=== PATIENT | female | born 1940 ===

== ENCOUNTER 2017-05-28 16:23 | Inpatient (IN) | payer MEDICARE, OTHER ==
[~2017-05-28] VITALS: Ht 167.6 cm; Wt 64.9 kg
[2017-05-28] MEDS ORDERED: METHYL SALICYLATE/MENTHOL TOPICAL OINTMENT 29GM TUBE. TP PRN (23:00)
[2017-05-28] MEDS ORDERED: MAG HYDROX/AL HYDROX/SIMETH 30 ML ORAL.SUSP PO PRN (23:00)
[2017-05-28] MEDS ORDERED: ACETAMINOPHEN 325 MG TABLET PO PRN (23:00)
[2017-05-28] MEDS ORDERED: MAGNESIUM HYDROXIDE 2,400 MG/30 ML ORAL.SUSP. PO PRN (23:00)
[2017-05-28] MEDS ORDERED: ALPR0.5T6 PO (23:30)
[2017-05-28] MEDS ORDERED: MELO7.5T29 PO (23:30)
[2017-05-28] MEDS ORDERED: ENOX40DI SQ (23:30)
[2017-05-28] MEDS ORDERED: ARIP5TAB13 PO (23:30)
[2017-05-28] MEDS ORDERED: HALO2TAB PO (23:30)
[2017-05-28] MEDS ORDERED: MAG355OR11 PO (23:30)
[2017-05-28] MEDS ORDERED: L. R1CAP2 PO (23:30)
[2017-05-28] MEDS ORDERED: ACET325T9 PO ×2 (23:30)
[2017-05-28] MEDS ORDERED: MAGN2400 PO (23:30)
[2017-05-28] MEDS ORDERED: TRAZ50TA15 PO (23:30)
[2017-05-28] MEDS ORDERED: ATOR40TA59 PO (23:30)
[2017-05-28] MEDS ORDERED: LAMO25TA PO (23:30)
[2017-05-28] MEDS ORDERED: ESCITALOPRAM OX10 MG PO (23:30)
[2017-05-28 23:39] VITALS: BP 119/83
[2017-05-29] MEDS ORDERED: PNEUMOCOCCAL VAX SCREEN. MC PRN (02:15)
[2017-05-29] MEDS ORDERED: Influenza vaccine per PROTOCOL. MC PRN (02:15)
[2017-05-29] MEDS ORDERED: MAGNESIUM HYDROXIDE 2,400 MG/30 ML ORAL.SUSP. PO PRN (05:45)
[2017-05-29] MEDS ORDERED: ACETAMINOPHEN 325 MG TABLET PO PRN (05:45)
[2017-05-29 05:48] VITALS: BP 115/69
[2017-05-29 08:28] LABS: BASO # 0.1 x10^3/uL (0.0-0.2); BASO % 1 % (0-3); EOS # 0.4 x10^3/uL (0.0-0.7); EOS % 4 % (0-3); HEMATOCRIT 38.5 % (36.0-47.0); HEMOGLOBIN 13.5 g/dL (12.0-15.5); LYMPH # 1.1 x10^3/uL (1.0-4.8); LYMPH % 12 % (24-48); MEAN CORPUSCULAR HEMOGLOBIN 33 pg (25-35); MEAN CORPUSCULAR HGB CONC 35 g/dL (31-37); MEAN CORPUSCULAR VOLUME 93 fL (79-100); MONO # 0.6 x10^3/uL (0.0-1.1); MONO % 6 % (0-9); NEUT # 7.2 x10^3uL (1.8-7.7); NEUT % 77 % (31-73); PLATELET COUNT 223 x10^3/uL (140-400); RED BLOOD COUNT 4.14 x10^6/uL (3.50-5.40); WHITE BLOOD COUNT 9.3 x10^3/uL (4.0-11.0)
[2017-05-29 08:41] LABS: ALBUMIN 3.7 g/dL (3.4-5.0); ALBUMIN/GLOBULIN RATIO 1.1 (1.0-1.7); CALCIUM 9.3 mg/dL (8.5-10.1); CREATININE 0.6 mg/dL (0.6-1.0); GFR 97.5; MAGNESIUM 1.8 mg/dL (1.8-2.4); POTASSIUM 3.3 mmol/L (3.5-5.1); TOTAL BILIRUBIN 0.7 mg/dL (0.2-1.0); TOTAL PROTEIN 7.1 g/dL (6.4-8.2)
[2017-05-29] MEDS ORDERED: PNEUMOC CONJ VACC 23-VALENT 0.5 ML VIAL. VAX IM ONE (09:00)
[2017-05-29] MEDS ORDERED: FLU VACC QS2017-18 (36MOS+)/PF 0.5 ML SYRINGE. VAX IM ONE (09:00)
[2017-05-29] MEDS ORDERED: ENOXAPARIN 40 MG/0.4 ML DISP.SYRIN. SQ SCH (09:00)
[2017-05-29] MEDS: CITALOPRAM 20 MG TABLET. PO SCH (09:42)
[2017-05-29] MEDS: ACETAMINOPHEN 325 MG TABLET PO SCH ×4 (09:42→19:45)
[2017-05-29] MEDS: lamoTRIgine 25 MG TABLET. PO SCH (09:42)
[2017-05-29] MEDS: LACTOBACILLUS RHAMNOSUS GG 1 CAPSULE. PO SCH (09:42)
[2017-05-29] MEDS: ARIPiprazole 5 MG TABLET PO SCH (09:42)
[2017-05-29] MEDS: MELOXICAM 7.5 MG TABLET PO SCH (09:42)
[2017-05-29 11:16] LABS: BILIRUBIN,URINE NEG (NEG); CLARITY,URINE HAZY; COLOR,URINE YELLOW; GLUCOSE,URINE NEG (NEG); NITRITE,URINE NEG (NEG); UROBILINOGEN,URINE 0.2 mg/dL (0.2 mg/dL)
[2017-05-29 11:17] LABS: BACTERIA,URINE 0 /HPF (0-FEW); SQUAMOUS EPITHELIAL CELL,UR FEW /LPF
[2017-05-29] MEDS ORDERED: POTASSIUM CHLORIDE 20 MEQ TABLET.ER. PO ONE (12:00)
--- NOTE | 2017-05-29 12:23 | HP ---
ADMIT DATE: 05/28/2017 REASON FOR ADMISSION TO SENIOR BEHAVIORAL UNIT: This is a 76-year-old female who came via hospitalization at [facility] in [place]. She has been verbally aggressive, function has decreased and she has had increased confusion over the last week and was recently treated for urinary tract infection. PAST MEDICAL HISTORY: Recent admission at [facility] for aggressive behavior, urinary tract infection with ESBL in her urine, dementia, bipolar disorder, anemia. MEDICATIONS: Reviewed from the hospital and reconciled by myself. ALLERGIES: PENICILLIN. PAST SURGICAL HISTORY: Unknown. SOCIAL HISTORY: The patient states she grew up in [place]. She went to [employer]. She smoked briefly. She did have a drinking problem at some point. REVIEW OF SYSTEMS: The patient has no specific complaints. Due to her confusion, could not answer pertinent questions regarding review of systems. PHYSICAL EXAMINATION: VITAL SIGNS: Blood pressure 115/69, pulse 61, respirations 18, pulse ox 97% on room air, temperature 98.4, height 66 inches, weight 134.5 pounds. GENERAL: Pleasant elderly female who is sitting in a wheelchair. HEENT: TMs were occluded by wax bilaterally. Wax was soft and easily removed. The pupils are equal, round, react to light. Extraocular muscles were intact. Vision is 20/70 without glasses. She can identify red and green colors. NECK: Supple, without adenopathy. LUNGS: Clear to auscultation. CARDIOVASCULAR: Regular rhythm and rate with a 2/6 systolic murmur. ABDOMEN: Soft, nontender. No tenderness over her bladder. EXTREMITIES: Without edema. NEUROLOGIC: Cranial nerves are intact. The patient is cooperative. MUSCULOSKELETAL: Fails get up and go test. LABORATORY DATA: Review of labs from [place] reveals still very suspicious urine for infection with too numerous to count white cells. Urinalysis today shows 5-10 white cells, small leukocyte esterase, negative nitrites. CBC: Normal white count, hemoglobin 13.5. Potassium 3.3, magnesium 1.8. ASSESSMENT: 1. Dementia with behavior disturbance. 2. Bipolar disorder. 3. Recent urinary tract infection. We will wait for culture before treating this one. 4. Hypokalemia. 5. Fall risk. 6. Impaired mobility. PLAN: Replace her potassium. Discontinue her VTE prophylaxis and PT, OT. JEANIE JOHNSON DO DR: Olivia JOB#: [id number] / [id number]
[2017-05-29 14:23] LABS: THYROID STIM HORMONE (TSH) 4.026 uIU/mL (0.358-3.740)
[2017-05-29 15:57] VITALS: BP 98/48
--- NOTE | 2017-05-29 18:25 | PDOC ---
Exam Note: Martin Note: Please also refer to the separate dictated note~for this date of service dictated separately.~Patient seen individually. Discussed the patient with Nursing staff reviewed the chart.~Reviewed interim history and current functioning. Reviewed vital signs,~Labs/ Radiology~and current medications noted below. Continue current treatment with the changes noted in the dictated addendum note Assessment: Vital Signs: Vital Signs Date Time Temp Pulse Resp B/P (MAP) Pulse Ox O2 Delivery O2 Flow Rate FiO2 05/29/17 15:57 98.6 67 20 98/48 (65) 99 Room Air Labs: Laboratory Tests Test 05/29/17 07:50 05/29/17 10:45 White Blood Count 9.3 x10^3/uL (4.0-11.0) Red Blood Count 4.14 x10^6/uL (3.50-5.40) Hemoglobin 13.5 g/dL (12.0-15.5) Hematocrit 38.5 % (36.0-47.0) Mean Corpuscular Volume 93 fL (79-100) Mean Corpuscular Hemoglobin 33 pg (25-35) Mean Corpuscular Hemoglobin Concent 35 g/dL (31-37) Red Cell Distribution Width 14.0 % (11.5-14.5) Platelet Count 223 x10^3/uL (140-400) Neutrophils (%) (Auto) 77 % (31-73) H Lymphocytes (%) (Auto) 12 % (24-48) L Monocytes (%) (Auto) 6 % (0-9) Eosinophils (%) (Auto) 4 % (0-3) H Basophils (%) (Auto) 1 % (0-3) Neutrophils # (Auto) 7.2 x10^3uL (1.8-7.7) Lymphocytes # (Auto) 1.1 x10^3/uL (1.0-4.8) Monocytes # (Auto) 0.6 x10^3/uL (0.0-1.1) Eosinophils # (Auto) 0.4 x10^3/uL (0.0-0.7) Basophils # (Auto) 0.1 x10^3/uL (0.0-0.2) Sodium Level 144 mmol/L (136-145) Potassium Level 3.3 mmol/L (3.5-5.1) L Chloride Level 108 mmol/L (98-107) H Carbon Dioxide Level 28 mmol/L (21-32) Anion Gap 8 (6-14) Blood Urea Nitrogen 10 mg/dL (7-20) Creatinine 0.6 mg/dL (0.6-1.0) Estimated GFR (Cockcroft-Gault) 97.5 BUN/Creatinine Ratio 17 (6-20) Glucose Level 96 mg/dL (70-99) Calcium Level 9.3 mg/dL (8.5-10.1) Magnesium Level 1.8 mg/dL (1.8-2.4) Iron Level 74 ug/dL (50-170) Total Iron Binding Capacity 298 ug/dL (250-450) Iron Saturation 25 % (15-34) Total Bilirubin 0.7 mg/dL (0.2-1.0) Aspartate Amino Transferase (AST) 17 U/L (15-37) Alanine Aminotransferase (ALT) 32 U/L (14-59) Alkaline Phosphatase 137 U/L (46-116) H Total Protein 7.1 g/dL (6.4-8.2) Albumin 3.7 g/dL (3.4-5.0) Albumin/Globulin Ratio 1.1 (1.0-1.7) Triglycerides Level 111 mg/dL (0-150) Cholesterol Level 129 mg/dL (0-200) LDL Cholesterol, Calculated 63 mg/dL (0-100) VLDL Cholesterol, Calculated 22 mg/dL (0-40) Non-HDL Cholesterol Calculated 85 mg/dL (0-129) HDL Cholesterol 44 mg/dL (40-60) Cholesterol/HDL Ratio 2.0 Vitamin B12 Level 378 pg/mL (247-911) 25-Hydroxy Vitamin D Total 10.5 ng/mL (30-100) L Thyroid Stimulating Hormone (TSH) 4.026 uIU/mL (0.358-3.740) Urine Collection Type Unknown Urine Color Yellow Urine Clarity Hazy Urine pH 5.5 Urine Specific [place] 1.010 Urine Protein Neg (NEG-TRACE) Urine Glucose (UA) Neg mg/dL (NEG) Urine Ketones (Stick) Neg mg/dL (NEG) Urine Blood Small (NEG) Urine Nitrite Neg (NEG) Urine Bilirubin Neg (NEG) Urine Urobilinogen Dipstick 0.2 mg/dL (0.2 mg/dL) Urine Leukocyte Esterase Small (NEG) Urine RBC 3-5 /HPF (0-2) Urine WBC 5-10 /HPF (0-4) Urine Squamous Epithelial Cells Few /LPF Urine Bacteria 0 /HPF (0-FEW) Urine Mucus Slight /LPF Current Medications: Meds: Current Medications Acetaminophen (Tylenol) 650 mg PRN Q6HRS PRN PO PAIN / TEMP; Start 05/28/17 at 23:00 Multi-Ingredient Ointment (Analgesic [place]) 1 faraz PRN QID PRN TP MUSCLE PAIN; Start 05/28/17 at 23:00 Al Hydroxide/Mg Hydroxide (Mylanta Plus Xs) 15 ml PRN AFTMEALHC PRN PO DYSPEPSIA; Start 05/28/17 at 23:00 Magnesium Hydroxide (Milk Of Magnesia) 2,400 mg PRN QHS PRN PO CONSTIPATION; Start 05/28/17 at 23:00 Alprazolam (Xanax) 0.5 mg PRN TID PRN PO ANXIETY / AGITATION; Start 05/29/17 at 00:15 Aripiprazole (Abilify) 5 mg DAILY PO Last administered on 05/29/17 09:42; Start 05/29/17 at 09:00 Haloperidol (Haldol) 1 mg PRN BID PRN PO DELIRIUM; Start 05/29/17 at 00:15 Trazodone HCl (Desyrel) 50 mg QHS PO ; Start 05/29/17 at 21:00 Citalopram Hydrobromide (CeleXA) 20 mg DAILY PO Last administered on 09:42; Start 05/29/17 at 09:00 Influenza Virus Vaccine Quadrival (Fluarix Quad [id number] Syringe) 0.5 ml ONCE ONCE VAX IM Last administered on 05/29/17 09:47; Start 05/29/17 at 09:00; Stop 05/29/17 at 09:01; Status DC Pneumococcal Polyvalent Vaccine (Pneumovax 23) 0.5 ml ONCE ONCE VAX IM Last administered on 05/29/17 09:45; Start 05/29/17 at 09:00; Stop 05/29/17 at 09 :01; Status DC Info (FLU VACCINE per PROTOCOL) 1 ea PRN 1X PRN MC PER PROTOCOL; Start at 02:15 Pneumococcal Polyvalent Vaccine (Do NOT chart on this entry -- for MONITORING) 1 each PRN 1X PRN MC SEE COMMENTS; Start 05/29/17 at 02:15 Acetaminophen (Tylenol) 650 mg PRN Q6HRS PRN PO PAIN / TEMP; Start 05/29/17 at 05:45; Stop 05/29/17 at 12:08; Status DC Acetaminophen (Tylenol) 650 mg QID PO Last administered on 05/29/17 17:00; Start 05/29/17 at 09:00 Enoxaparin Sodium (Lovenox) 40 mg DAILY SQ Last administered on 05/29/17 09: 41; Start 05/29/17 at 09:00; Stop 05/29/17 at 12:08; Status DC Lamotrigine (LaMICtal) 25 mg DAILY PO Last administered on 05/29/17 09:42; Start 05/29/17 at 09:00 Meloxicam (Mobic) 7.5 mg DAILY PO Last administered on 05/29/17 09:42; Start 05/29/17 at 09:00 Atorvastatin Calcium (Lipitor) 40 mg QHS PO ; Start 05/29/17 at 21:00 Lactobacillus Rhamnosus (Culturelle) 1 cap DAILY PO Last administered on 09:42; Start 05/29/17 at 09:00 Magnesium Hydroxide (Milk Of Magnesia) 2,400 mg PRN Q12HR PRN PO CONSTIPATION; Start 05/29/17 at 05:45; Stop 05/29/17 at 12:08; Status DC Potassium Chloride (Klor-Con) 40 meq 1X ONCE PO Last administered on 13:40; Start 05/29/17 at 12:00; Stop 05/29/17 at 12:11; Status DC Active Scripts Active Reported Trazodone Hcl 50 Mg Tablet 50 Mg PO QHS Meloxicam 7.5 Mg Tablet 7.5 Mg PO DAILY Milk Of Magnesia (Magnesium Hydroxide) 2,400 Mg/10 Ml Oral.susp 2,400 Mg PO PRN Q12HR PRN Lamotrigine 25 Mg Tablet 25 Mg PO DAILY Culturelle Capsule (L. Rhamnosus GG/Inulin) 1 Each Cap.sprink 1 Each PO DAILY Haloperidol 2 Mg Tablet 1 Mg PO PRN BID PRN Escitalopram Oxalate 10 Mg Tablet 10 Mg PO DAILY Lovenox (Enoxaparin Sodium) 40 Mg/0.4 Ml Disp.syrin 40 Mg SQ DAILY Atorvastatin Calcium 40 Mg Tablet 40 Mg PO QHS Abilify (Aripiprazole) 5 Mg Tablet 5 Mg PO DAILY Maalox Advanced Suspension (Mag Hydrox/Aluminum Hyd/Simeth) 355 Ml Oral.susp 30 Ml PO PRN Q3HRS PRN Alprazolam 0.5 Mg Tablet 0.5 Mg PO PRN TID PRN Tylenol (Acetaminophen) 325 Mg Tablet 650 Mg PO PRN Q6HRS PRN Tylenol (Acetaminophen) 325 Mg Tablet 650 Mg PO QID I have reviewed the current psychotropics carefully including drug interactions. Risk benefit ratio favors no change other than as noted in my dictated progress note. Diagnosis: Problems: (1) Anxiety disorder (2) Dementia in Alzheimer's disease with delusions (3) Dementia in Alzheimer's disease with depression (4) Dementia, vascular, with delusions (5) Dementia, vascular, with depression (6) Impulse control disorder (7) Bipolar 1 disorder, mixed, moderate CHARLEY MCCLURE MD May 29, 2017 18:25
[2017-05-29] MEDS: traZODone 50 MG TABLET. PO SCH (19:45)
[2017-05-29] MEDS: ATORVASTATIN CALCIUM 20 MG TABLET PO SCH (19:45)
--- NOTE | 2017-05-29 19:48 | PDOC ---
Exam Note: Martin Note: Please also refer to the separate dictated note~for this date of service dictated separately.~Patient seen individually. Discussed the patient with Nursing staff reviewed the chart.~Reviewed interim history and current functioning. Reviewed vital signs,~Labs/ Radiology~and current medications noted below. Continue current treatment with the changes noted in the dictated addendum note Assessment: Vital Signs: Vital Signs Date Time Temp Pulse Resp B/P (MAP) Pulse Ox O2 Delivery O2 Flow Rate FiO2 05/29/17 15:57 98.6 67 20 98/48 (65) 99 Room Air Labs: Laboratory Tests Test 05/29/17 07:50 05/29/17 10:45 White Blood Count 9.3 x10^3/uL (4.0-11.0) Red Blood Count 4.14 x10^6/uL (3.50-5.40) Hemoglobin 13.5 g/dL (12.0-15.5) Hematocrit 38.5 % (36.0-47.0) Mean Corpuscular Volume 93 fL (79-100) Mean Corpuscular Hemoglobin 33 pg (25-35) Mean Corpuscular Hemoglobin Concent 35 g/dL (31-37) Red Cell Distribution Width 14.0 % (11.5-14.5) Platelet Count 223 x10^3/uL (140-400) Neutrophils (%) (Auto) 77 % (31-73) H Lymphocytes (%) (Auto) 12 % (24-48) L Monocytes (%) (Auto) 6 % (0-9) Eosinophils (%) (Auto) 4 % (0-3) H Basophils (%) (Auto) 1 % (0-3) Neutrophils # (Auto) 7.2 x10^3uL (1.8-7.7) Lymphocytes # (Auto) 1.1 x10^3/uL (1.0-4.8) Monocytes # (Auto) 0.6 x10^3/uL (0.0-1.1) Eosinophils # (Auto) 0.4 x10^3/uL (0.0-0.7) Basophils # (Auto) 0.1 x10^3/uL (0.0-0.2) Sodium Level 144 mmol/L (136-145) Potassium Level 3.3 mmol/L (3.5-5.1) L Chloride Level 108 mmol/L (98-107) H Carbon Dioxide Level 28 mmol/L (21-32) Anion Gap 8 (6-14) Blood Urea Nitrogen 10 mg/dL (7-20) Creatinine 0.6 mg/dL (0.6-1.0) Estimated GFR (Cockcroft-Gault) 97.5 BUN/Creatinine Ratio 17 (6-20) Glucose Level 96 mg/dL (70-99) Calcium Level 9.3 mg/dL (8.5-10.1) Magnesium Level 1.8 mg/dL (1.8-2.4) Iron Level 74 ug/dL (50-170) Total Iron Binding Capacity 298 ug/dL (250-450) Iron Saturation 25 % (15-34) Total Bilirubin 0.7 mg/dL (0.2-1.0) Aspartate Amino Transferase (AST) 17 U/L (15-37) Alanine Aminotransferase (ALT) 32 U/L (14-59) Alkaline Phosphatase 137 U/L (46-116) H Total Protein 7.1 g/dL (6.4-8.2) Albumin 3.7 g/dL (3.4-5.0) Albumin/Globulin Ratio 1.1 (1.0-1.7) Triglycerides Level 111 mg/dL (0-150) Cholesterol Level 129 mg/dL (0-200) LDL Cholesterol, Calculated 63 mg/dL (0-100) VLDL Cholesterol, Calculated 22 mg/dL (0-40) Non-HDL Cholesterol Calculated 85 mg/dL (0-129) HDL Cholesterol 44 mg/dL (40-60) Cholesterol/HDL Ratio 2.0 Vitamin B12 Level 378 pg/mL (247-911) 25-Hydroxy Vitamin D Total 10.5 ng/mL (30-100) L Thyroid Stimulating Hormone (TSH) 4.026 uIU/mL (0.358-3.740) Urine Collection Type Unknown Urine Color Yellow Urine Clarity Hazy Urine pH 5.5 Urine Specific [place] 1.010 Urine Protein Neg (NEG-TRACE) Urine Glucose (UA) Neg mg/dL (NEG) Urine Ketones (Stick) Neg mg/dL (NEG) Urine Blood Small (NEG) Urine Nitrite Neg (NEG) Urine Bilirubin Neg (NEG) Urine Urobilinogen Dipstick 0.2 mg/dL (0.2 mg/dL) Urine Leukocyte Esterase Small (NEG) Urine RBC 3-5 /HPF (0-2) Urine WBC 5-10 /HPF (0-4) Urine Squamous Epithelial Cells Few /LPF Urine Bacteria 0 /HPF (0-FEW) Urine Mucus Slight /LPF Current Medications: Meds: Current Medications Acetaminophen (Tylenol) 650 mg PRN Q6HRS PRN PO PAIN / TEMP; Start 05/28/17 at 23:00 Multi-Ingredient Ointment (Analgesic [place]) 1 faraz PRN QID PRN TP MUSCLE PAIN; Start 05/28/17 at 23:00 Al Hydroxide/Mg Hydroxide (Mylanta Plus Xs) 15 ml PRN AFTMEALHC PRN PO DYSPEPSIA; Start 05/28/17 at 23:00 Magnesium Hydroxide (Milk Of Magnesia) 2,400 mg PRN QHS PRN PO CONSTIPATION; Start 05/28/17 at 23:00 Alprazolam (Xanax) 0.5 mg PRN TID PRN PO ANXIETY / AGITATION; Start 05/29/17 at 00:15 Aripiprazole (Abilify) 5 mg DAILY PO Last administered on 05/29/17 09:42; Start 05/29/17 at 09:00 Haloperidol (Haldol) 1 mg PRN BID PRN PO DELIRIUM; Start 05/29/17 at 00:15 Trazodone HCl (Desyrel) 50 mg QHS PO Last administered on 05/29/17 19:45; Start 05/29/17 at 21:00 Citalopram Hydrobromide (CeleXA) 20 mg DAILY PO Last administered on 09:42; Start 05/29/17 at 09:00 Influenza Virus Vaccine Quadrival (Fluarix Quad [id number] Syringe) 0.5 ml ONCE ONCE VAX IM Last administered on 05/29/17 09:47; Start 05/29/17 at 09:00; Stop 05/29/17 at 09:01; Status DC Pneumococcal Polyvalent Vaccine (Pneumovax 23) 0.5 ml ONCE ONCE VAX IM Last administered on 05/29/17 09:45; Start 05/29/17 at 09:00; Stop 05/29/17 at 09 :01; Status DC Info (FLU VACCINE per PROTOCOL) 1 ea PRN 1X PRN MC PER PROTOCOL; Start at 02:15 Pneumococcal Polyvalent Vaccine (Do NOT chart on this entry -- for MONITORING) 1 each PRN 1X PRN MC SEE COMMENTS; Start 05/29/17 at 02:15 Acetaminophen (Tylenol) 650 mg PRN Q6HRS PRN PO PAIN / TEMP; Start 05/29/17 at 05:45; Stop 05/29/17 at 12:08; Status DC Acetaminophen (Tylenol) 650 mg QID PO Last administered on 05/29/17 19:45; Start 05/29/17 at 09:00 Enoxaparin Sodium (Lovenox) 40 mg DAILY SQ Last administered on 05/29/17 09: 41; Start 05/29/17 at 09:00; Stop 05/29/17 at 12:08; Status DC Lamotrigine (LaMICtal) 25 mg DAILY PO Last administered on 05/29/17 09:42; Start 05/29/17 at 09:00 Meloxicam (Mobic) 7.5 mg DAILY PO Last administered on 05/29/17 09:42; Start 05/29/17 at 09:00 Atorvastatin Calcium (Lipitor) 40 mg QHS PO Last administered on 05/29/17 19: 45; Start 05/29/17 at 21:00 Lactobacillus Rhamnosus (Culturelle) 1 cap DAILY PO Last administered on 09:42; Start 05/29/17 at 09:00 Magnesium Hydroxide (Milk Of Magnesia) 2,400 mg PRN Q12HR PRN PO CONSTIPATION; Start 05/29/17 at 05:45; Stop 05/29/17 at 12:08; Status DC Potassium Chloride (Klor-Con) 40 meq 1X ONCE PO Last administered on 13:40; Start 05/29/17 at 12:00; Stop 05/29/17 at 12:11; Status DC Active Scripts Active Reported Trazodone Hcl 50 Mg Tablet 50 Mg PO QHS Meloxicam 7.5 Mg Tablet 7.5 Mg PO DAILY Milk Of Magnesia (Magnesium Hydroxide) 2,400 Mg/10 Ml Oral.susp 2,400 Mg PO PRN Q12HR PRN Lamotrigine 25 Mg Tablet 25 Mg PO DAILY Culturelle Capsule (L. Rhamnosus GG/Inulin) 1 Each Cap.sprink 1 Each PO DAILY Haloperidol 2 Mg Tablet 1 Mg PO PRN BID PRN Escitalopram Oxalate 10 Mg Tablet 10 Mg PO DAILY Lovenox (Enoxaparin Sodium) 40 Mg/0.4 Ml Disp.syrin 40 Mg SQ DAILY Atorvastatin Calcium 40 Mg Tablet 40 Mg PO QHS Abilify (Aripiprazole) 5 Mg Tablet 5 Mg PO DAILY Maalox Advanced Suspension (Mag Hydrox/Aluminum Hyd/Simeth) 355 Ml Oral.susp 30 Ml PO PRN Q3HRS PRN Alprazolam 0.5 Mg Tablet 0.5 Mg PO PRN TID PRN Tylenol (Acetaminophen) 325 Mg Tablet 650 Mg PO PRN Q6HRS PRN Tylenol (Acetaminophen) 325 Mg Tablet 650 Mg PO QID I have reviewed the current psychotropics carefully including drug interactions. Risk benefit ratio favors no change other than as noted in my dictated progress note. Diagnosis: Problems: (1) Anxiety disorder (2) Impulse control disorder (3) Dementia, vascular, with depression (4) Dementia, vascular, with delusions (5) Bipolar 1 disorder, mixed, moderate (6) Dementia in Alzheimer's disease with depression (7) Dementia in Alzheimer's disease with delusions CHARLEY MCCLURE MD May 29, 2017 19:48
[2017-05-29 20:14] LABS: T3 TOTAL 117 ng/dL (71-180); THYROXINE 8.1 ug/dL (4.5-12.0)
[2017-05-30 01:07] LABS: HEMOGLOBIN A1C 5.3 % (4.8-5.6)
--- NOTE | 2017-05-30 03:49 | HP ---
ADMIT DATE: 05/29/2017 PSYCHIATRIC ADMISSION HISTORY/EVALUATION This note covers elements not covered in my initial note of 05/29/2017. IDENTIFYING DATA: The patient is a 76-year-old female admitted to us from the medical/surgical floor [facility] in [place] referred by her primary care physician on account of worsening confusion, verbal aggression, yelling, verbally abusive, labile in her mood, delusional, screaming to call the police that somebody had abducted her, crying uncontrollably. She had failed outpatient treatment and had initially been referred to [facility] from the Memory Care Unit at [facility] in [place]. CHIEF COMPLAINT: "There is no problem with my memory ____ have told me in the past, I have bipolar disorder." The patient is admitted by her legal guardian Diana Parker. HISTORY OF PRESENT ILLNESS: The patient has a history of dementia, Alzheimer's, vascular type and history of bipolar disorder. She has been residing at [facility] recently getting increasingly agitated, aggressive, delusional. Her behaviors have been dangerous at the [facility], unmanageable, and failed outpatient psychiatric interventions resulting in the referral to [facility] in [place]. She was diagnosed there with an UTI, which was treated, but even after resolution of UTI, behaviors persisted with marked mood lability, psychosis, agitation, aggression, resulting in this referral. Per nursing report, during the day on 05/29/2017, she has marked variation of mood varying from using the F word with the nursing staff 1 minute to the next minute. Referring to them as "hi honey." PAST MEDICAL HISTORY: Positive for anemia, dementia, and UTI. ALLERGIES: PENICILLIN. CODE STATUS: She is a full code. ACCU-CHEKS: None. DIET: Regular. Takes her medications as a whole. Repeat UA on 05/28/2017, has reflex to culture. CURRENT PSYCHOTROPICS: Xanax 0.5 mg t.i.d. p.r.n., Abilify 5 mg a day, Haldol 1 mg b.i.d. p.r.n., Lexapro 10 mg a day, Lamictal 25 mg b.i.d., and trazodone 50 mg at bedtime. FAMILY HISTORY: Noncontributory. SOCIAL HISTORY: No alcohol, drug abuse, physical, sexual or elder abuse history is noted. Not known to be a perpetrator. MENTAL STATUS EXAMINATION: The patient was seen individually the evening of 05/29/2017. She states she has no memory problems, but was unaware of the year, month or date or the place where she was. She is unable to do serial sevens, spell "world" forward or backward, somewhat labile in her mood, hyperverbal at times. Insight, judgment, recent and remote memory, attention, concentration, fund of knowledge poor, consistent with her diagnosis. REACTION TO HOSPITALIZATION: The patient is oblivious of this. ASSETS: Supportive legal guardian. Stable living at the above [facility]. IMPRESSION: Major neurocognitive disorder, Alzheimer, vascular with depression, delusion, behavioral disturbance; anxiety disorder, unspecified; impulse control disorder, unspecified; bipolar 1 disorder mixed with psychotic features. Rest as above including possible urinary tract infection. PLAN: Admit to Geropsychiatry Unit at [facility]. I will see the patient daily individually from a psychiatric standpoint. We would continue the patient on her current psychotropics. Medical followup per Dr. Marie/Dr. Styles. We will have a CT head done if one has not been done in the recent past. Further changes in psychotropics will be initiated after baseline assessment. MAN Sean MCCLURE MD DR: IRENE/bora JOB#: [id number] / [id number]
[2017-05-30 05:53] VITALS: BP 114/68
[2017-05-30] MEDS: CITALOPRAM 20 MG TABLET. PO SCH (08:34)
[2017-05-30] MEDS: MELOXICAM 7.5 MG TABLET PO SCH ×2 (08:34→09:50)
[2017-05-30] MEDS: LACTOBACILLUS RHAMNOSUS GG 1 CAPSULE. PO SCH (08:34)
[2017-05-30] MEDS: lamoTRIgine 25 MG TABLET. PO SCH (08:34)
[2017-05-30] MEDS: ACETAMINOPHEN 325 MG TABLET PO SCH ×4 (08:34→19:20)
[2017-05-30] MEDS: ARIPiprazole 5 MG TABLET PO SCH (08:34)
--- NOTE | 2017-05-30 13:04 | EKG ---
[facility] [address] [place] [address] Test Date: 2017-05-29 Test Time: 12:57:22 Pat Name: BENIGNO MORALES Department: Room: [address] [place] [address] Gender: Content Manager: : 1940 Requested By: CHARLEY MCCLURE Order Number: [id number] Reading MD: Kian Belcher Measurements Intervals [place]over Rate: P: MT: QRS: QRSD: T: QT: QTc: Interpretive Statements No previous ECG available for comparison Electronically Signed On 06-06-2017 9:26:26 [employer] STRAIGHT[employer] by Kian Belcher
[2017-05-30] MEDS: ALPRAZolam 0.5 MG TABLET PO PRN (15:25)
[2017-05-30 15:55] VITALS: BP 137/67
--- NOTE | 2017-05-30 17:43 | PDOC ---
Exam Note: Martin Note: Please also refer to the separate dictated note~for this date of service dictated separately.~Patient seen individually. Discussed the patient with Nursing staff reviewed the chart.~Reviewed interim history and current functioning. Reviewed vital signs,~Labs/ Radiology~and current medications noted below. Continue current treatment with the changes noted in the dictated addendum note Assessment: Vital Signs: Vital Signs Date Time Temp Pulse Resp B/P (MAP) Pulse Ox O2 Delivery O2 Flow Rate FiO2 05/30/17 15:55 99.7 85 20 137/67 (90) 96 05/29/17 15:57 Room Air I&O Intake and Output 05/30/17 06:59 Intake Total 780 ml Balance 780 ml Intake Oral 780 ml Current Medications: Meds: Current Medications Acetaminophen (Tylenol) 650 mg PRN Q6HRS PRN PO PAIN / TEMP; Start 05/28/17 at 23:00 Multi-Ingredient Ointment (Analgesic [place]) 1 faraz PRN QID PRN TP MUSCLE PAIN; Start 05/28/17 at 23:00 Al Hydroxide/Mg Hydroxide (Mylanta Plus Xs) 15 ml PRN AFTMEALHC PRN PO DYSPEPSIA; Start 05/28/17 at 23:00 Magnesium Hydroxide (Milk Of Magnesia) 2,400 mg PRN QHS PRN PO CONSTIPATION; Start 05/28/17 at 23:00 Alprazolam (Xanax) 0.5 mg PRN TID PRN PO ANXIETY / AGITATION Last administered on 05/30/17 15:25; Start 05/29/17 at 00:15 Aripiprazole (Abilify) 5 mg DAILY PO Last administered on 05/30/17 08:34; Start 05/29/17 at 09:00; Stop 05/30/17 at 17:17; Status DC Haloperidol (Haldol) 1 mg PRN BID PRN PO DELIRIUM; Start 05/29/17 at 00:15 Trazodone HCl (Desyrel) 50 mg QHS PO Last administered on 05/29/17 19:45; Start 05/29/17 at 21:00 Citalopram Hydrobromide (CeleXA) 20 mg DAILY PO Last administered on 08:34; Start 05/29/17 at 09:00 Influenza Virus Vaccine Quadrival (Fluarix Quad [id number] Syringe) 0.5 ml ONCE ONCE VAX IM Last administered on 05/29/17 09:47; Start 05/29/17 at 09:00; Stop 05/29/17 at 09:01; Status DC Pneumococcal Polyvalent Vaccine (Pneumovax 23) 0.5 ml ONCE ONCE VAX IM Last administered on 05/29/17 09:45; Start 05/29/17 at 09:00; Stop 05/29/17 at 09 :01; Status DC Info (FLU VACCINE per PROTOCOL) 1 ea PRN 1X PRN MC PER PROTOCOL; Start at 02:15 Pneumococcal Polyvalent Vaccine (Do NOT chart on this entry -- for MONITORING) 1 each PRN 1X PRN MC SEE COMMENTS; Start 05/29/17 at 02:15 Acetaminophen (Tylenol) 650 mg PRN Q6HRS PRN PO PAIN / TEMP; Start 05/29/17 at 05:45; Stop 05/29/17 at 12:08; Status DC Acetaminophen (Tylenol) 650 mg QID PO Last administered on 05/30/17 17:37; Start 05/29/17 at 09:00 Enoxaparin Sodium (Lovenox) 40 mg DAILY SQ Last administered on 05/29/17 09: 41; Start 05/29/17 at 09:00; Stop 05/29/17 at 12:08; Status DC Lamotrigine (LaMICtal) 25 mg DAILY PO Last administered on 05/30/17 08:34; Start 05/29/17 at 09:00 Meloxicam (Mobic) 7.5 mg DAILY PO Last administered on 05/30/17 09:50; Start 05/29/17 at 09:00 Atorvastatin Calcium (Lipitor) 40 mg QHS PO Last administered on 05/29/17 19: 45; Start 05/29/17 at 21:00 Lactobacillus Rhamnosus (Culturelle) 1 cap DAILY PO Last administered on 08:34; Start 05/29/17 at 09:00 Magnesium Hydroxide (Milk Of Magnesia) 2,400 mg PRN Q12HR PRN PO CONSTIPATION; Start 05/29/17 at 05:45; Stop 05/29/17 at 12:08; Status DC Potassium Chloride (Klor-Con) 40 meq 1X ONCE PO Last administered on t 13:40; Start 05/29/17 at 12:00; Stop 05/29/17 at 12:11; Status DC Quetiapine Fumarate (SEROquel) 12.5 mg BID@0900,1300 PO ; Start 05/31/17 at 09: 00 Active Scripts Active Reported Trazodone Hcl 50 Mg Tablet 50 Mg PO QHS Meloxicam 7.5 Mg Tablet 7.5 Mg PO DAILY Milk Of Magnesia (Magnesium Hydroxide) 2,400 Mg/10 Ml Oral.susp 2,400 Mg PO PRN Q12HR PRN Lamotrigine 25 Mg Tablet 25 Mg PO DAILY Culturelle Capsule (L. Rhamnosus GG/Inulin) 1 Each Cap.sprink 1 Each PO DAILY Haloperidol 2 Mg Tablet 1 Mg PO PRN BID PRN Escitalopram Oxalate 10 Mg Tablet 10 Mg PO DAILY Lovenox (Enoxaparin Sodium) 40 Mg/0.4 Ml Disp.syrin 40 Mg SQ DAILY Atorvastatin Calcium 40 Mg Tablet 40 Mg PO QHS Abilify (Aripiprazole) 5 Mg Tablet 5 Mg PO DAILY Maalox Advanced Suspension (Mag Hydrox/Aluminum Hyd/Simeth) 355 Ml Oral.susp 30 Ml PO PRN Q3HRS PRN Alprazolam 0.5 Mg Tablet 0.5 Mg PO PRN TID PRN Tylenol (Acetaminophen) 325 Mg Tablet 650 Mg PO PRN Q6HRS PRN Tylenol (Acetaminophen) 325 Mg Tablet 650 Mg PO QID I have reviewed the current psychotropics carefully including drug interactions. Risk benefit ratio favors no change other than as noted in my dictated progress note. 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
[2017-05-30] MEDS: ATORVASTATIN CALCIUM 20 MG TABLET PO SCH (19:20)
[2017-05-30] MEDS: traZODone 50 MG TABLET. PO SCH (19:20)
--- NOTE | 2017-05-30 19:47 | PDOC ---
Exam Note: Martin Note: Please also refer to the separate dictated note~for this date of service dictated separately.~Patient seen individually. Discussed the patient with Nursing staff reviewed the chart.~Reviewed interim history and current functioning. Reviewed vital signs,~Labs/ Radiology~and current medications noted below. Continue current treatment with the changes noted in the dictated addendum note Assessment: Vital Signs: Vital Signs Date Time Temp Pulse Resp B/P (MAP) Pulse Ox O2 Delivery O2 Flow Rate FiO2 05/30/17 15:55 99.7 85 20 137/67 (90) 96 05/29/17 15:57 Room Air I&O Intake and Output 05/30/17 07:00 Intake Total 780 ml Balance 780 ml Intake Oral 780 ml Current Medications: Meds: Current Medications Acetaminophen (Tylenol) 650 mg PRN Q6HRS PRN PO PAIN / TEMP; Start 05/28/17 at 23:00 Multi-Ingredient Ointment (Analgesic [place]) 1 faraz PRN QID PRN TP MUSCLE PAIN; Start 05/28/17 at 23:00 Al Hydroxide/Mg Hydroxide (Mylanta Plus Xs) 15 ml PRN AFTMEALHC PRN PO DYSPEPSIA; Start 05/28/17 at 23:00 Magnesium Hydroxide (Milk Of Magnesia) 2,400 mg PRN QHS PRN PO CONSTIPATION; Start 05/28/17 at 23:00 Alprazolam (Xanax) 0.5 mg PRN TID PRN PO ANXIETY / AGITATION Last administered on 05/30/17 15:25; Start 05/29/17 at 00:15 Aripiprazole (Abilify) 5 mg DAILY PO Last administered on 05/30/17 08:34; Start 05/29/17 at 09:00; Stop 05/30/17 at 17:17; Status DC Haloperidol (Haldol) 1 mg PRN BID PRN PO DELIRIUM; Start 05/29/17 at 00:15 Trazodone HCl (Desyrel) 50 mg QHS PO Last administered on 05/30/17 19:20; Start 05/29/17 at 21:00 Citalopram Hydrobromide (CeleXA) 20 mg DAILY PO Last administered on 08:34; Start 05/29/17 at 09:00 Influenza Virus Vaccine Quadrival (Fluarix Quad [id number] Syringe) 0.5 ml ONCE ONCE VAX IM Last administered on 05/29/17 09:47; Start 05/29/17 at 09:00; Stop 05/29/17 at 09:01; Status DC Pneumococcal Polyvalent Vaccine (Pneumovax 23) 0.5 ml ONCE ONCE VAX IM Last administered on 05/29/17 09:45; Start 05/29/17 at 09:00; Stop 05/29/17 at 09 :01; Status DC Info (FLU VACCINE per PROTOCOL) 1 ea PRN 1X PRN MC PER PROTOCOL; Start at 02:15 Pneumococcal Polyvalent Vaccine (Do NOT chart on this entry -- for MONITORING) 1 each PRN 1X PRN MC SEE COMMENTS; Start 05/29/17 at 02:15 Acetaminophen (Tylenol) 650 mg PRN Q6HRS PRN PO PAIN / TEMP; Start 05/29/17 at 05:45; Stop 05/29/17 at 12:08; Status DC Acetaminophen (Tylenol) 650 mg QID PO Last administered on 05/30/17 19:20; Start 05/29/17 at 09:00 Enoxaparin Sodium (Lovenox) 40 mg DAILY SQ Last administered on 05/29/17 09: 41; Start 05/29/17 at 09:00; Stop 05/29/17 at 12:08; Status DC Lamotrigine (LaMICtal) 25 mg DAILY PO Last administered on 05/30/17 08:34; Start 05/29/17 at 09:00 Meloxicam (Mobic) 7.5 mg DAILY PO Last administered on 05/30/17 09:50; Start 05/29/17 at 09:00 Atorvastatin Calcium (Lipitor) 40 mg QHS PO Last administered on 05/30/17 19: 20; Start 05/29/17 at 21:00 Lactobacillus Rhamnosus (Culturelle) 1 cap DAILY PO Last administered on 08:34; Start 05/29/17 at 09:00 Magnesium Hydroxide (Milk Of Magnesia) 2,400 mg PRN Q12HR PRN PO CONSTIPATION; Start 05/29/17 at 05:45; Stop 05/29/17 at 12:08; Status DC Potassium Chloride (Klor-Con) 40 meq 1X ONCE PO Last administered on t 13:40; Start 05/29/17 at 12:00; Stop 05/29/17 at 12:11; Status DC Quetiapine Fumarate (SEROquel) 12.5 mg BID@0900,1300 PO ; Start 05/31/17 at 09: 00 Active Scripts Active Reported Trazodone Hcl 50 Mg Tablet 50 Mg PO QHS Meloxicam 7.5 Mg Tablet 7.5 Mg PO DAILY Milk Of Magnesia (Magnesium Hydroxide) 2,400 Mg/10 Ml Oral.susp 2,400 Mg PO PRN Q12HR PRN Lamotrigine 25 Mg Tablet 25 Mg PO DAILY Culturelle Capsule (L. Rhamnosus GG/Inulin) 1 Each Cap.sprink 1 Each PO DAILY Haloperidol 2 Mg Tablet 1 Mg PO PRN BID PRN Escitalopram Oxalate 10 Mg Tablet 10 Mg PO DAILY Lovenox (Enoxaparin Sodium) 40 Mg/0.4 Ml Disp.syrin 40 Mg SQ DAILY Atorvastatin Calcium 40 Mg Tablet 40 Mg PO QHS Abilify (Aripiprazole) 5 Mg Tablet 5 Mg PO DAILY Maalox Advanced Suspension (Mag Hydrox/Aluminum Hyd/Simeth) 355 Ml Oral.susp 30 Ml PO PRN Q3HRS PRN Alprazolam 0.5 Mg Tablet 0.5 Mg PO PRN TID PRN Tylenol (Acetaminophen) 325 Mg Tablet 650 Mg PO PRN Q6HRS PRN Tylenol (Acetaminophen) 325 Mg Tablet 650 Mg PO QID I have reviewed the current psychotropics carefully including drug interactions. Risk benefit ratio favors no change other than as noted in my dictated progress note. Diagnosis: Problems: (1) Anxiety disorder (2) Impulse control disorder (3) Dementia, vascular, with depression (4) Dementia, vascular, with delusions (5) Bipolar 1 disorder, mixed, moderate (6) Dementia in Alzheimer's disease with depression (7) Dementia in Alzheimer's disease with delusions CHARLEY MCCLURE MD May 30, 2017 19:47
[2017-05-31 06:00] VITALS: BP 119/67
[2017-05-31] MEDS: lamoTRIgine 25 MG TABLET. PO SCH (08:00)
[2017-05-31] MEDS: CITALOPRAM 20 MG TABLET. PO SCH (08:00)
[2017-05-31] MEDS: LACTOBACILLUS RHAMNOSUS GG 1 CAPSULE. PO SCH (08:00)
[2017-05-31] MEDS: QUEtiapine 25 MG TABLET. PO SCH ×2 (08:01→13:22)
[2017-05-31] MEDS: ACETAMINOPHEN 325 MG TABLET PO SCH ×4 (08:02→19:27)
[2017-05-31] MEDS: CHOLECALCIFEROL (VITAMIN D3) 50,000 UNIT CAPSULE PO SCH (13:22)
[2017-05-31 15:48] VITALS: BP 106/51
[2017-05-31] MEDS: CYANOCOBALAMIN (VITAMIN B-12) 250 MCG TABLET PO SCH (17:13)
[2017-05-31] MEDS: HALOPERIDOL 1 MG TABLET PO PRN (17:14)
--- NOTE | 2017-05-31 19:09 | PDOC ---
Exam Note: Martin Note: Please also refer to the separate dictated note~for this date of service dictated separately.~Patient seen individually. Discussed the patient with Nursing staff reviewed the chart.~Reviewed interim history and current functioning. Reviewed vital signs,~Labs/ Radiology~and current medications noted below. Continue current treatment with the changes noted in the dictated addendum note Assessment: Vital Signs: Vital Signs Date Time Temp Pulse Resp B/P (MAP) Pulse Ox O2 Delivery O2 Flow Rate FiO2 05/31/17 15:48 98.7 62 18 106/51 (69) 97 05/29/17 15:57 Room Air I&O Intake and Output 05/31/17 06:59 Intake Total 1080 ml Balance 1080 ml Intake Oral 1080 ml # Bowel Movements 1 Current Medications: Meds: Current Medications Acetaminophen (Tylenol) 650 mg PRN Q6HRS PRN PO PAIN / TEMP; Start 05/28/17 at 23:00 Multi-Ingredient Ointment (Analgesic [place]) 1 faraz PRN QID PRN TP MUSCLE PAIN; Start 05/28/17 at 23:00 Al Hydroxide/Mg Hydroxide (Mylanta Plus Xs) 15 ml PRN AFTMEALHC PRN PO DYSPEPSIA; Start 05/28/17 at 23:00 Magnesium Hydroxide (Milk Of Magnesia) 2,400 mg PRN QHS PRN PO CONSTIPATION; Start 05/28/17 at 23:00 Alprazolam (Xanax) 0.5 mg PRN TID PRN PO ANXIETY / AGITATION Last administered on 05/30/17 15:25; Start 05/29/17 at 00:15 Aripiprazole (Abilify) 5 mg DAILY PO Last administered on 05/30/17 08:34; Start 05/29/17 at 09:00; Stop 05/30/17 at 17:17; Status DC Haloperidol (Haldol) 1 mg PRN BID PRN PO DELIRIUM Last administered on 17:14; Start 05/29/17 at 00:15 Trazodone HCl (Desyrel) 50 mg QHS PO Last administered on 05/30/17 19:20; Start 05/29/17 at 21:00 Citalopram Hydrobromide (CeleXA) 20 mg DAILY PO Last administered on 08:00; Start 05/29/17 at 09:00 Influenza Virus Vaccine Quadrival (Fluarix Quad [id number] Syringe) 0.5 ml ONCE ONCE VAX IM Last administered on 05/29/17 09:47; Start 05/29/17 at 09:00; Stop 05/29/17 at 09:01; Status DC Pneumococcal Polyvalent Vaccine (Pneumovax 23) 0.5 ml ONCE ONCE VAX IM Last administered on 05/29/17 09:45; Start 05/29/17 at 09:00; Stop 05/31/17 at 14 :59; Status DC Info (FLU VACCINE per PROTOCOL) 1 ea PRN 1X PRN MC PER PROTOCOL; Start at 02:15; Status Cancel Pneumococcal Polyvalent Vaccine (Do NOT chart on this entry -- for MONITORING) 1 each PRN 1X PRN MC SEE COMMENTS; Start 05/29/17 at 02:15; Status Cancel Acetaminophen (Tylenol) 650 mg PRN Q6HRS PRN PO PAIN / TEMP; Start 05/29/17 at 05:45; Stop 05/29/17 at 12:08; Status DC Acetaminophen (Tylenol) 650 mg QID PO Last administered on 05/31/17 17:14; Start 05/29/17 at 09:00 Enoxaparin Sodium (Lovenox) 40 mg DAILY SQ Last administered on 05/29/17 09: 41; Start 05/29/17 at 09:00; Stop 05/29/17 at 12:08; Status DC Lamotrigine (LaMICtal) 25 mg DAILY PO Last administered on 05/31/17 08:00; Start 05/29/17 at 09:00 Meloxicam (Mobic) 7.5 mg DAILY PO Last administered on 05/30/17 09:50; Start 05/29/17 at 09:00 Atorvastatin Calcium (Lipitor) 40 mg QHS PO Last administered on 05/30/17 19: 20; Start 05/29/17 at 21:00 Lactobacillus Rhamnosus (Culturelle) 1 cap DAILY PO Last administered on 08:00; Start 05/29/17 at 09:00 Magnesium Hydroxide (Milk Of Magnesia) 2,400 mg PRN Q12HR PRN PO CONSTIPATION; Start 05/29/17 at 05:45; Stop 05/29/17 at 12:08; Status DC Potassium Chloride (Klor-Con) 40 meq 1X ONCE PO Last administered on 13:40; Start 05/29/17 at 12:00; Stop 05/29/17 at 12:11; Status DC Quetiapine Fumarate (SEROquel) 12.5 mg BID@0900,1300 PO Last administered on 13:22; Start 05/31/17 at 09:00 Cyanocobalamin (Vitamin B-12) 250 mcg DAILYBFRSUP PO Last administered on 05/31 17:13; Start 05/31/17 at 17:00 Vitamin D (Vitamin D3) 50,000 unit WEEKLY PO Last administered on 05/31/17 13 :22; Start 05/31/17 at 11:45 Active Scripts Active Reported Trazodone Hcl 50 Mg Tablet 50 Mg PO QHS Meloxicam 7.5 Mg Tablet 7.5 Mg PO DAILY Milk Of Magnesia (Magnesium Hydroxide) 2,400 Mg/10 Ml Oral.susp 2,400 Mg PO PRN Q12HR PRN Lamotrigine 25 Mg Tablet 25 Mg PO DAILY Culturelle Capsule (L. Rhamnosus GG/Inulin) 1 Each Cap.sprink 1 Each PO DAILY Haloperidol 2 Mg Tablet 1 Mg PO PRN BID PRN Escitalopram Oxalate 10 Mg Tablet 10 Mg PO DAILY Lovenox (Enoxaparin Sodium) 40 Mg/0.4 Ml Disp.syrin 40 Mg SQ DAILY Atorvastatin Calcium 40 Mg Tablet 40 Mg PO QHS Abilify (Aripiprazole) 5 Mg Tablet 5 Mg PO DAILY Maalox Advanced Suspension (Mag Hydrox/Aluminum Hyd/Simeth) 355 Ml Oral.susp 30 Ml PO PRN Q3HRS PRN Alprazolam 0.5 Mg Tablet 0.5 Mg PO PRN TID PRN Tylenol (Acetaminophen) 325 Mg Tablet 650 Mg PO PRN Q6HRS PRN Tylenol (Acetaminophen) 325 Mg Tablet 650 Mg PO QID I have reviewed the current psychotropics carefully including drug interactions. Risk benefit ratio favors no change other than as noted in my dictated progress note. 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
[2017-05-31] MEDS: ATORVASTATIN CALCIUM 20 MG TABLET PO SCH (19:27)
[2017-05-31] MEDS: traZODone 50 MG TABLET. PO SCH (19:27)
[2017-05-31] MEDS: ALPRAZolam 0.5 MG TABLET PO PRN (21:30)
--- NOTE | 2017-06-01 02:03 | PN ---
DATE: 05/30/2017 This late entry 05/30/2017 covers elements not covered in my initial note of 05/30/2017. I met with the patient evening of 05/30/2017. The patient remains confused, has episodic tearfulness and Ativan does not help. She has been obsessing, anxious, talking about guilt feelings surrounding having cheated on her . Nevertheless, she is confused, believes she is 46 years old, looking for her parents. REVIEW OF SYSTEMS: No CV, , pulmonary, eye system symptoms on review. Reliability poor. Gait unsteady in wheelchair. MENTAL STATUS EXAM: Oriented to herself. Insight, judgment, recent and remote memory, attention, concentration, fund of knowledge poor, consistent with her diagnosis. She was wearing a purple shining Glamit's hat, but as I questioned her on this she was oblivious to it. LABORATORY DATA: Reviewed. IMPRESSION: Unchanged from initial note: Major neurocognitive disorder, Alzheimer, vascular with delusion, depression. PLAN: Continue psychotropics mentioned in my initial note. Change Abilify to Seroquel 12.5 mg twice a day at 9 a.m. and 1 p.m. Adjust further as clinically indicated. CHARLEY MCCLURE MD DR: IRENE/bora JOB#: [id number] / [id number]
[2017-06-01 06:04] VITALS: BP 117/64
[2017-06-01] MEDS: CITALOPRAM 20 MG TABLET. PO SCH (07:48)
[2017-06-01] MEDS: lamoTRIgine 25 MG TABLET. PO SCH (07:48)
[2017-06-01] MEDS: LACTOBACILLUS RHAMNOSUS GG 1 CAPSULE. PO SCH (07:48)
[2017-06-01] MEDS: MELOXICAM 7.5 MG TABLET PO SCH (07:49)
[2017-06-01] MEDS: CYANOCOBALAMIN (VITAMIN B-12) 250 MCG TABLET PO SCH (07:50)
[2017-06-01] MEDS: QUEtiapine 25 MG TABLET. PO SCH ×3 (07:50→17:34)
[2017-06-01] MEDS: ACETAMINOPHEN 325 MG TABLET PO SCH ×4 (07:50→13:30)
[2017-06-01 15:52] VITALS: BP 99/59
[2017-06-01] MEDS: traZODone 50 MG TABLET. PO SCH (19:47)
[2017-06-01] MEDS: ATORVASTATIN CALCIUM 20 MG TABLET PO SCH (19:47)
--- NOTE | 2017-06-01 20:11 | PDOC ---
Exam Note: Martin Note: Please also refer to the separate dictated note~for this date of service dictated separately.~Patient seen individually. Discussed the patient with Nursing staff reviewed the chart.~Reviewed interim history and current functioning. Reviewed vital signs,~Labs/ Radiology~and current medications noted below. Continue current treatment with the changes noted in the dictated addendum note Assessment: Vital Signs: Vital Signs Date Time Temp Pulse Resp B/P (MAP) Pulse Ox O2 Delivery O2 Flow Rate FiO2 06/01/17 15:52 98.4 67 20 99/59 (72) 95 05/29/17 15:57 Room Air I&O Intake and Output 06/01/17 07:00 Intake Total 965 ml Balance 965 ml Intake Oral 965 ml # Bowel Movements 1 Current Medications: Meds: Current Medications Acetaminophen (Tylenol) 650 mg PRN Q6HRS PRN PO PAIN / TEMP; Start 05/28/17 at 23:00 Multi-Ingredient Ointment (Analgesic [place]) 1 faraz PRN QID PRN TP MUSCLE PAIN; Start 05/28/17 at 23:00 Al Hydroxide/Mg Hydroxide (Mylanta Plus Xs) 15 ml PRN AFTMEALHC PRN PO DYSPEPSIA; Start 05/28/17 at 23:00 Magnesium Hydroxide (Milk Of Magnesia) 2,400 mg PRN QHS PRN PO CONSTIPATION; Start 05/28/17 at 23:00 Alprazolam (Xanax) 0.5 mg PRN TID PRN PO ANXIETY / AGITATION Last administered on 05/31/17 21:30; Start 05/29/17 at 00:15 Aripiprazole (Abilify) 5 mg DAILY PO Last administered on 05/30/17 08:34; Start 05/29/17 at 09:00; Stop 05/30/17 at 17:17; Status DC Haloperidol (Haldol) 1 mg PRN BID PRN PO DELIRIUM Last administered on 17:14; Start 05/29/17 at 00:15 Trazodone HCl (Desyrel) 50 mg QHS PO Last administered on 06/01/17 19:47; Start 05/29/17 at 21:00 Citalopram Hydrobromide (CeleXA) 20 mg DAILY PO Last administered on 07:48; Start 05/29/17 at 09:00 Influenza Virus Vaccine Quadrival (Fluarix Quad [id number] Syringe) 0.5 ml ONCE ONCE VAX IM Last administered on 05/29/17 09:47; Start 05/29/17 at 09:00; Stop 05/29/17 at 09:01; Status DC Pneumococcal Polyvalent Vaccine (Pneumovax 23) 0.5 ml ONCE ONCE VAX IM Last administered on 05/29/17 09:45; Start 05/29/17 at 09:00; Stop 05/31/17 at 14 :59; Status DC Info (FLU VACCINE per PROTOCOL) 1 ea PRN 1X PRN MC PER PROTOCOL; Start at 02:15; Status Cancel Pneumococcal Polyvalent Vaccine (Do NOT chart on this entry -- for MONITORING) 1 each PRN 1X PRN MC SEE COMMENTS; Start 05/29/17 at 02:15; Status Cancel Acetaminophen (Tylenol) 650 mg PRN Q6HRS PRN PO PAIN / TEMP; Start 05/29/17 at 05:45; Stop 05/29/17 at 12:08; Status DC Acetaminophen (Tylenol) 650 mg QID PO Last administered on 06/01/17 07:50; Start 05/29/17 at 09:00 Enoxaparin Sodium (Lovenox) 40 mg DAILY SQ Last administered on 05/29/17 09: 41; Start 05/29/17 at 09:00; Stop 05/29/17 at 12:08; Status DC Lamotrigine (LaMICtal) 25 mg DAILY PO Last administered on 06/01/17 07:48; Start 05/29/17 at 09:00 Meloxicam (Mobic) 7.5 mg DAILY PO Last administered on 06/01/17 07:49; Start 05/29/17 at 09:00 Atorvastatin Calcium (Lipitor) 40 mg QHS PO Last administered on 06/01/17 19: 47; Start 05/29/17 at 21:00 Lactobacillus Rhamnosus (Culturelle) 1 cap DAILY PO Last administered on 07:48; Start 05/29/17 at 09:00 Magnesium Hydroxide (Milk Of Magnesia) 2,400 mg PRN Q12HR PRN PO CONSTIPATION; Start 05/29/17 at 05:45; Stop 05/29/17 at 12:08; Status DC Potassium Chloride (Klor-Con) 40 meq 1X ONCE PO Last administered on 13:40; Start 05/29/17 at 12:00; Stop 05/29/17 at 12:11; Status DC Quetiapine Fumarate (SEROquel) 12.5 mg BID@0900,1300 PO Last administered on 07:50; Start 05/31/17 at 09:00; Stop 06/01/17 at 11:11; Status DC Cyanocobalamin (Vitamin B-12) 250 mcg DAILYBFRSUP PO Last administered on 06/01 07:50; Start 05/31/17 at 17:00 Vitamin D (Vitamin D3) 50,000 unit WEEKLY PO Last administered on 05/31/17 13 :22; Start 05/31/17 at 11:45 Quetiapine Fumarate (SEROquel) 12.5 mg TID@0900,1400,1700 PO Last administered on 06/01/17 17:34; Start 06/01/17 at 14:00 Active Scripts Active Reported Trazodone Hcl 50 Mg Tablet 50 Mg PO QHS Meloxicam 7.5 Mg Tablet 7.5 Mg PO DAILY Milk Of Magnesia (Magnesium Hydroxide) 2,400 Mg/10 Ml Oral.susp 2,400 Mg PO PRN Q12HR PRN Lamotrigine 25 Mg Tablet 25 Mg PO DAILY Culturelle Capsule (L. Rhamnosus GG/Inulin) 1 Each Cap.sprink 1 Each PO DAILY Haloperidol 2 Mg Tablet 1 Mg PO PRN BID PRN Escitalopram Oxalate 10 Mg Tablet 10 Mg PO DAILY Lovenox (Enoxaparin Sodium) 40 Mg/0.4 Ml Disp.syrin 40 Mg SQ DAILY Atorvastatin Calcium 40 Mg Tablet 40 Mg PO QHS Abilify (Aripiprazole) 5 Mg Tablet 5 Mg PO DAILY Maalox Advanced Suspension (Mag Hydrox/Aluminum Hyd/Simeth) 355 Ml Oral.susp 30 Ml PO PRN Q3HRS PRN Alprazolam 0.5 Mg Tablet 0.5 Mg PO PRN TID PRN Tylenol (Acetaminophen) 325 Mg Tablet 650 Mg PO PRN Q6HRS PRN Tylenol (Acetaminophen) 325 Mg Tablet 650 Mg PO QID I have reviewed the current psychotropics carefully including drug interactions. Risk benefit ratio favors no change other than as noted in my dictated progress note. 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
[2017-06-02 05:56] VITALS: BP 131/64
[2017-06-02] MEDS: ACETAMINOPHEN 325 MG TABLET PO SCH ×5 (06:36→19:31)
[2017-06-02] MEDS: MELOXICAM 7.5 MG TABLET PO SCH (07:57)
[2017-06-02] MEDS: CITALOPRAM 20 MG TABLET. PO SCH (07:57)
[2017-06-02] MEDS: lamoTRIgine 25 MG TABLET. PO SCH (07:57)
[2017-06-02] MEDS: LACTOBACILLUS RHAMNOSUS GG 1 CAPSULE. PO SCH (07:57)
[2017-06-02] MEDS: CYANOCOBALAMIN (VITAMIN B-12) 250 MCG TABLET PO SCH (07:58)
[2017-06-02] MEDS: QUEtiapine 25 MG TABLET. PO SCH ×3 (07:58→16:59)
--- NOTE | 2017-06-02 08:20 | PN ---
DATE: 05/31/2017 PSYCHIATRIC PROGRESS NOTE This is a late entry, date of service 05/31/2017, covers elements not covered in my initial note of 05/31/2017. SUBJECTIVE: Overall, the patient remains confused, slept 5-3/4 hours previous evening. Around dinnertime she was quite delusional, agitated, told the assistant professor of nursing that she was going to get up out of her wheelchair and kill her. It was unclear why she was agitated at the nursing staff. REVIEW OF SYSTEMS: Ambulation impaired, in wheelchair. No CV, , pulmonary, eye, ENT system symptoms on review. She did get a p.r.n. Haldol, which seemed to help. MENTAL STATUS EXAM: Oriented to herself. Insight, judgment, recent and remote memory, attention, concentration, fund of knowledge poor, consistent with her diagnoses mentioned in my initial note. IMPRESSION: Major neurocognitive disorder, Alzheimer, vascular with depression, delusion, behavioral disturbance. Rest unchanged. PLAN: Continue current psychotropics including the Xanax and Haldol p.r.n., Lexapro 10 mg a day, Seroquel 12.5 mg b.i.d. We will increase it to 12.5 mg 3 times a day starting 06/01/2017. Lamictal 25 mg b.i.d. I have carefully reviewed the drug interactions, risk, benefit ratio. It is not entirely clear what benefit Lamictal would had the patient's agitation, delusions. She does have mood lability and prior history of bipolar disorder and for now I will continue the Lamictal, but depending on how she does with increased Seroquel we may need to stop it. I have carefully reviewed the pros and cons of this . CHARLEY MCLCURE MD DR: IRENE/bora JOB#: [id number] / [id number]
[2017-06-02] MEDS: ALPRAZolam 0.5 MG TABLET PO PRN ×2 (13:16→23:14)
[2017-06-02 15:55] VITALS: BP 114/53
[2017-06-02] MEDS: HALOPERIDOL 1 MG TABLET PO PRN (18:23)
[2017-06-02] MEDS: ATORVASTATIN CALCIUM 20 MG TABLET PO SCH (19:32)
[2017-06-02] MEDS: traZODone 50 MG TABLET. PO SCH (19:32)
--- NOTE | 2017-06-02 19:52 | PDOC ---
Exam Note: Martin Note: Please also refer to the separate dictated note~for this date of service dictated separately.~Patient seen individually. Discussed the patient with Nursing staff reviewed the chart.~Reviewed interim history and current functioning. Reviewed vital signs,~Labs/ Radiology~and current medications noted below. Continue current treatment with the changes noted in the dictated addendum note Assessment: Vital Signs: Vital Signs Date Time Temp Pulse Resp B/P (MAP) Pulse Ox O2 Delivery O2 Flow Rate FiO2 06/02/17 15:55 98.1 58 16 114/53 (73) 94 06/02/17 05:56 Room Air I&O Intake and Output 06/02/17 07:00 Intake Total 1020 ml Balance 1020 ml Intake Oral 1020 ml # Voids 1 Current Medications: Meds: Current Medications Acetaminophen (Tylenol) 650 mg PRN Q6HRS PRN PO PAIN / TEMP; Start 05/28/17 at 23:00 Multi-Ingredient Ointment (Analgesic [place]) 1 faraz PRN QID PRN TP MUSCLE PAIN; Start 05/28/17 at 23:00 Al Hydroxide/Mg Hydroxide (Mylanta Plus Xs) 15 ml PRN AFTMEALHC PRN PO DYSPEPSIA; Start 05/28/17 at 23:00 Magnesium Hydroxide (Milk Of Magnesia) 2,400 mg PRN QHS PRN PO CONSTIPATION; Start 05/28/17 at 23:00 Alprazolam (Xanax) 0.5 mg PRN TID PRN PO ANXIETY / AGITATION Last administered on 06/02/17 13:16; Start 05/29/17 at 00:15 Aripiprazole (Abilify) 5 mg DAILY PO Last administered on 05/30/17t 08:34; Start 05/29/17 at 09:00; Stop 05/30/17 at 17:17; Status DC Haloperidol (Haldol) 1 mg PRN BID PRN PO DELIRIUM Last administered on 18:23; Start 05/29/17 at 00:15 Trazodone HCl (Desyrel) 50 mg QHS PO Last administered on 06/02/17 19:32; Start 05/29/17 at 21:00 Citalopram Hydrobromide (CeleXA) 20 mg DAILY PO Last administered on 06/02/17 07:57; Start 05/29/17 at 09:00 Influenza Virus Vaccine Quadrival (Fluarix Quad [id number] Syringe) 0.5 ml ONCE ONCE VAX IM Last administered on 05/29/17 09:47; Start 05/29/17 at 09:00; Stop 05/29/17 at 09:01; Status DC Pneumococcal Polyvalent Vaccine (Pneumovax 23) 0.5 ml ONCE ONCE VAX IM Last administered on 05/29/17 09:45; Start 05/29/17 at 09:00; Stop 05/31/17 at 14 :59; Status DC Info (FLU VACCINE per PROTOCOL) 1 ea PRN 1X PRN MC PER PROTOCOL; Start at 02:15; Status Cancel Pneumococcal Polyvalent Vaccine (Do NOT chart on this entry -- for MONITORING) 1 each PRN 1X PRN MC SEE COMMENTS; Start 05/29/17 at 02:15; Status Cancel Acetaminophen (Tylenol) 650 mg PRN Q6HRS PRN PO PAIN / TEMP; Start 05/29/17 at 05:45; Stop 05/29/17 at 12:08; Status DC Acetaminophen (Tylenol) 650 mg QID PO Last administered on 06/02/17 19:31; Start 05/29/17 at 09:00 Enoxaparin Sodium (Lovenox) 40 mg DAILY SQ Last administered on 05/29/17 09: 41; Start 05/29/17 at 09:00; Stop 05/29/17 at 12:08; Status DC Lamotrigine (LaMICtal) 25 mg DAILY PO Last administered on 06/02/17 07:57; Start 05/29/17 at 09:00 Meloxicam (Mobic) 7.5 mg DAILY PO Last administered on 06/02/17 07:57; Start 05/29/17 at 09:00 Atorvastatin Calcium (Lipitor) 40 mg QHS PO Last administered on 06/02/17 19:32 ; Start 05/29/17 at 21:00 Lactobacillus Rhamnosus (Culturelle) 1 cap DAILY PO Last administered on 07:57; Start 05/29/17 at 09:00 Magnesium Hydroxide (Milk Of Magnesia) 2,400 mg PRN Q12HR PRN PO CONSTIPATION; Start 05/29/17 at 05:45; Stop 05/29/17 at 12:08; Status DC Potassium Chloride (Klor-Con) 40 meq 1X ONCE PO Last administered on 13:40; Start 05/29/17 at 12:00; Stop 05/29/17 at 12:11; Status DC Quetiapine Fumarate (SEROquel) 12.5 mg BID@0900,1300 PO Last administered on 07:50; Start 05/31/17 at 09:00; Stop 06/01/17 at 11:11; Status DC Cyanocobalamin (Vitamin B-12) 250 mcg DAILYBFRSUP PO Last administered on at 07:58; Start 05/31/17 at 17:00 Vitamin D (Vitamin D3) 50,000 unit WEEKLY PO Last administered on 05/31/17 13 :22; Start 05/31/17 at 11:45 Quetiapine Fumarate (SEROquel) 12.5 mg TID@0900,1400,1700 PO Last administered on 06/02/17at 16:59; Start 06/01/17 at 14:00 Trazodone HCl (Desyrel) 50 mg PRN QHS PRN PO INSOMNIA; Start 06/02/17 at 19:00 Active Scripts Active Reported Trazodone Hcl 50 Mg Tablet 50 Mg PO QHS Meloxicam 7.5 Mg Tablet 7.5 Mg PO DAILY Milk Of Magnesia (Magnesium Hydroxide) 2,400 Mg/10 Ml Oral.susp 2,400 Mg PO PRN Q12HR PRN Lamotrigine 25 Mg Tablet 25 Mg PO DAILY Culturelle Capsule (L. Rhamnosus GG/Inulin) 1 Each Cap.sprink 1 Each PO DAILY Haloperidol 2 Mg Tablet 1 Mg PO PRN BID PRN Escitalopram Oxalate 10 Mg Tablet 10 Mg PO DAILY Lovenox (Enoxaparin Sodium) 40 Mg/0.4 Ml Disp.syrin 40 Mg SQ DAILY Atorvastatin Calcium 40 Mg Tablet 40 Mg PO QHS Abilify (Aripiprazole) 5 Mg Tablet 5 Mg PO DAILY Maalox Advanced Suspension (Mag Hydrox/Aluminum Hyd/Simeth) 355 Ml Oral.susp 30 Ml PO PRN Q3HRS PRN Alprazolam 0.5 Mg Tablet 0.5 Mg PO PRN TID PRN Tylenol (Acetaminophen) 325 Mg Tablet 650 Mg PO PRN Q6HRS PRN Tylenol (Acetaminophen) 325 Mg Tablet 650 Mg PO QID I have reviewed the current psychotropics carefully including drug interactions. Risk benefit ratio favors no change other than as noted in my dictated progress note. Diagnosis: Problems: (1) Anxiety disorder (2) Impulse control disorder (3) Dementia, vascular, with depression (4) Dementia, vascular, with delusions (5) Bipolar 1 disorder, mixed, moderate (6) Dementia in Alzheimer's disease with depression (7) Dementia in Alzheimer's disease with delusions CHARLEY MCCLURE MD Jun 02, 2017 19:52
[2017-06-02] MEDS: traZODone 50 MG TABLET. PO PRN (22:13)
[2017-06-03 05:42] VITALS: BP 111/56
[2017-06-03] MEDS: LACTOBACILLUS RHAMNOSUS GG 1 CAPSULE. PO SCH (08:12)
[2017-06-03] MEDS: ACETAMINOPHEN 325 MG TABLET PO SCH ×4 (08:13→19:14)
[2017-06-03] MEDS: QUEtiapine 25 MG TABLET. PO SCH ×3 (08:13→16:48)
[2017-06-03] MEDS: lamoTRIgine 25 MG TABLET. PO SCH (08:14)
[2017-06-03] MEDS: CITALOPRAM 20 MG TABLET. PO SCH (08:14)
[2017-06-03] MEDS: MELOXICAM 7.5 MG TABLET PO SCH (08:14)
[2017-06-03 15:41] VITALS: BP 123/56
[2017-06-03] MEDS: CYANOCOBALAMIN (VITAMIN B-12) 250 MCG TABLET PO SCH (16:44)
[2017-06-03] MEDS: ATORVASTATIN CALCIUM 20 MG TABLET PO SCH (19:13)
[2017-06-03] MEDS: traZODone 50 MG TABLET. PO SCH (19:14)
--- NOTE | 2017-06-03 20:03 | PDOC ---
Exam Note: Martin Note: Please also refer to the separate dictated note~for this date of service dictated separately.~Patient seen individually. Discussed the patient with Nursing staff reviewed the chart.~Reviewed interim history and current functioning. Reviewed vital signs,~Labs/ Radiology~and current medications noted below. Continue current treatment with the changes noted in the dictated addendum note Assessment: Vital Signs: Vital Signs Date Time Temp Pulse Resp B/P (MAP) Pulse Ox O2 Delivery O2 Flow Rate FiO2 06/03/17 15:41 98.8 80 20 123/56 (78) 99 06/02/17 05:56 Room Air I&O Intake and Output 06/03/17 07:00 Intake Total 780 ml Balance 780 ml Intake Oral 780 ml # Voids 1 Current Medications: Meds: Current Medications Acetaminophen (Tylenol) 650 mg PRN Q6HRS PRN PO PAIN / TEMP; Start 05/28/17 at 23:00 Multi-Ingredient Ointment (Analgesic [place]) 1 faraz PRN QID PRN TP MUSCLE PAIN; Start 05/28/17 at 23:00 Al Hydroxide/Mg Hydroxide (Mylanta Plus Xs) 15 ml PRN AFTMEALHC PRN PO DYSPEPSIA; Start 05/28/17 at 23:00 Magnesium Hydroxide (Milk Of Magnesia) 2,400 mg PRN QHS PRN PO CONSTIPATION; Start 05/28/17 at 23:00 Alprazolam (Xanax) 0.5 mg PRN TID PRN PO ANXIETY / AGITATION Last administered on 06/02/17 23:14; Start 05/29/17 at 00:15 Aripiprazole (Abilify) 5 mg DAILY PO Last administered on 05/30/17t 08:34; Start 05/29/17 at 09:00; Stop 05/30/17 at 17:17; Status DC Haloperidol (Haldol) 1 mg PRN BID PRN PO DELIRIUM Last administered on 18:23; Start 05/29/17 at 00:15 Trazodone HCl (Desyrel) 50 mg QHS PO Last administered on 06/03/17 19:14; Start 05/29/17 at 21:00 Citalopram Hydrobromide (CeleXA) 20 mg DAILY PO Last administered on 06/03/17 08:14; Start 05/29/17 at 09:00 Influenza Virus Vaccine Quadrival (Fluarix Quad [id number] Syringe) 0.5 ml ONCE ONCE VAX IM Last administered on 05/29/17 09:47; Start 05/29/17 at 09:00; Stop 05/29/17 at 09:01; Status DC Pneumococcal Polyvalent Vaccine (Pneumovax 23) 0.5 ml ONCE ONCE VAX IM Last administered on 05/29/17 09:45; Start 05/29/17 at 09:00; Stop 05/31/17 at 14 :59; Status DC Info (FLU VACCINE per PROTOCOL) 1 ea PRN 1X PRN MC PER PROTOCOL; Start at 02:15; Status Cancel Pneumococcal Polyvalent Vaccine (Do NOT chart on this entry -- for MONITORING) 1 each PRN 1X PRN MC SEE COMMENTS; Start 05/29/17 at 02:15; Status Cancel Acetaminophen (Tylenol) 650 mg PRN Q6HRS PRN PO PAIN / TEMP; Start 05/29/17 at 05:45; Stop 05/29/17 at 12:08; Status DC Acetaminophen (Tylenol) 650 mg QID PO Last administered on 06/03/17 19:14; Start 05/29/17 at 09:00 Enoxaparin Sodium (Lovenox) 40 mg DAILY SQ Last administered on 05/29/17 09: 41; Start 05/29/17 at 09:00; Stop 05/29/17 at 12:08; Status DC Lamotrigine (LaMICtal) 25 mg DAILY PO Last administered on 06/03/17 08:14; Start 05/29/17 at 09:00 Meloxicam (Mobic) 7.5 mg DAILY PO Last administered on 06/03/17 08:14; Start 05/29/17 at 09:00 Atorvastatin Calcium (Lipitor) 40 mg QHS PO Last administered on 06/03/17 19:13 ; Start 05/29/17 at 21:00 Lactobacillus Rhamnosus (Culturelle) 1 cap DAILY PO Last administered on 08:12; Start 05/29/17 at 09:00 Magnesium Hydroxide (Milk Of Magnesia) 2,400 mg PRN Q12HR PRN PO CONSTIPATION; Start 05/29/17 at 05:45; Stop 05/29/17 at 12:08; Status DC Potassium Chloride (Klor-Con) 40 meq 1X ONCE PO Last administered on 13:40; Start 05/29/17 at 12:00; Stop 05/29/17 at 12:11; Status DC Quetiapine Fumarate (SEROquel) 12.5 mg BID@0900,1300 PO Last administered on 07:50; Start 05/31/17 at 09:00; Stop 06/01/17 at 11:11; Status DC Cyanocobalamin (Vitamin B-12) 250 mcg DAILYBFRSUP PO Last administered on at 16:44; Start 05/31/17 at 17:00 Vitamin D (Vitamin D3) 50,000 unit WEEKLY PO Last administered on 05/31/17 13 :22; Start 05/31/17 at 11:45 Quetiapine Fumarate (SEROquel) 12.5 mg TID@0900,1400,1700 PO Last administered on 06/03/17at 16:48; Start 06/01/17 at 14:00 Trazodone HCl (Desyrel) 50 mg PRN QHS PRN PO INSOMNIA Last administered on at 22:13; Start 06/02/17 at 19:00 Active Scripts Active Reported Trazodone Hcl 50 Mg Tablet 50 Mg PO QHS Meloxicam 7.5 Mg Tablet 7.5 Mg PO DAILY Milk Of Magnesia (Magnesium Hydroxide) 2,400 Mg/10 Ml Oral.susp 2,400 Mg PO PRN Q12HR PRN Lamotrigine 25 Mg Tablet 25 Mg PO DAILY Culturelle Capsule (L. Rhamnosus GG/Inulin) 1 Each Cap.sprink 1 Each PO DAILY Haloperidol 2 Mg Tablet 1 Mg PO PRN BID PRN Escitalopram Oxalate 10 Mg Tablet 10 Mg PO DAILY Lovenox (Enoxaparin Sodium) 40 Mg/0.4 Ml Disp.syrin 40 Mg SQ DAILY Atorvastatin Calcium 40 Mg Tablet 40 Mg PO QHS Abilify (Aripiprazole) 5 Mg Tablet 5 Mg PO DAILY Maalox Advanced Suspension (Mag Hydrox/Aluminum Hyd/Simeth) 355 Ml Oral.susp 30 Ml PO PRN Q3HRS PRN Alprazolam 0.5 Mg Tablet 0.5 Mg PO PRN TID PRN Tylenol (Acetaminophen) 325 Mg Tablet 650 Mg PO PRN Q6HRS PRN Tylenol (Acetaminophen) 325 Mg Tablet 650 Mg PO QID I have reviewed the current psychotropics carefully including drug interactions. Risk benefit ratio favors no change other than as noted in my dictated progress note. Diagnosis: Problems: (1) Anxiety disorder (2) Impulse control disorder (3) Dementia, vascular, with depression (4) Dementia, vascular, with delusions (5) Bipolar 1 disorder, mixed, moderate (6) Dementia in Alzheimer's disease with depression (7) Dementia in Alzheimer's disease with delusions CHARLEY MCCLURE MD Jun 03, 2017 20:02
[2017-06-04 05:31] VITALS: BP 123/74
[2017-06-04] MEDS: ACETAMINOPHEN 325 MG TABLET PO SCH ×4 (06:31→19:48)
--- NOTE | 2017-06-04 06:32 | PN ---
DATE: 06/01/2017 This late entry 06/01/2017 covers elements not covered in my initial note 06/01/2017. SUBJECTIVE: Met with the patient in the evening of 06/01/2017. She remains confused, somewhat anxious, restless, but compliant with medications, got agitated x 1. REVIEW OF SYSTEMS: Ambulation somewhat impaired, in wheelchair. No CV, , pulmonary, eye, ENT system symptoms on review. Reliability poor. MENTAL STATUS EXAM: Oriented to herself. Insight, judgment, recent and remote memory, attention, concentration, fund of knowledge poor, consistent with her diagnosis mentioned in my initial note. IMPRESSION: Major neurocognitive disorder, Alzheimer, vascular with depression, delusion, behavioral disturbance. PLAN: Continue psychotropics mentioned in my initial note. MAN Sean MCCLURE MD DR: IRENE/bora JOB#: [id number] / [id number]
--- NOTE | 2017-06-04 06:50 | PN ---
DATE: 06/02/2017 This late entry 06/02/2017 covers elements not covered in my initial note of 06/02/2017. Met with the patient evening of 06/02/2017. SUBJECTIVE: The patient slept 3-3/4 hours previous evening. She did well in the morning. At 1320, she was more anxious, restless, unable to find her room. Received Xanax p.r.n. She believes she was attending a that the Xanax seemed to help. She is more verbal, calling out for the [employer] and at times saying "thanks for that." REVIEW OF SYSTEMS: Ambulation impaired, in wheelchair. No CV, , pulmonary, eye, ENT system symptoms on review. Reliability poor. MENTAL STATUS EXAM: Oriented to herself. Insight, judgment, recent and remote memory, attention, concentration, fund of knowledge poor, consistent with her diagnosis mentioned in my initial note. IMPRESSION: Major neurocognitive disorder, Alzheimer, vascular with depression, delusion, behavioral disturbance. Rest unchanged. PLAN: Start trazodone 50 mg at bedtime p.r.n. insomnia after the scheduled dosage. Rest unchanged from before. MAN Sean MCCLURE MD DR: IRENE/bora JOB#: [id number] / [id number]
[2017-06-04] MEDS: CYANOCOBALAMIN (VITAMIN B-12) 250 MCG TABLET PO SCH (08:43)
[2017-06-04] MEDS: QUEtiapine 25 MG TABLET. PO SCH ×3 (08:43→17:12)
[2017-06-04] MEDS: lamoTRIgine 25 MG TABLET. PO SCH (08:43)
[2017-06-04] MEDS: MELOXICAM 7.5 MG TABLET PO SCH (08:43)
[2017-06-04] MEDS: LACTOBACILLUS RHAMNOSUS GG 1 CAPSULE. PO SCH (08:43)
[2017-06-04] MEDS: CITALOPRAM 20 MG TABLET. PO SCH (08:43)
[2017-06-04 16:14] VITALS: BP 106/68
[2017-06-04] MEDS: HALOPERIDOL 1 MG TABLET PO PRN (17:11)
[2017-06-04] MEDS: traZODone 50 MG TABLET. PO SCH (19:48)
[2017-06-04] MEDS: ATORVASTATIN CALCIUM 20 MG TABLET PO SCH (19:48)
--- NOTE | 2017-06-04 19:57 | PDOC ---
Exam Note: Martin Note: Please also refer to the separate dictated note~for this date of service dictated separately.~Patient seen individually. Discussed the patient with Nursing staff reviewed the chart.~Reviewed interim history and current functioning. Reviewed vital signs,~Labs/ Radiology~and current medications noted below. Continue current treatment with the changes noted in the dictated addendum note Assessment: Vital Signs: Vital Signs Date Time Temp Pulse Resp B/P (MAP) Pulse Ox O2 Delivery O2 Flow Rate FiO2 06/04/17 16:14 98.8 69 16 106/68 (81) 93 06/02/17 05:56 Room Air I&O Intake and Output 06/04/17 07:00 Intake Total 720 ml Balance 720 ml Intake Oral 720 ml # Voids 3 Current Medications: Meds: Current Medications Acetaminophen (Tylenol) 650 mg PRN Q6HRS PRN PO PAIN / TEMP; Start 05/28/17 at 23:00 Multi-Ingredient Ointment (Analgesic [place]) 1 faraz PRN QID PRN TP MUSCLE PAIN; Start 05/28/17 at 23:00 Al Hydroxide/Mg Hydroxide (Mylanta Plus Xs) 15 ml PRN AFTMEALHC PRN PO DYSPEPSIA; Start 05/28/17 at 23:00 Magnesium Hydroxide (Milk Of Magnesia) 2,400 mg PRN QHS PRN PO CONSTIPATION; Start 05/28/17 at 23:00 Alprazolam (Xanax) 0.5 mg PRN TID PRN PO ANXIETY / AGITATION Last administered on 06/02/17 23:14; Start 05/29/17 at 00:15 Aripiprazole (Abilify) 5 mg DAILY PO Last administered on 05/30/17t 08:34; Start 05/29/17 at 09:00; Stop 05/30/17 at 17:17; Status DC Haloperidol (Haldol) 1 mg PRN BID PRN PO DELIRIUM Last administered on 17:11; Start 05/29/17 at 00:15 Trazodone HCl (Desyrel) 50 mg QHS PO Last administered on 06/04/17 19:48; Start 05/29/17 at 21:00 Citalopram Hydrobromide (CeleXA) 20 mg DAILY PO Last administered on 06/04/17 08:43; Start 05/29/17 at 09:00 Influenza Virus Vaccine Quadrival (Fluarix Quad [id number] Syringe) 0.5 ml ONCE ONCE VAX IM Last administered on 05/29/17 09:47; Start 05/29/17 at 09:00; Stop 05/29/17 at 09:01; Status DC Pneumococcal Polyvalent Vaccine (Pneumovax 23) 0.5 ml ONCE ONCE VAX IM Last administered on 05/29/17 09:45; Start 05/29/17 at 09:00; Stop 05/31/17 at 14 :59; Status DC Info (FLU VACCINE per PROTOCOL) 1 ea PRN 1X PRN MC PER PROTOCOL; Start at 02:15; Status Cancel Pneumococcal Polyvalent Vaccine (Do NOT chart on this entry -- for MONITORING) 1 each PRN 1X PRN MC SEE COMMENTS; Start 05/29/17 at 02:15; Status Cancel Acetaminophen (Tylenol) 650 mg PRN Q6HRS PRN PO PAIN / TEMP; Start 05/29/17 at 05:45; Stop 05/29/17 at 12:08; Status DC Acetaminophen (Tylenol) 650 mg QID PO Last administered on 06/04/17 19:48; Start 05/29/17 at 09:00 Enoxaparin Sodium (Lovenox) 40 mg DAILY SQ Last administered on 05/29/17 09: 41; Start 05/29/17 at 09:00; Stop 05/29/17 at 12:08; Status DC Lamotrigine (LaMICtal) 25 mg DAILY PO Last administered on 06/04/17 08:43; Start 05/29/17 at 09:00; Stop 06/04/17 at 12:17; Status DC Meloxicam (Mobic) 7.5 mg DAILY PO Last administered on 06/04/17 08:43; Start 05/29/17 at 09:00 Atorvastatin Calcium (Lipitor) 40 mg QHS PO Last administered on 06/04/17 19:48 ; Start 05/29/17 at 21:00 Lactobacillus Rhamnosus (Culturelle) 1 cap DAILY PO Last administered on 08:43; Start 05/29/17 at 09:00 Magnesium Hydroxide (Milk Of Magnesia) 2,400 mg PRN Q12HR PRN PO CONSTIPATION; Start 05/29/17 at 05:45; Stop 05/29/17 at 12:08; Status DC Potassium Chloride (Klor-Con) 40 meq 1X ONCE PO Last administered on 13:40; Start 05/29/17 at 12:00; Stop 05/29/17 at 12:11; Status DC Quetiapine Fumarate (SEROquel) 12.5 mg BID@0900,1300 PO Last administered on 07:50; Start 05/31/17 at 09:00; Stop 06/01/17 at 11:11; Status DC Cyanocobalamin (Vitamin B-12) 250 mcg DAILYBFRSUP PO Last administered on at 08:43; Start 05/31/17 at 17:00 Vitamin D (Vitamin D3) 50,000 unit WEEKLY PO Last administered on 05/31/17 13 :22; Start 05/31/17 at 11:45 Quetiapine Fumarate (SEROquel) 12.5 mg TID@0900,1400,1700 PO Last administered on 06/04/17at 17:12; Start 06/01/17 at 14:00 Trazodone HCl (Desyrel) 50 mg PRN QHS PRN PO INSOMNIA Last administered on at 22:13; Start 06/02/17 at 19:00 Divalproex Sodium (Depakote Sprinkles) 125 mg BID@0900,1400 PO ; Start 06/05/17 at 09:00 Active Scripts Active Reported Trazodone Hcl 50 Mg Tablet 50 Mg PO QHS Meloxicam 7.5 Mg Tablet 7.5 Mg PO DAILY Milk Of Magnesia (Magnesium Hydroxide) 2,400 Mg/10 Ml Oral.susp 2,400 Mg PO PRN Q12HR PRN Lamotrigine 25 Mg Tablet 25 Mg PO DAILY Culturelle Capsule (L. Rhamnosus GG/Inulin) 1 Each Cap.sprink 1 Each PO DAILY Haloperidol 2 Mg Tablet 1 Mg PO PRN BID PRN Escitalopram Oxalate 10 Mg Tablet 10 Mg PO DAILY Lovenox (Enoxaparin Sodium) 40 Mg/0.4 Ml Disp.syrin 40 Mg SQ DAILY Atorvastatin Calcium 40 Mg Tablet 40 Mg PO QHS Abilify (Aripiprazole) 5 Mg Tablet 5 Mg PO DAILY Maalox Advanced Suspension (Mag Hydrox/Aluminum Hyd/Simeth) 355 Ml Oral.susp 30 Ml PO PRN Q3HRS PRN Alprazolam 0.5 Mg Tablet 0.5 Mg PO PRN TID PRN Tylenol (Acetaminophen) 325 Mg Tablet 650 Mg PO PRN Q6HRS PRN Tylenol (Acetaminophen) 325 Mg Tablet 650 Mg PO QID I have reviewed the current psychotropics carefully including drug interactions. Risk benefit ratio favors no change other than as noted in my dictated progress note. Diagnosis: Problems: (1) Anxiety disorder (2) Impulse control disorder (3) Dementia, vascular, with depression (4) Dementia, vascular, with delusions (5) Bipolar 1 disorder, mixed, moderate (6) Dementia in Alzheimer's disease with depression (7) Dementia in Alzheimer's disease with delusions CHARLEY MCCLURE MD Jun 04, 2017 19:57
--- NOTE | 2017-06-04 22:12 | PN ---
DATE: 06/03/2017 PSYCHIATRIC PROGRESS NOTE HISTORY OF PRESENT ILLNESS: This late entry of 06/03/2016 covers elements not covered in my initial note of 06/03/2016. I met with the patient in the evening of 06/03/2017. The patient remains confused, believes she is at a restaurant for a meal, less tearful, less mood lability. Ambulation impaired, in wheelchair. REVIEW OF SYSTEMS: No CV, , pulmonary, eye, ENT system symptoms on review. Reliability is poor. MENTAL STATUS EXAMINATION: Oriented to herself. Insight, judgment, recent and remote memory, attention, concentration, fund of knowledge poor, consistent with her diagnosis mentioned in my initial note. IMPRESSION: Major neurocognitive disorder; Alzheimer, vascular with depression; delusion, behavioral disturbance. PLAN: Continue psychotropics mentioned in my initial note. Adjust as clinically indicated. MAN Sean MCCLURE MD DR: IRENE/bora JOB#: [id number] / [id number]
[2017-06-05 05:57] VITALS: BP 135/74
[2017-06-05] MEDS: QUEtiapine 25 MG TABLET. PO SCH ×3 (08:03→17:04)
[2017-06-05] MEDS: LACTOBACILLUS RHAMNOSUS GG 1 CAPSULE. PO SCH (08:03)
[2017-06-05] MEDS: MELOXICAM 7.5 MG TABLET PO SCH (08:03)
[2017-06-05] MEDS: ACETAMINOPHEN 325 MG TABLET PO SCH ×4 (08:04→20:25)
[2017-06-05] MEDS: CITALOPRAM 20 MG TABLET. PO SCH (08:04)
[2017-06-05] MEDS: DIVALPROEX 125 MG CAP.SPRINK PO SCH ×2 (08:06→14:06)
[2017-06-05 09:43] LABS: BASO # 0.1 x10^3/uL (0.0-0.2); BASO % 1 % (0-3); EOS # 0.2 x10^3/uL (0.0-0.7); EOS % 3 % (0-3); HEMATOCRIT 37.5 % (36.0-47.0); HEMOGLOBIN 12.6 g/dL (12.0-15.5); LYMPH # 1.1 x10^3/uL (1.0-4.8); LYMPH % 14 % (24-48); MEAN CORPUSCULAR HEMOGLOBIN 32 pg (25-35); MEAN CORPUSCULAR HGB CONC 34 g/dL (31-37); MEAN CORPUSCULAR VOLUME 94 fL (79-100); MONO # 0.4 x10^3/uL (0.0-1.1); MONO % 5 % (0-9); NEUT # 6.1 x10^3uL (1.8-7.7); NEUT % 78 % (31-73); PLATELET COUNT 221 x10^3/uL (140-400); RED CELL DISTRIBUTION WIDTH 14.2 % (11.5-14.5); WHITE BLOOD COUNT 7.9 x10^3/uL (4.0-11.0)
[2017-06-05 10:00] LABS: ALBUMIN 3.5 g/dL (3.4-5.0); ALBUMIN/GLOBULIN RATIO 1.1 (1.0-1.7); CALCIUM 9.2 mg/dL (8.5-10.1); CREATININE 0.7 mg/dL (0.6-1.0); GFR 81.6; POTASSIUM 3.4 mmol/L (3.5-5.1); TOTAL BILIRUBIN 0.6 mg/dL (0.2-1.0); TOTAL PROTEIN 6.7 g/dL (6.4-8.2)
[2017-06-05 15:34] VITALS: BP 105/55
[2017-06-05] MEDS: CYANOCOBALAMIN (VITAMIN B-12) 250 MCG TABLET PO SCH (17:05)
--- NOTE | 2017-06-05 19:55 | PDOC ---
Exam Note: Martin Note: Please also refer to the separate dictated note~for this date of service dictated separately.~Patient seen individually. Discussed the patient with Nursing staff reviewed the chart.~Reviewed interim history and current functioning. Reviewed vital signs,~Labs/ Radiology~and current medications noted below. Continue current treatment with the changes noted in the dictated addendum note Assessment: Vital Signs: Vital Signs Date Time Temp Pulse Resp B/P (MAP) Pulse Ox O2 Delivery O2 Flow Rate FiO2 06/05/17 15:34 97.0 86 18 105/55 (72) 94 06/05/17 05:57 Room Air I&O Intake and Output 06/05/17 07:00 Intake Total 840 ml Balance 840 ml Intake Oral 840 ml # Voids 1 # Bowel Movements 1 Labs: Laboratory Tests Test 06/05/17 09:28 White Blood Count 7.9 x10^3/uL (4.0-11.0) Red Blood Count 4.00 x10^6/uL (3.50-5.40) Hemoglobin 12.6 g/dL (12.0-15.5) Hematocrit 37.5 % (36.0-47.0) Mean Corpuscular Volume 94 fL (79-100) Mean Corpuscular Hemoglobin 32 pg (25-35) Mean Corpuscular Hemoglobin Concent 34 g/dL (31-37) Red Cell Distribution Width 14.2 % (11.5-14.5) Platelet Count 221 x10^3/uL (140-400) Neutrophils (%) (Auto) 78 % (31-73) H Lymphocytes (%) (Auto) 14 % (24-48) L Monocytes (%) (Auto) 5 % (0-9) Eosinophils (%) (Auto) 3 % (0-3) Basophils (%) (Auto) 1 % (0-3) Neutrophils # (Auto) 6.1 x10^3uL (1.8-7.7) Lymphocytes # (Auto) 1.1 x10^3/uL (1.0-4.8) Monocytes # (Auto) 0.4 x10^3/uL (0.0-1.1) Eosinophils # (Auto) 0.2 x10^3/uL (0.0-0.7) Basophils # (Auto) 0.1 x10^3/uL (0.0-0.2) Sodium Level 145 mmol/L (136-145) Potassium Level 3.4 mmol/L (3.5-5.1) L Chloride Level 107 mmol/L (98-107) Carbon Dioxide Level 30 mmol/L (21-32) Anion Gap 8 (6-14) Blood Urea Nitrogen 18 mg/dL (7-20) Creatinine 0.7 mg/dL (0.6-1.0) Estimated GFR (Cockcroft-Gault) 81.6 BUN/Creatinine Ratio 26 (6-20) H Glucose Level 88 mg/dL (70-99) Calcium Level 9.2 mg/dL (8.5-10.1) Total Bilirubin 0.6 mg/dL (0.2-1.0) Aspartate Amino Transferase (AST) 10 U/L (15-37) L Alanine Aminotransferase (ALT) 23 U/L (14-59) Alkaline Phosphatase 145 U/L (46-116) H Total Protein 6.7 g/dL (6.4-8.2) Albumin 3.5 g/dL (3.4-5.0) Albumin/Globulin Ratio 1.1 (1.0-1.7) Current Medications: Meds: Current Medications Acetaminophen (Tylenol) 650 mg PRN Q6HRS PRN PO PAIN / TEMP; Start 05/28/17 at 23:00 Multi-Ingredient Ointment (Analgesic [place]) 1 faraz PRN QID PRN TP MUSCLE PAIN; Start 05/28/17 at 23:00 Al Hydroxide/Mg Hydroxide (Mylanta Plus Xs) 15 ml PRN AFTMEALHC PRN PO DYSPEPSIA; Start 05/28/17 at 23:00 Magnesium Hydroxide (Milk Of Magnesia) 2,400 mg PRN QHS PRN PO CONSTIPATION; Start 05/28/17 at 23:00 Alprazolam (Xanax) 0.5 mg PRN TID PRN PO ANXIETY / AGITATION Last administered on 06/02/17at 23:14; Start 05/29/17 at 00:15 Aripiprazole (Abilify) 5 mg DAILY PO Last administered on 05/30/17t 08:34; Start 05/29/17 at 09:00; Stop 05/30/17 at 17:17; Status DC Haloperidol (Haldol) 1 mg PRN BID PRN PO DELIRIUM Last administered on 17:11; Start 05/29/17 at 00:15 Trazodone HCl (Desyrel) 50 mg QHS PO Last administered on 06/04/17 19:48; Start 05/29/17 at 21:00 Citalopram Hydrobromide (CeleXA) 20 mg DAILY PO Last administered on 06/05/17 08:04; Start 05/29/17 at 09:00 Influenza Virus Vaccine Quadrival (Fluarix Quad [id number] Syringe) 0.5 ml ONCE ONCE VAX IM Last administered on 05/29/17 09:47; Start 05/29/17 at 09:00; Stop 05/29/17 at 09:01; Status DC Pneumococcal Polyvalent Vaccine (Pneumovax 23) 0.5 ml ONCE ONCE VAX IM Last administered on 05/29/17 09:45; Start 05/29/17 at 09:00; Stop 05/31/17 at 14 :59; Status DC Info (FLU VACCINE per PROTOCOL) 1 ea PRN 1X PRN MC PER PROTOCOL; Start at 02:15; Status Cancel Pneumococcal Polyvalent Vaccine (Do NOT chart on this entry -- for MONITORING) 1 each PRN 1X PRN MC SEE COMMENTS; Start 05/29/17 at 02:15; Status Cancel Acetaminophen (Tylenol) 650 mg PRN Q6HRS PRN PO PAIN / TEMP; Start 05/29/17 at 05:45; Stop 05/29/17 at 12:08; Status DC Acetaminophen (Tylenol) 650 mg QID PO Last administered on 06/05/17 17:05; Start 05/29/17 at 09:00 Enoxaparin Sodium (Lovenox) 40 mg DAILY SQ Last administered on 05/29/17 09: 41; Start 05/29/17 at 09:00; Stop 05/29/17 at 12:08; Status DC Lamotrigine (LaMICtal) 25 mg DAILY PO Last administered on 06/04/17 08:43; Start 05/29/17 at 09:00; Stop 06/04/17 at 12:17; Status DC Meloxicam (Mobic) 7.5 mg DAILY PO Last administered on 06/05/17 08:03; Start 05/29/17 at 09:00 Atorvastatin Calcium (Lipitor) 40 mg QHS PO Last administered on 06/04/17 19:48 ; Start 05/29/17 at 21:00 Lactobacillus Rhamnosus (Culturelle) 1 cap DAILY PO Last administered on 08:03; Start 05/29/17 at 09:00 Magnesium Hydroxide (Milk Of Magnesia) 2,400 mg PRN Q12HR PRN PO CONSTIPATION; Start 05/29/17 at 05:45; Stop 05/29/17 at 12:08; Status DC Potassium Chloride (Klor-Con) 40 meq 1X ONCE PO Last administered on 13:40; Start 05/29/17 at 12:00; Stop 05/29/17 at 12:11; Status DC Quetiapine Fumarate (SEROquel) 12.5 mg BID@0900,1300 PO Last administered on 07:50; Start 05/31/17 at 09:00; Stop 06/01/17 at 11:11; Status DC Cyanocobalamin (Vitamin B-12) 250 mcg DAILYBFRSUP PO Last administered on 17:05; Start 05/31/17 at 17:00 Vitamin D (Vitamin D3) 50,000 unit WEEKLY PO Last administered on 05/31/17 13 :22; Start 05/31/17 at 11:45 Quetiapine Fumarate (SEROquel) 12.5 mg TID@0900,1400,1700 PO Last administered on 06/05/17 17:04; Start 06/01/17 at 14:00 Trazodone HCl (Desyrel) 50 mg PRN QHS PRN PO INSOMNIA Last administered on 22:13; Start 06/02/17 at 19:00 Divalproex Sodium (Depakote Sprinkles) 125 mg BID@0900,1400 PO Last administered on 06/05/17 14:06; Start 06/05/17 at 09:00 Active Scripts Active Reported Trazodone Hcl 50 Mg Tablet 50 Mg PO QHS Meloxicam 7.5 Mg Tablet 7.5 Mg PO DAILY Milk Of Magnesia (Magnesium Hydroxide) 2,400 Mg/10 Ml Oral.susp 2,400 Mg PO PRN Q12HR PRN Lamotrigine 25 Mg Tablet 25 Mg PO DAILY Culturelle Capsule (L. Rhamnosus GG/Inulin) 1 Each Cap.sprink 1 Each PO DAILY Haloperidol 2 Mg Tablet 1 Mg PO PRN BID PRN Escitalopram Oxalate 10 Mg Tablet 10 Mg PO DAILY Lovenox (Enoxaparin Sodium) 40 Mg/0.4 Ml Disp.syrin 40 Mg SQ DAILY Atorvastatin Calcium 40 Mg Tablet 40 Mg PO QHS Abilify (Aripiprazole) 5 Mg Tablet 5 Mg PO DAILY Maalox Advanced Suspension (Mag Hydrox/Aluminum Hyd/Simeth) 355 Ml Oral.susp 30 Ml PO PRN Q3HRS PRN Alprazolam 0.5 Mg Tablet 0.5 Mg PO PRN TID PRN Tylenol (Acetaminophen) 325 Mg Tablet 650 Mg PO PRN Q6HRS PRN Tylenol (Acetaminophen) 325 Mg Tablet 650 Mg PO QID I have reviewed the current psychotropics carefully including drug interactions. Risk benefit ratio favors no change other than as noted in my dictated progress note. Diagnosis: Problems: (1) Anxiety disorder (2) Impulse control disorder (3) Dementia, vascular, with depression (4) Dementia, vascular, with delusions (5) Bipolar 1 disorder, mixed, moderate (6) Dementia in Alzheimer's disease with depression (7) Dementia in Alzheimer's disease with delusions CHARLEY MCCLURE MD Jun 05, 2017 19:55
[2017-06-05] MEDS: ATORVASTATIN CALCIUM 20 MG TABLET PO SCH (20:25)
[2017-06-05] MEDS: traZODone 50 MG TABLET. PO SCH (20:25)
[2017-06-06 05:38] VITALS: BP 127/71
[2017-06-06] MEDS: QUEtiapine 25 MG TABLET. PO SCH ×3 (08:13→16:51)
[2017-06-06] MEDS: LACTOBACILLUS RHAMNOSUS GG 1 CAPSULE. PO SCH (08:13)
[2017-06-06] MEDS: DIVALPROEX 125 MG CAP.SPRINK PO SCH ×2 (08:14→13:36)
[2017-06-06] MEDS: ACETAMINOPHEN 325 MG TABLET PO SCH ×4 (08:14→19:24)
[2017-06-06] MEDS: CITALOPRAM 20 MG TABLET. PO SCH (08:14)
[2017-06-06] MEDS: MELOXICAM 7.5 MG TABLET PO SCH (08:14)
[2017-06-06 15:44] VITALS: BP 127/73
[2017-06-06] MEDS: CYANOCOBALAMIN (VITAMIN B-12) 250 MCG TABLET PO SCH (16:51)
[2017-06-06] MEDS: ALPRAZolam 0.5 MG TABLET PO PRN (16:51)
[2017-06-06] MEDS: ATORVASTATIN CALCIUM 20 MG TABLET PO SCH (19:24)
[2017-06-06] MEDS: traZODone 50 MG TABLET. PO SCH (19:24)
--- NOTE | 2017-06-06 20:08 | PDOC ---
Exam Note: Martin Note: Please also refer to the separate dictated note~for this date of service dictated separately.~Patient seen individually. Discussed the patient with Nursing staff reviewed the chart.~Reviewed interim history and current functioning. Reviewed vital signs,~Labs/ Radiology~and current medications noted below. Continue current treatment with the changes noted in the dictated addendum note Assessment: Vital Signs: Vital Signs Date Time Temp Pulse Resp B/P (MAP) Pulse Ox O2 Delivery O2 Flow Rate FiO2 06/06/17 15:44 98.1 80 20 127/73 (91) 97 06/05/17 05:57 Room Air I&O Intake and Output 06/06/17 07:00 Intake Total 960 ml Balance 960 ml Intake Oral 960 ml Current Medications: Meds: Current Medications Acetaminophen (Tylenol) 650 mg PRN Q6HRS PRN PO PAIN / TEMP Last administered on 06/06/17 06:16; Start 05/28/17 at 23:00 Multi-Ingredient Ointment (Analgesic [place]) 1 faraz PRN QID PRN TP MUSCLE PAIN; Start 05/28/17 at 23:00 Al Hydroxide/Mg Hydroxide (Mylanta Plus Xs) 15 ml PRN AFTMEALHC PRN PO DYSPEPSIA; Start 05/28/17 at 23:00 Magnesium Hydroxide (Milk Of Magnesia) 2,400 mg PRN QHS PRN PO CONSTIPATION; Start 05/28/17 at 23:00 Alprazolam (Xanax) 0.5 mg PRN TID PRN PO ANXIETY / AGITATION Last administered on 06/06/17 16:51; Start 05/29/17 at 00:15 Aripiprazole (Abilify) 5 mg DAILY PO Last administered on 05/30/17t 08:34; Start 05/29/17 at 09:00; Stop 05/30/17 at 17:17; Status DC Haloperidol (Haldol) 1 mg PRN BID PRN PO DELIRIUM Last administered on 17:11; Start 05/29/17 at 00:15 Trazodone HCl (Desyrel) 50 mg QHS PO Last administered on 06/06/17 19:24; Start 05/29/17 at 21:00 Citalopram Hydrobromide (CeleXA) 20 mg DAILY PO Last administered on 06/06/17 08:14; Start 05/29/17 at 09:00 Influenza Virus Vaccine Quadrival (Fluarix Quad [id number] Syringe) 0.5 ml ONCE ONCE VAX IM Last administered on 05/29/17 09:47; Start 05/29/17 at 09:00; Stop 05/29/17 at 09:01; Status DC Pneumococcal Polyvalent Vaccine (Pneumovax 23) 0.5 ml ONCE ONCE VAX IM Last administered on 05/29/17 09:45; Start 05/29/17 at 09:00; Stop 05/31/17 at 14 :59; Status DC Info (FLU VACCINE per PROTOCOL) 1 ea PRN 1X PRN MC PER PROTOCOL; Start at 02:15; Status Cancel Pneumococcal Polyvalent Vaccine (Do NOT chart on this entry -- for MONITORING) 1 each PRN 1X PRN MC SEE COMMENTS; Start 05/29/17 at 02:15; Status Cancel Acetaminophen (Tylenol) 650 mg PRN Q6HRS PRN PO PAIN / TEMP; Start 05/29/17 at 05:45; Stop 05/29/17 at 12:08; Status DC Acetaminophen (Tylenol) 650 mg QID PO Last administered on 06/06/17 19:24; Start 05/29/17 at 09:00 Enoxaparin Sodium (Lovenox) 40 mg DAILY SQ Last administered on 05/29/17 09: 41; Start 05/29/17 at 09:00; Stop 05/29/17 at 12:08; Status DC Lamotrigine (LaMICtal) 25 mg DAILY PO Last administered on 06/04/17 08:43; Start 05/29/17 at 09:00; Stop 06/04/17 at 12:17; Status DC Meloxicam (Mobic) 7.5 mg DAILY PO Last administered on 06/06/17 08:14; Start 05/29/17 at 09:00 Atorvastatin Calcium (Lipitor) 40 mg QHS PO Last administered on 06/06/17 19:24 ; Start 05/29/17 at 21:00 Lactobacillus Rhamnosus (Culturelle) 1 cap DAILY PO Last administered on 08:13; Start 05/29/17 at 09:00 Magnesium Hydroxide (Milk Of Magnesia) 2,400 mg PRN Q12HR PRN PO CONSTIPATION; Start 05/29/17 at 05:45; Stop 05/29/17 at 12:08; Status DC Potassium Chloride (Klor-Con) 40 meq 1X ONCE PO Last administered on 13:40; Start 05/29/17 at 12:00; Stop 05/29/17 at 12:11; Status DC Quetiapine Fumarate (SEROquel) 12.5 mg BID@0900,1300 PO Last administered on 07:50; Start 05/31/17 at 09:00; Stop 06/01/17 at 11:11; Status DC Cyanocobalamin (Vitamin B-12) 250 mcg DAILYBFRSUP PO Last administered on 16:51; Start 05/31/17 at 17:00 Vitamin D (Vitamin D3) 50,000 unit WEEKLY PO Last administered on 05/31/17 13 :22; Start 05/31/17 at 11:45 Quetiapine Fumarate (SEROquel) 12.5 mg TID@0900,1400,1700 PO Last administered on 06/06/17 16:51; Start 06/01/17 at 14:00 Trazodone HCl (Desyrel) 50 mg PRN QHS PRN PO INSOMNIA Last administered on 22:13; Start 06/02/17 at 19:00 Divalproex Sodium (Depakote Sprinkles) 125 mg BID@0900,1400 PO Last administered on 06/06/17 13:36; Start 06/05/17 at 09:00 Active Scripts Active Reported Trazodone Hcl 50 Mg Tablet 50 Mg PO QHS Meloxicam 7.5 Mg Tablet 7.5 Mg PO DAILY Milk Of Magnesia (Magnesium Hydroxide) 2,400 Mg/10 Ml Oral.susp 2,400 Mg PO PRN Q12HR PRN Lamotrigine 25 Mg Tablet 25 Mg PO DAILY Culturelle Capsule (L. Rhamnosus GG/Inulin) 1 Each Cap.sprink 1 Each PO DAILY Haloperidol 2 Mg Tablet 1 Mg PO PRN BID PRN Escitalopram Oxalate 10 Mg Tablet 10 Mg PO DAILY Lovenox (Enoxaparin Sodium) 40 Mg/0.4 Ml Disp.syrin 40 Mg SQ DAILY Atorvastatin Calcium 40 Mg Tablet 40 Mg PO QHS Abilify (Aripiprazole) 5 Mg Tablet 5 Mg PO DAILY Maalox Advanced Suspension (Mag Hydrox/Aluminum Hyd/Simeth) 355 Ml Oral.susp 30 Ml PO PRN Q3HRS PRN Alprazolam 0.5 Mg Tablet 0.5 Mg PO PRN TID PRN Tylenol (Acetaminophen) 325 Mg Tablet 650 Mg PO PRN Q6HRS PRN Tylenol (Acetaminophen) 325 Mg Tablet 650 Mg PO QID I have reviewed the current psychotropics carefully including drug interactions. Risk benefit ratio favors no change other than as noted in my dictated progress note. Diagnosis: Problems: (1) Anxiety disorder (2) Impulse control disorder (3) Dementia, vascular, with depression (4) Dementia, vascular, with delusions (5) Bipolar 1 disorder, mixed, moderate (6) Dementia in Alzheimer's disease with depression (7) Dementia in Alzheimer's disease with delusions CHARLEY MCCLURE MD Jun 06, 2017 20:08
[2017-06-07 05:40] VITALS: BP 108/59
--- NOTE | 2017-06-07 07:28 | PN ---
DATE: 06/05/2017 PSYCHIATRIC PROGRESS NOTE This is a late entry 06/05/2017, covers elements not covered in my initial note 06/05/2017. Met with the patient in the evening of 06/05/2017. Potassium is 3.4. She is compliant with medications, confused, less aggressive. REVIEW OF SYSTEMS: Ambulation impaired, in wheelchair. No CV, , pulmonary, eye system symptoms on review. Reliability poor. MENTAL STATUS EXAM: Oriented to herself. Insight, judgment, recent and remote memory, attention, concentration, fund of knowledge poor, consistent with her diagnosis mentioned in my initial note. IMPRESSION: Major neurocognitive disorder, Alzheimer, vascular with depression, delusion, behavioral disturbance; anxiety disorder, unspecified; impulse control disorder, unspecified. PLAN: Continue current psychotropics mentioned in my initial note. Adjust further as clinically indicated. MAN Sean MCCLURE MD DR: IRENE/bora JOB#: [id number] / [id number]
--- NOTE | 2017-06-07 07:34 | PN ---
DATE: 06/04/2017 This late entry 06/04/2017 covers elements not covered in my initial note 06/04/2017, met with the patient evening of 06/04/2017 and staffed a treatment team meeting with the entire team morning of 06/04/2017. The patient slept 6 hours. During showers, she was agitated, cursing at staff, calling staff awful names. At the treatment team meeting reviewed the patient's history. REVIEW OF SYSTEMS: Ambulation impaired. No CV, , pulmonary, eye, ENT system symptoms on review. She is in a wheelchair. MENTAL STATUS EXAM: Oriented to herself. Insight, judgment, recent and remote memory, attention, concentration, fund of knowledge poor, consistent with her diagnosis. IMPRESSION: Bipolar 1 disorder, mixed versus depressed, major neurocognitive disorder, Alzheimer, vascular with delusions. Rest unchanged. PLAN: The patient seems to have symptoms of bipolar 1 disorder rather than bipolar 2. We will go ahead and change the Lamictal to Depakote Sprinkles 125 mg twice a day. Check CBC, CMP, valproic acid level in 3 days. Continue, rest unchanged including Seroquel. MAN Sean MCCLURE MD DR: IRENE/bora JOB#: [id number] / [id number]
[2017-06-07] MEDS: ACETAMINOPHEN 325 MG TABLET PO SCH ×4 (07:46→19:34)
[2017-06-07] MEDS: QUEtiapine 25 MG TABLET. PO SCH ×3 (07:46→17:20)
[2017-06-07] MEDS: DIVALPROEX 125 MG CAP.SPRINK PO SCH ×2 (07:47→13:09)
[2017-06-07] MEDS: CITALOPRAM 20 MG TABLET. PO SCH (07:47)
[2017-06-07] MEDS: LACTOBACILLUS RHAMNOSUS GG 1 CAPSULE. PO SCH (07:47)
[2017-06-07] MEDS: MELOXICAM 7.5 MG TABLET PO SCH (07:47)
[2017-06-07] MEDS: CHOLECALCIFEROL (VITAMIN D3) 50,000 UNIT CAPSULE PO SCH (07:49)
[2017-06-07 15:42] VITALS: BP 110/60
[2017-06-07] MEDS: CYANOCOBALAMIN (VITAMIN B-12) 250 MCG TABLET PO SCH (17:20)
[2017-06-07] MEDS: traZODone 50 MG TABLET. PO SCH (19:34)
[2017-06-07] MEDS: ATORVASTATIN CALCIUM 20 MG TABLET PO SCH (19:34)
--- NOTE | 2017-06-07 22:07 | PDOC ---
Exam Note: Martin Note: Please also refer to the separate dictated note~for this date of service dictated separately.~Patient seen individually. Discussed the patient with Nursing staff reviewed the chart.~Reviewed interim history and current functioning. Reviewed vital signs,~Labs/ Radiology~and current medications noted below. Continue current treatment with the changes noted in the dictated addendum note Assessment: Vital Signs: Vital Signs Date Time Temp Pulse Resp B/P (MAP) Pulse Ox O2 Delivery O2 Flow Rate FiO2 06/07/17 15:42 99.2 66 16 110/60 (77) 99 Room Air I&O Intake and Output 06/07/17 06:59 Intake Total 965 ml Balance 965 ml Intake Oral 965 ml # Voids 2 # Bowel Movements 1 Current Medications: Meds: Current Medications Acetaminophen (Tylenol) 650 mg PRN Q6HRS PRN PO PAIN / TEMP Last administered on 06/06/17 06:16; Start 05/28/17 at 23:00 Multi-Ingredient Ointment (Analgesic [place]) 1 faraz PRN QID PRN TP MUSCLE PAIN; Start 05/28/17 at 23:00 Al Hydroxide/Mg Hydroxide (Mylanta Plus Xs) 15 ml PRN AFTMEALHC PRN PO DYSPEPSIA; Start 05/28/17 at 23:00 Magnesium Hydroxide (Milk Of Magnesia) 2,400 mg PRN QHS PRN PO CONSTIPATION; Start 05/28/17 at 23:00 Alprazolam (Xanax) 0.5 mg PRN TID PRN PO ANXIETY / AGITATION Last administered on 06/06/17 16:51; Start 05/29/17 at 00:15 Aripiprazole (Abilify) 5 mg DAILY PO Last administered on 05/30/17t 08:34; Start 05/29/17 at 09:00; Stop 05/30/17 at 17:17; Status DC Haloperidol (Haldol) 1 mg PRN BID PRN PO DELIRIUM Last administered on 17:11; Start 05/29/17 at 00:15 Trazodone HCl (Desyrel) 50 mg QHS PO Last administered on 06/07/17 19:34; Start 05/29/17 at 21:00 Citalopram Hydrobromide (CeleXA) 20 mg DAILY PO Last administered on 06/07/17 07:47; Start 05/29/17 at 09:00 Influenza Virus Vaccine Quadrival (Fluarix Quad [id number] Syringe) 0.5 ml ONCE ONCE VAX IM Last administered on 05/29/17 09:47; Start 05/29/17 at 09:00; Stop 05/29/17 at 09:01; Status DC Pneumococcal Polyvalent Vaccine (Pneumovax 23) 0.5 ml ONCE ONCE VAX IM Last administered on 05/29/17 09:45; Start 05/29/17 at 09:00; Stop 05/31/17 at 14 :59; Status DC Info (FLU VACCINE per PROTOCOL) 1 ea PRN 1X PRN MC PER PROTOCOL; Start at 02:15; Status Cancel Pneumococcal Polyvalent Vaccine (Do NOT chart on this entry -- for MONITORING) 1 each PRN 1X PRN MC SEE COMMENTS; Start 05/29/17 at 02:15; Status Cancel Acetaminophen (Tylenol) 650 mg PRN Q6HRS PRN PO PAIN / TEMP; Start 05/29/17 at 05:45; Stop 05/29/17 at 12:08; Status DC Acetaminophen (Tylenol) 650 mg QID PO Last administered on 06/07/17 19:34; Start 05/29/17 at 09:00 Enoxaparin Sodium (Lovenox) 40 mg DAILY SQ Last administered on 05/29/17 09: 41; Start 05/29/17 at 09:00; Stop 05/29/17 at 12:08; Status DC Lamotrigine (LaMICtal) 25 mg DAILY PO Last administered on 06/04/17 08:43; Start 05/29/17 at 09:00; Stop 06/04/17 at 12:17; Status DC Meloxicam (Mobic) 7.5 mg DAILY PO Last administered on 06/07/17 07:47; Start 05/29/17 at 09:00 Atorvastatin Calcium (Lipitor) 40 mg QHS PO Last administered on 06/07/17 19:34 ; Start 05/29/17 at 21:00 Lactobacillus Rhamnosus (Culturelle) 1 cap DAILY PO Last administered on 07:47; Start 05/29/17 at 09:00 Magnesium Hydroxide (Milk Of Magnesia) 2,400 mg PRN Q12HR PRN PO CONSTIPATION; Start 05/29/17 at 05:45; Stop 05/29/17 at 12:08; Status DC Potassium Chloride (Klor-Con) 40 meq 1X ONCE PO Last administered on 13:40; Start 05/29/17 at 12:00; Stop 05/29/17 at 12:11; Status DC Quetiapine Fumarate (SEROquel) 12.5 mg BID@0900,1300 PO Last administered on 07:50; Start 05/31/17 at 09:00; Stop 06/01/17 at 11:11; Status DC Cyanocobalamin (Vitamin B-12) 250 mcg DAILYBFRSUP PO Last administered on 17:20; Start 05/31/17 at 17:00 Vitamin D (Vitamin D3) 50,000 unit WEEKLY PO Last administered on 06/07/17 07: 49; Start 05/31/17 at 11:45 Quetiapine Fumarate (SEROquel) 12.5 mg TID@0900,1400,1700 PO Last administered on 06/07/17 17:20; Start 06/01/17 at 14:00 Trazodone HCl (Desyrel) 50 mg PRN QHS PRN PO INSOMNIA Last administered on at 22:13; Start 06/02/17 at 19:00 Divalproex Sodium (Depakote Sprinkles) 125 mg BID@0900,1400 PO Last administered on 06/07/17at 13:09; Start 06/05/17 at 09:00 Active Scripts Active Reported Trazodone Hcl 50 Mg Tablet 50 Mg PO QHS Meloxicam 7.5 Mg Tablet 7.5 Mg PO DAILY Milk Of Magnesia (Magnesium Hydroxide) 2,400 Mg/10 Ml Oral.susp 2,400 Mg PO PRN Q12HR PRN Lamotrigine 25 Mg Tablet 25 Mg PO DAILY Culturelle Capsule (L. Rhamnosus GG/Inulin) 1 Each Cap.sprink 1 Each PO DAILY Haloperidol 2 Mg Tablet 1 Mg PO PRN BID PRN Escitalopram Oxalate 10 Mg Tablet 10 Mg PO DAILY Lovenox (Enoxaparin Sodium) 40 Mg/0.4 Ml Disp.syrin 40 Mg SQ DAILY Atorvastatin Calcium 40 Mg Tablet 40 Mg PO QHS Abilify (Aripiprazole) 5 Mg Tablet 5 Mg PO DAILY Maalox Advanced Suspension (Mag Hydrox/Aluminum Hyd/Simeth) 355 Ml Oral.susp 30 Ml PO PRN Q3HRS PRN Alprazolam 0.5 Mg Tablet 0.5 Mg PO PRN TID PRN Tylenol (Acetaminophen) 325 Mg Tablet 650 Mg PO PRN Q6HRS PRN Tylenol (Acetaminophen) 325 Mg Tablet 650 Mg PO QID I have reviewed the current psychotropics carefully including drug interactions. Risk benefit ratio favors no change other than as noted in my dictated progress note. Diagnosis: Problems: (1) Anxiety disorder (2) Impulse control disorder (3) Dementia, vascular, with depression (4) Dementia, vascular, with delusions (5) Bipolar 1 disorder, mixed, moderate (6) Dementia in Alzheimer's disease with depression (7) Dementia in Alzheimer's disease with delusions CHARLEY MCCLURE MD Jun 07, 2017 22:07
[2017-06-08 05:50] VITALS: BP 115/73
[2017-06-08 07:42] LABS: BASO % 1 % (0-3); EOS # 0.3 x10^3/uL (0.0-0.7); EOS % 4 % (0-3); HEMATOCRIT 35.5 % (36.0-47.0); HEMOGLOBIN 12.1 g/dL (12.0-15.5); LYMPH % 12 % (24-48); MEAN CORPUSCULAR HEMOGLOBIN 32 pg (25-35); MEAN CORPUSCULAR HGB CONC 34 g/dL (31-37); MEAN CORPUSCULAR VOLUME 93 fL (79-100); MONO # 0.5 x10^3/uL (0.0-1.1); MONO % 6 % (0-9); NEUT # 6.2 x10^3uL (1.8-7.7); NEUT % 77 % (31-73); PLATELET COUNT 209 x10^3/uL (140-400); RED BLOOD COUNT 3.81 x10^6/uL (3.50-5.40); RED CELL DISTRIBUTION WIDTH 13.9 % (11.5-14.5)
[2017-06-08 08:12] LABS: ALBUMIN 3.4 g/dL (3.4-5.0); ALBUMIN/GLOBULIN RATIO 1.1 (1.0-1.7); ALK PHOS 141 U/L (46-116); ALT (SGPT) 21 U/L (14-59); ANION GAP 7 (6-14); AST (SGOT) 15 U/L (15-37); BLOOD UREA NITROGEN 11 mg/dL (7-20); BUN/CREATININE RATIO 22 (6-20); CALCIUM 9.1 mg/dL (8.5-10.1); CARBON DIOXIDE 30 mmol/L (21-32); CHLORIDE 107 mmol/L (98-107); CREATININE 0.5 mg/dL (0.6-1.0); GFR 120.3; GLUCOSE 93 mg/dL (70-99); POTASSIUM 3.8 mmol/L (3.5-5.1); SODIUM 144 mmol/L (136-145); TOTAL BILIRUBIN 0.6 mg/dL (0.2-1.0); TOTAL PROTEIN 6.5 g/dL (6.4-8.2)
[2017-06-08] MEDS: ACETAMINOPHEN 325 MG TABLET PO SCH ×4 (08:15→19:33)
[2017-06-08] MEDS: MELOXICAM 7.5 MG TABLET PO SCH (08:16)
[2017-06-08] MEDS: DIVALPROEX 125 MG CAP.SPRINK PO SCH ×2 (08:16→13:45)
[2017-06-08] MEDS: CITALOPRAM 20 MG TABLET. PO SCH (08:16)
[2017-06-08] MEDS: LACTOBACILLUS RHAMNOSUS GG 1 CAPSULE. PO SCH (08:16)
[2017-06-08] MEDS: QUEtiapine 25 MG TABLET. PO SCH ×3 (08:16→16:39)
[2017-06-08 08:25] LABS: VAL ACID 18 mcg/mL (50-100)
[2017-06-08 16:22] VITALS: BP 142/86
[2017-06-08] MEDS: CYANOCOBALAMIN (VITAMIN B-12) 250 MCG TABLET PO SCH (16:39)
--- NOTE | 2017-06-08 19:12 | PN ---
DATE: 06/06/2017 This is a late entry, covers the elements not covered in my initial note, 06/06/2017. SUBJECTIVE: I met with the patient in the evening of 06/06/2017. The patient remains somewhat anxious, restless, received Xanax at 1650, then was calm. She remains confused. REVIEW OF SYSTEMS: Ambulation impaired, in wheelchair. No CV, , pulmonary, eye, ENT system symptoms on review. Reliability poor. MENTAL STATUS EXAM: Oriented to herself. Insight, judgment, recent and remote memory, attention, concentration, fund of knowledge poor, consistent with her diagnosis mentioned in my initial note. IMPRESSION: Major neurocognitive disorder, Alzheimer, vascular with depression, delusion, behavioral disturbance. PLAN: Continue psychotropics as mentioned in my initial note. MAN Sean MCCLURE MD DR: IRENE/bora JOB#: [id number] / [id number]
--- NOTE | 2017-06-08 19:18 | PN ---
DATE: 06/07/2017 This note covers the elements not covered in my initial note, 06/07/2017. SUBJECTIVE: I met with the patient in the evening of 06/07/2017. The patient slept 6 hours previous evening, remains confused, tearful at times, irritable with the staff and other patients, does redirect, otherwise had a better day. Labs including valproic acid level at , 06/08/2017, following which we will reassess the dosage of Depakote. REVIEW OF SYSTEMS: Ambulation impaired, in wheelchair. No CV, , pulmonary, eye, ENT system symptoms on review. Reliability poor. MENTAL STATUS EXAM: Oriented to herself. Insight, judgment, recent, and remote memory, attention, concentration, fund of knowledge poor, consistent with her diagnosis as mentioned in my initial note. IMPRESSION: Major neurocognitive disorder, Alzheimer, vascular with depression, delusion, behavioral disturbance. PLAN: Continue current psychotropics. Check labs in the morning, adjust Depakote thereafter. CHARLEY MCCLURE MD DR: IRENE/bora JOB#: [id number] / [id number]
[2017-06-08] MEDS: ATORVASTATIN CALCIUM 20 MG TABLET PO SCH (19:32)
[2017-06-08] MEDS: traZODone 50 MG TABLET. PO SCH (19:33)
--- NOTE | 2017-06-08 20:11 | PDOC ---
Exam Note: Martin Note: Please also refer to the separate dictated note~for this date of service dictated separately.~Patient seen individually. Discussed the patient with Nursing staff reviewed the chart.~Reviewed interim history and current functioning. Reviewed vital signs,~Labs/ Radiology~and current medications noted below. Continue current treatment with the changes noted in the dictated addendum note Assessment: Vital Signs: Vital Signs Date Time Temp Pulse Resp B/P (MAP) Pulse Ox O2 Delivery O2 Flow Rate FiO2 06/08/17 16:22 98.3 70 18 142/86 (104) 95 Room Air I&O Intake and Output 06/08/17 07:00 Intake Total 720 ml Balance 720 ml Intake Oral 720 ml Labs: Laboratory Tests Test 06/08/17 07:19 White Blood Count 8.0 x10^3/uL (4.0-11.0) Red Blood Count 3.81 x10^6/uL (3.50-5.40) Hemoglobin 12.1 g/dL (12.0-15.5) Hematocrit 35.5 % (36.0-47.0) L Mean Corpuscular Volume 93 fL (79-100) Mean Corpuscular Hemoglobin 32 pg (25-35) Mean Corpuscular Hemoglobin Concent 34 g/dL (31-37) Red Cell Distribution Width 13.9 % (11.5-14.5) Platelet Count 209 x10^3/uL (140-400) Neutrophils (%) (Auto) 77 % (31-73) H Lymphocytes (%) (Auto) 12 % (24-48) L Monocytes (%) (Auto) 6 % (0-9) Eosinophils (%) (Auto) 4 % (0-3) H Basophils (%) (Auto) 1 % (0-3) Neutrophils # (Auto) 6.2 x10^3uL (1.8-7.7) Lymphocytes # (Auto) 1.0 x10^3/uL (1.0-4.8) Monocytes # (Auto) 0.5 x10^3/uL (0.0-1.1) Eosinophils # (Auto) 0.3 x10^3/uL (0.0-0.7) Basophils # (Auto) 0.0 x10^3/uL (0.0-0.2) Sodium Level 144 mmol/L (136-145) Potassium Level 3.8 mmol/L (3.5-5.1) Chloride Level 107 mmol/L (98-107) Carbon Dioxide Level 30 mmol/L (21-32) Anion Gap 7 (6-14) Blood Urea Nitrogen 11 mg/dL (7-20) Creatinine 0.5 mg/dL (0.6-1.0) L Estimated GFR (Cockcroft-Gault) 120.3 BUN/Creatinine Ratio 22 (6-20) H Glucose Level 93 mg/dL (70-99) Calcium Level 9.1 mg/dL (8.5-10.1) Total Bilirubin 0.6 mg/dL (0.2-1.0) Aspartate Amino Transferase (AST) 15 U/L (15-37) Alanine Aminotransferase (ALT) 21 U/L (14-59) Alkaline Phosphatase 141 U/L (46-116) H Total Protein 6.5 g/dL (6.4-8.2) Albumin 3.4 g/dL (3.4-5.0) Albumin/Globulin Ratio 1.1 (1.0-1.7) Valproic Acid Level 18 mcg/mL (50-100) L Valproic Acid Last Dose Date 06/07/2017 Valproic Acid Last Dose Time 1400 Current Medications: Meds: Current Medications Acetaminophen (Tylenol) 650 mg PRN Q6HRS PRN PO PAIN / TEMP Last administered on 06/06/17 06:16; Start 05/28/17 at 23:00 Multi-Ingredient Ointment (Analgesic [place]) 1 faraz PRN QID PRN TP MUSCLE PAIN; Start 05/28/17 at 23:00 Al Hydroxide/Mg Hydroxide (Mylanta Plus Xs) 15 ml PRN AFTMEALHC PRN PO DYSPEPSIA; Start 05/28/17 at 23:00 Magnesium Hydroxide (Milk Of Magnesia) 2,400 mg PRN QHS PRN PO CONSTIPATION; Start 05/28/17 at 23:00 Alprazolam (Xanax) 0.5 mg PRN TID PRN PO ANXIETY / AGITATION Last administered on 06/06/17 16:51; Start 05/29/17 at 00:15 Aripiprazole (Abilify) 5 mg DAILY PO Last administered on 05/30/17t 08:34; Start 05/29/17 at 09:00; Stop 05/30/17 at 17:17; Status DC Haloperidol (Haldol) 1 mg PRN BID PRN PO DELIRIUM Last administered on 17:11; Start 05/29/17 at 00:15 Trazodone HCl (Desyrel) 50 mg QHS PO Last administered on 06/08/17 19:33; Start 05/29/17 at 21:00 Citalopram Hydrobromide (CeleXA) 20 mg DAILY PO Last administered on 06/08/17 08:16; Start 05/29/17 at 09:00 Influenza Virus Vaccine Quadrival (Fluarix Quad [id number] Syringe) 0.5 ml ONCE ONCE VAX IM Last administered on 05/29/17 09:47; Start 05/29/17 at 09:00; Stop 05/29/17 at 09:01; Status DC Pneumococcal Polyvalent Vaccine (Pneumovax 23) 0.5 ml ONCE ONCE VAX IM Last administered on 05/29/17 09:45; Start 05/29/17 at 09:00; Stop 05/31/17 at 14 :59; Status DC Info (FLU VACCINE per PROTOCOL) 1 ea PRN 1X PRN MC PER PROTOCOL; Start at 02:15; Status Cancel Pneumococcal Polyvalent Vaccine (Do NOT chart on this entry -- for MONITORING) 1 each PRN 1X PRN MC SEE COMMENTS; Start 05/29/17 at 02:15; Status Cancel Acetaminophen (Tylenol) 650 mg PRN Q6HRS PRN PO PAIN / TEMP; Start 05/29/17 at 05:45; Stop 05/29/17 at 12:08; Status DC Acetaminophen (Tylenol) 650 mg QID PO Last administered on 06/08/17 19:33; Start 05/29/17 at 09:00 Enoxaparin Sodium (Lovenox) 40 mg DAILY SQ Last administered on 05/29/17 09: 41; Start 05/29/17 at 09:00; Stop 05/29/17 at 12:08; Status DC Lamotrigine (LaMICtal) 25 mg DAILY PO Last administered on 06/04/17 08:43; Start 05/29/17 at 09:00; Stop 06/04/17 at 12:17; Status DC Meloxicam (Mobic) 7.5 mg DAILY PO Last administered on 06/08/17 08:16; Start 05/29/17 at 09:00 Atorvastatin Calcium (Lipitor) 40 mg QHS PO Last administered on 06/08/17 19:32 ; Start 05/29/17 at 21:00 Lactobacillus Rhamnosus (Culturelle) 1 cap DAILY PO Last administered on 08:16; Start 05/29/17 at 09:00 Magnesium Hydroxide (Milk Of Magnesia) 2,400 mg PRN Q12HR PRN PO CONSTIPATION; Start 05/29/17 at 05:45; Stop 05/29/17 at 12:08; Status DC Potassium Chloride (Klor-Con) 40 meq 1X ONCE PO Last administered on 13:40; Start 05/29/17 at 12:00; Stop 05/29/17 at 12:11; Status DC Quetiapine Fumarate (SEROquel) 12.5 mg BID@0900,1300 PO Last administered on 07:50; Start 05/31/17 at 09:00; Stop 06/01/17 at 11:11; Status DC Cyanocobalamin (Vitamin B-12) 250 mcg DAILYBFRSUP PO Last administered on 16:39; Start 05/31/17 at 17:00 Vitamin D (Vitamin D3) 50,000 unit WEEKLY PO Last administered on 06/07/17 07: 49; Start 05/31/17 at 11:45 Quetiapine Fumarate (SEROquel) 12.5 mg TID@0900,1400,1700 PO Last administered on 06/08/17 16:39; Start 06/01/17 at 14:00 Trazodone HCl (Desyrel) 50 mg PRN QHS PRN PO INSOMNIA Last administered on 22:13; Start 06/02/17 at 19:00 Divalproex Sodium (Depakote Sprinkles) 125 mg BID@0900,1400 PO Last administered on 06/08/17 13:45; Start 06/05/17 at 09:00 Active Scripts Active Reported Trazodone Hcl 50 Mg Tablet 50 Mg PO QHS Meloxicam 7.5 Mg Tablet 7.5 Mg PO DAILY Milk Of Magnesia (Magnesium Hydroxide) 2,400 Mg/10 Ml Oral.susp 2,400 Mg PO PRN Q12HR PRN Lamotrigine 25 Mg Tablet 25 Mg PO DAILY Culturelle Capsule (L. Rhamnosus GG/Inulin) 1 Each Cap.sprink 1 Each PO DAILY Haloperidol 2 Mg Tablet 1 Mg PO PRN BID PRN Escitalopram Oxalate 10 Mg Tablet 10 Mg PO DAILY Lovenox (Enoxaparin Sodium) 40 Mg/0.4 Ml Disp.syrin 40 Mg SQ DAILY Atorvastatin Calcium 40 Mg Tablet 40 Mg PO QHS Abilify (Aripiprazole) 5 Mg Tablet 5 Mg PO DAILY Maalox Advanced Suspension (Mag Hydrox/Aluminum Hyd/Simeth) 355 Ml Oral.susp 30 Ml PO PRN Q3HRS PRN Alprazolam 0.5 Mg Tablet 0.5 Mg PO PRN TID PRN Tylenol (Acetaminophen) 325 Mg Tablet 650 Mg PO PRN Q6HRS PRN Tylenol (Acetaminophen) 325 Mg Tablet 650 Mg PO QID I have reviewed the current psychotropics carefully including drug interactions. Risk benefit ratio favors no change other than as noted in my dictated progress note. Diagnosis: Problems: (1) Anxiety disorder (2) Impulse control disorder (3) Dementia, vascular, with depression (4) Dementia, vascular, with delusions (5) Bipolar 1 disorder, mixed, moderate (6) Dementia in Alzheimer's disease with depression (7) Dementia in Alzheimer's disease with delusions CHARLEY MCCLURE MD Jun 08, 2017 20:11
[2017-06-08] MEDS: traZODone 50 MG TABLET. PO PRN (22:18)
[2017-06-09 05:47] VITALS: BP 140/88
[2017-06-09] MEDS: QUEtiapine 25 MG TABLET. PO SCH ×3 (07:48→16:49)
[2017-06-09] MEDS: MELOXICAM 7.5 MG TABLET PO SCH (07:49)
[2017-06-09] MEDS: CITALOPRAM 20 MG TABLET. PO SCH (07:49)
[2017-06-09] MEDS: LACTOBACILLUS RHAMNOSUS GG 1 CAPSULE. PO SCH (07:49)
[2017-06-09] MEDS: DIVALPROEX 125 MG CAP.SPRINK PO SCH ×3 (07:49→20:05)
[2017-06-09] MEDS: ACETAMINOPHEN 325 MG TABLET PO SCH ×4 (07:49→19:15)
[2017-06-09] MEDS: ALPRAZolam 0.5 MG TABLET PO PRN (12:45)
[2017-06-09 15:27] VITALS: BP 104/70
[2017-06-09] MEDS: CYANOCOBALAMIN (VITAMIN B-12) 250 MCG TABLET PO SCH (16:50)
[2017-06-09] MEDS: traZODone 50 MG TABLET. PO SCH (19:14)
[2017-06-09] MEDS: ATORVASTATIN CALCIUM 20 MG TABLET PO SCH (19:15)
--- NOTE | 2017-06-09 20:01 | PDOC ---
Exam Note: Martin Note: Please also refer to the separate dictated note~for this date of service dictated separately.~Patient seen individually. Discussed the patient with Nursing staff reviewed the chart.~Reviewed interim history and current functioning. Reviewed vital signs,~Labs/ Radiology~and current medications noted below. Continue current treatment with the changes noted in the dictated addendum note Assessment: Vital Signs: Vital Signs Date Time Temp Pulse Resp B/P (MAP) Pulse Ox O2 Delivery O2 Flow Rate FiO2 06/09/17 15:27 98.4 69 16 104/70 (81) 98 06/09/17 05:47 Room Air I&O Intake and Output 06/09/17 06:59 Intake Total 720 ml Balance 720 ml Intake Oral 720 ml Current Medications: Meds: Current Medications Acetaminophen (Tylenol) 650 mg PRN Q6HRS PRN PO PAIN / TEMP Last administered on 06/06/17 06:16; Start 05/28/17 at 23:00 Multi-Ingredient Ointment (Analgesic [place]) 1 faraz PRN QID PRN TP MUSCLE PAIN; Start 05/28/17 at 23:00 Al Hydroxide/Mg Hydroxide (Mylanta Plus Xs) 15 ml PRN AFTMEALHC PRN PO DYSPEPSIA; Start 05/28/17 at 23:00 Magnesium Hydroxide (Milk Of Magnesia) 2,400 mg PRN QHS PRN PO CONSTIPATION; Start 05/28/17 at 23:00 Alprazolam (Xanax) 0.5 mg PRN TID PRN PO ANXIETY / AGITATION Last administered on 06/09/17 12:45; Start 05/29/17 at 00:15 Aripiprazole (Abilify) 5 mg DAILY PO Last administered on 05/30/17t 08:34; Start 05/29/17 at 09:00; Stop 05/30/17 at 17:17; Status DC Haloperidol (Haldol) 1 mg PRN BID PRN PO DELIRIUM Last administered on 17:11; Start 05/29/17 at 00:15 Trazodone HCl (Desyrel) 50 mg QHS PO Last administered on 06/09/17 19:14; Start 05/29/17 at 21:00 Citalopram Hydrobromide (CeleXA) 20 mg DAILY PO Last administered on 06/09/17 07:49; Start 05/29/17 at 09:00; Stop 06/09/17 at 18:00; Status DC Influenza Virus Vaccine Quadrival (Fluarix Quad [id number] Syringe) 0.5 ml ONCE ONCE VAX IM Last administered on 05/29/17 09:47; Start 05/29/17 at 09:00; Stop 05/29/17 at 09:01; Status DC Pneumococcal Polyvalent Vaccine (Pneumovax 23) 0.5 ml ONCE ONCE VAX IM Last administered on 05/29/17 09:45; Start 05/29/17 at 09:00; Stop 05/31/17 at 14 :59; Status DC Info (FLU VACCINE per PROTOCOL) 1 ea PRN 1X PRN MC PER PROTOCOL; Start at 02:15; Status Cancel Pneumococcal Polyvalent Vaccine (Do NOT chart on this entry -- for MONITORING) 1 each PRN 1X PRN MC SEE COMMENTS; Start 05/29/17 at 02:15; Status Cancel Acetaminophen (Tylenol) 650 mg PRN Q6HRS PRN PO PAIN / TEMP; Start 05/29/17 at 05:45; Stop 05/29/17 at 12:08; Status DC Acetaminophen (Tylenol) 650 mg QID PO Last administered on 06/09/17 19:15; Start 05/29/17 at 09:00 Enoxaparin Sodium (Lovenox) 40 mg DAILY SQ Last administered on 05/29/17 09: 41; Start 05/29/17 at 09:00; Stop 05/29/17 at 12:08; Status DC Lamotrigine (LaMICtal) 25 mg DAILY PO Last administered on 06/04/17 08:43; Start 05/29/17 at 09:00; Stop 06/04/17 at 12:17; Status DC Meloxicam (Mobic) 7.5 mg DAILY PO Last administered on 06/09/17 07:49; Start 05/29/17 at 09:00 Atorvastatin Calcium (Lipitor) 40 mg QHS PO Last administered on 06/09/17 19:15 ; Start 05/29/17 at 21:00 Lactobacillus Rhamnosus (Culturelle) 1 cap DAILY PO Last administered on 07:49; Start 05/29/17 at 09:00 Magnesium Hydroxide (Milk Of Magnesia) 2,400 mg PRN Q12HR PRN PO CONSTIPATION; Start 05/29/17 at 05:45; Stop 05/29/17 at 12:08; Status DC Potassium Chloride (Klor-Con) 40 meq 1X ONCE PO Last administered on 13:40; Start 05/29/17 at 12:00; Stop 05/29/17 at 12:11; Status DC Quetiapine Fumarate (SEROquel) 12.5 mg BID@0900,1300 PO Last administered on 07:50; Start 05/31/17 at 09:00; Stop 06/01/17 at 11:11; Status DC Cyanocobalamin (Vitamin B-12) 250 mcg DAILYBFRSUP PO Last administered on at 16:50; Start 05/31/17 at 17:00 Vitamin D (Vitamin D3) 50,000 unit WEEKLY PO Last administered on 06/07/17at 07: 49; Start 05/31/17 at 11:45 Quetiapine Fumarate (SEROquel) 12.5 mg TID@0900,1400,1700 PO Last administered on 06/09/17 16:49; Start 06/01/17 at 14:00 Trazodone HCl (Desyrel) 50 mg PRN QHS PRN PO INSOMNIA Last administered on at 22:18; Start 06/02/17 at 19:00 Divalproex Sodium (Depakote Sprinkles) 125 mg BID@0900,1400 PO Last administered on 06/09/17at 13:31; Start 06/05/17 at 09:00; Stop 06/09/17 at 18:00; Status DC Divalproex Sodium (Depakote Sprinkles) 125 mg TID PO ; Start 06/09/17 at 21:00 Sertraline HCl (Zoloft) 50 mg DAILY PO ; Start 06/10/17 at 09:00 Mirtazapine (Remeron) 7.5 mg QHS PO ; Start 06/09/17 at 21:00 Active Scripts Active Reported Trazodone Hcl 50 Mg Tablet 50 Mg PO QHS Meloxicam 7.5 Mg Tablet 7.5 Mg PO DAILY Milk Of Magnesia (Magnesium Hydroxide) 2,400 Mg/10 Ml Oral.susp 2,400 Mg PO PRN Q12HR PRN Lamotrigine 25 Mg Tablet 25 Mg PO DAILY Culturelle Capsule (L. Rhamnosus GG/Inulin) 1 Each Cap.sprink 1 Each PO DAILY Haloperidol 2 Mg Tablet 1 Mg PO PRN BID PRN Escitalopram Oxalate 10 Mg Tablet 10 Mg PO DAILY Lovenox (Enoxaparin Sodium) 40 Mg/0.4 Ml Disp.syrin 40 Mg SQ DAILY Atorvastatin Calcium 40 Mg Tablet 40 Mg PO QHS Abilify (Aripiprazole) 5 Mg Tablet 5 Mg PO DAILY Maalox Advanced Suspension (Mag Hydrox/Aluminum Hyd/Simeth) 355 Ml Oral.susp 30 Ml PO PRN Q3HRS PRN Alprazolam 0.5 Mg Tablet 0.5 Mg PO PRN TID PRN Tylenol (Acetaminophen) 325 Mg Tablet 650 Mg PO PRN Q6HRS PRN Tylenol (Acetaminophen) 325 Mg Tablet 650 Mg PO QID I have reviewed the current psychotropics carefully including drug interactions. Risk benefit ratio favors no change other than as noted in my dictated progress note. Diagnosis: Problems: (1) Anxiety disorder (2) Impulse control disorder (3) Dementia, vascular, with depression (4) Dementia, vascular, with delusions (5) Bipolar 1 disorder, mixed, moderate (6) Dementia in Alzheimer's disease with depression (7) Dementia in Alzheimer's disease with delusions CHARLEY MCCLURE MD Jun 09, 2017 20:01
[2017-06-09] MEDS: MIRTAZAPINE 7.5 MG TABLET. PO SCH (20:05)
[2017-06-10 06:15] VITALS: BP 115/64
[2017-06-10] MEDS: MELOXICAM 7.5 MG TABLET PO SCH (07:53)
[2017-06-10] MEDS: QUEtiapine 25 MG TABLET. PO SCH ×3 (07:53→16:56)
[2017-06-10] MEDS: ACETAMINOPHEN 325 MG TABLET PO SCH ×4 (07:53→19:51)
[2017-06-10] MEDS: DIVALPROEX 125 MG CAP.SPRINK PO SCH ×3 (07:53→19:52)
[2017-06-10] MEDS: LACTOBACILLUS RHAMNOSUS GG 1 CAPSULE. PO SCH (07:53)
[2017-06-10] MEDS: SERTRALINE 50 MG TABLET. PO SCH (07:55)
--- NOTE | 2017-06-10 10:01 | PN ---
DATE: 06/08/2017 This late entry 06/08/2017 covers elements not covered in my initial note 06/08/2017. I met with the patient evening of 06/08/2017. Overall, patient remains confused, but has been less verbally aggressive. She slept 6-3/4 hours previous evening. REVIEW OF SYSTEMS: Ambulation impaired, in wheelchair. No CV, , pulmonary, eye, ENT system symptoms on review. Reliability poor. MENTAL STATUS EXAM: Oriented to herself. Insight, judgment, recent and remote memory, attention, concentration, fund of knowledge poor, consistent with her diagnosis mentioned in my initial note. IMPRESSION: Major neurocognitive disorder, Alzheimer, vascular with depression, delusion, behavioral disturbance. Rest unchanged. PLAN: Continue psychotropics mentioned in my initial note including Celexa, Depakote, Seroquel, and trazodone. Valproic acid level subtherapeutic at 18, but despite this, behaviorally, the patient is doing better with her impulse control and despite being subtherapeutic, we e will maintain it at this level unless behavior seemed to escalate and exacerbate. MAN Sean MCCLURE MD DR: IRENE/bora JOB#: [id number] / [id number]
[2017-06-10] MEDS: HALOPERIDOL 1 MG TABLET PO PRN (15:48)
[2017-06-10 16:07] VITALS: BP 92/56
[2017-06-10] MEDS: CYANOCOBALAMIN (VITAMIN B-12) 250 MCG TABLET PO SCH (16:56)
[2017-06-10] MEDS: ATORVASTATIN CALCIUM 20 MG TABLET PO SCH (19:51)
[2017-06-10] MEDS: MIRTAZAPINE 7.5 MG TABLET. PO SCH (19:51)
[2017-06-10] MEDS: traZODone 50 MG TABLET. PO SCH (19:51)
--- NOTE | 2017-06-10 20:03 | PDOC ---
Exam Note: Martin Note: Please also refer to the separate dictated note~for this date of service dictated separately.~Patient seen individually. Discussed the patient with Nursing staff reviewed the chart.~Reviewed interim history and current functioning. Reviewed vital signs,~Labs/ Radiology~and current medications noted below. Continue current treatment with the changes noted in the dictated addendum note Assessment: Vital Signs: Vital Signs Date Time Temp Pulse Resp B/P (MAP) Pulse Ox O2 Delivery O2 Flow Rate FiO2 06/10/17 16:07 97.9 67 18 92/56 (68) 97 06/09/17 05:47 Room Air I&O Intake and Output 06/10/17 07:00 Intake Total 720 ml Balance 720 ml Intake Oral 720 ml Current Medications: Meds: Current Medications Acetaminophen (Tylenol) 650 mg PRN Q6HRS PRN PO PAIN / TEMP Last administered on 06/06/17 06:16; Start 05/28/17 at 23:00 Multi-Ingredient Ointment (Analgesic [place]) 1 faraz PRN QID PRN TP MUSCLE PAIN; Start 05/28/17 at 23:00 Al Hydroxide/Mg Hydroxide (Mylanta Plus Xs) 15 ml PRN AFTMEALHC PRN PO DYSPEPSIA; Start 05/28/17 at 23:00 Magnesium Hydroxide (Milk Of Magnesia) 2,400 mg PRN QHS PRN PO CONSTIPATION; Start 05/28/17 at 23:00 Alprazolam (Xanax) 0.5 mg PRN TID PRN PO ANXIETY / AGITATION Last administered on 06/09/17 12:45; Start 05/29/17 at 00:15 Aripiprazole (Abilify) 5 mg DAILY PO Last administered on 05/30/17t 08:34; Start 05/29/17 at 09:00; Stop 05/30/17 at 17:17; Status DC Haloperidol (Haldol) 1 mg PRN BID PRN PO DELIRIUM Last administered on 15:48; Start 05/29/17 at 00:15 Trazodone HCl (Desyrel) 50 mg QHS PO Last administered on 06/10/17 19:51; Start 05/29/17 at 21:00 Citalopram Hydrobromide (CeleXA) 20 mg DAILY PO Last administered on 06/09/17 07:49; Start 05/29/17 at 09:00; Stop 06/09/17 at 18:00; Status DC Influenza Virus Vaccine Quadrival (Fluarix Quad [id number] Syringe) 0.5 ml ONCE ONCE VAX IM Last administered on 05/29/17 09:47; Start 05/29/17 at 09:00; Stop 05/29/17 at 09:01; Status DC Pneumococcal Polyvalent Vaccine (Pneumovax 23) 0.5 ml ONCE ONCE VAX IM Last administered on 05/29/17 09:45; Start 05/29/17 at 09:00; Stop 05/31/17 at 14 :59; Status DC Info (FLU VACCINE per PROTOCOL) 1 ea PRN 1X PRN MC PER PROTOCOL; Start at 02:15; Status Cancel Pneumococcal Polyvalent Vaccine (Do NOT chart on this entry -- for MONITORING) 1 each PRN 1X PRN MC SEE COMMENTS; Start 05/29/17 at 02:15; Status Cancel Acetaminophen (Tylenol) 650 mg PRN Q6HRS PRN PO PAIN / TEMP; Start 05/29/17 at 05:45; Stop 05/29/17 at 12:08; Status DC Acetaminophen (Tylenol) 650 mg QID PO Last administered on 06/10/17 19:51; Start 05/29/17 at 09:00 Enoxaparin Sodium (Lovenox) 40 mg DAILY SQ Last administered on 05/29/17 09: 41; Start 05/29/17 at 09:00; Stop 05/29/17 at 12:08; Status DC Lamotrigine (LaMICtal) 25 mg DAILY PO Last administered on 06/04/17 08:43; Start 05/29/17 at 09:00; Stop 06/04/17 at 12:17; Status DC Meloxicam (Mobic) 7.5 mg DAILY PO Last administered on 06/10/17 07:53; Start 05/29/17 at 09:00 Atorvastatin Calcium (Lipitor) 40 mg QHS PO Last administered on 06/10/17 19:51 ; Start 05/29/17 at 21:00 Lactobacillus Rhamnosus (Culturelle) 1 cap DAILY PO Last administered on 07:53; Start 05/29/17 at 09:00 Magnesium Hydroxide (Milk Of Magnesia) 2,400 mg PRN Q12HR PRN PO CONSTIPATION; Start 05/29/17 at 05:45; Stop 05/29/17 at 12:08; Status DC Potassium Chloride (Klor-Con) 40 meq 1X ONCE PO Last administered on 13:40; Start 05/29/17 at 12:00; Stop 05/29/17 at 12:11; Status DC Quetiapine Fumarate (SEROquel) 12.5 mg BID@0900,1300 PO Last administered on 07:50; Start 05/31/17 at 09:00; Stop 06/01/17 at 11:11; Status DC Cyanocobalamin (Vitamin B-12) 250 mcg DAILYBFRSUP PO Last administered on 16:56; Start 05/31/17 at 17:00 Vitamin D (Vitamin D3) 50,000 unit WEEKLY PO Last administered on 06/07/17 07: 49; Start 05/31/17 at 11:45 Quetiapine Fumarate (SEROquel) 12.5 mg TID@0900,1400,1700 PO Last administered on 06/10/17 16:56; Start 06/01/17 at 14:00 Trazodone HCl (Desyrel) 50 mg PRN QHS PRN PO INSOMNIA Last administered on 22:18; Start 06/02/17 at 19:00 Divalproex Sodium (Depakote Sprinkles) 125 mg BID@0900,1400 PO Last administered on 06/09/17 13:31; Start 06/05/17 at 09:00; Stop 06/09/17 at 18:00; Status DC Divalproex Sodium (Depakote Sprinkles) 125 mg TID PO Last administered on 19:52; Start 06/09/17 at 21:00 Sertraline HCl (Zoloft) 50 mg DAILY PO Last administered on 06/10/17 07:55; Start 06/10/17 at 09:00 Mirtazapine (Remeron) 7.5 mg QHS PO Last administered on 06/10/17 19:51; Start 06/09/17 at 21:00 Dextromethorphan/ Quinidine (Nuedexta 20-10 Mg Capsule) 1 cap DAILY PO ; Start 06/11/17 at 09:00 Active Scripts Active Reported Trazodone Hcl 50 Mg Tablet 50 Mg PO QHS Meloxicam 7.5 Mg Tablet 7.5 Mg PO DAILY Milk Of Magnesia (Magnesium Hydroxide) 2,400 Mg/10 Ml Oral.susp 2,400 Mg PO PRN Q12HR PRN Lamotrigine 25 Mg Tablet 25 Mg PO DAILY Culturelle Capsule (L. Rhamnosus GG/Inulin) 1 Each Cap.sprink 1 Each PO DAILY Haloperidol 2 Mg Tablet 1 Mg PO PRN BID PRN Escitalopram Oxalate 10 Mg Tablet 10 Mg PO DAILY Lovenox (Enoxaparin Sodium) 40 Mg/0.4 Ml Disp.syrin 40 Mg SQ DAILY Atorvastatin Calcium 40 Mg Tablet 40 Mg PO QHS Abilify (Aripiprazole) 5 Mg Tablet 5 Mg PO DAILY Maalox Advanced Suspension (Mag Hydrox/Aluminum Hyd/Simeth) 355 Ml Oral.susp 30 Ml PO PRN Q3HRS PRN Alprazolam 0.5 Mg Tablet 0.5 Mg PO PRN TID PRN Tylenol (Acetaminophen) 325 Mg Tablet 650 Mg PO PRN Q6HRS PRN Tylenol (Acetaminophen) 325 Mg Tablet 650 Mg PO QID I have reviewed the current psychotropics carefully including drug interactions. Risk benefit ratio favors no change other than as noted in my dictated progress note. Diagnosis: Problems: (1) Anxiety disorder (2) Impulse control disorder (3) Dementia, vascular, with depression (4) Dementia, vascular, with delusions (5) Bipolar 1 disorder, mixed, moderate (6) Dementia in Alzheimer's disease with depression (7) Dementia in Alzheimer's disease with delusions CHARLEY MCCLURE MD Jun 10, 2017 20:03
[2017-06-10] MEDS: ALPRAZolam 0.5 MG TABLET PO PRN (20:59)
[2017-06-11] MEDS: traZODone 50 MG TABLET. PO SCH (01:48)
[2017-06-11 06:19] VITALS: BP 125/80
[2017-06-11] MEDS: QUEtiapine 25 MG TABLET. PO SCH ×3 (08:15→17:02)
[2017-06-11] MEDS: MELOXICAM 7.5 MG TABLET PO SCH (08:15)
[2017-06-11] MEDS: DIVALPROEX 125 MG CAP.SPRINK PO SCH ×3 (08:15→19:10)
[2017-06-11] MEDS: ACETAMINOPHEN 325 MG TABLET PO SCH ×4 (08:16→19:11)
[2017-06-11] MEDS: LACTOBACILLUS RHAMNOSUS GG 1 CAPSULE. PO SCH (08:16)
[2017-06-11] MEDS: SERTRALINE 50 MG TABLET. PO SCH (08:16)
[2017-06-11] MEDS: DEXTROMETHORPHAN/QUINIDINE 20/10MG CAPSULE. PO SCH (08:16)
--- NOTE | 2017-06-11 08:35 | PN ---
DATE: 06/09/2017 PSYCHIATRIC PROGRESS NOTE This late entry of 06/09/2017 covers elements not covered in my initial note for 06/09/2017. SUBJECTIVE: I met with the patient evening of 06/09/2017. The patient had a very difficult day on 06/09/2017. She slept 5-1/2 hours previous evening, labile, yelling, calling staff members by rather profane names including "asshole." She received Xanax at 12:45 p.m. to help with the anxiety, agitation. Pinpointing a certain patient, getting aggressive, reacting to staff members. She has been angry. Trazodone was repeated previous evening, despite that she slept 5-1/2 hours. REVIEW OF SYSTEMS: Ambulation impaired, in wheelchair. No CV, , pulmonary, eye system symptoms on review. Reliability poor. MENTAL STATUS EXAM: Oriented to herself. Insight, judgment, recent and remote memory, attention, concentration, fund of knowledge poor, consistent with her diagnosis mentioned in my initial note. IMPRESSION: Major neurocognitive disorder, Alzheimer, vascular with depression, delusion, behavioral disturbance. PLAN: Change Celexa to Zoloft 50 mg a day as an antidepressant. Hopefully, better for the anxiety. Start Remeron 7.5 mg p.o. at bedtime. Depakote is currently 125 mg b.i.d., level subtherapeutic at 18. We will increase to 125 mg 3 times a day. Check CBC, CMP, valproic acid level in 3 days. Reviewed drug interactions at length. CHARLEY MCCLURE MD DR: IRENE/bora JOB#: [id number] / [id number]
--- NOTE | 2017-06-11 13:58 | EKG ---
[address] [address] Test Date: 2017-06-11 Test Time: 04:59:43 Pat Name: BENIGNO MORALES Department: Room: [address] [place] [address] Gender: F Head Of Ethics And Compliance: : 1940 Requested By: CHARLEY MCCLURE Order Number: [id number] Reading MD: Kian Belcher Measurements Intervals [place] Rate: 65 P: -55 [place]: 142 QRS: -11 QRSD: 112 T: 41 QT: 448 QTc: 467 Interpretive Statements SINUS RHYTHM LEFTWARD AXIS QRS(T) CONTOUR ABNORMALITY CONSIDER ANTEROSEPTAL MYOCARDIAL DAMAGE ABNORMAL ECG Electronically Signed On 06-17-2017 16:00:24 BUSINESS [employer]IT [employer] by Kian Belcher
[2017-06-11] MEDS: ALPRAZolam 0.5 MG TABLET PO PRN (14:38)
[2017-06-11 16:12] VITALS: BP 104/65
[2017-06-11] MEDS: CYANOCOBALAMIN (VITAMIN B-12) 250 MCG TABLET PO SCH (17:02)
[2017-06-11] MEDS: ATORVASTATIN CALCIUM 20 MG TABLET PO SCH (19:10)
[2017-06-11] MEDS: MIRTAZAPINE 7.5 MG TABLET. PO SCH (19:11)
--- NOTE | 2017-06-11 19:45 | PDOC ---
Exam Note: Martin Note: Please also refer to the separate dictated note~for this date of service dictated separately.~Patient seen individually. Discussed the patient with Nursing staff reviewed the chart.~Reviewed interim history and current functioning. Reviewed vital signs,~Labs/ Radiology~and current medications noted below. Continue current treatment with the changes noted in the dictated addendum note Assessment: Vital Signs: Vital Signs Date Time Temp Pulse Resp B/P (MAP) Pulse Ox O2 Delivery O2 Flow Rate FiO2 06/11/17 16:12 98.2 76 18 104/65 (78) 93 06/09/17 05:47 Room Air I&O Intake and Output 06/11/17 07:00 Intake Total 1440 ml Balance 1440 ml Intake Oral 1440 ml # Bowel Movements 1 Current Medications: Meds: Current Medications Acetaminophen (Tylenol) 650 mg PRN Q6HRS PRN PO PAIN / TEMP Last administered on 06/06/17at 06:16; Start 05/28/17 at 23:00 Multi-Ingredient Ointment (Analgesic [place]) 1 faraz PRN QID PRN TP MUSCLE PAIN; Start 05/28/17 at 23:00 Al Hydroxide/Mg Hydroxide (Mylanta Plus Xs) 15 ml PRN AFTMEALHC PRN PO DYSPEPSIA; Start 05/28/17 at 23:00 Magnesium Hydroxide (Milk Of Magnesia) 2,400 mg PRN QHS PRN PO CONSTIPATION; Start 05/28/17 at 23:00 Alprazolam (Xanax) 0.5 mg PRN TID PRN PO ANXIETY / AGITATION Last administered on 06/11/17 14:38; Start 05/29/17 at 00:15 Aripiprazole (Abilify) 5 mg DAILY PO Last administered on 05/30/17t 08:34; Start 05/29/17 at 09:00; Stop 05/30/17 at 17:17; Status DC Haloperidol (Haldol) 1 mg PRN BID PRN PO DELIRIUM Last administered on 15:48; Start 05/29/17 at 00:15 Trazodone HCl (Desyrel) 50 mg QHS PO Last administered on 06/11/17 01:48; Start 05/29/17 at 21:00 Citalopram Hydrobromide (CeleXA) 20 mg DAILY PO Last administered on 06/09/17 07:49; Start 05/29/17 at 09:00; Stop 06/09/17 at 18:00; Status DC Influenza Virus Vaccine Quadrival (Fluarix Quad 1278-9802 Syringe) 0.5 ml ONCE ONCE VAX IM Last administered on 05/29/17 09:47; Start 05/29/17 at 09:00; Stop 05/29/17 at 09:01; Status DC Pneumococcal Polyvalent Vaccine (Pneumovax 23) 0.5 ml ONCE ONCE VAX IM Last administered on 05/29/17 09:45; Start 05/29/17 at 09:00; Stop 05/31/17 at 14 :59; Status DC Info (FLU VACCINE per PROTOCOL) 1 ea PRN 1X PRN MC PER PROTOCOL; Start at 02:15; Status Cancel Pneumococcal Polyvalent Vaccine (Do NOT chart on this entry -- for MONITORING) 1 each PRN 1X PRN MC SEE COMMENTS; Start 05/29/17 at 02:15; Status Cancel Acetaminophen (Tylenol) 650 mg PRN Q6HRS PRN PO PAIN / TEMP; Start 05/29/17 at 05:45; Stop 05/29/17 at 12:08; Status DC Acetaminophen (Tylenol) 650 mg QID PO Last administered on 06/11/17 19:11; Start 05/29/17 at 09:00 Enoxaparin Sodium (Lovenox) 40 mg DAILY SQ Last administered on 05/29/17 09: 41; Start 05/29/17 at 09:00; Stop 05/29/17 at 12:08; Status DC Lamotrigine (LaMICtal) 25 mg DAILY PO Last administered on 06/04/17 08:43; Start 05/29/17 at 09:00; Stop 06/04/17 at 12:17; Status DC Meloxicam (Mobic) 7.5 mg DAILY PO Last administered on 06/11/17 08:15; Start 05/29/17 at 09:00 Atorvastatin Calcium (Lipitor) 40 mg QHS PO Last administered on 06/11/17 19: 10; Start 05/29/17 at 21:00 Lactobacillus Rhamnosus (Culturelle) 1 cap DAILY PO Last administered on 1/10/ 18at 08:16; Start 05/29/17 at 09:00 Magnesium Hydroxide (Milk Of Magnesia) 2,400 mg PRN Q12HR PRN PO CONSTIPATION; Start 05/29/17 at 05:45; Stop 05/29/17 at 12:08; Status DC Potassium Chloride (Klor-Con) 40 meq 1X ONCE PO Last administered on 13:40; Start 05/29/17 at 12:00; Stop 05/29/17 at 12:11; Status DC Quetiapine Fumarate (SEROquel) 12.5 mg BID@0900,1300 PO Last administered on 07:50; Start 05/31/17 at 09:00; Stop 06/01/17 at 11:11; Status DC Cyanocobalamin (Vitamin B-12) 250 mcg DAILYBFRSUP PO Last administered on 17:02; Start 05/31/17 at 17:00 Vitamin D (Vitamin D3) 50,000 unit WEEKLY PO Last administered on 06/07/17at 07: 49; Start 05/31/17 at 11:45 Quetiapine Fumarate (SEROquel) 12.5 mg TID@0900,1400,1700 PO Last administered on 06/11/17 17:02; Start 06/01/17 at 14:00; Stop 06/11/17 at 17:36; Status DC Trazodone HCl (Desyrel) 50 mg PRN QHS PRN PO INSOMNIA Last administered on at 22:18; Start 06/02/17 at 19:00 Divalproex Sodium (Depakote Sprinkles) 125 mg BID@0900,1400 PO Last administered on 06/09/17at 13:31; Start 06/05/17 at 09:00; Stop 06/09/17 at 18:00; Status DC Divalproex Sodium (Depakote Sprinkles) 125 mg TID PO Last administered on 19:10; Start 06/09/17 at 21:00 Sertraline HCl (Zoloft) 50 mg DAILY PO Last administered on 06/11/17at 08:16; Start 06/10/17 at 09:00 Mirtazapine (Remeron) 7.5 mg QHS PO Last administered on 06/11/17at 19:11; Start 06/09/17 at 21:00 Dextromethorphan/ Quinidine (Nuedexta 20-10 Mg Capsule) 1 cap DAILY PO Last administered on 06/11/17at 08:16; Start 06/11/17 at 09:00 Quetiapine Fumarate (SEROquel) 12.5 mg BID@0900,1700 PO ; Start 06/12/17 at 09: 00 Quetiapine Fumarate (SEROquel) 25 mg DAILY@1400 PO ; Start 06/12/17 at 14:00 Active Scripts Active Reported Trazodone Hcl 50 Mg Tablet 50 Mg PO QHS Meloxicam 7.5 Mg Tablet 7.5 Mg PO DAILY Milk Of Magnesia (Magnesium Hydroxide) 2,400 Mg/10 Ml Oral.susp 2,400 Mg PO PRN Q12HR PRN Lamotrigine 25 Mg Tablet 25 Mg PO DAILY Culturelle Capsule (L. Rhamnosus GG/Inulin) 1 Each Cap.sprink 1 Each PO DAILY Haloperidol 2 Mg Tablet 1 Mg PO PRN BID PRN Escitalopram Oxalate 10 Mg Tablet 10 Mg PO DAILY Lovenox (Enoxaparin Sodium) 40 Mg/0.4 Ml Disp.syrin 40 Mg SQ DAILY Atorvastatin Calcium 40 Mg Tablet 40 Mg PO QHS Abilify (Aripiprazole) 5 Mg Tablet 5 Mg PO DAILY Maalox Advanced Suspension (Mag Hydrox/Aluminum Hyd/Simeth) 355 Ml Oral.susp 30 Ml PO PRN Q3HRS PRN Alprazolam 0.5 Mg Tablet 0.5 Mg PO PRN TID PRN Tylenol (Acetaminophen) 325 Mg Tablet 650 Mg PO PRN Q6HRS PRN Tylenol (Acetaminophen) 325 Mg Tablet 650 Mg PO QID I have reviewed the current psychotropics carefully including drug interactions. Risk benefit ratio favors no change other than as noted in my dictated progress note. Diagnosis: Problems: (1) Anxiety disorder (2) Impulse control disorder (3) Dementia, vascular, with depression (4) Dementia, vascular, with delusions (5) Bipolar 1 disorder, mixed, moderate (6) Dementia in Alzheimer's disease with depression (7) Dementia in Alzheimer's disease with delusions CHARLEY MCCLURE MD Jun 11, 2017 19:45
--- NOTE | 2017-06-12 03:12 | PN ---
DATE: 06/10/2017 This is a late entry for 06/10/2017, covers elements not covered in my initial note of 06/10/2017. SUBJECTIVE: I met with the patient the evening of 06/10/2017. Previous evening, per nursing report, the patient was quite attention seeking, labile, crying. She was better in the morning, but in the evening, she was again having marked mood lability, crying, confused, believes she has tickets to meet up with friends. Staff wondered about pseudobulbar affect and review indicates this is probably part of her presentation. REVIEW OF SYSTEMS: Ambulation impaired. No CV, , pulmonary, eye, ENT system symptoms on review. Reliability poor. MENTAL STATUS EXAMINATION: Oriented to herself. Insight, judgment, recent and remote memory, attention, concentration, fund of knowledge poor, consistent with her diagnosis mentioned in my initial note. IMPRESSION: Major neurocognitive disorder, Alzheimer, vascular with depression, delusion, behavioral disturbance. PLAN: Start Nuedexta 20/10 mg 1 p.o. daily if the EKG, QT corrected interval is unremarkable. Continue rest of the psychotropics mentioned in my initial note. MAN Sean MCCLURE MD DR: IRENE/bora JOB#: [id number] / [id number]
[2017-06-12 05:58] VITALS: BP 96/64
[2017-06-12] MEDS: SERTRALINE 50 MG TABLET. PO SCH (08:10)
[2017-06-12] MEDS: DIVALPROEX 125 MG CAP.SPRINK PO SCH ×3 (08:10→19:53)
[2017-06-12] MEDS: LACTOBACILLUS RHAMNOSUS GG 1 CAPSULE. PO SCH (08:10)
[2017-06-12] MEDS: MELOXICAM 7.5 MG TABLET PO SCH (08:10)
[2017-06-12] MEDS: CYANOCOBALAMIN (VITAMIN B-12) 250 MCG TABLET PO SCH (08:10)
[2017-06-12] MEDS: ACETAMINOPHEN 325 MG TABLET PO SCH ×4 (08:12→19:54)
[2017-06-12] MEDS: DEXTROMETHORPHAN/QUINIDINE 20/10MG CAPSULE. PO SCH (08:12)
[2017-06-12] MEDS: QUEtiapine 25 MG TABLET. PO SCH ×3 (08:13→17:01)
[2017-06-12 09:14] LABS: BASO % 1 % (0-3); EOS # 0.3 x10^3/uL (0.0-0.7); EOS % 4 % (0-3); HEMATOCRIT 35.2 % (36.0-47.0); HEMOGLOBIN 12.1 g/dL (12.0-15.5); LYMPH # 0.9 x10^3/uL (1.0-4.8); LYMPH % 10 % (24-48); MEAN CORPUSCULAR HEMOGLOBIN 32 pg (25-35); MEAN CORPUSCULAR HGB CONC 34 g/dL (31-37); MEAN CORPUSCULAR VOLUME 94 fL (79-100); MONO # 0.5 x10^3/uL (0.0-1.1); MONO % 6 % (0-9); NEUT # 6.9 x10^3uL (1.8-7.7); NEUT % 79 % (31-73); PLATELET COUNT 191 x10^3/uL (140-400); RED BLOOD COUNT 3.73 x10^6/uL (3.50-5.40); WHITE BLOOD COUNT 8.7 x10^3/uL (4.0-11.0)
[2017-06-12 09:31] LABS: ALBUMIN 3.2 g/dL (3.4-5.0); ALK PHOS 140 U/L (46-116); ALT (SGPT) 23 U/L (14-59); ANION GAP 8 (6-14); AST (SGOT) 13 U/L (15-37); BLOOD UREA NITROGEN 16 mg/dL (7-20); BUN/CREATININE RATIO 27 (6-20); CARBON DIOXIDE 30 mmol/L (21-32); CHLORIDE 107 mmol/L (98-107); CREATININE 0.6 mg/dL (0.6-1.0); GFR 97.5; GLUCOSE 119 mg/dL (70-99); POTASSIUM 3.6 mmol/L (3.5-5.1); SODIUM 145 mmol/L (136-145); TOTAL BILIRUBIN 0.4 mg/dL (0.2-1.0); TOTAL PROTEIN 6.4 g/dL (6.4-8.2)
[2017-06-12 09:32] LABS: VAL ACID 32 mcg/mL (50-100)
[2017-06-12 15:45] VITALS: BP 98/63
[2017-06-12] MEDS: ATORVASTATIN CALCIUM 20 MG TABLET PO SCH (19:54)
[2017-06-12] MEDS: traZODone 50 MG TABLET. PO SCH (19:54)
[2017-06-12] MEDS: MIRTAZAPINE 7.5 MG TABLET. PO SCH (19:54)
--- NOTE | 2017-06-12 19:54 | PDOC ---
Exam Note: Martin Note: Please also refer to the separate dictated note~for this date of service dictated separately.~Patient seen individually. Discussed the patient with Nursing staff reviewed the chart.~Reviewed interim history and current functioning. Reviewed vital signs,~Labs/ Radiology~and current medications noted below. Continue current treatment with the changes noted in the dictated addendum note Assessment: Vital Signs: Vital Signs Date Time Temp Pulse Resp B/P (MAP) Pulse Ox O2 Delivery O2 Flow Rate FiO2 06/12/17 15:45 98.9 80 18 98/63 (75) 98 06/09/17 05:47 Room Air I&O Intake and Output 06/12/17 07:00 Intake Total 840 ml Balance 840 ml Intake Oral 840 ml # Bowel Movements 1 Labs: Laboratory Tests Test 06/12/17 08:50 White Blood Count 8.7 x10^3/uL (4.0-11.0) Red Blood Count 3.73 x10^6/uL (3.50-5.40) Hemoglobin 12.1 g/dL (12.0-15.5) Hematocrit 35.2 % (36.0-47.0) L Mean Corpuscular Volume 94 fL (79-100) Mean Corpuscular Hemoglobin 32 pg (25-35) Mean Corpuscular Hemoglobin Concent 34 g/dL (31-37) Red Cell Distribution Width 14.0 % (11.5-14.5) Platelet Count 191 x10^3/uL (140-400) Neutrophils (%) (Auto) 79 % (31-73) H Lymphocytes (%) (Auto) 10 % (24-48) L Monocytes (%) (Auto) 6 % (0-9) Eosinophils (%) (Auto) 4 % (0-3) H Basophils (%) (Auto) 1 % (0-3) Neutrophils # (Auto) 6.9 x10^3uL (1.8-7.7) Lymphocytes # (Auto) 0.9 x10^3/uL (1.0-4.8) L Monocytes # (Auto) 0.5 x10^3/uL (0.0-1.1) Eosinophils # (Auto) 0.3 x10^3/uL (0.0-0.7) Basophils # (Auto) 0.0 x10^3/uL (0.0-0.2) Sodium Level 145 mmol/L (136-145) Potassium Level 3.6 mmol/L (3.5-5.1) Chloride Level 107 mmol/L (98-107) Carbon Dioxide Level 30 mmol/L (21-32) Anion Gap 8 (6-14) Blood Urea Nitrogen 16 mg/dL (7-20) Creatinine 0.6 mg/dL (0.6-1.0) Estimated GFR (Cockcroft-Gault) 97.5 BUN/Creatinine Ratio 27 (6-20) H Glucose Level 119 mg/dL (70-99) H Calcium Level 9.0 mg/dL (8.5-10.1) Total Bilirubin 0.4 mg/dL (0.2-1.0) Aspartate Amino Transferase (AST) 13 U/L (15-37) L Alanine Aminotransferase (ALT) 23 U/L (14-59) Alkaline Phosphatase 140 U/L (46-116) H Total Protein 6.4 g/dL (6.4-8.2) Albumin 3.2 g/dL (3.4-5.0) L Albumin/Globulin Ratio 1.0 (1.0-1.7) Valproic Acid Level 32 mcg/mL (50-100) L Valproic Acid Last Dose Date 06/11/17 Valproic Acid Last Dose Time 2100 Current Medications: Meds: Current Medications Acetaminophen (Tylenol) 650 mg PRN Q6HRS PRN PO PAIN / TEMP Last administered on 06/06/17at 06:16; Start 05/28/17 at 23:00 Multi-Ingredient Ointment (Analgesic [place]) 1 faraz PRN QID PRN TP MUSCLE PAIN; Start 05/28/17 at 23:00 Al Hydroxide/Mg Hydroxide (Mylanta Plus Xs) 15 ml PRN AFTMEALHC PRN PO DYSPEPSIA; Start 05/28/17 at 23:00 Magnesium Hydroxide (Milk Of Magnesia) 2,400 mg PRN QHS PRN PO CONSTIPATION; Start 05/28/17 at 23:00 Alprazolam (Xanax) 0.5 mg PRN TID PRN PO ANXIETY / AGITATION Last administered on 06/11/17at 14:38; Start 05/29/17 at 00:15 Aripiprazole (Abilify) 5 mg DAILY PO Last administered on 05/30/17 08:34; Start 05/29/17 at 09:00; Stop 05/30/17 at 17:17; Status DC Haloperidol (Haldol) 1 mg PRN BID PRN PO DELIRIUM Last administered on 15:48; Start 05/29/17 at 00:15 Trazodone HCl (Desyrel) 50 mg QHS PO Last administered on 06/11/17 01:48; Start 05/29/17 at 21:00 Citalopram Hydrobromide (CeleXA) 20 mg DAILY PO Last administered on 06/09/17 07:49; Start 05/29/17 at 09:00; Stop 06/09/17 at 18:00; Status DC Influenza Virus Vaccine Quadrival (Fluarix Quad [id number] Syringe) 0.5 ml ONCE ONCE VAX IM Last administered on 05/29/17 09:47; Start 05/29/17 at 09:00; Stop 05/29/17 at 09:01; Status DC Pneumococcal Polyvalent Vaccine (Pneumovax 23) 0.5 ml ONCE ONCE VAX IM Last administered on 05/29/17 09:45; Start 05/29/17 at 09:00; Stop 05/31/17 at 14 :59; Status DC Info (FLU VACCINE per PROTOCOL) 1 ea PRN 1X PRN MC PER PROTOCOL; Start at 02:15; Status Cancel Pneumococcal Polyvalent Vaccine (Do NOT chart on this entry -- for MONITORING) 1 each PRN 1X PRN MC SEE COMMENTS; Start 05/29/17 at 02:15; Status Cancel Acetaminophen (Tylenol) 650 mg PRN Q6HRS PRN PO PAIN / TEMP; Start 05/29/17 at 05:45; Stop 05/29/17 at 12:08; Status DC Acetaminophen (Tylenol) 650 mg QID PO Last administered on 06/12/17 17:01; Start 05/29/17 at 09:00 Enoxaparin Sodium (Lovenox) 40 mg DAILY SQ Last administered on 05/29/17 09: 41; Start 05/29/17 at 09:00; Stop 05/29/17 at 12:08; Status DC Lamotrigine (LaMICtal) 25 mg DAILY PO Last administered on 06/04/17 08:43; Start 05/29/17 at 09:00; Stop 06/04/17 at 12:17; Status DC Meloxicam (Mobic) 7.5 mg DAILY PO Last administered on 06/12/17 08:10; Start 05/29/17 at 09:00 Atorvastatin Calcium (Lipitor) 40 mg QHS PO Last administered on 06/11/17 19: 10; Start 05/29/17 at 21:00 Lactobacillus Rhamnosus (Culturelle) 1 cap DAILY PO Last administered on 08:10; Start 05/29/17 at 09:00 Magnesium Hydroxide (Milk Of Magnesia) 2,400 mg PRN Q12HR PRN PO CONSTIPATION; Start 05/29/17 at 05:45; Stop 05/29/17 at 12:08; Status DC Potassium Chloride (Klor-Con) 40 meq 1X ONCE PO Last administered on t 13:40; Start 05/29/17 at 12:00; Stop 05/29/17 at 12:11; Status DC Quetiapine Fumarate (SEROquel) 12.5 mg BID@0900,1300 PO Last administered on t 07:50; Start 05/31/17 at 09:00; Stop 06/01/17 at 11:11; Status DC Cyanocobalamin (Vitamin B-12) 250 mcg DAILYBFRSUP PO Last administered on 08:10; Start 05/31/17 at 17:00 Vitamin D (Vitamin D3) 50,000 unit WEEKLY PO Last administered on 06/07/17 07: 49; Start 05/31/17 at 11:45 Quetiapine Fumarate (SEROquel) 12.5 mg TID@0900,1400,1700 PO Last administered on 06/11/17 17:02; Start 06/01/17 at 14:00; Stop 06/11/17 at 17:36; Status DC Trazodone HCl (Desyrel) 50 mg PRN QHS PRN PO INSOMNIA Last administered on 22:18; Start 06/02/17 at 19:00 Divalproex Sodium (Depakote Sprinkles) 125 mg BID@0900,1400 PO Last administered on 06/09/17at 13:31; Start 06/05/17 at 09:00; Stop 06/09/17 at 18:00; Status DC Divalproex Sodium (Depakote Sprinkles) 125 mg TID PO Last administered on at 13:49; Start 06/09/17 at 21:00 Sertraline HCl (Zoloft) 50 mg DAILY PO Last administered on 06/12/17at 08:10; Start 06/10/17 at 09:00 Mirtazapine (Remeron) 7.5 mg QHS PO Last administered on 06/11/17at 19:11; Start 06/09/17 at 21:00 Dextromethorphan/ Quinidine (Nuedexta 20-10 Mg Capsule) 1 cap DAILY PO Last administered on 06/12/17at 08:12; Start 06/11/17 at 09:00 Quetiapine Fumarate (SEROquel) 12.5 mg BID@0900,1700 PO Last administered on 04/19at 17:01; Start 06/12/17 at 09:00 Quetiapine Fumarate (SEROquel) 25 mg DAILY@1400 PO Last administered on at 13:49; Start 06/12/17 at 14:00 Active Scripts Active Reported Trazodone Hcl 50 Mg Tablet 50 Mg PO QHS Meloxicam 7.5 Mg Tablet 7.5 Mg PO DAILY Milk Of Magnesia (Magnesium Hydroxide) 2,400 Mg/10 Ml Oral.susp 2,400 Mg PO PRN Q12HR PRN Lamotrigine 25 Mg Tablet 25 Mg PO DAILY Culturelle Capsule (L. Rhamnosus GG/Inulin) 1 Each Cap.sprink 1 Each PO DAILY Haloperidol 2 Mg Tablet 1 Mg PO PRN BID PRN Escitalopram Oxalate 10 Mg Tablet 10 Mg PO DAILY Lovenox (Enoxaparin Sodium) 40 Mg/0.4 Ml Disp.syrin 40 Mg SQ DAILY Atorvastatin Calcium 40 Mg Tablet 40 Mg PO QHS Abilify (Aripiprazole) 5 Mg Tablet 5 Mg PO DAILY Maalox Advanced Suspension (Mag Hydrox/Aluminum Hyd/Simeth) 355 Ml Oral.susp 30 Ml PO PRN Q3HRS PRN Alprazolam 0.5 Mg Tablet 0.5 Mg PO PRN TID PRN Tylenol (Acetaminophen) 325 Mg Tablet 650 Mg PO PRN Q6HRS PRN Tylenol (Acetaminophen) 325 Mg Tablet 650 Mg PO QID I have reviewed the current psychotropics carefully including drug interactions. Risk benefit ratio favors no change other than as noted in my dictated progress note. Diagnosis: Problems: (1) Anxiety disorder (2) Impulse control disorder (3) Dementia, vascular, with depression (4) Dementia, vascular, with delusions (5) Bipolar 1 disorder, mixed, moderate (6) Dementia in Alzheimer's disease with depression (7) Dementia in Alzheimer's disease with delusions CHARLEY MCCLURE MD Jun 12, 2017 19:54
[2017-06-13 06:21] VITALS: BP 150/82
[2017-06-13] MEDS: SERTRALINE 50 MG TABLET. PO SCH (08:26)
[2017-06-13] MEDS: ACETAMINOPHEN 325 MG TABLET PO SCH ×4 (08:27→19:03)
[2017-06-13] MEDS: MELOXICAM 7.5 MG TABLET PO SCH (08:27)
[2017-06-13] MEDS: LACTOBACILLUS RHAMNOSUS GG 1 CAPSULE. PO SCH (08:27)
[2017-06-13] MEDS: QUEtiapine 25 MG TABLET. PO SCH ×3 (08:27→17:07)
[2017-06-13] MEDS: DIVALPROEX 125 MG CAP.SPRINK PO SCH ×3 (08:27→19:01)
[2017-06-13] MEDS: DEXTROMETHORPHAN/QUINIDINE 20/10MG CAPSULE. PO SCH (08:28)
[2017-06-13 15:55] VITALS: BP 97/54
[2017-06-13] MEDS: CYANOCOBALAMIN (VITAMIN B-12) 250 MCG TABLET PO SCH (17:06)
[2017-06-13] MEDS: ATORVASTATIN CALCIUM 20 MG TABLET PO SCH (19:02)
[2017-06-13] MEDS: MIRTAZAPINE 15 MG TABLET PO SCH (19:47)
[2017-06-13] MEDS: traZODone 100 MG TABLET. PO SCH (19:47)
--- NOTE | 2017-06-13 19:56 | PDOC ---
Exam Note: Martin Note: Please also refer to the separate dictated note~for this date of service dictated separately.~Patient seen individually. Discussed the patient with Nursing staff reviewed the chart.~Reviewed interim history and current functioning. Reviewed vital signs,~Labs/ Radiology~and current medications noted below. Continue current treatment with the changes noted in the dictated addendum note Assessment: Vital Signs: Vital Signs Date Time Temp Pulse Resp B/P (MAP) Pulse Ox O2 Delivery O2 Flow Rate FiO2 06/13/17 15:55 98.8 64 18 97/54 (68) 96 06/09/17 05:47 Room Air I&O Intake and Output 06/13/17 07:00 Intake Total 1080 ml Balance 1080 ml Intake Oral 1080 ml # Voids 1 # Bowel Movements 2 Current Medications: Meds: Current Medications Acetaminophen (Tylenol) 650 mg PRN Q6HRS PRN PO PAIN / TEMP Last administered on 06/06/17at 06:16; Start 05/28/17 at 23:00 Multi-Ingredient Ointment (Analgesic [place]) 1 faraz PRN QID PRN TP MUSCLE PAIN; Start 05/28/17 at 23:00 Al Hydroxide/Mg Hydroxide (Mylanta Plus Xs) 15 ml PRN AFTMEALHC PRN PO DYSPEPSIA; Start 05/28/17 at 23:00 Magnesium Hydroxide (Milk Of Magnesia) 2,400 mg PRN QHS PRN PO CONSTIPATION; Start 05/28/17 at 23:00 Alprazolam (Xanax) 0.5 mg PRN TID PRN PO ANXIETY / AGITATION Last administered on 06/11/17at 14:38; Start 05/29/17 at 00:15 Aripiprazole (Abilify) 5 mg DAILY PO Last administered on 05/30/17t 08:34; Start 05/29/17 at 09:00; Stop 05/30/17 at 17:17; Status DC Haloperidol (Haldol) 1 mg PRN BID PRN PO DELIRIUM Last administered on at 15:48; Start 05/29/17 at 00:15 Trazodone HCl (Desyrel) 50 mg QHS PO Last administered on 06/12/17 19:54; Start 05/29/17 at 21:00; Stop 06/13/17 at 18:13; Status DC Citalopram Hydrobromide (CeleXA) 20 mg DAILY PO Last administered on 06/09/17 07:49; Start 05/29/17 at 09:00; Stop 06/09/17 at 18:00; Status DC Influenza Virus Vaccine Quadrival (Fluarix Quad [id number] Syringe) 0.5 ml ONCE ONCE VAX IM Last administered on 05/29/17 09:47; Start 05/29/17 at 09:00; Stop 05/29/17 at 09:01; Status DC Pneumococcal Polyvalent Vaccine (Pneumovax 23) 0.5 ml ONCE ONCE VAX IM Last administered on 05/29/17 09:45; Start 05/29/17 at 09:00; Stop 05/31/17 at 14 :59; Status DC Info (FLU VACCINE per PROTOCOL) 1 ea PRN 1X PRN MC PER PROTOCOL; Start at 02:15; Status Cancel Pneumococcal Polyvalent Vaccine (Do NOT chart on this entry -- for MONITORING) 1 each PRN 1X PRN MC SEE COMMENTS; Start 05/29/17 at 02:15; Status Cancel Acetaminophen (Tylenol) 650 mg PRN Q6HRS PRN PO PAIN / TEMP; Start 05/29/17 at 05:45; Stop 05/29/17 at 12:08; Status DC Acetaminophen (Tylenol) 650 mg QID PO Last administered on 06/13/17 19:03; Start 05/29/17 at 09:00 Enoxaparin Sodium (Lovenox) 40 mg DAILY SQ Last administered on 05/29/17 09: 41; Start 05/29/17 at 09:00; Stop 05/29/17 at 12:08; Status DC Lamotrigine (LaMICtal) 25 mg DAILY PO Last administered on 06/04/17 08:43; Start 05/29/17 at 09:00; Stop 06/04/17 at 12:17; Status DC Meloxicam (Mobic) 7.5 mg DAILY PO Last administered on 06/13/17 08:27; Start 05/29/17 at 09:00 Atorvastatin Calcium (Lipitor) 40 mg QHS PO Last administered on 06/13/17 19: 02; Start 05/29/17 at 21:00 Lactobacillus Rhamnosus (Culturelle) 1 cap DAILY PO Last administered on 08:27; Start 05/29/17 at 09:00 Magnesium Hydroxide (Milk Of Magnesia) 2,400 mg PRN Q12HR PRN PO CONSTIPATION; Start 05/29/17 at 05:45; Stop 05/29/17 at 12:08; Status DC Potassium Chloride (Klor-Con) 40 meq 1X ONCE PO Last administered on 13:40; Start 05/29/17 at 12:00; Stop 05/29/17 at 12:11; Status DC Quetiapine Fumarate (SEROquel) 12.5 mg BID@0900,1300 PO Last administered on 07:50; Start 05/31/17 at 09:00; Stop 06/01/17 at 11:11; Status DC Cyanocobalamin (Vitamin B-12) 250 mcg DAILYBFRSUP PO Last administered on at 17:06; Start 05/31/17 at 17:00 Vitamin D (Vitamin D3) 50,000 unit WEEKLY PO Last administered on 06/07/17at 07: 49; Start 05/31/17 at 11:45 Quetiapine Fumarate (SEROquel) 12.5 mg TID@0900,1400,1700 PO Last administered on 06/11/17at 17:02; Start 06/01/17 at 14:00; Stop 06/11/17 at 17:36; Status DC Trazodone HCl (Desyrel) 50 mg PRN QHS PRN PO INSOMNIA Last administered on at 22:18; Start 06/02/17 at 19:00; Stop 06/13/17 at 18:13; Status DC Divalproex Sodium (Depakote Sprinkles) 125 mg BID@0900,1400 PO Last administered on 06/09/17at 13:31; Start 06/05/17 at 09:00; Stop 06/09/17 at 18:00; Status DC Divalproex Sodium (Depakote Sprinkles) 125 mg TID PO Last administered on 19:01; Start 06/09/17 at 21:00 Sertraline HCl (Zoloft) 50 mg DAILY PO Last administered on 06/13/17at 08:26; Start 06/10/17 at 09:00 Mirtazapine (Remeron) 7.5 mg QHS PO Last administered on 06/12/17at 19:54; Start 06/09/17 at 21:00; Stop 06/13/17 at 18:13; Status DC Dextromethorphan/ Quinidine (Nuedexta 20-10 Mg Capsule) 1 cap DAILY PO Last administered on 06/13/17at 08:28; Start 06/11/17 at 09:00 Quetiapine Fumarate (SEROquel) 12.5 mg BID@0900,1700 PO Last administered on 05/19at 17:07; Start 06/12/17 at 09:00 Quetiapine Fumarate (SEROquel) 25 mg DAILY@1400 PO Last administered on at 13:13; Start 06/12/17 at 14:00 Mirtazapine (Remeron) 15 mg QHS PO Last administered on 06/13/17at 19:47; Start 06/13/17 at 21:00 Trazodone HCl (Desyrel) 100 mg QHS PO Last administered on 06/13/17at 19:47; Start 06/13/17 at 21:00 Trazodone HCl (Desyrel) 100 mg PRN QHS PRN PO INSOMNIA; Start 06/13/17 at 18:15 Active Scripts Active Reported Trazodone Hcl 50 Mg Tablet 50 Mg PO QHS Meloxicam 7.5 Mg Tablet 7.5 Mg PO DAILY Milk Of Magnesia (Magnesium Hydroxide) 2,400 Mg/10 Ml Oral.susp 2,400 Mg PO PRN Q12HR PRN Lamotrigine 25 Mg Tablet 25 Mg PO DAILY Culturelle Capsule (L. Rhamnosus GG/Inulin) 1 Each Cap.sprink 1 Each PO DAILY Haloperidol 2 Mg Tablet 1 Mg PO PRN BID PRN Escitalopram Oxalate 10 Mg Tablet 10 Mg PO DAILY Lovenox (Enoxaparin Sodium) 40 Mg/0.4 Ml Disp.syrin 40 Mg SQ DAILY Atorvastatin Calcium 40 Mg Tablet 40 Mg PO QHS Abilify (Aripiprazole) 5 Mg Tablet 5 Mg PO DAILY Maalox Advanced Suspension (Mag Hydrox/Aluminum Hyd/Simeth) 355 Ml Oral.susp 30 Ml PO PRN Q3HRS PRN Alprazolam 0.5 Mg Tablet 0.5 Mg PO PRN TID PRN Tylenol (Acetaminophen) 325 Mg Tablet 650 Mg PO PRN Q6HRS PRN Tylenol (Acetaminophen) 325 Mg Tablet 650 Mg PO QID I have reviewed the current psychotropics carefully including drug interactions. Risk benefit ratio favors no change other than as noted in my dictated progress note. Diagnosis: Problems: (1) Anxiety disorder (2) Impulse control disorder (3) Dementia, vascular, with depression (4) Dementia, vascular, with delusions (5) Bipolar 1 disorder, mixed, moderate (6) Dementia in Alzheimer's disease with depression (7) Dementia in Alzheimer's disease with delusions CHARLEY MCCLURE MD Jun 13, 2017 19:56
[2017-06-14] MEDS: traZODone 100 MG TABLET. PO SCH ×2 (01:42→20:00)
[2017-06-14 05:53] VITALS: BP 130/78
[2017-06-14] MEDS: SERTRALINE 50 MG TABLET. PO SCH (08:10)
[2017-06-14] MEDS: LACTOBACILLUS RHAMNOSUS GG 1 CAPSULE. PO SCH (08:10)
[2017-06-14] MEDS: DIVALPROEX 125 MG CAP.SPRINK PO SCH ×3 (08:10→19:59)
[2017-06-14] MEDS: QUEtiapine 25 MG TABLET. PO SCH ×3 (08:10→17:01)
[2017-06-14] MEDS: MELOXICAM 7.5 MG TABLET PO SCH (08:10)
[2017-06-14] MEDS: CHOLECALCIFEROL (VITAMIN D3) 50,000 UNIT CAPSULE PO SCH (08:10)
[2017-06-14] MEDS: DEXTROMETHORPHAN/QUINIDINE 20/10MG CAPSULE. PO SCH (08:11)
[2017-06-14] MEDS: ACETAMINOPHEN 325 MG TABLET PO SCH ×4 (08:11→19:59)
[2017-06-14 15:39] VITALS: BP 104/54
[2017-06-14] MEDS: CYANOCOBALAMIN (VITAMIN B-12) 250 MCG TABLET PO SCH (17:00)
[2017-06-14] MEDS: MIRTAZAPINE 15 MG TABLET PO SCH (19:59)
[2017-06-14] MEDS: ATORVASTATIN CALCIUM 20 MG TABLET PO SCH (19:59)
--- NOTE | 2017-06-14 20:00 | PDOC ---
Exam Note: Martin Note: Please also refer to the separate dictated note~for this date of service dictated separately.~Patient seen individually. Discussed the patient with Nursing staff reviewed the chart.~Reviewed interim history and current functioning. Reviewed vital signs,~Labs/ Radiology~and current medications noted below. Continue current treatment with the changes noted in the dictated addendum note Assessment: Vital Signs: Vital Signs Date Time Temp Pulse Resp B/P (MAP) Pulse Ox O2 Delivery O2 Flow Rate FiO2 06/14/17 15:39 98.1 68 18 104/54 (71) 97 06/09/17 05:47 Room Air I&O Intake and Output 06/14/17 07:00 Intake Total 680 ml Balance 680 ml Intake Oral 680 ml # Bowel Movements 2 Current Medications: Meds: Current Medications Acetaminophen (Tylenol) 650 mg PRN Q6HRS PRN PO PAIN / TEMP Last administered on 06/06/17at 06:16; Start 05/28/17 at 23:00 Multi-Ingredient Ointment (Analgesic [place]) 1 fraaz PRN QID PRN TP MUSCLE PAIN; Start 05/28/17 at 23:00 Al Hydroxide/Mg Hydroxide (Mylanta Plus Xs) 15 ml PRN AFTMEALHC PRN PO DYSPEPSIA; Start 05/28/17 at 23:00 Magnesium Hydroxide (Milk Of Magnesia) 2,400 mg PRN QHS PRN PO CONSTIPATION; Start 05/28/17 at 23:00 Alprazolam (Xanax) 0.5 mg PRN TID PRN PO ANXIETY / AGITATION Last administered on 06/11/17at 14:38; Start 05/29/17 at 00:15 Aripiprazole (Abilify) 5 mg DAILY PO Last administered on 05/30/17t 08:34; Start 05/29/17 at 09:00; Stop 05/30/17 at 17:17; Status DC Haloperidol (Haldol) 1 mg PRN BID PRN PO DELIRIUM Last administered on at 15:48; Start 05/29/17 at 00:15 Trazodone HCl (Desyrel) 50 mg QHS PO Last administered on 06/12/17at 19:54; Start 05/29/17 at 21:00; Stop 06/13/17 at 18:13; Status DC Citalopram Hydrobromide (CeleXA) 20 mg DAILY PO Last administered on 06/09/17at 07:49; Start 05/29/17 at 09:00; Stop 06/09/17 at 18:00; Status DC Influenza Virus Vaccine Quadrival (Fluarix Quad [id number] Syringe) 0.5 ml ONCE ONCE VAX IM Last administered on 05/29/17 09:47; Start 05/29/17 at 09:00; Stop 05/29/17 at 09:01; Status DC Pneumococcal Polyvalent Vaccine (Pneumovax 23) 0.5 ml ONCE ONCE VAX IM Last administered on 05/29/17 09:45; Start 05/29/17 at 09:00; Stop 05/31/17 at 14 :59; Status DC Info (FLU VACCINE per PROTOCOL) 1 ea PRN 1X PRN MC PER PROTOCOL; Start at 02:15; Status Cancel Pneumococcal Polyvalent Vaccine (Do NOT chart on this entry -- for MONITORING) 1 each PRN 1X PRN MC SEE COMMENTS; Start 05/29/17 at 02:15; Status Cancel Acetaminophen (Tylenol) 650 mg PRN Q6HRS PRN PO PAIN / TEMP; Start 05/29/17 at 05:45; Stop 05/29/17 at 12:08; Status DC Acetaminophen (Tylenol) 650 mg QID PO Last administered on 06/14/17at 17:00; Start 05/29/17 at 09:00 Enoxaparin Sodium (Lovenox) 40 mg DAILY SQ Last administered on 05/29/17 09: 41; Start 05/29/17 at 09:00; Stop 05/29/17 at 12:08; Status DC Lamotrigine (LaMICtal) 25 mg DAILY PO Last administered on 06/04/17at 08:43; Start 05/29/17 at 09:00; Stop 06/04/17 at 12:17; Status DC Meloxicam (Mobic) 7.5 mg DAILY PO Last administered on 06/14/17at 08:10; Start 05/29/17 at 09:00 Atorvastatin Calcium (Lipitor) 40 mg QHS PO Last administered on 06/13/17at 19: 02; Start 05/29/17 at 21:00 Lactobacillus Rhamnosus (Culturelle) 1 cap DAILY PO Last administered on 08:10; Start 05/29/17 at 09:00 Magnesium Hydroxide (Milk Of Magnesia) 2,400 mg PRN Q12HR PRN PO CONSTIPATION; Start 05/29/17 at 05:45; Stop 05/29/17 at 12:08; Status DC Potassium Chloride (Klor-Con) 40 meq 1X ONCE PO Last administered on t 13:40; Start 05/29/17 at 12:00; Stop 05/29/17 at 12:11; Status DC Quetiapine Fumarate (SEROquel) 12.5 mg BID@0900,1300 PO Last administered on 07:50; Start 05/31/17 at 09:00; Stop 06/01/17 at 11:11; Status DC Cyanocobalamin (Vitamin B-12) 250 mcg DAILYBFRSUP PO Last administered on 17:00; Start 05/31/17 at 17:00 Vitamin D (Vitamin D3) 50,000 unit WEEKLY PO Last administered on 06/14/17 08: 10; Start 05/31/17 at 11:45 Quetiapine Fumarate (SEROquel) 12.5 mg TID@0900,1400,1700 PO Last administered on 06/11/17 17:02; Start 06/01/17 at 14:00; Stop 06/11/17 at 17:36; Status DC Trazodone HCl (Desyrel) 50 mg PRN QHS PRN PO INSOMNIA Last administered on at 22:18; Start 06/02/17 at 19:00; Stop 06/13/17 at 18:13; Status DC Divalproex Sodium (Depakote Sprinkles) 125 mg BID@0900,1400 PO Last administered on 06/09/17at 13:31; Start 06/05/17 at 09:00; Stop 06/09/17 at 18:00; Status DC Divalproex Sodium (Depakote Sprinkles) 125 mg TID PO Last administered on 13:22; Start 06/09/17 at 21:00 Sertraline HCl (Zoloft) 50 mg DAILY PO Last administered on 06/14/17at 08:10; Start 06/10/17 at 09:00 Mirtazapine (Remeron) 7.5 mg QHS PO Last administered on 06/12/17at 19:54; Start 06/09/17 at 21:00; Stop 06/13/17 at 18:13; Status DC Dextromethorphan/ Quinidine (Nuedexta 20-10 Mg Capsule) 1 cap DAILY PO Last administered on 06/14/17at 08:11; Start 06/11/17 at 09:00 Quetiapine Fumarate (SEROquel) 12.5 mg BID@0900,1700 PO Last administered on at 17:01; Start 06/12/17 at 09:00 Quetiapine Fumarate (SEROquel) 25 mg DAILY@1400 PO Last administered on at 13:22; Start 06/12/17 at 14:00 Mirtazapine (Remeron) 15 mg QHS PO Last administered on 06/13/17at 19:47; Start 06/13/17 at 21:00 Trazodone HCl (Desyrel) 100 mg QHS PO Last administered on 06/14/17at 01:42; Start 06/13/17 at 21:00 Trazodone HCl (Desyrel) 100 mg PRN QHS PRN PO INSOMNIA; Start 06/13/17 at 18:15 Active Scripts Active Reported Trazodone Hcl 50 Mg Tablet 50 Mg PO QHS Meloxicam 7.5 Mg Tablet 7.5 Mg PO DAILY Milk Of Magnesia (Magnesium Hydroxide) 2,400 Mg/10 Ml Oral.susp 2,400 Mg PO PRN Q12HR PRN Lamotrigine 25 Mg Tablet 25 Mg PO DAILY Culturelle Capsule (L. Rhamnosus GG/Inulin) 1 Each Cap.sprink 1 Each PO DAILY Haloperidol 2 Mg Tablet 1 Mg PO PRN BID PRN Escitalopram Oxalate 10 Mg Tablet 10 Mg PO DAILY Lovenox (Enoxaparin Sodium) 40 Mg/0.4 Ml Disp.syrin 40 Mg SQ DAILY Atorvastatin Calcium 40 Mg Tablet 40 Mg PO QHS Abilify (Aripiprazole) 5 Mg Tablet 5 Mg PO DAILY Maalox Advanced Suspension (Mag Hydrox/Aluminum Hyd/Simeth) 355 Ml Oral.susp 30 Ml PO PRN Q3HRS PRN Alprazolam 0.5 Mg Tablet 0.5 Mg PO PRN TID PRN Tylenol (Acetaminophen) 325 Mg Tablet 650 Mg PO PRN Q6HRS PRN Tylenol (Acetaminophen) 325 Mg Tablet 650 Mg PO QID I have reviewed the current psychotropics carefully including drug interactions. Risk benefit ratio favors no change other than as noted in my dictated progress note. Diagnosis: Problems: (1) Anxiety disorder (2) Impulse control disorder (3) Dementia, vascular, with depression (4) Dementia, vascular, with delusions (5) Bipolar 1 disorder, mixed, moderate (6) Dementia in Alzheimer's disease with depression (7) Dementia in Alzheimer's disease with delusions CHARLEY MCCLURE MD Jun 14, 2017 20:00
[2017-06-14] MEDS: traZODone 100 MG TABLET. PO PRN (22:52)
[2017-06-15 05:41] VITALS: BP 105/54
[2017-06-15] MEDS: ACETAMINOPHEN 325 MG TABLET PO SCH ×4 (06:25→19:41)
[2017-06-15] MEDS: LACTOBACILLUS RHAMNOSUS GG 1 CAPSULE. PO SCH (08:11)
[2017-06-15] MEDS: SERTRALINE 50 MG TABLET. PO SCH (08:12)
[2017-06-15] MEDS: DEXTROMETHORPHAN/QUINIDINE 20/10MG CAPSULE. PO SCH (08:12)
[2017-06-15] MEDS: QUEtiapine 25 MG TABLET. PO SCH ×3 (08:12→16:54)
[2017-06-15] MEDS: DIVALPROEX 125 MG CAP.SPRINK PO SCH ×3 (08:20→19:42)
[2017-06-15] MEDS: MELOXICAM 7.5 MG TABLET PO SCH (08:20)
[2017-06-15 16:41] VITALS: BP 102/56
[2017-06-15] MEDS: CYANOCOBALAMIN (VITAMIN B-12) 250 MCG TABLET PO SCH (16:59)
[2017-06-15] MEDS: traZODone 100 MG TABLET. PO SCH (19:41)
[2017-06-15] MEDS: ATORVASTATIN CALCIUM 20 MG TABLET PO SCH (19:41)
[2017-06-15] MEDS: MIRTAZAPINE 15 MG TABLET PO SCH (19:41)
--- NOTE | 2017-06-15 19:44 | PDOC ---
Exam Note: Martin Note: Please also refer to the separate dictated note~for this date of service dictated separately.~Patient seen individually. Discussed the patient with Nursing staff reviewed the chart.~Reviewed interim history and current functioning. Reviewed vital signs,~Labs/ Radiology~and current medications noted below. Continue current treatment with the changes noted in the dictated addendum note Assessment: Vital Signs: Vital Signs Date Time Temp Pulse Resp B/P (MAP) Pulse Ox O2 Delivery O2 Flow Rate FiO2 06/15/17 16:41 98.9 65 20 102/56 (71) 99 I&O Intake and Output 06/15/17 07:00 Intake Total 1320 ml Balance 1320 ml Intake Oral 1320 ml Current Medications: Meds: Current Medications Acetaminophen (Tylenol) 650 mg PRN Q6HRS PRN PO PAIN / TEMP Last administered on 06/06/17at 06:16; Start 05/28/17 at 23:00 Multi-Ingredient Ointment (Analgesic [place]) 1 faraz PRN QID PRN TP MUSCLE PAIN; Start 05/28/17 at 23:00 Al Hydroxide/Mg Hydroxide (Mylanta Plus Xs) 15 ml PRN AFTMEALHC PRN PO DYSPEPSIA; Start 05/28/17 at 23:00 Magnesium Hydroxide (Milk Of Magnesia) 2,400 mg PRN QHS PRN PO CONSTIPATION; Start 05/28/17 at 23:00 Alprazolam (Xanax) 0.5 mg PRN TID PRN PO ANXIETY / AGITATION Last administered on 06/11/17at 14:38; Start 05/29/17 at 00:15 Aripiprazole (Abilify) 5 mg DAILY PO Last administered on 05/30/17t 08:34; Start 05/29/17 at 09:00; Stop 05/30/17 at 17:17; Status DC Haloperidol (Haldol) 1 mg PRN BID PRN PO DELIRIUM Last administered on 15:48; Start 05/29/17 at 00:15 Trazodone HCl (Desyrel) 50 mg QHS PO Last administered on 06/12/17 19:54; Start 05/29/17 at 21:00; Stop 06/13/17 at 18:13; Status DC Citalopram Hydrobromide (CeleXA) 20 mg DAILY PO Last administered on 06/09/17 07:49; Start 05/29/17 at 09:00; Stop 06/09/17 at 18:00; Status DC Influenza Virus Vaccine Quadrival (Fluarix Quad [id number] Syringe) 0.5 ml ONCE ONCE VAX IM Last administered on 05/29/17 09:47; Start 05/29/17 at 09:00; Stop 05/29/17 at 09:01; Status DC Pneumococcal Polyvalent Vaccine (Pneumovax 23) 0.5 ml ONCE ONCE VAX IM Last administered on 05/29/17 09:45; Start 05/29/17 at 09:00; Stop 05/31/17 at 14 :59; Status DC Info (FLU VACCINE per PROTOCOL) 1 ea PRN 1X PRN MC PER PROTOCOL; Start at 02:15; Status Cancel Pneumococcal Polyvalent Vaccine (Do NOT chart on this entry -- for MONITORING) 1 each PRN 1X PRN MC SEE COMMENTS; Start 05/29/17 at 02:15; Status Cancel Acetaminophen (Tylenol) 650 mg PRN Q6HRS PRN PO PAIN / TEMP; Start 05/29/17 at 05:45; Stop 05/29/17 at 12:08; Status DC Acetaminophen (Tylenol) 650 mg QID PO Last administered on 06/15/17 16:59; Start 05/29/17 at 09:00 Enoxaparin Sodium (Lovenox) 40 mg DAILY SQ Last administered on 05/29/17 09: 41; Start 05/29/17 at 09:00; Stop 05/29/17 at 12:08; Status DC Lamotrigine (LaMICtal) 25 mg DAILY PO Last administered on 06/04/17 08:43; Start 05/29/17 at 09:00; Stop 06/04/17 at 12:17; Status DC Meloxicam (Mobic) 7.5 mg DAILY PO Last administered on 06/14/17 08:10; Start 05/29/17 at 09:00 Atorvastatin Calcium (Lipitor) 40 mg QHS PO Last administered on 06/14/17 19: 59; Start 05/29/17 at 21:00 Lactobacillus Rhamnosus (Culturelle) 1 cap DAILY PO Last administered on 1/14/ 18at 08:11; Start 05/29/17 at 09:00 Magnesium Hydroxide (Milk Of Magnesia) 2,400 mg PRN Q12HR PRN PO CONSTIPATION; Start 05/29/17 at 05:45; Stop 05/29/17 at 12:08; Status DC Potassium Chloride (Klor-Con) 40 meq 1X ONCE PO Last administered on 13:40; Start 05/29/17 at 12:00; Stop 05/29/17 at 12:11; Status DC Quetiapine Fumarate (SEROquel) 12.5 mg BID@0900,1300 PO Last administered on 07:50; Start 05/31/17 at 09:00; Stop 06/01/17 at 11:11; Status DC Cyanocobalamin (Vitamin B-12) 250 mcg DAILYBFRSUP PO Last administered on at 16:59; Start 05/31/17 at 17:00 Vitamin D (Vitamin D3) 50,000 unit WEEKLY PO Last administered on 06/14/17 08: 10; Start 05/31/17 at 11:45 Quetiapine Fumarate (SEROquel) 12.5 mg TID@0900,1400,1700 PO Last administered on 06/11/17at 17:02; Start 06/01/17 at 14:00; Stop 06/11/17 at 17:36; Status DC Trazodone HCl (Desyrel) 50 mg PRN QHS PRN PO INSOMNIA Last administered on at 22:18; Start 06/02/17 at 19:00; Stop 06/13/17 at 18:13; Status DC Divalproex Sodium (Depakote Sprinkles) 125 mg BID@0900,1400 PO Last administered on 06/09/17at 13:31; Start 06/05/17 at 09:00; Stop 06/09/17 at 18:00; Status DC Divalproex Sodium (Depakote Sprinkles) 125 mg TID PO Last administered on at 13:34; Start 06/09/17 at 21:00 Sertraline HCl (Zoloft) 50 mg DAILY PO Last administered on 06/15/17at 08:12; Start 06/10/17 at 09:00 Mirtazapine (Remeron) 7.5 mg QHS PO Last administered on 06/12/17at 19:54; Start 06/09/17 at 21:00; Stop 06/13/17 at 18:13; Status DC Dextromethorphan/ Quinidine (Nuedexta 20-10 Mg Capsule) 1 cap DAILY PO Last administered on 06/15/17at 08:12; Start 06/11/17 at 09:00 Quetiapine Fumarate (SEROquel) 12.5 mg BID@0900,1700 PO Last administered on at 08:12; Start 06/12/17 at 09:00 Quetiapine Fumarate (SEROquel) 25 mg DAILY@1400 PO Last administered on at 13:34; Start 06/12/17 at 14:00 Mirtazapine (Remeron) 15 mg QHS PO Last administered on 06/14/17at 19:59; Start 06/13/17 at 21:00 Trazodone HCl (Desyrel) 100 mg QHS PO Last administered on 06/14/17at 20:00; Start 06/13/17 at 21:00 Trazodone HCl (Desyrel) 100 mg PRN QHS PRN PO INSOMNIA Last administered on at 22:52; Start 06/13/17 at 18:15 Active Scripts Active Reported Trazodone Hcl 50 Mg Tablet 50 Mg PO QHS Meloxicam 7.5 Mg Tablet 7.5 Mg PO DAILY Milk Of Magnesia (Magnesium Hydroxide) 2,400 Mg/10 Ml Oral.susp 2,400 Mg PO PRN Q12HR PRN Lamotrigine 25 Mg Tablet 25 Mg PO DAILY Culturelle Capsule (L. Rhamnosus GG/Inulin) 1 Each Cap.sprink 1 Each PO DAILY Haloperidol 2 Mg Tablet 1 Mg PO PRN BID PRN Escitalopram Oxalate 10 Mg Tablet 10 Mg PO DAILY Lovenox (Enoxaparin Sodium) 40 Mg/0.4 Ml Disp.syrin 40 Mg SQ DAILY Atorvastatin Calcium 40 Mg Tablet 40 Mg PO QHS Abilify (Aripiprazole) 5 Mg Tablet 5 Mg PO DAILY Maalox Advanced Suspension (Mag Hydrox/Aluminum Hyd/Simeth) 355 Ml Oral.susp 30 Ml PO PRN Q3HRS PRN Alprazolam 0.5 Mg Tablet 0.5 Mg PO PRN TID PRN Tylenol (Acetaminophen) 325 Mg Tablet 650 Mg PO PRN Q6HRS PRN Tylenol (Acetaminophen) 325 Mg Tablet 650 Mg PO QID I have reviewed the current psychotropics carefully including drug interactions. Risk benefit ratio favors no change other than as noted in my dictated progress note. Diagnosis: Problems: (1) Anxiety disorder (2) Impulse control disorder (3) Dementia, vascular, with depression (4) Dementia, vascular, with delusions (5) Bipolar 1 disorder, mixed, moderate (6) Dementia in Alzheimer's disease with depression (7) Dementia in Alzheimer's disease with delusions CHARLEY MCCLURE MD Jun 15, 2017 19:44
--- NOTE | 2017-06-15 23:09 | PN ---
DATE: 06/11/2017 This late entry 06/11/2017 covers elements not covered in my initial note 06/11/2017. SUBJECTIVE: I met with the patient evening of 06/11/2017. The patient slept 2-3/4 hours previous evening. QT corrected on the EKG is 467 milliseconds. The patient has been quite confused, labile, previous evening, she was crying, did better in the morning, but then gets agitated later in the day, calling another patient with profane language and then crying, tearful. REVIEW OF SYSTEMS: Ambulation impaired, in wheelchair. No CV, , pulmonary, eye, ENT system symptoms on review. MENTAL STATUS EXAMINATION: Oriented to herself. Insight, judgment, recent and remote memory, attention, concentration, fund of knowledge poor, consistent with her diagnosis mentioned in my initial note. IMPRESSION: Major neurocognitive disorder, Alzheimer, vascular with depression, delusion, behavioral disturbance. Rest unchanged. PLAN: Increase 2:00 p.m. Seroquel from 12.5 mg to 25 mg. Continue rest of the psychotropics unchanged from initial note. MAN Sean MCCLURE MD DR: IRENE/bora JOB#: [id number] / [id number]
--- NOTE | 2017-06-15 23:12 | PN ---
DATE: 06/12/2017 This note cover elements not covered in my initial note on 06/12/2017. SUBJECTIVE: The patient was seen individually and also staffed at a treatment team meeting with the entire team. She is sleeping about 5-1/2 hours. Appetite 75%. She remains somewhat anxious, labile in her mood. Ambulation impaired, in wheelchair. REVIEW OF SYSTEMS: No CV, , pulmonary, eye, ENT system symptoms on review. Reliability poor. MENTAL STATUS EXAM: Oriented to herself. Insight, judgment, recent and remote memory, attention, concentration, fund of knowledge poor. Consistent with her diagnosis mentioned in my initial note. IMPRESSION: Major neurocognitive disorder, Alzheimer, vascular with depression; delusion; behavioral disturbance. Rest unchanged. PLAN: Continue psychotropics mentioned in my initial note. Adjust further as clinically indicated. MAN Sean MCCLURE MD DR: IRENE/bora JOB#: [id number] / [id number]
--- NOTE | 2017-06-16 00:38 | PN ---
DATE: 06/13/2017 Covers elements not covered in my initial note 06/13/2017. The patient was seen individually evening of 06/13/2017. The patient slept just half hour previous evening. Has had one episode of crying in the evening. Otherwise, remains confused, but not aggressive. REVIEW OF SYSTEMS: Ambulation impaired, in wheelchair. No CV, , pulmonary, eye, ENT system symptoms on review. MENTAL STATUS EXAM: Oriented to herself. Insight, judgment, recent and remote memory, attention, concentration, fund of knowledge poor, consistent with her diagnosis mentioned in my initial note. IMPRESSION: Major neurocognitive disorder, Alzheimer, vascular with depression, delusion, behavioral disturbance. PLAN: Increase Remeron from 7.5 mg to 15 mg at bedtime, trazodone from 50 mg at bedtime, may repeat x 1 to p.o. 100 mg at bedtime, may repeat x 1. Continue Seroquel unchanged. Xanax p.r.n., Depakote at current dosage. Valproic acid level subtherapeutic at 32, but clinically adequate. MAN Sean MCCLURE MD DR: IRENE/bora JOB#: [id number] / [id number]
--- NOTE | 2017-06-16 00:40 | PN ---
DATE: 06/14/2017 This note covers elements not covered in my initial note 06/14/2017. Met with the patient on the evening of 06/14/2017. Overall, the patient remains confused, not aggressive, still anxious, at times tearful but mood lability is better. REVIEW OF SYSTEMS: Ambulation impaired, in wheelchair. No CV, , pulmonary, eye, ENT system symptoms on review. Reliability poor. MENTAL STATUS EXAM: Oriented to herself. Insight, judgment, recent and remote memory, attention, concentration, fund of knowledge poor, consistent with her diagnosis mentioned in my initial note. IMPRESSION: Major neurocognitive disorder, Alzheimer, vascular with depression, delusion, behavioral disturbance. PLAN: Continue psychotropics mentioned in my initial note. MAN Sean MCCLURE MD DR: IRENE/bora JOB#: [id number] / [id number]
[2017-06-16] MEDS: traZODone 100 MG TABLET. PO PRN ×2 (01:28→22:19)
[2017-06-16 06:05] VITALS: BP 132/95
[2017-06-16] MEDS: MELOXICAM 7.5 MG TABLET PO SCH (08:16)
[2017-06-16] MEDS: DIVALPROEX 125 MG CAP.SPRINK PO SCH ×3 (08:16→19:43)
[2017-06-16] MEDS: LACTOBACILLUS RHAMNOSUS GG 1 CAPSULE. PO SCH ×2 (08:16→09:00)
[2017-06-16] MEDS: ACETAMINOPHEN 325 MG TABLET PO SCH ×5 (08:16→19:43)
[2017-06-16] MEDS: SERTRALINE 50 MG TABLET. PO SCH (08:16)
[2017-06-16] MEDS: QUEtiapine 25 MG TABLET. PO SCH ×3 (08:17→17:22)
[2017-06-16] MEDS: DEXTROMETHORPHAN/QUINIDINE 20/10MG CAPSULE. PO SCH ×2 (08:17→09:00)
[2017-06-16] MEDS: HALOPERIDOL 1 MG TABLET PO PRN (10:44)
[2017-06-16] MEDS: ALPRAZolam 0.5 MG TABLET PO PRN (11:28)
[2017-06-16 15:55] VITALS: BP 116/67
[2017-06-16] MEDS: CYANOCOBALAMIN (VITAMIN B-12) 250 MCG TABLET PO SCH (17:22)
[2017-06-16] MEDS: MIRTAZAPINE 15 MG TABLET PO SCH (19:43)
[2017-06-16] MEDS: traZODone 100 MG TABLET. PO SCH (19:43)
[2017-06-16] MEDS: ATORVASTATIN CALCIUM 20 MG TABLET PO SCH (19:44)
--- NOTE | 2017-06-16 20:03 | PDOC ---
Exam Note: Martin Note: Please also refer to the separate dictated note~for this date of service dictated separately.~Patient seen individually. Discussed the patient with Nursing staff reviewed the chart.~Reviewed interim history and current functioning. Reviewed vital signs,~Labs/ Radiology~and current medications noted below. Continue current treatment with the changes noted in the dictated addendum note Assessment: Vital Signs: Vital Signs Date Time Temp Pulse Resp B/P (MAP) Pulse Ox O2 Delivery O2 Flow Rate FiO2 06/16/17 15:55 98.2 61 18 116/67 (83) 97 06/16/17 06:05 Room Air I&O Intake and Output 06/16/17 07:00 Intake Total 720 ml Balance 720 ml Intake Oral 720 ml # Voids 1 # Bowel Movements 1 Current Medications: Meds: Current Medications Acetaminophen (Tylenol) 650 mg PRN Q6HRS PRN PO PAIN / TEMP Last administered on 06/06/17at 06:16; Start 05/28/17 at 23:00 Multi-Ingredient Ointment (Analgesic [place]) 1 faraz PRN QID PRN TP MUSCLE PAIN; Start 05/28/17 at 23:00 Al Hydroxide/Mg Hydroxide (Mylanta Plus Xs) 15 ml PRN AFTMEALHC PRN PO DYSPEPSIA; Start 05/28/17 at 23:00 Magnesium Hydroxide (Milk Of Magnesia) 2,400 mg PRN QHS PRN PO CONSTIPATION; Start 05/28/17 at 23:00 Alprazolam (Xanax) 0.5 mg PRN TID PRN PO ANXIETY / AGITATION Last administered on 06/16/17at 11:28; Start 05/29/17 at 00:15 Aripiprazole (Abilify) 5 mg DAILY PO Last administered on 05/30/17t 08:34; Start 05/29/17 at 09:00; Stop 05/30/17 at 17:17; Status DC Haloperidol (Haldol) 1 mg PRN BID PRN PO DELIRIUM Last administered on at 10:44; Start 05/29/17 at 00:15 Trazodone HCl (Desyrel) 50 mg QHS PO Last administered on 06/12/17 19:54; Start 05/29/17 at 21:00; Stop 06/13/17 at 18:13; Status DC Citalopram Hydrobromide (CeleXA) 20 mg DAILY PO Last administered on 06/09/17at 07:49; Start 05/29/17 at 09:00; Stop 06/09/17 at 18:00; Status DC Influenza Virus Vaccine Quadrival (Fluarix Quad [id number] Syringe) 0.5 ml ONCE ONCE VAX IM Last administered on 05/29/17 09:47; Start 05/29/17 at 09:00; Stop 05/29/17 at 09:01; Status DC Pneumococcal Polyvalent Vaccine (Pneumovax 23) 0.5 ml ONCE ONCE VAX IM Last administered on 05/29/17 09:45; Start 05/29/17 at 09:00; Stop 05/31/17 at 14 :59; Status DC Info (FLU VACCINE per PROTOCOL) 1 ea PRN 1X PRN MC PER PROTOCOL; Start at 02:15; Status Cancel Pneumococcal Polyvalent Vaccine (Do NOT chart on this entry -- for MONITORING) 1 each PRN 1X PRN MC SEE COMMENTS; Start 05/29/17 at 02:15; Status Cancel Acetaminophen (Tylenol) 650 mg PRN Q6HRS PRN PO PAIN / TEMP; Start 05/29/17 at 05:45; Stop 05/29/17 at 12:08; Status DC Acetaminophen (Tylenol) 650 mg QID PO Last administered on 06/16/17 19:43; Start 05/29/17 at 09:00 Enoxaparin Sodium (Lovenox) 40 mg DAILY SQ Last administered on 05/29/17 09: 41; Start 05/29/17 at 09:00; Stop 05/29/17 at 12:08; Status DC Lamotrigine (LaMICtal) 25 mg DAILY PO Last administered on 06/04/17 08:43; Start 05/29/17 at 09:00; Stop 06/04/17 at 12:17; Status DC Meloxicam (Mobic) 7.5 mg DAILY PO Last administered on 06/16/17 08:16; Start 05/29/17 at 09:00 Atorvastatin Calcium (Lipitor) 40 mg QHS PO Last administered on 06/16/17 19: 44; Start 05/29/17 at 21:00 Lactobacillus Rhamnosus (Culturelle) 1 cap DAILY PO Last administered on 08:11; Start 05/29/17 at 09:00 Magnesium Hydroxide (Milk Of Magnesia) 2,400 mg PRN Q12HR PRN PO CONSTIPATION; Start 05/29/17 at 05:45; Stop 05/29/17 at 12:08; Status DC Potassium Chloride (Klor-Con) 40 meq 1X ONCE PO Last administered on 13:40; Start 05/29/17 at 12:00; Stop 05/29/17 at 12:11; Status DC Quetiapine Fumarate (SEROquel) 12.5 mg BID@0900,1300 PO Last administered on 07:50; Start 05/31/17 at 09:00; Stop 06/01/17 at 11:11; Status DC Cyanocobalamin (Vitamin B-12) 250 mcg DAILYBFRSUP PO Last administered on at 17:22; Start 05/31/17 at 17:00 Vitamin D (Vitamin D3) 50,000 unit WEEKLY PO Last administered on 06/14/17 08: 10; Start 05/31/17 at 11:45 Quetiapine Fumarate (SEROquel) 12.5 mg TID@0900,1400,1700 PO Last administered on 06/11/17 17:02; Start 06/01/17 at 14:00; Stop 06/11/17 at 17:36; Status DC Trazodone HCl (Desyrel) 50 mg PRN QHS PRN PO INSOMNIA Last administered on at 22:18; Start 06/02/17 at 19:00; Stop 06/13/17 at 18:13; Status DC Divalproex Sodium (Depakote Sprinkles) 125 mg BID@0900,1400 PO Last administered on 06/09/17at 13:31; Start 06/05/17 at 09:00; Stop 06/09/17 at 18:00; Status DC Divalproex Sodium (Depakote Sprinkles) 125 mg TID PO Last administered on at 19:43; Start 06/09/17 at 21:00 Sertraline HCl (Zoloft) 50 mg DAILY PO Last administered on 1/15/18at 08:16; Start 06/10/17 at 09:00 Mirtazapine (Remeron) 7.5 mg QHS PO Last administered on 06/12/17at 19:54; Start 06/09/17 at 21:00; Stop 06/13/17 at 18:13; Status DC Dextromethorphan/ Quinidine (Nuedexta 20-10 Mg Capsule) 1 cap DAILY PO Last administered on 06/15/17at 08:12; Start 06/11/17 at 09:00 Quetiapine Fumarate (SEROquel) 12.5 mg BID@0900,1700 PO Last administered on at 17:22; Start 06/12/17 at 09:00 Quetiapine Fumarate (SEROquel) 25 mg DAILY@1400 PO Last administered on at 14:22; Start 06/12/17 at 14:00 Mirtazapine (Remeron) 15 mg QHS PO Last administered on 06/16/17at 19:43; Start 06/13/17 at 21:00 Trazodone HCl (Desyrel) 100 mg QHS PO Last administered on 06/16/17at 19:43; Start 06/13/17 at 21:00 Trazodone HCl (Desyrel) 100 mg PRN QHS PRN PO INSOMNIA Last administered on at 01:28; Start 06/13/17 at 18:15 Active Scripts Active Reported Trazodone Hcl 50 Mg Tablet 50 Mg PO QHS Meloxicam 7.5 Mg Tablet 7.5 Mg PO DAILY Milk Of Magnesia (Magnesium Hydroxide) 2,400 Mg/10 Ml Oral.susp 2,400 Mg PO PRN Q12HR PRN Lamotrigine 25 Mg Tablet 25 Mg PO DAILY Culturelle Capsule (L. Rhamnosus GG/Inulin) 1 Each Cap.sprink 1 Each PO DAILY Haloperidol 2 Mg Tablet 1 Mg PO PRN BID PRN Escitalopram Oxalate 10 Mg Tablet 10 Mg PO DAILY Lovenox (Enoxaparin Sodium) 40 Mg/0.4 Ml Disp.syrin 40 Mg SQ DAILY Atorvastatin Calcium 40 Mg Tablet 40 Mg PO QHS Abilify (Aripiprazole) 5 Mg Tablet 5 Mg PO DAILY Maalox Advanced Suspension (Mag Hydrox/Aluminum Hyd/Simeth) 355 Ml Oral.susp 30 Ml PO PRN Q3HRS PRN Alprazolam 0.5 Mg Tablet 0.5 Mg PO PRN TID PRN Tylenol (Acetaminophen) 325 Mg Tablet 650 Mg PO PRN Q6HRS PRN Tylenol (Acetaminophen) 325 Mg Tablet 650 Mg PO QID I have reviewed the current psychotropics carefully including drug interactions. Risk benefit ratio favors no change other than as noted in my dictated progress note. Diagnosis: Problems: (1) Anxiety disorder (2) Impulse control disorder (3) Dementia, vascular, with depression (4) Dementia, vascular, with delusions (5) Bipolar 1 disorder, mixed, moderate (6) Dementia in Alzheimer's disease with depression (7) Dementia in Alzheimer's disease with delusions CHARLEY MCCLURE MD Jun 16, 2017 20:03
--- NOTE | 2017-06-17 01:36 | PN ---
DATE: 06/15/2017 PSYCHIATRIC PROGRESS NOTE This late entry, date of service 06/15/2017, covers elements not covered in my initial note of 06/15/2017. I met with the patient in the evening of 06/15/2017. Overall, the patient remains confused in her wheelchair, labile in the morning, but redirected later in the day. REVIEW OF SYSTEMS: Ambulation impaired. No CV, , pulmonary, eye, ENT system symptoms on review. Reliability poor, not very verbal. MENTAL STATUS EXAM: Oriented to herself. Insight, judgment, recent and remote memory, attention, concentration and fund of knowledge poor, consistent with her diagnosis mentioned in my initial note. IMPRESSION: Major neurocognitive disorder; Alzheimer, vascular with depression, delusion and behavioral disturbance. PLAN: Continue psychotropics mentioned in my initial note; may need to adjust the Nuedexta in due course. EKG, QT-corrected interval is unremarkable. MAN Sean MCCLURE MD DR: IRENE/bora JOB#: [id number] / [id number]
[2017-06-17] MEDS: ALPRAZolam 0.5 MG TABLET PO PRN ×2 (02:23→19:28)
[2017-06-17 06:03] VITALS: BP 130/58
[2017-06-17] MEDS: DEXTROMETHORPHAN/QUINIDINE 20/10MG CAPSULE. PO SCH (08:55)
[2017-06-17] MEDS: DIVALPROEX 125 MG CAP.SPRINK PO SCH ×3 (08:55→19:27)
[2017-06-17] MEDS: LACTOBACILLUS RHAMNOSUS GG 1 CAPSULE. PO SCH (08:55)
[2017-06-17] MEDS: SERTRALINE 50 MG TABLET. PO SCH (08:56)
[2017-06-17] MEDS: MELOXICAM 7.5 MG TABLET PO SCH (08:56)
[2017-06-17] MEDS: ACETAMINOPHEN 325 MG TABLET PO SCH ×4 (08:56→19:27)
[2017-06-17] MEDS: QUEtiapine 25 MG TABLET. PO SCH ×3 (08:56→16:56)
[2017-06-17 16:16] VITALS: BP 127/65
[2017-06-17] MEDS: CYANOCOBALAMIN (VITAMIN B-12) 250 MCG TABLET PO SCH (16:56)
[2017-06-17] MEDS: ATORVASTATIN CALCIUM 20 MG TABLET PO SCH (19:26)
[2017-06-17] MEDS: MIRTAZAPINE 15 MG TABLET PO SCH (19:27)
[2017-06-17] MEDS: traZODone 100 MG TABLET. PO SCH (19:27)
--- NOTE | 2017-06-17 20:04 | PDOC ---
Exam Note: Martin Note: Please also refer to the separate dictated note~for this date of service dictated separately.~Patient seen individually. Discussed the patient with Nursing staff reviewed the chart.~Reviewed interim history and current functioning. Reviewed vital signs,~Labs/ Radiology~and current medications noted below. Continue current treatment with the changes noted in the dictated addendum note Assessment: Vital Signs: Vital Signs Date Time Temp Pulse Resp B/P (MAP) Pulse Ox O2 Delivery O2 Flow Rate FiO2 06/17/17 16:16 98.9 64 18 127/65 (85) 96 06/16/17 06:05 Room Air I&O Intake and Output 06/17/17 07:00 Intake Total 600 ml Balance 600 ml Intake Oral 600 ml # Bowel Movements 2 Current Medications: Meds: Current Medications Acetaminophen (Tylenol) 650 mg PRN Q6HRS PRN PO PAIN / TEMP Last administered on 06/06/17at 06:16; Start 05/28/17 at 23:00 Multi-Ingredient Ointment (Analgesic [place]) 1 faraz PRN QID PRN TP MUSCLE PAIN; Start 05/28/17 at 23:00 Al Hydroxide/Mg Hydroxide (Mylanta Plus Xs) 15 ml PRN AFTMEALHC PRN PO DYSPEPSIA; Start 05/28/17 at 23:00 Magnesium Hydroxide (Milk Of Magnesia) 2,400 mg PRN QHS PRN PO CONSTIPATION; Start 05/28/17 at 23:00 Alprazolam (Xanax) 0.5 mg PRN TID PRN PO ANXIETY / AGITATION Last administered on 06/17/17at 19:28; Start 05/29/17 at 00:15 Aripiprazole (Abilify) 5 mg DAILY PO Last administered on 05/30/17t 08:34; Start 05/29/17 at 09:00; Stop 05/30/17 at 17:17; Status DC Haloperidol (Haldol) 1 mg PRN BID PRN PO DELIRIUM Last administered on at 10:44; Start 05/29/17 at 00:15 Trazodone HCl (Desyrel) 50 mg QHS PO Last administered on 06/12/17at 19:54; Start 05/29/17 at 21:00; Stop 06/13/17 at 18:13; Status DC Citalopram Hydrobromide (CeleXA) 20 mg DAILY PO Last administered on 06/09/17 07:49; Start 05/29/17 at 09:00; Stop 06/09/17 at 18:00; Status DC Influenza Virus Vaccine Quadrival (Fluarix Quad [id number] Syringe) 0.5 ml ONCE ONCE VAX IM Last administered on 05/29/17 09:47; Start 05/29/17 at 09:00; Stop 05/29/17 at 09:01; Status DC Pneumococcal Polyvalent Vaccine (Pneumovax 23) 0.5 ml ONCE ONCE VAX IM Last administered on 05/29/17 09:45; Start 05/29/17 at 09:00; Stop 05/31/17 at 14 :59; Status DC Info (FLU VACCINE per PROTOCOL) 1 ea PRN 1X PRN MC PER PROTOCOL; Start at 02:15; Status Cancel Pneumococcal Polyvalent Vaccine (Do NOT chart on this entry -- for MONITORING) 1 each PRN 1X PRN MC SEE COMMENTS; Start 05/29/17 at 02:15; Status Cancel Acetaminophen (Tylenol) 650 mg PRN Q6HRS PRN PO PAIN / TEMP; Start 05/29/17 at 05:45; Stop 05/29/17 at 12:08; Status DC Acetaminophen (Tylenol) 650 mg QID PO Last administered on 06/17/17 19:27; Start 05/29/17 at 09:00 Enoxaparin Sodium (Lovenox) 40 mg DAILY SQ Last administered on 05/29/17 09: 41; Start 05/29/17 at 09:00; Stop 05/29/17 at 12:08; Status DC Lamotrigine (LaMICtal) 25 mg DAILY PO Last administered on 06/04/17 08:43; Start 05/29/17 at 09:00; Stop 06/04/17 at 12:17; Status DC Meloxicam (Mobic) 7.5 mg DAILY PO Last administered on 06/17/17 08:56; Start 05/29/17 at 09:00 Atorvastatin Calcium (Lipitor) 40 mg QHS PO Last administered on 06/17/17 19: 26; Start 05/29/17 at 21:00 Lactobacillus Rhamnosus (Culturelle) 1 cap DAILY PO Last administered on 08:55; Start 05/29/17 at 09:00 Magnesium Hydroxide (Milk Of Magnesia) 2,400 mg PRN Q12HR PRN PO CONSTIPATION; Start 05/29/17 at 05:45; Stop 05/29/17 at 12:08; Status DC Potassium Chloride (Klor-Con) 40 meq 1X ONCE PO Last administered on t 13:40; Start 05/29/17 at 12:00; Stop 05/29/17 at 12:11; Status DC Quetiapine Fumarate (SEROquel) 12.5 mg BID@0900,1300 PO Last administered on 07:50; Start 05/31/17 at 09:00; Stop 06/01/17 at 11:11; Status DC Cyanocobalamin (Vitamin B-12) 250 mcg DAILYBFRSUP PO Last administered on 16:56; Start 05/31/17 at 17:00 Vitamin D (Vitamin D3) 50,000 unit WEEKLY PO Last administered on 06/14/17at 08: 10; Start 05/31/17 at 11:45 Quetiapine Fumarate (SEROquel) 12.5 mg TID@0900,1400,1700 PO Last administered on 06/11/17 17:02; Start 06/01/17 at 14:00; Stop 06/11/17 at 17:36; Status DC Trazodone HCl (Desyrel) 50 mg PRN QHS PRN PO INSOMNIA Last administered on at 22:18; Start 06/02/17 at 19:00; Stop 06/13/17 at 18:13; Status DC Divalproex Sodium (Depakote Sprinkles) 125 mg BID@0900,1400 PO Last administered on 06/09/17at 13:31; Start 06/05/17 at 09:00; Stop 06/09/17 at 18:00; Status DC Divalproex Sodium (Depakote Sprinkles) 125 mg TID PO Last administered on at 19:27; Start 06/09/17 at 21:00 Sertraline HCl (Zoloft) 50 mg DAILY PO Last administered on 06/17/17at 08:56; Start 06/10/17 at 09:00 Mirtazapine (Remeron) 7.5 mg QHS PO Last administered on 06/12/17at 19:54; Start 06/09/17 at 21:00; Stop 06/13/17 at 18:13; Status DC Dextromethorphan/ Quinidine (Nuedexta 20-10 Mg Capsule) 1 cap DAILY PO Last administered on 06/17/17at 08:55; Start 06/11/17 at 09:00; Stop 06/17/17 at 14:00 ; Status DC Quetiapine Fumarate (SEROquel) 12.5 mg BID@0900,1700 PO Last administered on at 16:56; Start 06/12/17 at 09:00 Quetiapine Fumarate (SEROquel) 25 mg DAILY@1400 PO Last administered on at 13:07; Start 06/12/17 at 14:00 Mirtazapine (Remeron) 15 mg QHS PO Last administered on 06/17/17at 19:27; Start 06/13/17 at 21:00 Trazodone HCl (Desyrel) 100 mg QHS PO Last administered on 06/17/17at 19:27; Start 06/13/17 at 21:00 Trazodone HCl (Desyrel) 100 mg PRN QHS PRN PO INSOMNIA Last administered on at 22:19; Start 06/13/17 at 18:15 Dextromethorphan/ Quinidine (Nuedexta 20-10 Mg Capsule) 1 cap BID PO ; Start at 09:00 Active Scripts Active Reported Trazodone Hcl 50 Mg Tablet 50 Mg PO QHS Meloxicam 7.5 Mg Tablet 7.5 Mg PO DAILY Milk Of Magnesia (Magnesium Hydroxide) 2,400 Mg/10 Ml Oral.susp 2,400 Mg PO PRN Q12HR PRN Lamotrigine 25 Mg Tablet 25 Mg PO DAILY Culturelle Capsule (L. Rhamnosus GG/Inulin) 1 Each Cap.sprink 1 Each PO DAILY Haloperidol 2 Mg Tablet 1 Mg PO PRN BID PRN Escitalopram Oxalate 10 Mg Tablet 10 Mg PO DAILY Lovenox (Enoxaparin Sodium) 40 Mg/0.4 Ml Disp.syrin 40 Mg SQ DAILY Atorvastatin Calcium 40 Mg Tablet 40 Mg PO QHS Abilify (Aripiprazole) 5 Mg Tablet 5 Mg PO DAILY Maalox Advanced Suspension (Mag Hydrox/Aluminum Hyd/Simeth) 355 Ml Oral.susp 30 Ml PO PRN Q3HRS PRN Alprazolam 0.5 Mg Tablet 0.5 Mg PO PRN TID PRN Tylenol (Acetaminophen) 325 Mg Tablet 650 Mg PO PRN Q6HRS PRN Tylenol (Acetaminophen) 325 Mg Tablet 650 Mg PO QID I have reviewed the current psychotropics carefully including drug interactions. Risk benefit ratio favors no change other than as noted in my dictated progress note. Diagnosis: Problems: (1) Anxiety disorder (2) Impulse control disorder (3) Dementia, vascular, with depression (4) Dementia, vascular, with delusions (5) Bipolar 1 disorder, mixed, moderate (6) Dementia in Alzheimer's disease with depression (7) Dementia in Alzheimer's disease with delusions CHARLEY MCCLURE MD Jun 17, 2017 20:04
--- NOTE | 2017-06-18 02:43 | PN ---
DATE: 06/16/2017 This is a late entry, date of service 06/16, covers elements not covered in my initial note of 06/16. I met with the patient evening of 06/16. The patient slept 7-1/2 hours previous evening, remains confused in the morning. She was somewhat labile, crying, calling out when spoken to, became very rude and sarcastic. Haldol had little effect. Xanax made her drowsy during lunch. No behaviors after she woke up. REVIEW OF SYSTEMS: Ambulation impaired, in wheelchair. No CV, , pulmonary, eye, ENT system symptoms on review. Reliability poor. MENTAL STATUS EXAM: Oriented to herself. Insight, judgment, recent and remote memory, attention, concentration, fund of knowledge poor, consistent with her diagnosis mentioned in my initial note. IMPRESSION: Major neurocognitive disorder, Alzheimer, vascular with depression, delusion, behavioral disturbance. Rest unchanged. PLAN: Continue current psychotropics, increase Nuedexta from 20/10 one daily to one b.i.d. Rest unchanged. MAN Sean MCCLURE MD DR: IRENE/bora JOB#: [id number] / [id number]
[2017-06-18 06:00] VITALS: BP 103/48
[2017-06-18 07:46] LABS: BASO % 1 % (0-3); EOS # 0.3 x10^3/uL (0.0-0.7); EOS % 6 % (0-3); HEMATOCRIT 34.7 % (36.0-47.0); HEMOGLOBIN 11.6 g/dL (12.0-15.5); LYMPH % 18 % (24-48); MEAN CORPUSCULAR HEMOGLOBIN 31 pg (25-35); MEAN CORPUSCULAR HGB CONC 33 g/dL (31-37); MEAN CORPUSCULAR VOLUME 94 fL (79-100); MONO # 0.6 x10^3/uL (0.0-1.1); MONO % 10 % (0-9); NEUT # 3.8 x10^3uL (1.8-7.7); NEUT % 66 % (31-73); PLATELET COUNT 199 x10^3/uL (140-400); RED BLOOD COUNT 3.69 x10^6/uL (3.50-5.40); WHITE BLOOD COUNT 5.7 x10^3/uL (4.0-11.0)
[2017-06-18 08:01] LABS: CALCIUM 8.8 mg/dL (8.5-10.1); CREATININE 0.6 mg/dL (0.6-1.0); GFR 97.5; POTASSIUM 3.9 mmol/L (3.5-5.1); TOTAL BILIRUBIN 0.5 mg/dL (0.2-1.0)
[2017-06-18] MEDS: QUEtiapine 25 MG TABLET. PO SCH ×3 (08:30→17:28)
[2017-06-18] MEDS: ACETAMINOPHEN 325 MG TABLET PO SCH ×5 (08:30→21:00)
[2017-06-18] MEDS: SERTRALINE 50 MG TABLET. PO SCH (08:30)
[2017-06-18] MEDS: MELOXICAM 7.5 MG TABLET PO SCH (08:31)
[2017-06-18] MEDS: LACTOBACILLUS RHAMNOSUS GG 1 CAPSULE. PO SCH (08:31)
[2017-06-18] MEDS: DIVALPROEX 125 MG CAP.SPRINK PO SCH ×4 (08:31→21:00)
[2017-06-18] MEDS: DEXTROMETHORPHAN/QUINIDINE 20/10MG CAPSULE. PO SCH ×2 (08:32→19:48)
[2017-06-18 15:50] VITALS: BP 128/81
[2017-06-18] MEDS: CYANOCOBALAMIN (VITAMIN B-12) 250 MCG TABLET PO SCH (17:28)
[2017-06-18] MEDS: traZODone 100 MG TABLET. PO SCH (19:47)
[2017-06-18] MEDS: ATORVASTATIN CALCIUM 20 MG TABLET PO SCH (19:47)
[2017-06-18] MEDS: MIRTAZAPINE 15 MG TABLET PO SCH (19:48)
[2017-06-18] MEDS: ALPRAZolam 0.5 MG TABLET PO PRN (19:48)
--- NOTE | 2017-06-18 19:54 | PDOC ---
Exam Note: Martin Note: Please also refer to the separate dictated note~for this date of service dictated separately.~Patient seen individually. Discussed the patient with Nursing staff reviewed the chart.~Reviewed interim history and current functioning. Reviewed vital signs,~Labs/ Radiology~and current medications noted below. Continue current treatment with the changes noted in the dictated addendum note Assessment: Vital Signs: Vital Signs Date Time Temp Pulse Resp B/P (MAP) Pulse Ox O2 Delivery O2 Flow Rate FiO2 06/18/17 15:50 97.3 59 16 128/81 (97) 96 Room Air I&O Intake and Output 06/18/17 07:00 Intake Total 600 ml Balance 600 ml Intake Oral 600 ml # Voids 2 Labs: Laboratory Tests Test 06/18/17 07:26 06/18/17 07:32 Sodium Level 144 mmol/L (136-145) Potassium Level 3.9 mmol/L (3.5-5.1) Chloride Level 108 mmol/L (98-107) H Carbon Dioxide Level 30 mmol/L (21-32) Anion Gap 6 (6-14) Blood Urea Nitrogen 13 mg/dL (7-20) Creatinine 0.6 mg/dL (0.6-1.0) Estimated GFR (Cockcroft-Gault) 97.5 BUN/Creatinine Ratio 22 (6-20) H Glucose Level 93 mg/dL (70-99) Calcium Level 8.8 mg/dL (8.5-10.1) Total Bilirubin 0.5 mg/dL (0.2-1.0) Aspartate Amino Transferase (AST) 15 U/L (15-37) Alanine Aminotransferase (ALT) 22 U/L (14-59) Alkaline Phosphatase 139 U/L (46-116) H Total Protein 6.0 g/dL (6.4-8.2) L Albumin 3.0 g/dL (3.4-5.0) L Albumin/Globulin Ratio 1.0 (1.0-1.7) White Blood Count 5.7 x10^3/uL (4.0-11.0) Red Blood Count 3.69 x10^6/uL (3.50-5.40) Hemoglobin 11.6 g/dL (12.0-15.5) L Hematocrit 34.7 % (36.0-47.0) L Mean Corpuscular Volume 94 fL (79-100) Mean Corpuscular Hemoglobin 31 pg (25-35) Mean Corpuscular Hemoglobin Concent 33 g/dL (31-37) Red Cell Distribution Width 14.0 % (11.5-14.5) Platelet Count 199 x10^3/uL (140-400) Neutrophils (%) (Auto) 66 % (31-73) Lymphocytes (%) (Auto) 18 % (24-48) L Monocytes (%) (Auto) 10 % (0-9) H Eosinophils (%) (Auto) 6 % (0-3) H Basophils (%) (Auto) 1 % (0-3) Neutrophils # (Auto) 3.8 x10^3uL (1.8-7.7) Lymphocytes # (Auto) 1.0 x10^3/uL (1.0-4.8) Monocytes # (Auto) 0.6 x10^3/uL (0.0-1.1) Eosinophils # (Auto) 0.3 x10^3/uL (0.0-0.7) Basophils # (Auto) 0.0 x10^3/uL (0.0-0.2) Magnesium Level 1.8 mg/dL (1.8-2.4) Current Medications: Meds: Current Medications Acetaminophen (Tylenol) 650 mg PRN Q6HRS PRN PO PAIN / TEMP Last administered on 06/06/17at 06:16; Start 05/28/17 at 23:00 Multi-Ingredient Ointment (Analgesic [place]) 1 faraz PRN QID PRN TP MUSCLE PAIN; Start 05/28/17 at 23:00 Al Hydroxide/Mg Hydroxide (Mylanta Plus Xs) 15 ml PRN AFTMEALHC PRN PO DYSPEPSIA; Start 05/28/17 at 23:00 Magnesium Hydroxide (Milk Of Magnesia) 2,400 mg PRN QHS PRN PO CONSTIPATION; Start 05/28/17 at 23:00 Alprazolam (Xanax) 0.5 mg PRN TID PRN PO ANXIETY / AGITATION Last administered on 06/18/17 19:48; Start 05/29/17 at 00:15 Aripiprazole (Abilify) 5 mg DAILY PO Last administered on 05/30/17t 08:34; Start 05/29/17 at 09:00; Stop 05/30/17 at 17:17; Status DC Haloperidol (Haldol) 1 mg PRN BID PRN PO DELIRIUM Last administered on at 10:44; Start 05/29/17 at 00:15 Trazodone HCl (Desyrel) 50 mg QHS PO Last administered on 06/12/17at 19:54; Start 05/29/17 at 21:00; Stop 06/13/17 at 18:13; Status DC Citalopram Hydrobromide (CeleXA) 20 mg DAILY PO Last administered on 06/09/17 07:49; Start 05/29/17 at 09:00; Stop 06/09/17 at 18:00; Status DC Influenza Virus Vaccine Quadrival (Fluarix Quad [id number] Syringe) 0.5 ml ONCE ONCE VAX IM Last administered on 05/29/17 09:47; Start 05/29/17 at 09:00; Stop 05/29/17 at 09:01; Status DC Pneumococcal Polyvalent Vaccine (Pneumovax 23) 0.5 ml ONCE ONCE VAX IM Last administered on 05/29/17 09:45; Start 05/29/17 at 09:00; Stop 05/31/17 at 14 :59; Status DC Info (FLU VACCINE per PROTOCOL) 1 ea PRN 1X PRN MC PER PROTOCOL; Start at 02:15; Status Cancel Pneumococcal Polyvalent Vaccine (Do NOT chart on this entry -- for MONITORING) 1 each PRN 1X PRN MC SEE COMMENTS; Start 05/29/17 at 02:15; Status Cancel Acetaminophen (Tylenol) 650 mg PRN Q6HRS PRN PO PAIN / TEMP; Start 05/29/17 at 05:45; Stop 05/29/17 at 12:08; Status DC Acetaminophen (Tylenol) 650 mg QID PO Last administered on 06/18/17 19:48; Start 05/29/17 at 09:00 Enoxaparin Sodium (Lovenox) 40 mg DAILY SQ Last administered on 05/29/17t 09: 41; Start 05/29/17 at 09:00; Stop 05/29/17 at 12:08; Status DC Lamotrigine (LaMICtal) 25 mg DAILY PO Last administered on 06/04/17at 08:43; Start 05/29/17 at 09:00; Stop 06/04/17 at 12:17; Status DC Meloxicam (Mobic) 7.5 mg DAILY PO Last administered on 06/18/17 08:31; Start 05/29/17 at 09:00 Atorvastatin Calcium (Lipitor) 40 mg QHS PO Last administered on 06/18/17at 19: 47; Start 05/29/17 at 21:00 Lactobacillus Rhamnosus (Culturelle) 1 cap DAILY PO Last administered on at 08:31; Start 05/29/17 at 09:00 Magnesium Hydroxide (Milk Of Magnesia) 2,400 mg PRN Q12HR PRN PO CONSTIPATION; Start 05/29/17 at 05:45; Stop 05/29/17 at 12:08; Status DC Potassium Chloride (Klor-Con) 40 meq 1X ONCE PO Last administered on t 13:40; Start 05/29/17 at 12:00; Stop 05/29/17 at 12:11; Status DC Quetiapine Fumarate (SEROquel) 12.5 mg BID@0900,1300 PO Last administered on t 07:50; Start 05/31/17 at 09:00; Stop 06/01/17 at 11:11; Status DC Cyanocobalamin (Vitamin B-12) 250 mcg DAILYBFRSUP PO Last administered on at 17:28; Start 05/31/17 at 17:00 Vitamin D (Vitamin D3) 50,000 unit WEEKLY PO Last administered on 06/14/17at 08: 10; Start 05/31/17 at 11:45 Quetiapine Fumarate (SEROquel) 12.5 mg TID@0900,1400,1700 PO Last administered on 06/11/17at 17:02; Start 06/01/17 at 14:00; Stop 06/11/17 at 17:36; Status DC Trazodone HCl (Desyrel) 50 mg PRN QHS PRN PO INSOMNIA Last administered on at 22:18; Start 06/02/17 at 19:00; Stop 06/13/17 at 18:13; Status DC Divalproex Sodium (Depakote Sprinkles) 125 mg BID@0900,1400 PO Last administered on 06/09/17at 13:31; Start 06/05/17 at 09:00; Stop 06/09/17 at 18:00; Status DC Divalproex Sodium (Depakote Sprinkles) 125 mg TID PO Last administered on at 19:46; Start 06/09/17 at 21:00 Sertraline HCl (Zoloft) 50 mg DAILY PO Last administered on 06/18/17at 08:30; Start 06/10/17 at 09:00 Mirtazapine (Remeron) 7.5 mg QHS PO Last administered on 06/12/17at 19:54; Start 06/09/17 at 21:00; Stop 06/13/17 at 18:13; Status DC Dextromethorphan/ Quinidine (Nuedexta 20-10 Mg Capsule) 1 cap DAILY PO Last administered on 06/17/17at 08:55; Start 06/11/17 at 09:00; Stop 06/17/17 at 14:00 ; Status DC Quetiapine Fumarate (SEROquel) 12.5 mg BID@0900,1700 PO Last administered on at 17:28; Start 06/12/17 at 09:00 Quetiapine Fumarate (SEROquel) 25 mg DAILY@1400 PO Last administered on at 13:35; Start 06/12/17 at 14:00 Mirtazapine (Remeron) 15 mg QHS PO Last administered on 06/18/17at 19:48; Start 06/13/17 at 21:00 Trazodone HCl (Desyrel) 100 mg QHS PO Last administered on 06/18/17at 19:47; Start 06/13/17 at 21:00 Trazodone HCl (Desyrel) 100 mg PRN QHS PRN PO INSOMNIA Last administered on at 22:19; Start 06/13/17 at 18:15 Dextromethorphan/ Quinidine (Nuedexta 20-10 Mg Capsule) 1 cap BID PO Last administered on 06/18/17at 19:48; Start 06/18/17 at 09:00 Active Scripts Active Reported Trazodone Hcl 50 Mg Tablet 50 Mg PO QHS Meloxicam 7.5 Mg Tablet 7.5 Mg PO DAILY Milk Of Magnesia (Magnesium Hydroxide) 2,400 Mg/10 Ml Oral.susp 2,400 Mg PO PRN Q12HR PRN Lamotrigine 25 Mg Tablet 25 Mg PO DAILY Culturelle Capsule (L. Rhamnosus GG/Inulin) 1 Each Cap.sprink 1 Each PO DAILY Haloperidol 2 Mg Tablet 1 Mg PO PRN BID PRN Escitalopram Oxalate 10 Mg Tablet 10 Mg PO DAILY Lovenox (Enoxaparin Sodium) 40 Mg/0.4 Ml Disp.syrin 40 Mg SQ DAILY Atorvastatin Calcium 40 Mg Tablet 40 Mg PO QHS Abilify (Aripiprazole) 5 Mg Tablet 5 Mg PO DAILY Maalox Advanced Suspension (Mag Hydrox/Aluminum Hyd/Simeth) 355 Ml Oral.susp 30 Ml PO PRN Q3HRS PRN Alprazolam 0.5 Mg Tablet 0.5 Mg PO PRN TID PRN Tylenol (Acetaminophen) 325 Mg Tablet 650 Mg PO PRN Q6HRS PRN Tylenol (Acetaminophen) 325 Mg Tablet 650 Mg PO QID I have reviewed the current psychotropics carefully including drug interactions. Risk benefit ratio favors no change other than as noted in my dictated progress note. Diagnosis: Problems: (1) Anxiety disorder (2) Impulse control disorder (3) Dementia, vascular, with depression (4) Dementia, vascular, with delusions (5) Bipolar 1 disorder, mixed, moderate (6) Dementia in Alzheimer's disease with depression (7) Dementia in Alzheimer's disease with delusions CHARLEY MCCLURE MD Jun 18, 2017 19:54
[2017-06-19 00:58] LABS: BILIRUBIN,URINE NEG (NEG); CLARITY,URINE CLOUDY; COLOR,URINE YELLOW; GLUCOSE,URINE NEG (NEG); NITRITE,URINE POS (NEG); RBC,URINE 0 /HPF (0-2); UROBILINOGEN,URINE 0.2 mg/dL (0.2 mg/dL)
[2017-06-19 00:59] LABS: BACTERIA,URINE MANY /HPF (0-FEW); SQUAMOUS EPITHELIAL CELL,UR OCC /LPF; WBC,URINE TNTC /HPF (0-4)
--- NOTE | 2017-06-19 03:24 | PN ---
DATE: 06/17/2017 This late entry 06/17/2017 covers elements not covered in my initial note 06/17/2017. HISTORY: Met with the patient in the evening of 06/17/2017. The patient slept 1-1/4 hours previous evening, was crying, tearful, hollering at night, slept in the morning of 06/17/2017 from 9:00 a.m. to 11:30 a.m., total of 2.5 hours. Trazodone was repeated last evening and she received Xanax as well. REVIEW OF SYSTEMS: Ambulation impaired, in wheelchair. No CV, , pulmonary, eye system symptoms on review. Also, discussed with social service staff. Reliability poor. MENTAL STATUS EXAM: Oriented to herself. Insight, judgment, recent and remote memory, attention, concentration, fund of knowledge poor, consistent with her diagnosis mentioned in my initial note. IMPRESSION: Major neurocognitive disorder, Alzheimer, vascular with depression, delusion, behavioral disturbance. Rest unchanged. PLAN: Continue psychotropics mentioned in my initial note. Adjust further as clinically indicated. MAN Sean MCCLURE MD DR: IRENE/bora JOB#: [id number] / [id number]
[2017-06-19 05:49] VITALS: BP 104/55
[2017-06-19] MEDS: LACTOBACILLUS RHAMNOSUS GG 1 CAPSULE. PO SCH (08:34)
[2017-06-19] MEDS: MELOXICAM 7.5 MG TABLET PO SCH (08:35)
[2017-06-19] MEDS: DIVALPROEX 125 MG CAP.SPRINK PO SCH ×3 (08:35→19:40)
[2017-06-19] MEDS: QUEtiapine 25 MG TABLET. PO SCH ×3 (08:35→17:55)
[2017-06-19] MEDS: SERTRALINE 50 MG TABLET. PO SCH (08:36)
[2017-06-19] MEDS: ACETAMINOPHEN 325 MG TABLET PO SCH ×4 (08:36→19:41)
[2017-06-19] MEDS: DEXTROMETHORPHAN/QUINIDINE 20/10MG CAPSULE. PO SCH ×2 (08:37→19:42)
[2017-06-19] MEDS: ALPRAZolam 0.5 MG TABLET PO PRN (14:36)
[2017-06-19 15:53] VITALS: BP 108/55
[2017-06-19] MEDS: CYANOCOBALAMIN (VITAMIN B-12) 250 MCG TABLET PO SCH (17:55)
[2017-06-19] MEDS: MIRTAZAPINE 15 MG TABLET PO SCH (19:40)
[2017-06-19] MEDS: ATORVASTATIN CALCIUM 20 MG TABLET PO SCH (19:40)
[2017-06-19] MEDS: traZODone 100 MG TABLET. PO SCH (19:40)
--- NOTE | 2017-06-19 20:10 | PDOC ---
Exam Note: Martin Note: Please also refer to the separate dictated note~for this date of service dictated separately.~Patient seen individually. Discussed the patient with Nursing staff reviewed the chart.~Reviewed interim history and current functioning. Reviewed vital signs,~Labs/ Radiology~and current medications noted below. Continue current treatment with the changes noted in the dictated addendum note Assessment: Vital Signs: Vital Signs Date Time Temp Pulse Resp B/P (MAP) Pulse Ox O2 Delivery O2 Flow Rate FiO2 06/19/17 15:53 99.0 67 20 108/55 (72) 93 Room Air I&O Intake and Output 06/19/17 07:00 Intake Total 840 ml Balance 840 ml Intake Oral 840 ml # Voids 1 Labs: Laboratory Tests Test 06/18/17 23:55 Urine Collection Type Unknown Urine Color Yellow Urine Clarity Cloudy Urine pH 5.5 Urine Specific [place] 1.020 Urine Protein 100 mg/dl (NEG-TRACE) Urine Glucose (UA) Neg mg/dL (NEG) Urine Ketones (Stick) Trace mg/dL (NEG) Urine Blood Large (NEG) Urine Nitrite Pos (NEG) Urine Bilirubin Neg (NEG) Urine Urobilinogen Dipstick 0.2 mg/dL (0.2 mg/dL) Urine Leukocyte Esterase Large (NEG) Urine RBC 0 /HPF (0-2) Urine WBC Tntc /HPF (0-4) Urine Squamous Epithelial Cells Occ /LPF Urine Bacteria Many /HPF (0-FEW) Current Medications: Meds: Current Medications Acetaminophen (Tylenol) 650 mg PRN Q6HRS PRN PO PAIN / TEMP Last administered on 06/06/17at 06:16; Start 05/28/17 at 23:00 Multi-Ingredient Ointment (Analgesic [place]) 1 faraz PRN QID PRN TP MUSCLE PAIN; Start 05/28/17 at 23:00 Al Hydroxide/Mg Hydroxide (Mylanta Plus Xs) 15 ml PRN AFTMEALHC PRN PO DYSPEPSIA; Start 05/28/17 at 23:00 Magnesium Hydroxide (Milk Of Magnesia) 2,400 mg PRN QHS PRN PO CONSTIPATION; Start 05/28/17 at 23:00 Alprazolam (Xanax) 0.5 mg PRN TID PRN PO ANXIETY / AGITATION Last administered on 06/19/17at 14:36; Start 05/29/17 at 00:15 Aripiprazole (Abilify) 5 mg DAILY PO Last administered on 05/30/17 08:34; Start 05/29/17 at 09:00; Stop 05/30/17 at 17:17; Status DC Haloperidol (Haldol) 1 mg PRN BID PRN PO DELIRIUM Last administered on 10:44; Start 05/29/17 at 00:15 Trazodone HCl (Desyrel) 50 mg QHS PO Last administered on 06/12/17at 19:54; Start 05/29/17 at 21:00; Stop 06/13/17 at 18:13; Status DC Citalopram Hydrobromide (CeleXA) 20 mg DAILY PO Last administered on 06/09/17 07:49; Start 05/29/17 at 09:00; Stop 06/09/17 at 18:00; Status DC Influenza Virus Vaccine Quadrival (Fluarix Quad [id number] Syringe) 0.5 ml ONCE ONCE VAX IM Last administered on 05/29/17 09:47; Start 05/29/17 at 09:00; Stop 05/29/17 at 09:01; Status DC Pneumococcal Polyvalent Vaccine (Pneumovax 23) 0.5 ml ONCE ONCE VAX IM Last administered on 05/29/17 09:45; Start 05/29/17 at 09:00; Stop 05/31/17 at 14 :59; Status DC Info (FLU VACCINE per PROTOCOL) 1 ea PRN 1X PRN MC PER PROTOCOL; Start at 02:15; Status Cancel Pneumococcal Polyvalent Vaccine (Do NOT chart on this entry -- for MONITORING) 1 each PRN 1X PRN MC SEE COMMENTS; Start 05/29/17 at 02:15; Status Cancel Acetaminophen (Tylenol) 650 mg PRN Q6HRS PRN PO PAIN / TEMP; Start 05/29/17 at 05:45; Stop 05/29/17 at 12:08; Status DC Acetaminophen (Tylenol) 650 mg QID PO Last administered on 06/19/17 19:41; Start 05/29/17 at 09:00 Enoxaparin Sodium (Lovenox) 40 mg DAILY SQ Last administered on 05/29/17 09: 41; Start 05/29/17 at 09:00; Stop 05/29/17 at 12:08; Status DC Lamotrigine (LaMICtal) 25 mg DAILY PO Last administered on 06/04/17 08:43; Start 05/29/17 at 09:00; Stop 06/04/17 at 12:17; Status DC Meloxicam (Mobic) 7.5 mg DAILY PO Last administered on 06/19/17 08:35; Start 05/29/17 at 09:00 Atorvastatin Calcium (Lipitor) 40 mg QHS PO Last administered on 06/19/17 19: 40; Start 05/29/17 at 21:00 Lactobacillus Rhamnosus (Culturelle) 1 cap DAILY PO Last administered on 08:34; Start 05/29/17 at 09:00 Magnesium Hydroxide (Milk Of Magnesia) 2,400 mg PRN Q12HR PRN PO CONSTIPATION; Start 05/29/17 at 05:45; Stop 05/29/17 at 12:08; Status DC Potassium Chloride (Klor-Con) 40 meq 1X ONCE PO Last administered on 13:40; Start 05/29/17 at 12:00; Stop 05/29/17 at 12:11; Status DC Quetiapine Fumarate (SEROquel) 12.5 mg BID@0900,1300 PO Last administered on 07:50; Start 05/31/17 at 09:00; Stop 06/01/17 at 11:11; Status DC Cyanocobalamin (Vitamin B-12) 250 mcg DAILYBFRSUP PO Last administered on 17:55; Start 05/31/17 at 17:00 Vitamin D (Vitamin D3) 50,000 unit WEEKLY PO Last administered on 06/14/17 08: 10; Start 05/31/17 at 11:45 Quetiapine Fumarate (SEROquel) 12.5 mg TID@0900,1400,1700 PO Last administered on 06/11/17 17:02; Start 06/01/17 at 14:00; Stop 06/11/17 at 17:36; Status DC Trazodone HCl (Desyrel) 50 mg PRN QHS PRN PO INSOMNIA Last administered on 1/7/ 18at 22:18; Start 06/02/17 at 19:00; Stop 06/13/17 at 18:13; Status DC Divalproex Sodium (Depakote Sprinkles) 125 mg BID@0900,1400 PO Last administered on 06/09/17at 13:31; Start 06/05/17 at 09:00; Stop 06/09/17 at 18:00; Status DC Divalproex Sodium (Depakote Sprinkles) 125 mg TID PO Last administered on at 19:40; Start 06/09/17 at 21:00 Sertraline HCl (Zoloft) 50 mg DAILY PO Last administered on 06/19/17at 08:36; Start 06/10/17 at 09:00 Mirtazapine (Remeron) 7.5 mg QHS PO Last administered on 06/12/17at 19:54; Start 06/09/17 at 21:00; Stop 06/13/17 at 18:13; Status DC Dextromethorphan/ Quinidine (Nuedexta 20-10 Mg Capsule) 1 cap DAILY PO Last administered on 06/17/17at 08:55; Start 06/11/17 at 09:00; Stop 06/17/17 at 14:00 ; Status DC Quetiapine Fumarate (SEROquel) 12.5 mg BID@0900,1700 PO Last administered on at 08:35; Start 06/12/17 at 09:00; Stop 06/19/17 at 15:07; Status DC Quetiapine Fumarate (SEROquel) 25 mg DAILY@1400 PO Last administered on at 13:02; Start 06/12/17 at 14:00; Stop 06/19/17 at 15:07; Status DC Mirtazapine (Remeron) 15 mg QHS PO Last administered on 06/19/17at 19:40; Start 06/13/17 at 21:00 Trazodone HCl (Desyrel) 100 mg QHS PO Last administered on 06/19/17at 19:40; Start 06/13/17 at 21:00 Trazodone HCl (Desyrel) 100 mg PRN QHS PRN PO INSOMNIA Last administered on at 22:19; Start 06/13/17 at 18:15 Dextromethorphan/ Quinidine (Nuedexta 20-10 Mg Capsule) 1 cap BID PO Last administered on 06/19/17at 19:42; Start 06/18/17 at 09:00 Quetiapine Fumarate (SEROquel) 12.5 mg DAILY@1700 PO Last administered on at 17:55; Start 06/19/17 at 17:00 Quetiapine Fumarate (SEROquel) 25 mg BID92 PO ; Start 06/20/17 at 09:00 Active Scripts Active Reported Trazodone Hcl 50 Mg Tablet 50 Mg PO QHS Meloxicam 7.5 Mg Tablet 7.5 Mg PO DAILY Milk Of Magnesia (Magnesium Hydroxide) 2,400 Mg/10 Ml Oral.susp 2,400 Mg PO PRN Q12HR PRN Lamotrigine 25 Mg Tablet 25 Mg PO DAILY Culturelle Capsule (L. Rhamnosus GG/Inulin) 1 Each Cap.sprink 1 Each PO DAILY Haloperidol 2 Mg Tablet 1 Mg PO PRN BID PRN Escitalopram Oxalate 10 Mg Tablet 10 Mg PO DAILY Lovenox (Enoxaparin Sodium) 40 Mg/0.4 Ml Disp.syrin 40 Mg SQ DAILY Atorvastatin Calcium 40 Mg Tablet 40 Mg PO QHS Abilify (Aripiprazole) 5 Mg Tablet 5 Mg PO DAILY Maalox Advanced Suspension (Mag Hydrox/Aluminum Hyd/Simeth) 355 Ml Oral.susp 30 Ml PO PRN Q3HRS PRN Alprazolam 0.5 Mg Tablet 0.5 Mg PO PRN TID PRN Tylenol (Acetaminophen) 325 Mg Tablet 650 Mg PO PRN Q6HRS PRN Tylenol (Acetaminophen) 325 Mg Tablet 650 Mg PO QID I have reviewed the current psychotropics carefully including drug interactions. Risk benefit ratio favors no change other than as noted in my dictated progress note. Diagnosis: Problems: (1) Anxiety disorder (2) Impulse control disorder (3) Dementia, vascular, with depression (4) Dementia, vascular, with delusions (5) Bipolar 1 disorder, mixed, moderate (6) Dementia in Alzheimer's disease with depression (7) Dementia in Alzheimer's disease with delusions CHARLEY MCCLURE MD Jun 19, 2017 20:10
[2017-06-19] MEDS: HALOPERIDOL 1 MG TABLET PO PRN ×2 (20:29→21:28)
[2017-06-20 05:39] VITALS: BP 102/67
[2017-06-20] MEDS: DIVALPROEX 125 MG CAP.SPRINK PO SCH ×3 (08:54→19:22)
[2017-06-20] MEDS: ACETAMINOPHEN 325 MG TABLET PO SCH ×4 (08:54→19:23)
[2017-06-20] MEDS: MELOXICAM 7.5 MG TABLET PO SCH (08:54)
[2017-06-20] MEDS: LACTOBACILLUS RHAMNOSUS GG 1 CAPSULE. PO SCH (08:54)
[2017-06-20] MEDS: SERTRALINE 50 MG TABLET. PO SCH (08:54)
[2017-06-20] MEDS: QUEtiapine 25 MG TABLET. PO SCH ×3 (08:56→17:05)
[2017-06-20] MEDS: DEXTROMETHORPHAN/QUINIDINE 20/10MG CAPSULE. PO SCH ×2 (08:56→19:22)
[2017-06-20 16:08] VITALS: BP 109/51
[2017-06-20] MEDS: CYANOCOBALAMIN (VITAMIN B-12) 250 MCG TABLET PO SCH (17:04)
[2017-06-20] MEDS: MIRTAZAPINE 15 MG TABLET PO SCH (19:23)
[2017-06-20] MEDS: ATORVASTATIN CALCIUM 20 MG TABLET PO SCH (19:23)
[2017-06-20] MEDS: traZODone 100 MG TABLET. PO SCH (19:23)
--- NOTE | 2017-06-20 20:07 | PDOC ---
Exam Note: Martin Note: Please also refer to the separate dictated note~for this date of service dictated separately.~Patient seen individually. Discussed the patient with Nursing staff reviewed the chart.~Reviewed interim history and current functioning. Reviewed vital signs,~Labs/ Radiology~and current medications noted below. Continue current treatment with the changes noted in the dictated addendum note Assessment: Vital Signs: Vital Signs Date Time Temp Pulse Resp B/P (MAP) Pulse Ox O2 Delivery O2 Flow Rate FiO2 06/20/17 16:08 97.2 63 18 109/51 (70) 96 Room Air I&O Intake and Output 06/20/17 07:00 Intake Total 840 ml Balance 840 ml Intake Oral 840 ml Current Medications: Meds: Current Medications Acetaminophen (Tylenol) 650 mg PRN Q6HRS PRN PO PAIN / TEMP Last administered on 06/06/17at 06:16; Start 05/28/17 at 23:00 Multi-Ingredient Ointment (Analgesic [place]) 1 faraz PRN QID PRN TP MUSCLE PAIN; Start 05/28/17 at 23:00 Al Hydroxide/Mg Hydroxide (Mylanta Plus Xs) 15 ml PRN AFTMEALHC PRN PO DYSPEPSIA; Start 05/28/17 at 23:00 Magnesium Hydroxide (Milk Of Magnesia) 2,400 mg PRN QHS PRN PO CONSTIPATION; Start 05/28/17 at 23:00 Alprazolam (Xanax) 0.5 mg PRN TID PRN PO ANXIETY / AGITATION Last administered on 06/19/17at 14:36; Start 05/29/17 at 00:15 Aripiprazole (Abilify) 5 mg DAILY PO Last administered on 05/30/17t 08:34; Start 05/29/17 at 09:00; Stop 05/30/17 at 17:17; Status DC Haloperidol (Haldol) 1 mg PRN BID PRN PO DELIRIUM Last administered on at 21:28; Start 05/29/17 at 00:15 Trazodone HCl (Desyrel) 50 mg QHS PO Last administered on 06/12/17at 19:54; Start 05/29/17 at 21:00; Stop 06/13/17 at 18:13; Status DC Citalopram Hydrobromide (CeleXA) 20 mg DAILY PO Last administered on 06/09/17 07:49; Start 05/29/17 at 09:00; Stop 06/09/17 at 18:00; Status DC Influenza Virus Vaccine Quadrival (Fluarix Quad [id number] Syringe) 0.5 ml ONCE ONCE VAX IM Last administered on 05/29/17 09:47; Start 05/29/17 at 09:00; Stop 05/29/17 at 09:01; Status DC Pneumococcal Polyvalent Vaccine (Pneumovax 23) 0.5 ml ONCE ONCE VAX IM Last administered on 05/29/17 09:45; Start 05/29/17 at 09:00; Stop 05/31/17 at 14 :59; Status DC Info (FLU VACCINE per PROTOCOL) 1 ea PRN 1X PRN MC PER PROTOCOL; Start at 02:15; Status Cancel Pneumococcal Polyvalent Vaccine (Do NOT chart on this entry -- for MONITORING) 1 each PRN 1X PRN MC SEE COMMENTS; Start 05/29/17 at 02:15; Status Cancel Acetaminophen (Tylenol) 650 mg PRN Q6HRS PRN PO PAIN / TEMP; Start 05/29/17 at 05:45; Stop 05/29/17 at 12:08; Status DC Acetaminophen (Tylenol) 650 mg QID PO Last administered on 06/20/17 19:23; Start 05/29/17 at 09:00 Enoxaparin Sodium (Lovenox) 40 mg DAILY SQ Last administered on 05/29/17 09: 41; Start 05/29/17 at 09:00; Stop 05/29/17 at 12:08; Status DC Lamotrigine (LaMICtal) 25 mg DAILY PO Last administered on 06/04/17 08:43; Start 05/29/17 at 09:00; Stop 06/04/17 at 12:17; Status DC Meloxicam (Mobic) 7.5 mg DAILY PO Last administered on 06/20/17 08:54; Start 05/29/17 at 09:00 Atorvastatin Calcium (Lipitor) 40 mg QHS PO Last administered on 06/20/17 19: 23; Start 05/29/17 at 21:00 Lactobacillus Rhamnosus (Culturelle) 1 cap DAILY PO Last administered on 08:54; Start 05/29/17 at 09:00 Magnesium Hydroxide (Milk Of Magnesia) 2,400 mg PRN Q12HR PRN PO CONSTIPATION; Start 05/29/17 at 05:45; Stop 05/29/17 at 12:08; Status DC Potassium Chloride (Klor-Con) 40 meq 1X ONCE PO Last administered on 13:40; Start 05/29/17 at 12:00; Stop 05/29/17 at 12:11; Status DC Quetiapine Fumarate (SEROquel) 12.5 mg BID@0900,1300 PO Last administered on 07:50; Start 05/31/17 at 09:00; Stop 06/01/17 at 11:11; Status DC Cyanocobalamin (Vitamin B-12) 250 mcg DAILYBFRSUP PO Last administered on 17:04; Start 05/31/17 at 17:00 Vitamin D (Vitamin D3) 50,000 unit WEEKLY PO Last administered on 06/14/17 08: 10; Start 05/31/17 at 11:45 Quetiapine Fumarate (SEROquel) 12.5 mg TID@0900,1400,1700 PO Last administered on 06/11/17 17:02; Start 06/01/17 at 14:00; Stop 06/11/17 at 17:36; Status DC Trazodone HCl (Desyrel) 50 mg PRN QHS PRN PO INSOMNIA Last administered on 22:18; Start 06/02/17 at 19:00; Stop 06/13/17 at 18:13; Status DC Divalproex Sodium (Depakote Sprinkles) 125 mg BID@0900,1400 PO Last administered on 06/09/17at 13:31; Start 06/05/17 at 09:00; Stop 06/09/17 at 18:00; Status DC Divalproex Sodium (Depakote Sprinkles) 125 mg TID PO Last administered on at 19:22; Start 06/09/17 at 21:00 Sertraline HCl (Zoloft) 50 mg DAILY PO Last administered on 06/20/17at 08:54; Start 1/9/18 at 09:00 Mirtazapine (Remeron) 7.5 mg QHS PO Last administered on 06/12/17at 19:54; Start 06/09/17 at 21:00; Stop 06/13/17 at 18:13; Status DC Dextromethorphan/ Quinidine (Nuedexta 20-10 Mg Capsule) 1 cap DAILY PO Last administered on 06/17/17at 08:55; Start 06/11/17 at 09:00; Stop 06/17/17 at 14:00 ; Status DC Quetiapine Fumarate (SEROquel) 12.5 mg BID@0900,1700 PO Last administered on at 08:35; Start 06/12/17 at 09:00; Stop 06/19/17 at 15:07; Status DC Quetiapine Fumarate (SEROquel) 25 mg DAILY@1400 PO Last administered on at 13:02; Start 06/12/17 at 14:00; Stop 06/19/17 at 15:07; Status DC Mirtazapine (Remeron) 15 mg QHS PO Last administered on 06/20/17at 19:23; Start 06/13/17 at 21:00 Trazodone HCl (Desyrel) 100 mg QHS PO Last administered on 06/20/17at 19:23; Start 06/13/17 at 21:00 Trazodone HCl (Desyrel) 100 mg PRN QHS PRN PO INSOMNIA Last administered on at 22:19; Start 06/13/17 at 18:15 Dextromethorphan/ Quinidine (Nuedexta 20-10 Mg Capsule) 1 cap BID PO Last administered on 06/20/17at 19:22; Start 06/18/17 at 09:00 Quetiapine Fumarate (SEROquel) 12.5 mg DAILY@1700 PO Last administered on at 17:05; Start 06/19/17 at 17:00 Quetiapine Fumarate (SEROquel) 25 mg BID92 PO Last administered on 06/20/17at 13 :11; Start 06/20/17 at 09:00 Active Scripts Active Reported Trazodone Hcl 50 Mg Tablet 50 Mg PO QHS Meloxicam 7.5 Mg Tablet 7.5 Mg PO DAILY Milk Of Magnesia (Magnesium Hydroxide) 2,400 Mg/10 Ml Oral.susp 2,400 Mg PO PRN Q12HR PRN Lamotrigine 25 Mg Tablet 25 Mg PO DAILY Culturelle Capsule (L. Rhamnosus GG/Inulin) 1 Each Cap.sprink 1 Each PO DAILY Haloperidol 2 Mg Tablet 1 Mg PO PRN BID PRN Escitalopram Oxalate 10 Mg Tablet 10 Mg PO DAILY Lovenox (Enoxaparin Sodium) 40 Mg/0.4 Ml Disp.syrin 40 Mg SQ DAILY Atorvastatin Calcium 40 Mg Tablet 40 Mg PO QHS Abilify (Aripiprazole) 5 Mg Tablet 5 Mg PO DAILY Maalox Advanced Suspension (Mag Hydrox/Aluminum Hyd/Simeth) 355 Ml Oral.susp 30 Ml PO PRN Q3HRS PRN Alprazolam 0.5 Mg Tablet 0.5 Mg PO PRN TID PRN Tylenol (Acetaminophen) 325 Mg Tablet 650 Mg PO PRN Q6HRS PRN Tylenol (Acetaminophen) 325 Mg Tablet 650 Mg PO QID I have reviewed the current psychotropics carefully including drug interactions. Risk benefit ratio favors no change other than as noted in my dictated progress note. Diagnosis: Problems: (1) Anxiety disorder (2) Impulse control disorder (3) Dementia, vascular, with depression (4) Dementia, vascular, with delusions (5) Bipolar 1 disorder, mixed, moderate (6) Dementia in Alzheimer's disease with depression (7) Dementia in Alzheimer's disease with delusions CHARLEY MCCLURE MD Jun 20, 2017 20:07
[2017-06-20] MEDS: HALOPERIDOL 1 MG TABLET PO PRN (20:27)
[2017-06-20] MEDS: ALPRAZolam 0.5 MG TABLET PO PRN (23:32)
--- NOTE | 2017-06-21 03:18 | PN ---
DATE: 06/18/2017 This is a late entry 06/18/2017 covers elements not covered in my initial note of 06/18/2017. SUBJECTIVE: I met with the patient in the evening of 06/18/2017. The patient slept 5-3/4 hours previous evening. She remains quite anxious, crying with a labile mood, received Xanax at 07:30 p.m. very confused, somewhat delusional. REVIEW OF SYSTEMS: Ambulation impaired, in wheelchair. No CV, , pulmonary, eye, ENT system symptoms on review, somewhat withdrawn. Eye contact is poor. MENTAL STATUS EXAM: Oriented to herself. Insight, judgment, recent and remote memory, attention, concentration, fund of knowledge poor, consistent with her diagnosis. IMPRESSION: Major neurocognitive disorder, Alzheimer, vascular with depression, delusion, behavioral disturbance. Rest unchanged. PLAN: Continue current psychotropics mentioned in my initial note. Nuedexta was just increased, may need to adjust Depakote further as indicated, but we will give it another day or so. MAN Sean MCCLURE MD DR: IRENE/bora JOB#: [id number] / [id number]
[2017-06-21 05:47] VITALS: BP 114/65
[2017-06-21] MEDS: QUEtiapine 25 MG TABLET. PO SCH ×3 (08:34→16:59)
[2017-06-21] MEDS: DEXTROMETHORPHAN/QUINIDINE 20/10MG CAPSULE. PO SCH ×2 (08:34→19:05)
[2017-06-21] MEDS: MELOXICAM 7.5 MG TABLET PO SCH (08:34)
[2017-06-21] MEDS: SERTRALINE 50 MG TABLET. PO SCH (08:34)
[2017-06-21] MEDS: DIVALPROEX 125 MG CAP.SPRINK PO SCH ×3 (08:34→19:05)
[2017-06-21] MEDS: LACTOBACILLUS RHAMNOSUS GG 1 CAPSULE. PO SCH (08:34)
[2017-06-21] MEDS: ACETAMINOPHEN 325 MG TABLET PO SCH ×4 (08:35→19:06)
[2017-06-21] MEDS: CHOLECALCIFEROL (VITAMIN D3) 50,000 UNIT CAPSULE PO SCH (08:36)
--- NOTE | 2017-06-21 10:45 | PN ---
DATE: 06/19/2017 PSYCHIATRIC PROGRESS NOTE This is a late entry 06/19/2017, covers elements not covered in my initial note 06/19/2017. SUBJECTIVE: The patient was staffed at treatment team meeting with the entire team morning of 06/19/2017, seen individually evening of 06/19/2017. The patient slept 5-1/2 hours previous evening. Previous night she was irritable, crying, cursing at staff, resistive of taking medications, later took them, but refused the Depakote. Then around 7:00 p.m., she was very upset, angry, irritable, yelling, cursing, took Zyprexa then did somewhat better. REVIEW OF SYSTEMS: Ambulation impaired. No CV, , pulmonary, eye, ENT system symptoms on review. Reliability poor. MENTAL STATUS EXAM: Oriented to herself. Insight, judgment, recent and remote memory, attention, concentration, fund of knowledge poor, consistent with her diagnoses mentioned in my initial note. IMPRESSION: Major neurocognitive disorder, Alzheimer, vascular with depression, delusion, behavioral disturbance. Rest unchanged. PLAN: Increase 0900 Seroquel from 12.5 mg to 25 mg. Continue rest of the psychotropics unchanged as mentioned in my initial note. CHARLEY MCCLURE MD DR: IRENE/bora JOB#: [id number] / [id number]
[2017-06-21] MEDS: HALOPERIDOL 1 MG TABLET PO PRN (14:31)
[2017-06-21 16:13] VITALS: BP 111/70
[2017-06-21] MEDS: CYANOCOBALAMIN (VITAMIN B-12) 250 MCG TABLET PO SCH (16:59)
[2017-06-21] MEDS: ATORVASTATIN CALCIUM 20 MG TABLET PO SCH (19:05)
[2017-06-21] MEDS: MIRTAZAPINE 15 MG TABLET PO SCH (19:05)
[2017-06-21] MEDS: traZODone 100 MG TABLET. PO SCH (19:05)
[2017-06-21] MEDS: NITROFURANTOIN MONOHYD/M-CRYST 100 MG CAPSULE. PO SCH (19:07)
--- NOTE | 2017-06-21 20:29 | PDOC ---
Exam Note: Martin Note: Please also refer to the separate dictated note~for this date of service dictated separately.~Patient seen individually. Discussed the patient with Nursing staff reviewed the chart.~Reviewed interim history and current functioning. Reviewed vital signs,~Labs/ Radiology~and current medications noted below. Continue current treatment with the changes noted in the dictated addendum note Assessment: Vital Signs: Vital Signs Date Time Temp Pulse Resp B/P (MAP) Pulse Ox O2 Delivery O2 Flow Rate FiO2 06/21/17 16:13 98.7 87 20 111/70 (84) 96 06/20/17 16:08 Room Air I&O Intake and Output 06/21/17 07:00 Intake Total 1320 ml Balance 1320 ml Intake Oral 1320 ml Current Medications: Meds: Current Medications Acetaminophen (Tylenol) 650 mg PRN Q6HRS PRN PO PAIN / TEMP Last administered on 06/06/17 06:16; Start 05/28/17 at 23:00 Multi-Ingredient Ointment (Analgesic [place]) 1 faraz PRN QID PRN TP MUSCLE PAIN; Start 05/28/17 at 23:00 Al Hydroxide/Mg Hydroxide (Mylanta Plus Xs) 15 ml PRN AFTMEALHC PRN PO DYSPEPSIA; Start 05/28/17 at 23:00 Magnesium Hydroxide (Milk Of Magnesia) 2,400 mg PRN QHS PRN PO CONSTIPATION Last administered on 06/21/17at 16:59; Start 05/28/17 at 23:00 Alprazolam (Xanax) 0.5 mg PRN TID PRN PO ANXIETY / AGITATION Last administered on 06/20/17at 23:32; Start 05/29/17 at 00:15 Aripiprazole (Abilify) 5 mg DAILY PO Last administered on 05/30/17t 08:34; Start 05/29/17 at 09:00; Stop 05/30/17 at 17:17; Status DC Haloperidol (Haldol) 1 mg PRN BID PRN PO DELIRIUM Last administered on 14:31; Start 05/29/17 at 00:15 Trazodone HCl (Desyrel) 50 mg QHS PO Last administered on 06/12/17 19:54; Start 05/29/17 at 21:00; Stop 06/13/17 at 18:13; Status DC Citalopram Hydrobromide (CeleXA) 20 mg DAILY PO Last administered on 06/09/17 07:49; Start 05/29/17 at 09:00; Stop 06/09/17 at 18:00; Status DC Influenza Virus Vaccine Quadrival (Fluarix Quad 2245-4227 Syringe) 0.5 ml ONCE ONCE VAX IM Last administered on 05/29/17 09:47; Start 05/29/17 at 09:00; Stop 05/29/17 at 09:01; Status DC Pneumococcal Polyvalent Vaccine (Pneumovax 23) 0.5 ml ONCE ONCE VAX IM Last administered on 05/29/17 09:45; Start 05/29/17 at 09:00; Stop 05/31/17 at 14 :59; Status DC Info (FLU VACCINE per PROTOCOL) 1 ea PRN 1X PRN MC PER PROTOCOL; Start at 02:15; Status Cancel Pneumococcal Polyvalent Vaccine (Do NOT chart on this entry -- for MONITORING) 1 each PRN 1X PRN MC SEE COMMENTS; Start 05/29/17 at 02:15; Status Cancel Acetaminophen (Tylenol) 650 mg PRN Q6HRS PRN PO PAIN / TEMP; Start 05/29/17 at 05:45; Stop 05/29/17 at 12:08; Status DC Acetaminophen (Tylenol) 650 mg QID PO Last administered on 06/21/17 19:06; Start 05/29/17 at 09:00 Enoxaparin Sodium (Lovenox) 40 mg DAILY SQ Last administered on 05/29/17 09: 41; Start 05/29/17 at 09:00; Stop 05/29/17 at 12:08; Status DC Lamotrigine (LaMICtal) 25 mg DAILY PO Last administered on 06/04/17 08:43; Start 05/29/17 at 09:00; Stop 06/04/17 at 12:17; Status DC Meloxicam (Mobic) 7.5 mg DAILY PO Last administered on 06/21/17 08:34; Start 05/29/17 at 09:00 Atorvastatin Calcium (Lipitor) 40 mg QHS PO Last administered on 06/21/17 19: 05; Start 05/29/17 at 21:00 Lactobacillus Rhamnosus (Culturelle) 1 cap DAILY PO Last administered on at 08:34; Start 05/29/17 at 09:00 Magnesium Hydroxide (Milk Of Magnesia) 2,400 mg PRN Q12HR PRN PO CONSTIPATION; Start 05/29/17 at 05:45; Stop 05/29/17 at 12:08; Status DC Potassium Chloride (Klor-Con) 40 meq 1X ONCE PO Last administered on 13:40; Start 05/29/17 at 12:00; Stop 05/29/17 at 12:11; Status DC Quetiapine Fumarate (SEROquel) 12.5 mg BID@0900,1300 PO Last administered on 07:50; Start 05/31/17 at 09:00; Stop 06/01/17 at 11:11; Status DC Cyanocobalamin (Vitamin B-12) 250 mcg DAILYBFRSUP PO Last administered on at 16:59; Start 05/31/17 at 17:00 Vitamin D (Vitamin D3) 50,000 unit WEEKLY PO Last administered on 06/21/17at 08: 36; Start 05/31/17 at 11:45 Quetiapine Fumarate (SEROquel) 12.5 mg TID@0900,1400,1700 PO Last administered on 06/11/17at 17:02; Start 06/01/17 at 14:00; Stop 06/11/17 at 17:36; Status DC Trazodone HCl (Desyrel) 50 mg PRN QHS PRN PO INSOMNIA Last administered on at 22:18; Start 06/02/17 at 19:00; Stop 06/13/17 at 18:13; Status DC Divalproex Sodium (Depakote Sprinkles) 125 mg BID@0900,1400 PO Last administered on 06/09/17at 13:31; Start 06/05/17 at 09:00; Stop 06/09/17 at 18:00; Status DC Divalproex Sodium (Depakote Sprinkles) 125 mg TID PO Last administered on at 19:05; Start 06/09/17 at 21:00 Sertraline HCl (Zoloft) 50 mg DAILY PO Last administered on 06/21/17at 08:34; Start 06/10/17 at 09:00 Mirtazapine (Remeron) 7.5 mg QHS PO Last administered on 06/12/17at 19:54; Start 06/09/17 at 21:00; Stop 06/13/17 at 18:13; Status DC Dextromethorphan/ Quinidine (Nuedexta 20-10 Mg Capsule) 1 cap DAILY PO Last administered on 06/17/17at 08:55; Start 06/11/17 at 09:00; Stop 06/17/17 at 14:00 ; Status DC Quetiapine Fumarate (SEROquel) 12.5 mg BID@0900,1700 PO Last administered on at 08:35; Start 06/12/17 at 09:00; Stop 06/19/17 at 15:07; Status DC Quetiapine Fumarate (SEROquel) 25 mg DAILY@1400 PO Last administered on at 13:02; Start 06/12/17 at 14:00; Stop 06/19/17 at 15:07; Status DC Mirtazapine (Remeron) 15 mg QHS PO Last administered on 06/21/17at 19:05; Start 06/13/17 at 21:00 Trazodone HCl (Desyrel) 100 mg QHS PO Last administered on 06/21/17at 19:05; Start 06/13/17 at 21:00 Trazodone HCl (Desyrel) 100 mg PRN QHS PRN PO INSOMNIA Last administered on at 22:19; Start 06/13/17 at 18:15 Dextromethorphan/ Quinidine (Nuedexta 20-10 Mg Capsule) 1 cap BID PO Last administered on 06/21/17at 19:05; Start 06/18/17 at 09:00 Quetiapine Fumarate (SEROquel) 12.5 mg DAILY@1700 PO Last administered on at 16:59; Start 06/19/17 at 17:00 Quetiapine Fumarate (SEROquel) 25 mg BID92 PO Last administered on 06/21/17at 13 :42; Start 06/20/17 at 09:00 Nitrofurantoin Macrocrystals (Macrobid) 100 mg BID PO Last administered on 06/21at 19:07; Start 06/21/17 at 19:00 Active Scripts Active Reported Trazodone Hcl 50 Mg Tablet 50 Mg PO QHS Meloxicam 7.5 Mg Tablet 7.5 Mg PO DAILY Milk Of Magnesia (Magnesium Hydroxide) 2,400 Mg/10 Ml Oral.susp 2,400 Mg PO PRN Q12HR PRN Lamotrigine 25 Mg Tablet 25 Mg PO DAILY Culturelle Capsule (L. Rhamnosus GG/Inulin) 1 Each Cap.sprink 1 Each PO DAILY Haloperidol 2 Mg Tablet 1 Mg PO PRN BID PRN Escitalopram Oxalate 10 Mg Tablet 10 Mg PO DAILY Lovenox (Enoxaparin Sodium) 40 Mg/0.4 Ml Disp.syrin 40 Mg SQ DAILY Atorvastatin Calcium 40 Mg Tablet 40 Mg PO QHS Abilify (Aripiprazole) 5 Mg Tablet 5 Mg PO DAILY Maalox Advanced Suspension (Mag Hydrox/Aluminum Hyd/Simeth) 355 Ml Oral.susp 30 Ml PO PRN Q3HRS PRN Alprazolam 0.5 Mg Tablet 0.5 Mg PO PRN TID PRN Tylenol (Acetaminophen) 325 Mg Tablet 650 Mg PO PRN Q6HRS PRN Tylenol (Acetaminophen) 325 Mg Tablet 650 Mg PO QID I have reviewed the current psychotropics carefully including drug interactions. Risk benefit ratio favors no change other than as noted in my dictated progress note. Diagnosis: Problems: (1) Anxiety disorder (2) Impulse control disorder (3) Dementia, vascular, with depression (4) Dementia, vascular, with delusions (5) Bipolar 1 disorder, mixed, moderate (6) Dementia in Alzheimer's disease with depression (7) Dementia in Alzheimer's disease with delusions CHARLEY MCCLURE MD Jun 21, 2017 20:29
[2017-06-22 05:36] VITALS: BP 125/69
[2017-06-22] MEDS: QUEtiapine 25 MG TABLET. PO SCH ×3 (08:02→17:08)
[2017-06-22] MEDS: DIVALPROEX 125 MG CAP.SPRINK PO SCH ×3 (08:02→19:34)
[2017-06-22] MEDS: LACTOBACILLUS RHAMNOSUS GG 1 CAPSULE. PO SCH (08:03)
[2017-06-22] MEDS: MELOXICAM 7.5 MG TABLET PO SCH (08:03)
[2017-06-22] MEDS: ACETAMINOPHEN 325 MG TABLET PO SCH ×4 (08:03→19:35)
[2017-06-22] MEDS: SERTRALINE 50 MG TABLET. PO SCH (08:03)
[2017-06-22] MEDS: NITROFURANTOIN MONOHYD/M-CRYST 100 MG CAPSULE. PO SCH ×2 (08:03→19:35)
[2017-06-22] MEDS: DEXTROMETHORPHAN/QUINIDINE 20/10MG CAPSULE. PO SCH ×2 (08:04→19:34)
[2017-06-22 16:15] VITALS: BP 121/51
[2017-06-22] MEDS: CYANOCOBALAMIN (VITAMIN B-12) 250 MCG TABLET PO SCH (17:08)
[2017-06-22] MEDS: ALPRAZolam 0.5 MG TABLET PO PRN (17:59)
--- NOTE | 2017-06-22 18:24 | PN ---
DATE: 06/20/2017 PSYCHIATRIC PROGRESS NOTE This is a late entry for 06/20/2017, covers elements not covered in my initial note of 06/20/2017. SUBJECTIVE: The patient seen individually the evening of 06/20/2017. The patient slept 5-1/4 hours previous evening. Also is noncompliant with medications, these have to be syringed during the day on 06/20/2017. She was crying, labile, had to be in the hallway. REVIEW OF SYSTEMS: Ambulation impaired, in wheelchair. No CV, , pulmonary, eye, ENT system symptoms on review. Reliability poor. MENTAL STATUS EXAM: Oriented to herself. Insight, judgment, recent and remote memory, attention, concentration, fund of knowledge poor, consistent with her diagnosis mentioned in my initial note. IMPRESSION: Major neurocognitive disorder, Alzheimer, vascular with depression, delusion, behavioral disturbance; anxiety disorder, unspecified; impulse control disorder, unspecified. PLAN: Continue current psychotropics mentioned in my initial note. Adjust further as clinically indicated. MAN Sean MCCLURE MD DR: IRENE/bora JOB#: [id number] / [id number]
[2017-06-22] MEDS: ATORVASTATIN CALCIUM 20 MG TABLET PO SCH (19:34)
[2017-06-22] MEDS: MIRTAZAPINE 15 MG TABLET PO SCH (19:35)
[2017-06-22] MEDS: traZODone 100 MG TABLET. PO SCH (19:35)
--- NOTE | 2017-06-22 20:03 | PDOC ---
Exam Note: Martin Note: Please also refer to the separate dictated note~for this date of service dictated separately.~Patient seen individually. Discussed the patient with Nursing staff reviewed the chart.~Reviewed interim history and current functioning. Reviewed vital signs,~Labs/ Radiology~and current medications noted below. Continue current treatment with the changes noted in the dictated addendum note Assessment: Vital Signs: Vital Signs Date Time Temp Pulse Resp B/P (MAP) Pulse Ox O2 Delivery O2 Flow Rate FiO2 06/22/17 16:15 98.5 57 18 121/51 (74) 94 06/20/17 16:08 Room Air I&O Intake and Output 06/22/17 07:00 Intake Total 720 ml Balance 720 ml Intake Oral 720 ml # Bowel Movements 1 Current Medications: Meds: Current Medications Acetaminophen (Tylenol) 650 mg PRN Q6HRS PRN PO PAIN / TEMP Last administered on 06/06/17 06:16; Start 05/28/17 at 23:00 Multi-Ingredient Ointment (Analgesic [place]) 1 faraz PRN QID PRN TP MUSCLE PAIN; Start 05/28/17 at 23:00 Al Hydroxide/Mg Hydroxide (Mylanta Plus Xs) 15 ml PRN AFTMEALHC PRN PO DYSPEPSIA; Start 05/28/17 at 23:00 Magnesium Hydroxide (Milk Of Magnesia) 2,400 mg PRN QHS PRN PO CONSTIPATION Last administered on 06/21/17at 16:59; Start 05/28/17 at 23:00 Alprazolam (Xanax) 0.5 mg PRN TID PRN PO ANXIETY / AGITATION Last administered on 06/22/17 17:59; Start 05/29/17 at 00:15 Aripiprazole (Abilify) 5 mg DAILY PO Last administered on 05/30/17t 08:34; Start 05/29/17 at 09:00; Stop 05/30/17 at 17:17; Status DC Haloperidol (Haldol) 1 mg PRN BID PRN PO DELIRIUM Last administered on 14:31; Start 05/29/17 at 00:15 Trazodone HCl (Desyrel) 50 mg QHS PO Last administered on 06/12/17 19:54; Start 05/29/17 at 21:00; Stop 06/13/17 at 18:13; Status DC Citalopram Hydrobromide (CeleXA) 20 mg DAILY PO Last administered on 06/09/17at 07:49; Start 05/29/17 at 09:00; Stop 06/09/17 at 18:00; Status DC Influenza Virus Vaccine Quadrival (Fluarix Quad 3056-1237 Syringe) 0.5 ml ONCE ONCE VAX IM Last administered on 05/29/17 09:47; Start 05/29/17 at 09:00; Stop 05/29/17 at 09:01; Status DC Pneumococcal Polyvalent Vaccine (Pneumovax 23) 0.5 ml ONCE ONCE VAX IM Last administered on 05/29/17 09:45; Start 05/29/17 at 09:00; Stop 05/31/17 at 14 :59; Status DC Info (FLU VACCINE per PROTOCOL) 1 ea PRN 1X PRN MC PER PROTOCOL; Start at 02:15; Status Cancel Pneumococcal Polyvalent Vaccine (Do NOT chart on this entry -- for MONITORING) 1 each PRN 1X PRN MC SEE COMMENTS; Start 05/29/17 at 02:15; Status Cancel Acetaminophen (Tylenol) 650 mg PRN Q6HRS PRN PO PAIN / TEMP; Start 05/29/17 at 05:45; Stop 05/29/17 at 12:08; Status DC Acetaminophen (Tylenol) 650 mg QID PO Last administered on 06/22/17 19:35; Start 05/29/17 at 09:00 Enoxaparin Sodium (Lovenox) 40 mg DAILY SQ Last administered on 05/29/17 09: 41; Start 05/29/17 at 09:00; Stop 05/29/17 at 12:08; Status DC Lamotrigine (LaMICtal) 25 mg DAILY PO Last administered on 06/04/17 08:43; Start 05/29/17 at 09:00; Stop 06/04/17 at 12:17; Status DC Meloxicam (Mobic) 7.5 mg DAILY PO Last administered on 06/22/17 08:03; Start 05/29/17 at 09:00 Atorvastatin Calcium (Lipitor) 40 mg QHS PO Last administered on 06/22/17 19: 34; Start 05/29/17 at 21:00 Lactobacillus Rhamnosus (Culturelle) 1 cap DAILY PO Last administered on 08:03; Start 05/29/17 at 09:00 Magnesium Hydroxide (Milk Of Magnesia) 2,400 mg PRN Q12HR PRN PO CONSTIPATION; Start 05/29/17 at 05:45; Stop 05/29/17 at 12:08; Status DC Potassium Chloride (Klor-Con) 40 meq 1X ONCE PO Last administered on 13:40; Start 05/29/17 at 12:00; Stop 05/29/17 at 12:11; Status DC Quetiapine Fumarate (SEROquel) 12.5 mg BID@0900,1300 PO Last administered on 07:50; Start 05/31/17 at 09:00; Stop 06/01/17 at 11:11; Status DC Cyanocobalamin (Vitamin B-12) 250 mcg DAILYBFRSUP PO Last administered on at 17:08; Start 05/31/17 at 17:00 Vitamin D (Vitamin D3) 50,000 unit WEEKLY PO Last administered on 06/21/17at 08: 36; Start 05/31/17 at 11:45 Quetiapine Fumarate (SEROquel) 12.5 mg TID@0900,1400,1700 PO Last administered on 06/11/17at 17:02; Start 06/01/17 at 14:00; Stop 06/11/17 at 17:36; Status DC Trazodone HCl (Desyrel) 50 mg PRN QHS PRN PO INSOMNIA Last administered on at 22:18; Start 06/02/17 at 19:00; Stop 06/13/17 at 18:13; Status DC Divalproex Sodium (Depakote Sprinkles) 125 mg BID@0900,1400 PO Last administered on 06/09/17at 13:31; Start 06/05/17 at 09:00; Stop 06/09/17 at 18:00; Status DC Divalproex Sodium (Depakote Sprinkles) 125 mg TID PO Last administered on at 19:34; Start 06/09/17 at 21:00 Sertraline HCl (Zoloft) 50 mg DAILY PO Last administered on 06/22/17at 08:03; Start 06/10/17 at 09:00 Mirtazapine (Remeron) 7.5 mg QHS PO Last administered on 06/12/17at 19:54; Start 06/09/17 at 21:00; Stop 06/13/17 at 18:13; Status DC Dextromethorphan/ Quinidine (Nuedexta 20-10 Mg Capsule) 1 cap DAILY PO Last administered on 06/17/17at 08:55; Start 06/11/17 at 09:00; Stop 06/17/17 at 14:00 ; Status DC Quetiapine Fumarate (SEROquel) 12.5 mg BID@0900,1700 PO Last administered on at 08:35; Start 06/12/17 at 09:00; Stop 06/19/17 at 15:07; Status DC Quetiapine Fumarate (SEROquel) 25 mg DAILY@1400 PO Last administered on at 13:02; Start 06/12/17 at 14:00; Stop 06/19/17 at 15:07; Status DC Mirtazapine (Remeron) 15 mg QHS PO Last administered on 06/22/17at 19:35; Start 06/13/17 at 21:00 Trazodone HCl (Desyrel) 100 mg QHS PO Last administered on 06/22/17at 19:35; Start 06/13/17 at 21:00 Trazodone HCl (Desyrel) 100 mg PRN QHS PRN PO INSOMNIA Last administered on at 22:19; Start 06/13/17 at 18:15 Dextromethorphan/ Quinidine (Nuedexta 20-10 Mg Capsule) 1 cap BID PO Last administered on 06/22/17at 19:34; Start 06/18/17 at 09:00 Quetiapine Fumarate (SEROquel) 12.5 mg DAILY@1700 PO Last administered on at 17:08; Start 06/19/17 at 17:00 Quetiapine Fumarate (SEROquel) 25 mg BID92 PO Last administered on 06/22/17at 13 :36; Start 06/20/17 at 09:00 Nitrofurantoin Macrocrystals (Macrobid) 100 mg BID PO Last administered on 06/22at 19:35; Start 06/21/17 at 19:00 Active Scripts Active Reported Trazodone Hcl 50 Mg Tablet 50 Mg PO QHS Meloxicam 7.5 Mg Tablet 7.5 Mg PO DAILY Milk Of Magnesia (Magnesium Hydroxide) 2,400 Mg/10 Ml Oral.susp 2,400 Mg PO PRN Q12HR PRN Lamotrigine 25 Mg Tablet 25 Mg PO DAILY Culturelle Capsule (L. Rhamnosus GG/Inulin) 1 Each Cap.sprink 1 Each PO DAILY Haloperidol 2 Mg Tablet 1 Mg PO PRN BID PRN Escitalopram Oxalate 10 Mg Tablet 10 Mg PO DAILY Lovenox (Enoxaparin Sodium) 40 Mg/0.4 Ml Disp.syrin 40 Mg SQ DAILY Atorvastatin Calcium 40 Mg Tablet 40 Mg PO QHS Abilify (Aripiprazole) 5 Mg Tablet 5 Mg PO DAILY Maalox Advanced Suspension (Mag Hydrox/Aluminum Hyd/Simeth) 355 Ml Oral.susp 30 Ml PO PRN Q3HRS PRN Alprazolam 0.5 Mg Tablet 0.5 Mg PO PRN TID PRN Tylenol (Acetaminophen) 325 Mg Tablet 650 Mg PO PRN Q6HRS PRN Tylenol (Acetaminophen) 325 Mg Tablet 650 Mg PO QID I have reviewed the current psychotropics carefully including drug interactions. Risk benefit ratio favors no change other than as noted in my dictated progress note. Diagnosis: Problems: (1) Anxiety disorder (2) Impulse control disorder (3) Dementia, vascular, with depression (4) Dementia, vascular, with delusions (5) Bipolar 1 disorder, mixed, moderate (6) Dementia in Alzheimer's disease with depression (7) Dementia in Alzheimer's disease with delusions CHARLEY MCCLURE MD Jun 22, 2017 20:03
[2017-06-23 06:05] VITALS: BP 114/55
[2017-06-23] MEDS: NITROFURANTOIN MONOHYD/M-CRYST 100 MG CAPSULE. PO SCH ×2 (08:01→19:53)
[2017-06-23] MEDS: DIVALPROEX 125 MG CAP.SPRINK PO SCH ×3 (08:01→19:53)
[2017-06-23] MEDS: MELOXICAM 7.5 MG TABLET PO SCH (08:01)
[2017-06-23] MEDS: ACETAMINOPHEN 325 MG TABLET PO SCH ×4 (08:01→19:53)
[2017-06-23] MEDS: SERTRALINE 50 MG TABLET. PO SCH (08:01)
[2017-06-23] MEDS: LACTOBACILLUS RHAMNOSUS GG 1 CAPSULE. PO SCH (08:01)
[2017-06-23] MEDS: QUEtiapine 25 MG TABLET. PO SCH ×3 (08:02→16:52)
[2017-06-23] MEDS: DEXTROMETHORPHAN/QUINIDINE 20/10MG CAPSULE. PO SCH ×2 (08:02→19:53)
[2017-06-23 16:00] VITALS: BP 107/59
[2017-06-23] MEDS: CYANOCOBALAMIN (VITAMIN B-12) 250 MCG TABLET PO SCH (16:51)
[2017-06-23] MEDS: ALPRAZolam 0.5 MG TABLET PO PRN (18:29)
[2017-06-23] MEDS: MIRTAZAPINE 15 MG TABLET PO SCH (19:53)
[2017-06-23] MEDS: ATORVASTATIN CALCIUM 20 MG TABLET PO SCH (19:53)
[2017-06-23] MEDS: traZODone 100 MG TABLET. PO SCH (19:53)
--- NOTE | 2017-06-23 20:03 | PDOC ---
Exam Note: Martin Note: Please also refer to the separate dictated note~for this date of service dictated separately.~Patient seen individually. Discussed the patient with Nursing staff reviewed the chart.~Reviewed interim history and current functioning. Reviewed vital signs,~Labs/ Radiology~and current medications noted below. Continue current treatment with the changes noted in the dictated addendum note Assessment: Vital Signs: Vital Signs Date Time Temp Pulse Resp B/P (MAP) Pulse Ox O2 Delivery O2 Flow Rate FiO2 06/23/17 16:00 97.8 60 16 107/59 (75) 100 06/20/17 16:08 Room Air I&O Intake and Output 06/23/17 07:00 Intake Total 1040 ml Balance 1040 ml Intake Oral 1040 ml # Voids 1 Current Medications: Meds: Current Medications Acetaminophen (Tylenol) 650 mg PRN Q6HRS PRN PO PAIN / TEMP Last administered on 06/06/17 06:16; Start 05/28/17 at 23:00 Multi-Ingredient Ointment (Analgesic [place]) 1 faraz PRN QID PRN TP MUSCLE PAIN; Start 05/28/17 at 23:00 Al Hydroxide/Mg Hydroxide (Mylanta Plus Xs) 15 ml PRN AFTMEALHC PRN PO DYSPEPSIA; Start 05/28/17 at 23:00 Magnesium Hydroxide (Milk Of Magnesia) 2,400 mg PRN QHS PRN PO CONSTIPATION Last administered on 06/21/17at 16:59; Start 05/28/17 at 23:00 Alprazolam (Xanax) 0.5 mg PRN TID PRN PO ANXIETY / AGITATION Last administered on 06/23/17at 18:29; Start 05/29/17 at 00:15 Aripiprazole (Abilify) 5 mg DAILY PO Last administered on 05/30/17t 08:34; Start 05/29/17 at 09:00; Stop 05/30/17 at 17:17; Status DC Haloperidol (Haldol) 1 mg PRN BID PRN PO DELIRIUM Last administered on 14:31; Start 05/29/17 at 00:15 Trazodone HCl (Desyrel) 50 mg QHS PO Last administered on 06/12/17 19:54; Start 05/29/17 at 21:00; Stop 06/13/17 at 18:13; Status DC Citalopram Hydrobromide (CeleXA) 20 mg DAILY PO Last administered on 06/09/17 07:49; Start 05/29/17 at 09:00; Stop 06/09/17 at 18:00; Status DC Influenza Virus Vaccine Quadrival (Fluarix Quad [id number] Syringe) 0.5 ml ONCE ONCE VAX IM Last administered on 05/29/17 09:47; Start 05/29/17 at 09:00; Stop 05/29/17 at 09:01; Status DC Pneumococcal Polyvalent Vaccine (Pneumovax 23) 0.5 ml ONCE ONCE VAX IM Last administered on 05/29/17 09:45; Start 05/29/17 at 09:00; Stop 05/31/17 at 14 :59; Status DC Info (FLU VACCINE per PROTOCOL) 1 ea PRN 1X PRN MC PER PROTOCOL; Start at 02:15; Status Cancel Pneumococcal Polyvalent Vaccine (Do NOT chart on this entry -- for MONITORING) 1 each PRN 1X PRN MC SEE COMMENTS; Start 05/29/17 at 02:15; Status Cancel Acetaminophen (Tylenol) 650 mg PRN Q6HRS PRN PO PAIN / TEMP; Start 05/29/17 at 05:45; Stop 05/29/17 at 12:08; Status DC Acetaminophen (Tylenol) 650 mg QID PO Last administered on 06/23/17 19:53; Start 05/29/17 at 09:00 Enoxaparin Sodium (Lovenox) 40 mg DAILY SQ Last administered on 05/29/17 09: 41; Start 05/29/17 at 09:00; Stop 05/29/17 at 12:08; Status DC Lamotrigine (LaMICtal) 25 mg DAILY PO Last administered on 06/04/17 08:43; Start 05/29/17 at 09:00; Stop 06/04/17 at 12:17; Status DC Meloxicam (Mobic) 7.5 mg DAILY PO Last administered on 06/23/17 08:01; Start 05/29/17 at 09:00 Atorvastatin Calcium (Lipitor) 40 mg QHS PO Last administered on 06/23/17 19: 53; Start 05/29/17 at 21:00 Lactobacillus Rhamnosus (Culturelle) 1 cap DAILY PO Last administered on 08:01; Start 05/29/17 at 09:00 Magnesium Hydroxide (Milk Of Magnesia) 2,400 mg PRN Q12HR PRN PO CONSTIPATION; Start 05/29/17 at 05:45; Stop 05/29/17 at 12:08; Status DC Potassium Chloride (Klor-Con) 40 meq 1X ONCE PO Last administered on t 13:40; Start 05/29/17 at 12:00; Stop 05/29/17 at 12:11; Status DC Quetiapine Fumarate (SEROquel) 12.5 mg BID@0900,1300 PO Last administered on 07:50; Start 05/31/17 at 09:00; Stop 06/01/17 at 11:11; Status DC Cyanocobalamin (Vitamin B-12) 250 mcg DAILYBFRSUP PO Last administered on 16:51; Start 05/31/17 at 17:00 Vitamin D (Vitamin D3) 50,000 unit WEEKLY PO Last administered on 06/21/17 08: 36; Start 05/31/17 at 11:45 Quetiapine Fumarate (SEROquel) 12.5 mg TID@0900,1400,1700 PO Last administered on 06/11/17 17:02; Start 06/01/17 at 14:00; Stop 06/11/17 at 17:36; Status DC Trazodone HCl (Desyrel) 50 mg PRN QHS PRN PO INSOMNIA Last administered on at 22:18; Start 06/02/17 at 19:00; Stop 06/13/17 at 18:13; Status DC Divalproex Sodium (Depakote Sprinkles) 125 mg BID@0900,1400 PO Last administered on 06/09/17at 13:31; Start 06/05/17 at 09:00; Stop 06/09/17 at 18:00; Status DC Divalproex Sodium (Depakote Sprinkles) 125 mg TID PO Last administered on 19:53; Start 06/09/17 at 21:00 Sertraline HCl (Zoloft) 50 mg DAILY PO Last administered on 06/23/17at 08:01; Start 06/10/17 at 09:00 Mirtazapine (Remeron) 7.5 mg QHS PO Last administered on 06/12/17at 19:54; Start 06/09/17 at 21:00; Stop 06/13/17 at 18:13; Status DC Dextromethorphan/ Quinidine (Nuedexta 20-10 Mg Capsule) 1 cap DAILY PO Last administered on 06/17/17at 08:55; Start 06/11/17 at 09:00; Stop 06/17/17 at 14:00 ; Status DC Quetiapine Fumarate (SEROquel) 12.5 mg BID@0900,1700 PO Last administered on at 08:35; Start 06/12/17 at 09:00; Stop 06/19/17 at 15:07; Status DC Quetiapine Fumarate (SEROquel) 25 mg DAILY@1400 PO Last administered on at 13:02; Start 06/12/17 at 14:00; Stop 06/19/17 at 15:07; Status DC Mirtazapine (Remeron) 15 mg QHS PO Last administered on 06/23/17at 19:53; Start 06/13/17 at 21:00 Trazodone HCl (Desyrel) 100 mg QHS PO Last administered on 06/23/17at 19:53; Start 06/13/17 at 21:00 Trazodone HCl (Desyrel) 100 mg PRN QHS PRN PO INSOMNIA Last administered on at 22:19; Start 06/13/17 at 18:15 Dextromethorphan/ Quinidine (Nuedexta 20-10 Mg Capsule) 1 cap BID PO Last administered on 06/23/17at 19:53; Start 06/18/17 at 09:00 Quetiapine Fumarate (SEROquel) 12.5 mg DAILY@1700 PO Last administered on at 16:52; Start 06/19/17 at 17:00 Quetiapine Fumarate (SEROquel) 25 mg BID92 PO Last administered on 06/23/17at 13 :24; Start 06/20/17 at 09:00 Nitrofurantoin Macrocrystals (Macrobid) 100 mg BID PO Last administered on 06/23at 19:53; Start 06/21/17 at 19:00 Active Scripts Active Reported Trazodone Hcl 50 Mg Tablet 50 Mg PO QHS Meloxicam 7.5 Mg Tablet 7.5 Mg PO DAILY Milk Of Magnesia (Magnesium Hydroxide) 2,400 Mg/10 Ml Oral.susp 2,400 Mg PO PRN Q12HR PRN Lamotrigine 25 Mg Tablet 25 Mg PO DAILY Culturelle Capsule (L. Rhamnosus GG/Inulin) 1 Each Cap.sprink 1 Each PO DAILY Haloperidol 2 Mg Tablet 1 Mg PO PRN BID PRN Escitalopram Oxalate 10 Mg Tablet 10 Mg PO DAILY Lovenox (Enoxaparin Sodium) 40 Mg/0.4 Ml Disp.syrin 40 Mg SQ DAILY Atorvastatin Calcium 40 Mg Tablet 40 Mg PO QHS Abilify (Aripiprazole) 5 Mg Tablet 5 Mg PO DAILY Maalox Advanced Suspension (Mag Hydrox/Aluminum Hyd/Simeth) 355 Ml Oral.susp 30 Ml PO PRN Q3HRS PRN Alprazolam 0.5 Mg Tablet 0.5 Mg PO PRN TID PRN Tylenol (Acetaminophen) 325 Mg Tablet 650 Mg PO PRN Q6HRS PRN Tylenol (Acetaminophen) 325 Mg Tablet 650 Mg PO QID I have reviewed the current psychotropics carefully including drug interactions. Risk benefit ratio favors no change other than as noted in my dictated progress note. Diagnosis: Problems: (1) Anxiety disorder (2) Impulse control disorder (3) Dementia, vascular, with depression (4) Dementia, vascular, with delusions (5) Bipolar 1 disorder, mixed, moderate (6) Dementia in Alzheimer's disease with depression (7) Dementia in Alzheimer's disease with delusions CHARLEY MCCLURE MD Jun 23, 2017 20:02
[2017-06-23] MEDS: traZODone 100 MG TABLET. PO PRN (22:45)
[2017-06-23] MEDS: HALOPERIDOL 1 MG TABLET PO PRN (23:21)
--- NOTE | 2017-06-24 00:17 | PN ---
DATE: 06/21/2017 PSYCHIATRIC PROGRESS NOTE This is a late entry for 06/21/2017, covers elements not covered in my initial note of 06/21/2017. SUBJECTIVE: I met with the patient the evening of 06/21/2017. The patient remains quite confused, somewhat delusional, labile, tearful on and off, compliant with medications. REVIEW OF SYSTEMS: Ambulation impaired, in wheelchair. No CV, , pulmonary, eye, ENT system symptoms on review. Reliability poor. MENTAL STATUS EXAM: Oriented to herself. Insight, judgment, recent and remote memory, attention, concentration, fund of knowledge poor, consistent with her diagnosis mentioned in my initial note. IMPRESSION: Major neurocognitive disorder, Alzheimer, vascular with depression, delusion, behavioral disturbance. Rest unchanged. PLAN: Continue current psychotropics. Valproic acid level slightly subtherapeutic at 32, but clinically adequate for now. We may need to increase Seroquel if mood lability persists. MAN Sean MCCLURE MD DR: IRENE/bora JOB#: [id number] / [id number]
--- NOTE | 2017-06-24 04:24 | PN ---
DATE: 06/22/2017 This late entry, 06/22/2017 covers elements not covered in my initial note 06/22/2017. I met with the patient evening of 06/22/2017. Overall, patient has had a good day, remains confused. Around dinner time, she becomes tearful up and down the hallway, anxious, seems to be sundowning, received Xanax 1800, then was better. REVIEW OF SYSTEMS: Ambulation impaired, in wheelchair. No CV, , pulmonary, eye system symptoms on review. Reliability poor. MENTAL STATUS EXAM: Oriented to herself. Insight, judgment, recent and remote memory, attention, concentration, fund of knowledge poor consistent with her diagnosis mentioned in my initial note. IMPRESSION: Major neurocognitive disorder, Alzheimer, vascular with depression, delusion, behavioral disturbance. PLAN: Continue psychotropics mentioned in my initial note. Adjust as clinically indicated. MAN Sean MCCLURE MD DR: IRENE/bora JOB#: [id number] / [id number]
[2017-06-24 06:12] VITALS: BP 156/58
[2017-06-24] MEDS: LACTOBACILLUS RHAMNOSUS GG 1 CAPSULE. PO SCH (08:30)
[2017-06-24] MEDS: ACETAMINOPHEN 325 MG TABLET PO SCH ×4 (08:30→20:20)
[2017-06-24] MEDS: DIVALPROEX 125 MG CAP.SPRINK PO SCH ×3 (08:30→20:20)
[2017-06-24] MEDS: NITROFURANTOIN MONOHYD/M-CRYST 100 MG CAPSULE. PO SCH ×2 (08:30→20:20)
[2017-06-24] MEDS: SERTRALINE 50 MG TABLET. PO SCH (08:31)
[2017-06-24] MEDS: DEXTROMETHORPHAN/QUINIDINE 20/10MG CAPSULE. PO SCH ×2 (08:31→20:21)
[2017-06-24] MEDS: QUEtiapine 25 MG TABLET. PO SCH ×3 (08:31→16:55)
[2017-06-24] MEDS: MELOXICAM 7.5 MG TABLET PO SCH (08:31)
[2017-06-24 16:09] VITALS: BP 93/52
[2017-06-24] MEDS: CYANOCOBALAMIN (VITAMIN B-12) 250 MCG TABLET PO SCH (16:54)
--- NOTE | 2017-06-24 19:55 | PDOC ---
Exam Note: Martin Note: Please also refer to the separate dictated note~for this date of service dictated separately.~Patient seen individually. Discussed the patient with Nursing staff reviewed the chart.~Reviewed interim history and current functioning. Reviewed vital signs,~Labs/ Radiology~and current medications noted below. Continue current treatment with the changes noted in the dictated addendum note Assessment: Vital Signs: Vital Signs Date Time Temp Pulse Resp B/P (MAP) Pulse Ox O2 Delivery O2 Flow Rate FiO2 06/24/17 16:09 97.6 58 18 93/52 (66) Room Air 95.0 06/24/17 06:12 100 I&O Intake and Output 06/24/17 07:00 Intake Total 1200 ml Balance 1200 ml Intake Oral 1200 ml # Voids 1 Current Medications: Meds: Current Medications Acetaminophen (Tylenol) 650 mg PRN Q6HRS PRN PO PAIN / TEMP Last administered on 06/06/17 06:16; Start 05/28/17 at 23:00 Multi-Ingredient Ointment (Analgesic [place]) 1 faraz PRN QID PRN TP MUSCLE PAIN; Start 05/28/17 at 23:00 Al Hydroxide/Mg Hydroxide (Mylanta Plus Xs) 15 ml PRN AFTMEALHC PRN PO DYSPEPSIA; Start 05/28/17 at 23:00 Magnesium Hydroxide (Milk Of Magnesia) 2,400 mg PRN QHS PRN PO CONSTIPATION Last administered on 06/21/17at 16:59; Start 05/28/17 at 23:00 Alprazolam (Xanax) 0.5 mg PRN TID PRN PO ANXIETY / AGITATION Last administered on 06/23/17 18:29; Start 05/29/17 at 00:15 Aripiprazole (Abilify) 5 mg DAILY PO Last administered on 05/30/17t 08:34; Start 05/29/17 at 09:00; Stop 05/30/17 at 17:17; Status DC Haloperidol (Haldol) 1 mg PRN BID PRN PO DELIRIUM Last administered on 23:21; Start 05/29/17 at 00:15; Stop 06/24/17 at 18:20; Status DC Trazodone HCl (Desyrel) 50 mg QHS PO Last administered on 1/11/18at 19:54; Start 05/29/17 at 21:00; Stop 06/13/17 at 18:13; Status DC Citalopram Hydrobromide (CeleXA) 20 mg DAILY PO Last administered on 06/09/17 07:49; Start 05/29/17 at 09:00; Stop 06/09/17 at 18:00; Status DC Influenza Virus Vaccine Quadrival (Fluarix Quad [id number] Syringe) 0.5 ml ONCE ONCE VAX IM Last administered on 05/29/17 09:47; Start 05/29/17 at 09:00; Stop 05/29/17 at 09:01; Status DC Pneumococcal Polyvalent Vaccine (Pneumovax 23) 0.5 ml ONCE ONCE VAX IM Last administered on 05/29/17 09:45; Start 05/29/17 at 09:00; Stop 05/31/17 at 14 :59; Status DC Info (FLU VACCINE per PROTOCOL) 1 ea PRN 1X PRN MC PER PROTOCOL; Start at 02:15; Status Cancel Pneumococcal Polyvalent Vaccine (Do NOT chart on this entry -- for MONITORING) 1 each PRN 1X PRN MC SEE COMMENTS; Start 05/29/17 at 02:15; Status Cancel Acetaminophen (Tylenol) 650 mg PRN Q6HRS PRN PO PAIN / TEMP; Start 05/29/17 at 05:45; Stop 05/29/17 at 12:08; Status DC Acetaminophen (Tylenol) 650 mg QID PO Last administered on 06/24/17 16:54; Start 05/29/17 at 09:00 Enoxaparin Sodium (Lovenox) 40 mg DAILY SQ Last administered on 05/29/17 09: 41; Start 05/29/17 at 09:00; Stop 05/29/17 at 12:08; Status DC Lamotrigine (LaMICtal) 25 mg DAILY PO Last administered on 06/04/17 08:43; Start 05/29/17 at 09:00; Stop 06/04/17 at 12:17; Status DC Meloxicam (Mobic) 7.5 mg DAILY PO Last administered on 06/24/17 08:31; Start 05/29/17 at 09:00 Atorvastatin Calcium (Lipitor) 40 mg QHS PO Last administered on 06/23/17 19: 53; Start 05/29/17 at 21:00 Lactobacillus Rhamnosus (Culturelle) 1 cap DAILY PO Last administered on 08:30; Start 05/29/17 at 09:00 Magnesium Hydroxide (Milk Of Magnesia) 2,400 mg PRN Q12HR PRN PO CONSTIPATION; Start 05/29/17 at 05:45; Stop 05/29/17 at 12:08; Status DC Potassium Chloride (Klor-Con) 40 meq 1X ONCE PO Last administered on t 13:40; Start 05/29/17 at 12:00; Stop 05/29/17 at 12:11; Status DC Quetiapine Fumarate (SEROquel) 12.5 mg BID@0900,1300 PO Last administered on 07:50; Start 05/31/17 at 09:00; Stop 06/01/17 at 11:11; Status DC Cyanocobalamin (Vitamin B-12) 250 mcg DAILYBFRSUP PO Last administered on 16:54; Start 05/31/17 at 17:00 Vitamin D (Vitamin D3) 50,000 unit WEEKLY PO Last administered on 06/21/17 08: 36; Start 05/31/17 at 11:45 Quetiapine Fumarate (SEROquel) 12.5 mg TID@0900,1400,1700 PO Last administered on 06/11/17 17:02; Start 06/01/17 at 14:00; Stop 06/11/17 at 17:36; Status DC Trazodone HCl (Desyrel) 50 mg PRN QHS PRN PO INSOMNIA Last administered on 22:18; Start 06/02/17 at 19:00; Stop 06/13/17 at 18:13; Status DC Divalproex Sodium (Depakote Sprinkles) 125 mg BID@0900,1400 PO Last administered on 06/09/17 13:31; Start 06/05/17 at 09:00; Stop 06/09/17 at 18:00; Status DC Divalproex Sodium (Depakote Sprinkles) 125 mg TID PO Last administered on 13:18; Start 06/09/17 at 21:00 Sertraline HCl (Zoloft) 50 mg DAILY PO Last administered on 06/24/17at 08:31; Start 06/10/17 at 09:00 Mirtazapine (Remeron) 7.5 mg QHS PO Last administered on 06/12/17at 19:54; Start 06/09/17 at 21:00; Stop 06/13/17 at 18:13; Status DC Dextromethorphan/ Quinidine (Nuedexta 20-10 Mg Capsule) 1 cap DAILY PO Last administered on 06/17/17at 08:55; Start 06/11/17 at 09:00; Stop 06/17/17 at 14:00 ; Status DC Quetiapine Fumarate (SEROquel) 12.5 mg BID@0900,1700 PO Last administered on at 08:35; Start 06/12/17 at 09:00; Stop 06/19/17 at 15:07; Status DC Quetiapine Fumarate (SEROquel) 25 mg DAILY@1400 PO Last administered on at 13:02; Start 06/12/17 at 14:00; Stop 06/19/17 at 15:07; Status DC Mirtazapine (Remeron) 15 mg QHS PO Last administered on 06/23/17at 19:53; Start 06/13/17 at 21:00 Trazodone HCl (Desyrel) 100 mg QHS PO Last administered on 06/23/17at 19:53; Start 06/13/17 at 21:00 Trazodone HCl (Desyrel) 100 mg PRN QHS PRN PO INSOMNIA Last administered on at 22:45; Start 06/13/17 at 18:15 Dextromethorphan/ Quinidine (Nuedexta 20-10 Mg Capsule) 1 cap BID PO Last administered on 06/24/17at 08:31; Start 06/18/17 at 09:00 Quetiapine Fumarate (SEROquel) 12.5 mg DAILY@1700 PO Last administered on at 16:55; Start 06/19/17 at 17:00 Quetiapine Fumarate (SEROquel) 25 mg BID92 PO Last administered on 06/24/17at 13 :18; Start 06/20/17 at 09:00 Nitrofurantoin Macrocrystals (Macrobid) 100 mg BID PO Last administered on 06/24at 08:30; Start 06/21/17 at 19:00 Olanzapine (ZyPREXA ZYDIS) 2.5 mg PRN Q2HR PRN PO PSYCHOSIS; Start 06/24/17 at 18:30 Active Scripts Active Reported Trazodone Hcl 50 Mg Tablet 50 Mg PO QHS Meloxicam 7.5 Mg Tablet 7.5 Mg PO DAILY Milk Of Magnesia (Magnesium Hydroxide) 2,400 Mg/10 Ml Oral.susp 2,400 Mg PO PRN Q12HR PRN Lamotrigine 25 Mg Tablet 25 Mg PO DAILY Culturelle Capsule (L. Rhamnosus GG/Inulin) 1 Each Cap.sprink 1 Each PO DAILY Haloperidol 2 Mg Tablet 1 Mg PO PRN BID PRN Escitalopram Oxalate 10 Mg Tablet 10 Mg PO DAILY Lovenox (Enoxaparin Sodium) 40 Mg/0.4 Ml Disp.syrin 40 Mg SQ DAILY Atorvastatin Calcium 40 Mg Tablet 40 Mg PO QHS Abilify (Aripiprazole) 5 Mg Tablet 5 Mg PO DAILY Maalox Advanced Suspension (Mag Hydrox/Aluminum Hyd/Simeth) 355 Ml Oral.susp 30 Ml PO PRN Q3HRS PRN Alprazolam 0.5 Mg Tablet 0.5 Mg PO PRN TID PRN Tylenol (Acetaminophen) 325 Mg Tablet 650 Mg PO PRN Q6HRS PRN Tylenol (Acetaminophen) 325 Mg Tablet 650 Mg PO QID I have reviewed the current psychotropics carefully including drug interactions. Risk benefit ratio favors no change other than as noted in my dictated progress note. Diagnosis: Problems: (1) Anxiety disorder (2) Impulse control disorder (3) Dementia, vascular, with depression (4) Dementia, vascular, with delusions (5) Bipolar 1 disorder, mixed, moderate (6) Dementia in Alzheimer's disease with depression (7) Dementia in Alzheimer's disease with delusions CHARLEY MCCLURE MD Jun 24, 2017 19:55
[2017-06-24] MEDS: ATORVASTATIN CALCIUM 20 MG TABLET PO SCH (20:20)
[2017-06-24] MEDS: MIRTAZAPINE 15 MG TABLET PO SCH (20:20)
[2017-06-24] MEDS: traZODone 100 MG TABLET. PO SCH (20:20)
[2017-06-24] MEDS: traZODone 100 MG TABLET. PO PRN (21:34)
[2017-06-24] MEDS: ALPRAZolam 0.5 MG TABLET PO PRN (21:34)
--- NOTE | 2017-06-25 00:35 | PN ---
DATE: 06/23/2017 This is a late entry 06/23/2017 covers elements not covered in my initial note 06/23/2017. I met with the patient in the evening of 06/23/2017. The patient slept 6-1/2 hours previous evening. She remains confused in her wheelchair, did reasonably well until dinner time then was anxious, labile, yelling, screaming quite loud and disruptive. Xanax seemed to help. REVIEW OF SYSTEMS: Ambulation impaired, in wheelchair. No CV, , pulmonary, eye, ENT system symptoms on review. Reliability poor. MENTAL STATUS EXAM: Oriented to herself. Insight, judgment, recent and remote memory, attention, concentration, fund of knowledge poor, consistent with her diagnosis mentioned in my initial note. IMPRESSION: Major neurocognitive disorder, Alzheimer, vascular with depression, delusion, behavioral disturbance, UTI on Macrobid. PLAN: Continue current psychotropics, treat the UTI, may need to increase Seroquel if mood lability persists. She slept 6-1/2 hours previous evening. MAN Sean MCCLURE MD DR: IRENE/bora JOB#: [id number] / [id number]
[2017-06-25 06:19] VITALS: BP 94/50
[2017-06-25 07:58] LABS: BASO % 1 % (0-3); EOS # 0.3 x10^3/uL (0.0-0.7); EOS % 5 % (0-3); HEMATOCRIT 34.4 % (36.0-47.0); HEMOGLOBIN 11.8 g/dL (12.0-15.5); LYMPH # 1.3 x10^3/uL (1.0-4.8); LYMPH % 21 % (24-48); MEAN CORPUSCULAR HEMOGLOBIN 32 pg (25-35); MEAN CORPUSCULAR HGB CONC 34 g/dL (31-37); MEAN CORPUSCULAR VOLUME 94 fL (79-100); MONO # 0.6 x10^3/uL (0.0-1.1); MONO % 10 % (0-9); NEUT % 64 % (31-73); PLATELET COUNT 200 x10^3/uL (140-400); RED BLOOD COUNT 3.66 x10^6/uL (3.50-5.40); RED CELL DISTRIBUTION WIDTH 14.3 % (11.5-14.5); WHITE BLOOD COUNT 6.3 x10^3/uL (4.0-11.0)
[2017-06-25 08:10] LABS: ALBUMIN 3.1 g/dL (3.4-5.0); ALK PHOS 147 U/L (46-116); ALT (SGPT) 26 U/L (14-59); ANION GAP 6 (6-14); AST (SGOT) 16 U/L (15-37); BLOOD UREA NITROGEN 18 mg/dL (7-20); BUN/CREATININE RATIO 30 (6-20); CALCIUM 9.1 mg/dL (8.5-10.1); CARBON DIOXIDE 31 mmol/L (21-32); CHLORIDE 108 mmol/L (98-107); CREATININE 0.6 mg/dL (0.6-1.0); GFR 97.5; GLUCOSE 88 mg/dL (70-99); MAGNESIUM 2.1 mg/dL (1.8-2.4); POTASSIUM 3.9 mmol/L (3.5-5.1); SODIUM 145 mmol/L (136-145); TOTAL BILIRUBIN 0.2 mg/dL (0.2-1.0); TOTAL PROTEIN 6.3 g/dL (6.4-8.2)
[2017-06-25 08:21] LABS: VAL ACID 33 mcg/mL (50-100)
[2017-06-25] MEDS: NITROFURANTOIN MONOHYD/M-CRYST 100 MG CAPSULE. PO SCH ×2 (08:44→19:29)
[2017-06-25] MEDS: SERTRALINE 50 MG TABLET. PO SCH (08:44)
[2017-06-25] MEDS: DIVALPROEX 125 MG CAP.SPRINK PO SCH ×3 (08:44→19:29)
[2017-06-25] MEDS: DEXTROMETHORPHAN/QUINIDINE 20/10MG CAPSULE. PO SCH ×2 (08:44→19:32)
[2017-06-25] MEDS: LACTOBACILLUS RHAMNOSUS GG 1 CAPSULE. PO SCH (08:44)
[2017-06-25] MEDS: QUEtiapine 25 MG TABLET. PO SCH ×3 (08:44→16:48)
[2017-06-25] MEDS: ACETAMINOPHEN 325 MG TABLET PO SCH ×4 (08:44→19:29)
[2017-06-25] MEDS: MELOXICAM 7.5 MG TABLET PO SCH (08:45)
[2017-06-25 15:48] VITALS: BP 97/54
[2017-06-25] MEDS: CYANOCOBALAMIN (VITAMIN B-12) 250 MCG TABLET PO SCH (16:48)
[2017-06-25] MEDS: ALPRAZolam 0.5 MG TABLET PO PRN (18:17)
[2017-06-25] MEDS: ATORVASTATIN CALCIUM 20 MG TABLET PO SCH (19:29)
[2017-06-25] MEDS: traZODone 100 MG TABLET. PO SCH (19:29)
[2017-06-25] MEDS: MIRTAZAPINE 15 MG TABLET PO SCH (19:29)
--- NOTE | 2017-06-25 20:00 | PDOC ---
Exam Note: Martin Note: Please also refer to the separate dictated note~for this date of service dictated separately.~Patient seen individually. Discussed the patient with Nursing staff reviewed the chart.~Reviewed interim history and current functioning. Reviewed vital signs,~Labs/ Radiology~and current medications noted below. Continue current treatment with the changes noted in the dictated addendum note Assessment: Vital Signs: Vital Signs Date Time Temp Pulse Resp B/P (MAP) Pulse Ox O2 Delivery O2 Flow Rate FiO2 06/25/17 15:48 97.2 56 18 97/54 (68) 97 06/24/17 16:09 Room Air 95.0 I&O Intake and Output 06/25/17 07:00 Intake Total 960 ml Balance 960 ml Intake Oral 960 ml # Voids 1 # Bowel Movements 1 Labs: Laboratory Tests Test 06/25/17 07:30 White Blood Count 6.3 x10^3/uL (4.0-11.0) Red Blood Count 3.66 x10^6/uL (3.50-5.40) Hemoglobin 11.8 g/dL (12.0-15.5) L Hematocrit 34.4 % (36.0-47.0) L Mean Corpuscular Volume 94 fL (79-100) Mean Corpuscular Hemoglobin 32 pg (25-35) Mean Corpuscular Hemoglobin Concent 34 g/dL (31-37) Red Cell Distribution Width 14.3 % (11.5-14.5) Platelet Count 200 x10^3/uL (140-400) Neutrophils (%) (Auto) 64 % (31-73) Lymphocytes (%) (Auto) 21 % (24-48) L Monocytes (%) (Auto) 10 % (0-9) H Eosinophils (%) (Auto) 5 % (0-3) H Basophils (%) (Auto) 1 % (0-3) Neutrophils # (Auto) 4.0 x10^3uL (1.8-7.7) Lymphocytes # (Auto) 1.3 x10^3/uL (1.0-4.8) Monocytes # (Auto) 0.6 x10^3/uL (0.0-1.1) Eosinophils # (Auto) 0.3 x10^3/uL (0.0-0.7) Basophils # (Auto) 0.0 x10^3/uL (0.0-0.2) Sodium Level 145 mmol/L (136-145) Potassium Level 3.9 mmol/L (3.5-5.1) Chloride Level 108 mmol/L (98-107) H Carbon Dioxide Level 31 mmol/L (21-32) Anion Gap 6 (6-14) Blood Urea Nitrogen 18 mg/dL (7-20) Creatinine 0.6 mg/dL (0.6-1.0) Estimated GFR (Cockcroft-Gault) 97.5 BUN/Creatinine Ratio 30 (6-20) H Glucose Level 88 mg/dL (70-99) Calcium Level 9.1 mg/dL (8.5-10.1) Magnesium Level 2.1 mg/dL (1.8-2.4) Total Bilirubin 0.2 mg/dL (0.2-1.0) Aspartate Amino Transferase (AST) 16 U/L (15-37) Alanine Aminotransferase (ALT) 26 U/L (14-59) Alkaline Phosphatase 147 U/L (46-116) H Total Protein 6.3 g/dL (6.4-8.2) L Albumin 3.1 g/dL (3.4-5.0) L Albumin/Globulin Ratio 1.0 (1.0-1.7) Valproic Acid Level 33 mcg/mL (50-100) L Valproic Acid Last Dose Date 06/24/17 Valproic Acid Last Dose Time 2100 Current Medications: Meds: Current Medications Acetaminophen (Tylenol) 650 mg PRN Q6HRS PRN PO PAIN / TEMP Last administered on 06/06/17at 06:16; Start 05/28/17 at 23:00 Multi-Ingredient Ointment (Analgesic [place]) 1 faraz PRN QID PRN TP MUSCLE PAIN; Start 05/28/17 at 23:00 Al Hydroxide/Mg Hydroxide (Mylanta Plus Xs) 15 ml PRN AFTMEALHC PRN PO DYSPEPSIA; Start 05/28/17 at 23:00 Magnesium Hydroxide (Milk Of Magnesia) 2,400 mg PRN QHS PRN PO CONSTIPATION Last administered on 06/21/17at 16:59; Start 05/28/17 at 23:00 Alprazolam (Xanax) 0.5 mg PRN TID PRN PO ANXIETY / AGITATION Last administered on 06/25/17 18:17; Start 05/29/17 at 00:15 Aripiprazole (Abilify) 5 mg DAILY PO Last administered on 05/30/17 08:34; Start 05/29/17 at 09:00; Stop 05/30/17 at 17:17; Status DC Haloperidol (Haldol) 1 mg PRN BID PRN PO DELIRIUM Last administered on 23:21; Start 05/29/17 at 00:15; Stop 06/24/17 at 18:20; Status DC Trazodone HCl (Desyrel) 50 mg QHS PO Last administered on 06/12/17 19:54; Start 05/29/17 at 21:00; Stop 06/13/17 at 18:13; Status DC Citalopram Hydrobromide (CeleXA) 20 mg DAILY PO Last administered on 06/09/17 07:49; Start 05/29/17 at 09:00; Stop 06/09/17 at 18:00; Status DC Influenza Virus Vaccine Quadrival (Fluarix Quad [id number] Syringe) 0.5 ml ONCE ONCE VAX IM Last administered on 05/29/17 09:47; Start 05/29/17 at 09:00; Stop 05/29/17 at 09:01; Status DC Pneumococcal Polyvalent Vaccine (Pneumovax 23) 0.5 ml ONCE ONCE VAX IM Last administered on 05/29/17 09:45; Start 05/29/17 at 09:00; Stop 05/31/17 at 14 :59; Status DC Info (FLU VACCINE per PROTOCOL) 1 ea PRN 1X PRN MC PER PROTOCOL; Start at 02:15; Status Cancel Pneumococcal Polyvalent Vaccine (Do NOT chart on this entry -- for MONITORING) 1 each PRN 1X PRN MC SEE COMMENTS; Start 05/29/17 at 02:15; Status Cancel Acetaminophen (Tylenol) 650 mg PRN Q6HRS PRN PO PAIN / TEMP; Start 05/29/17 at 05:45; Stop 05/29/17 at 12:08; Status DC Acetaminophen (Tylenol) 650 mg QID PO Last administered on 06/25/17 19:29; Start 05/29/17 at 09:00 Enoxaparin Sodium (Lovenox) 40 mg DAILY SQ Last administered on 05/29/17 09: 41; Start 05/29/17 at 09:00; Stop 05/29/17 at 12:08; Status DC Lamotrigine (LaMICtal) 25 mg DAILY PO Last administered on 06/04/17 08:43; Start 05/29/17 at 09:00; Stop 06/04/17 at 12:17; Status DC Meloxicam (Mobic) 7.5 mg DAILY PO Last administered on 06/25/17 08:45; Start 05/29/17 at 09:00 Atorvastatin Calcium (Lipitor) 40 mg QHS PO Last administered on 06/25/17 19: 29; Start 05/29/17 at 21:00 Lactobacillus Rhamnosus (Culturelle) 1 cap DAILY PO Last administered on 08:44; Start 05/29/17 at 09:00 Magnesium Hydroxide (Milk Of Magnesia) 2,400 mg PRN Q12HR PRN PO CONSTIPATION; Start 05/29/17 at 05:45; Stop 05/29/17 at 12:08; Status DC Potassium Chloride (Klor-Con) 40 meq 1X ONCE PO Last administered on 13:40; Start 05/29/17 at 12:00; Stop 05/29/17 at 12:11; Status DC Quetiapine Fumarate (SEROquel) 12.5 mg BID@0900,1300 PO Last administered on 07:50; Start 05/31/17 at 09:00; Stop 06/01/17 at 11:11; Status DC Cyanocobalamin (Vitamin B-12) 250 mcg DAILYBFRSUP PO Last administered on 16:48; Start 05/31/17 at 17:00 Vitamin D (Vitamin D3) 50,000 unit WEEKLY PO Last administered on 06/21/17 08: 36; Start 05/31/17 at 11:45 Quetiapine Fumarate (SEROquel) 12.5 mg TID@0900,1400,1700 PO Last administered on 06/11/17 17:02; Start 06/01/17 at 14:00; Stop 06/11/17 at 17:36; Status DC Trazodone HCl (Desyrel) 50 mg PRN QHS PRN PO INSOMNIA Last administered on at 22:18; Start 06/02/17 at 19:00; Stop 06/13/17 at 18:13; Status DC Divalproex Sodium (Depakote Sprinkles) 125 mg BID@0900,1400 PO Last administered on 06/09/17at 13:31; Start 06/05/17 at 09:00; Stop 06/09/17 at 18:00; Status DC Divalproex Sodium (Depakote Sprinkles) 125 mg TID PO Last administered on at 19:29; Start 06/09/17 at 21:00 Sertraline HCl (Zoloft) 50 mg DAILY PO Last administered on 06/25/17at 08:44; Start 06/10/17 at 09:00 Mirtazapine (Remeron) 7.5 mg QHS PO Last administered on 06/12/17at 19:54; Start 06/09/17 at 21:00; Stop 06/13/17 at 18:13; Status DC Dextromethorphan/ Quinidine (Nuedexta 20-10 Mg Capsule) 1 cap DAILY PO Last administered on 06/17/17at 08:55; Start 06/11/17 at 09:00; Stop 06/17/17 at 14:00 ; Status DC Quetiapine Fumarate (SEROquel) 12.5 mg BID@0900,1700 PO Last administered on at 08:35; Start 06/12/17 at 09:00; Stop 06/19/17 at 15:07; Status DC Quetiapine Fumarate (SEROquel) 25 mg DAILY@1400 PO Last administered on at 13:02; Start 06/12/17 at 14:00; Stop 06/19/17 at 15:07; Status DC Mirtazapine (Remeron) 15 mg QHS PO Last administered on 06/25/17at 19:29; Start 06/13/17 at 21:00 Trazodone HCl (Desyrel) 100 mg QHS PO Last administered on 06/25/17at 19:29; Start 06/13/17 at 21:00 Trazodone HCl (Desyrel) 100 mg PRN QHS PRN PO INSOMNIA Last administered on at 21:34; Start 06/13/17 at 18:15 Dextromethorphan/ Quinidine (Nuedexta 20-10 Mg Capsule) 1 cap BID PO Last administered on 06/25/17at 19:32; Start 06/18/17 at 09:00 Quetiapine Fumarate (SEROquel) 12.5 mg DAILY@1700 PO Last administered on at 16:48; Start 06/19/17 at 17:00 Quetiapine Fumarate (SEROquel) 25 mg BID92 PO Last administered on 06/25/17at 13 :24; Start 06/20/17 at 09:00 Nitrofurantoin Macrocrystals (Macrobid) 100 mg BID PO Last administered on 06/25at 19:29; Start 06/21/17 at 19:00 Olanzapine (ZyPREXA ZYDIS) 2.5 mg PRN Q2HR PRN PO PSYCHOSIS; Start 06/24/17 at 18:30 Active Scripts Active Reported Trazodone Hcl 50 Mg Tablet 50 Mg PO QHS Meloxicam 7.5 Mg Tablet 7.5 Mg PO DAILY Milk Of Magnesia (Magnesium Hydroxide) 2,400 Mg/10 Ml Oral.susp 2,400 Mg PO PRN Q12HR PRN Lamotrigine 25 Mg Tablet 25 Mg PO DAILY Culturelle Capsule (L. Rhamnosus GG/Inulin) 1 Each Cap.sprink 1 Each PO DAILY Haloperidol 2 Mg Tablet 1 Mg PO PRN BID PRN Escitalopram Oxalate 10 Mg Tablet 10 Mg PO DAILY Lovenox (Enoxaparin Sodium) 40 Mg/0.4 Ml Disp.syrin 40 Mg SQ DAILY Atorvastatin Calcium 40 Mg Tablet 40 Mg PO QHS Abilify (Aripiprazole) 5 Mg Tablet 5 Mg PO DAILY Maalox Advanced Suspension (Mag Hydrox/Aluminum Hyd/Simeth) 355 Ml Oral.susp 30 Ml PO PRN Q3HRS PRN Alprazolam 0.5 Mg Tablet 0.5 Mg PO PRN TID PRN Tylenol (Acetaminophen) 325 Mg Tablet 650 Mg PO PRN Q6HRS PRN Tylenol (Acetaminophen) 325 Mg Tablet 650 Mg PO QID I have reviewed the current psychotropics carefully including drug interactions. Risk benefit ratio favors no change other than as noted in my dictated progress note. Diagnosis: Problems: (1) Anxiety disorder (2) Impulse control disorder (3) Dementia, vascular, with depression (4) Dementia, vascular, with delusions (5) Bipolar 1 disorder, mixed, moderate (6) Dementia in Alzheimer's disease with depression (7) Dementia in Alzheimer's disease with delusions CHARLEY MCCLURE MD Jun 25, 2017 20:00
[2017-06-25] MEDS: traZODone 100 MG TABLET. PO PRN (23:14)
--- NOTE | 2017-06-26 01:11 | PN ---
DATE: 06/24/2017 PSYCHIATRIC PROGRESS NOTE This late entry 06/24/2017 covers elements not covered in my initial note 06/24/2017. SUBJECTIVE: Met with the patient evening of 06/24/2017. The patient has been quite tearful, crying in the morning, anxious. Rest of the day she has done better. No PRNs were given. Slept 4 hours. Labs will be done morning of 06/25/2017. REVIEW OF SYSTEMS: Ambulation impaired, in wheelchair. No CV, , pulmonary, eye, ENT system symptoms on review. Reliability is poor. MENTAL STATUS EXAM: Oriented to herself. Insight, judgment, recent and remote memory, attention, concentration, fund of knowledge poor, consistent with her diagnosis mentioned in my initial note. IMPRESSION: Major neurocognitive disorder, Alzheimer, vascular with depression, delusion, behavioral disturbance. Rest unchanged. PLAN: Continue psychotropics mentioned in my initial note. Start Zyprexa p.r.n. 2.5 mg q. 2 hours, max 7.[address] in [address] of the Haldol. CHARLEY MCCLURE MD DR: IRENE/bora JOB#: [id number] / [id number]
[2017-06-26 05:52] VITALS: BP 120/57
[2017-06-26] MEDS: SERTRALINE 50 MG TABLET. PO SCH (08:38)
[2017-06-26] MEDS: NITROFURANTOIN MONOHYD/M-CRYST 100 MG CAPSULE. PO SCH ×2 (08:38→19:47)
[2017-06-26] MEDS: DIVALPROEX 125 MG CAP.SPRINK PO SCH ×3 (08:38→19:47)
[2017-06-26] MEDS: LACTOBACILLUS RHAMNOSUS GG 1 CAPSULE. PO SCH (08:38)
[2017-06-26] MEDS: DEXTROMETHORPHAN/QUINIDINE 20/10MG CAPSULE. PO SCH ×2 (08:39→19:47)
[2017-06-26] MEDS: MELOXICAM 7.5 MG TABLET PO SCH (08:39)
[2017-06-26] MEDS: ACETAMINOPHEN 325 MG TABLET PO SCH ×4 (08:39→19:44)
[2017-06-26] MEDS: QUEtiapine 25 MG TABLET. PO SCH ×3 (08:39→16:39)
[2017-06-26] MEDS: ALPRAZolam 0.5 MG TABLET PO PRN (09:31)
[2017-06-26 15:57] VITALS: BP 105/69
[2017-06-26] MEDS: CYANOCOBALAMIN (VITAMIN B-12) 250 MCG TABLET PO SCH (16:39)
[2017-06-26] MEDS: traZODone 100 MG TABLET. PO SCH (19:44)
[2017-06-26] MEDS: ATORVASTATIN CALCIUM 20 MG TABLET PO SCH (19:44)
[2017-06-26] MEDS: MIRTAZAPINE 15 MG TABLET PO SCH (19:44)
--- NOTE | 2017-06-26 19:52 | PDOC ---
Exam Note: [place] Note: Please also refer to the separate dictated note~for this date of service dictated separately.~Patient seen individually. Discussed the patient with Nursing staff reviewed the chart.~Reviewed interim history and current functioning. Reviewed vital signs,~Labs/ Radiology~and current medications noted below. Continue current treatment with the changes noted in the dictated addendum note Assessment: Vital Signs: Vital Signs Date Time Temp Pulse Resp B/P (MAP) Pulse Ox O2 Delivery O2 Flow Rate FiO2 06/26/17 15:57 98.7 60 18 105/69 (81) 95 06/24/17 16:09 Room Air 95.0 I&O Intake and Output 06/26/17 07:00 Intake Total 1200 ml Balance 1200 ml Intake Oral 1200 ml # Voids 1 Current Medications: Meds: Current Medications Acetaminophen (Tylenol) 650 mg PRN Q6HRS PRN PO PAIN / TEMP Last administered on 06/06/17 06:16; Start 05/28/17 at 23:00 Multi-Ingredient Ointment (Analgesic [place]) 1 faraz PRN QID PRN TP MUSCLE PAIN; Start 05/28/17 at 23:00 Al Hydroxide/Mg Hydroxide (Mylanta Plus Xs) 15 ml PRN AFTMEALHC PRN PO DYSPEPSIA; Start 05/28/17 at 23:00 Magnesium Hydroxide (Milk Of Magnesia) 2,400 mg PRN QHS PRN PO CONSTIPATION Last administered on 06/21/17 16:59; Start 05/28/17 at 23:00 Alprazolam (Xanax) 0.5 mg PRN TID PRN PO ANXIETY / AGITATION Last administered on 06/26/17 09:31; Start 05/29/17 at 00:15 Aripiprazole (Abilify) 5 mg DAILY PO Last administered on 05/30/17t 08:34; Start 05/29/17 at 09:00; Stop 05/30/17 at 17:17; Status DC Haloperidol (Haldol) 1 mg PRN BID PRN PO DELIRIUM Last administered on 23:21; Start 05/29/17 at 00:15; Stop 06/24/17 at 18:20; Status DC Trazodone HCl (Desyrel) 50 mg QHS PO Last administered on 1/11/18at 19:54; Start 05/29/17 at 21:00; Stop 06/13/17 at 18:13; Status DC Citalopram Hydrobromide (CeleXA) 20 mg DAILY PO Last administered on 06/09/17 07:49; Start 05/29/17 at 09:00; Stop 06/09/17 at 18:00; Status DC Influenza Virus Vaccine Quadrival (Fluarix Quad 6162-0202 Syringe) 0.5 ml ONCE ONCE VAX IM Last administered on 05/29/17 09:47; Start 05/29/17 at 09:00; Stop 05/29/17 at 09:01; Status DC Pneumococcal Polyvalent Vaccine (Pneumovax 23) 0.5 ml ONCE ONCE VAX IM Last administered on 05/29/17 09:45; Start 05/29/17 at 09:00; Stop 05/31/17 at 14 :59; Status DC Info (FLU VACCINE per PROTOCOL) 1 ea PRN 1X PRN MC PER PROTOCOL; Start at 02:15; Status Cancel Pneumococcal Polyvalent Vaccine (Do NOT chart on this entry -- for MONITORING) 1 each PRN 1X PRN MC SEE COMMENTS; Start 05/29/17 at 02:15; Status Cancel Acetaminophen (Tylenol) 650 mg PRN Q6HRS PRN PO PAIN / TEMP; Start 05/29/17 at 05:45; Stop 05/29/17 at 12:08; Status DC Acetaminophen (Tylenol) 650 mg QID PO Last administered on 06/26/17 19:44; Start 05/29/17 at 09:00 Enoxaparin Sodium (Lovenox) 40 mg DAILY SQ Last administered on 05/29/17 09: 41; Start 05/29/17 at 09:00; Stop 05/29/17 at 12:08; Status DC Lamotrigine (LaMICtal) 25 mg DAILY PO Last administered on 06/04/17 08:43; Start 05/29/17 at 09:00; Stop 06/04/17 at 12:17; Status DC Meloxicam (Mobic) 7.5 mg DAILY PO Last administered on 06/26/17 08:39; Start 05/29/17 at 09:00 Atorvastatin Calcium (Lipitor) 40 mg QHS PO Last administered on 06/26/17 19: 44; Start 05/29/17 at 21:00 Lactobacillus Rhamnosus (Culturelle) 1 cap DAILY PO Last administered on 08:38; Start 05/29/17 at 09:00 Magnesium Hydroxide (Milk Of Magnesia) 2,400 mg PRN Q12HR PRN PO CONSTIPATION; Start 05/29/17 at 05:45; Stop 05/29/17 at 12:08; Status DC Potassium Chloride (Klor-Con) 40 meq 1X ONCE PO Last administered on 13:40; Start 05/29/17 at 12:00; Stop 05/29/17 at 12:11; Status DC Quetiapine Fumarate (SEROquel) 12.5 mg BID@0900,1300 PO Last administered on 07:50; Start 05/31/17 at 09:00; Stop 06/01/17 at 11:11; Status DC Cyanocobalamin (Vitamin B-12) 250 mcg DAILYBFRSUP PO Last administered on 16:39; Start 05/31/17 at 17:00 Vitamin D (Vitamin D3) 50,000 unit WEEKLY PO Last administered on 06/21/17 08: 36; Start 05/31/17 at 11:45 Quetiapine Fumarate (SEROquel) 12.5 mg TID@0900,1400,1700 PO Last administered on 06/11/17 17:02; Start 06/01/17 at 14:00; Stop 06/11/17 at 17:36; Status DC Trazodone HCl (Desyrel) 50 mg PRN QHS PRN PO INSOMNIA Last administered on 22:18; Start 06/02/17 at 19:00; Stop 06/13/17 at 18:13; Status DC Divalproex Sodium (Depakote Sprinkles) 125 mg BID@0900,1400 PO Last administered on 06/09/17 13:31; Start 06/05/17 at 09:00; Stop 06/09/17 at 18:00; Status DC Divalproex Sodium (Depakote Sprinkles) 125 mg TID PO Last administered on 08:38; Start 06/09/17 at 21:00; Stop 06/26/17 at 10:37; Status DC Sertraline HCl (Zoloft) 50 mg DAILY PO Last administered on 06/26/17at 08:38; Start 06/10/17 at 09:00 Mirtazapine (Remeron) 7.5 mg QHS PO Last administered on 06/12/17at 19:54; Start 06/09/17 at 21:00; Stop 06/13/17 at 18:13; Status DC Dextromethorphan/ Quinidine (Nuedexta 20-10 Mg Capsule) 1 cap DAILY PO Last administered on 06/17/17at 08:55; Start 06/11/17 at 09:00; Stop 06/17/17 at 14:00 ; Status DC Quetiapine Fumarate (SEROquel) 12.5 mg BID@0900,1700 PO Last administered on at 08:35; Start 06/12/17 at 09:00; Stop 06/19/17 at 15:07; Status DC Quetiapine Fumarate (SEROquel) 25 mg DAILY@1400 PO Last administered on at 13:02; Start 06/12/17 at 14:00; Stop 06/19/17 at 15:07; Status DC Mirtazapine (Remeron) 15 mg QHS PO Last administered on 06/26/17at 19:44; Start 06/13/17 at 21:00 Trazodone HCl (Desyrel) 100 mg QHS PO Last administered on 06/26/17at 19:44; Start 06/13/17 at 21:00 Trazodone HCl (Desyrel) 100 mg PRN QHS PRN PO INSOMNIA Last administered on at 23:14; Start 06/13/17 at 18:15 Dextromethorphan/ Quinidine (Nuedexta 20-10 Mg Capsule) 1 cap BID PO Last administered on 06/26/17at 19:47; Start 06/18/17 at 09:00 Quetiapine Fumarate (SEROquel) 12.5 mg DAILY@1700 PO Last administered on at 16:48; Start 06/19/17 at 17:00; Stop 06/26/17 at 10:37; Status DC Quetiapine Fumarate (SEROquel) 25 mg BID92 PO Last administered on 06/26/17at 08 :39; Start 06/20/17 at 09:00; Stop 06/26/17 at 10:37; Status DC Nitrofurantoin Macrocrystals (Macrobid) 100 mg BID PO Last administered on 06/26at 19:47; Start 06/21/17 at 19:00 Olanzapine (ZyPREXA ZYDIS) 2.5 mg PRN Q2HR PRN PO PSYCHOSIS; Start 06/24/17 at 18:30 Divalproex Sodium (Depakote Sprinkles) 125 mg DAILY@1400 PO Last administered on 06/26/17at 13:18; Start 06/26/17 at 14:00 Quetiapine Fumarate (SEROquel) 25 mg TID@0900,1400,1700 PO Last administered on 06/26/17at 16:39; Start 06/26/17 at 14:00 Divalproex Sodium (Depakote Sprinkles) 250 mg BID PO Last administered on at 19:47; Start 06/26/17 at 21:00 Active Scripts Active Reported Trazodone Hcl 50 Mg Tablet 50 Mg PO QHS Meloxicam 7.5 Mg Tablet 7.5 Mg PO DAILY Milk Of Magnesia (Magnesium Hydroxide) 2,400 Mg/10 Ml Oral.susp 2,400 Mg PO PRN Q12HR PRN Lamotrigine 25 Mg Tablet 25 Mg PO DAILY Culturelle Capsule (L. Rhamnosus GG/Inulin) 1 Each Cap.sprink 1 Each PO DAILY Haloperidol 2 Mg Tablet 1 Mg PO PRN BID PRN Escitalopram Oxalate 10 Mg Tablet 10 Mg PO DAILY Lovenox (Enoxaparin Sodium) 40 Mg/0.4 Ml Disp.syrin 40 Mg SQ DAILY Atorvastatin Calcium 40 Mg Tablet 40 Mg PO QHS Abilify (Aripiprazole) 5 Mg Tablet 5 Mg PO DAILY Maalox Advanced Suspension (Mag Hydrox/Aluminum Hyd/Simeth) 355 Ml Oral.susp 30 Ml PO PRN Q3HRS PRN Alprazolam 0.5 Mg Tablet 0.5 Mg PO PRN TID PRN Tylenol (Acetaminophen) 325 Mg Tablet 650 Mg PO PRN Q6HRS PRN Tylenol (Acetaminophen) 325 Mg Tablet 650 Mg PO QID I have reviewed the current psychotropics carefully including drug interactions. Risk benefit ratio favors no change other than as noted in my dictated progress note. Diagnosis: Problems: (1) Anxiety disorder (2) Impulse control disorder (3) Dementia, vascular, with depression (4) Dementia, vascular, with delusions (5) Bipolar 1 disorder, mixed, moderate (6) Dementia in Alzheimer's disease with depression (7) Dementia in Alzheimer's disease with delusions CHARLEY MCCLURE MD Jun 26, 2017 19:52
[2017-06-26] MEDS: traZODone 100 MG TABLET. PO PRN (20:58)
[2017-06-27] MEDS: ALPRAZolam 0.5 MG TABLET PO PRN (02:32)
[2017-06-27 06:01] VITALS: BP 123/67
[2017-06-27] MEDS: SERTRALINE 50 MG TABLET. PO SCH (07:49)
[2017-06-27] MEDS: MELOXICAM 7.5 MG TABLET PO SCH (07:49)
[2017-06-27] MEDS: NITROFURANTOIN MONOHYD/M-CRYST 100 MG CAPSULE. PO SCH ×2 (07:49→19:28)
[2017-06-27] MEDS: QUEtiapine 25 MG TABLET. PO SCH ×3 (07:49→18:16)
[2017-06-27] MEDS: DIVALPROEX 125 MG CAP.SPRINK PO SCH ×4 (07:50→19:29)
[2017-06-27] MEDS: LACTOBACILLUS RHAMNOSUS GG 1 CAPSULE. PO SCH (07:50)
[2017-06-27] MEDS: ACETAMINOPHEN 325 MG TABLET PO SCH ×4 (07:50→19:28)
[2017-06-27] MEDS: DEXTROMETHORPHAN/QUINIDINE 20/10MG CAPSULE. PO SCH ×2 (07:52→19:28)
[2017-06-27 16:16] VITALS: BP 114/67
[2017-06-27] MEDS: CYANOCOBALAMIN (VITAMIN B-12) 250 MCG TABLET PO SCH (18:16)
[2017-06-27] MEDS: MIRTAZAPINE 15 MG TABLET PO SCH (19:28)
[2017-06-27] MEDS: ATORVASTATIN CALCIUM 20 MG TABLET PO SCH (19:28)
[2017-06-27] MEDS: traZODone 100 MG TABLET. PO SCH (19:29)
[2017-06-28 05:54] VITALS: BP 128/62
--- NOTE | 2017-06-28 06:49 | PDOC ---
Exam Note: [place] Note: Please also refer to the separate dictated note~for this date of service dictated separately.~Patient seen individually. Discussed the patient with Nursing staff reviewed the chart.~Reviewed interim history and current functioning. Reviewed vital signs,~Labs/ Radiology~and current medications noted below. Continue current treatment with the changes noted in the dictated addendum note. This is a late entry for date of service Jun 27, 2017 Assessment: Vital Signs: VS - Last 72 Hours, by Label Date Time Temp Pulse Resp B/P (MAP) Pulse Ox O2 Delivery O2 Flow Rate FiO2 06/28/17 05:54 97.6 71 18 128/62 (84) 100 06/27/17 16:16 98.9 61 18 114/67 (83) 95 Room Air 06/27/17 06:01 97.2 66 16 123/67 (85) 95 06/26/17 15:57 98.7 60 18 105/69 (81) 95 06/26/17 05:52 97.8 67 16 120/57 (78) 99 06/25/17 15:48 97.2 56 18 97/54 (68) 97 Vital Signs Date Time Temp Pulse Resp B/P (MAP) Pulse Ox O2 Delivery O2 Flow Rate FiO2 06/28/17 05:54 97.6 71 18 128/62 (84) 100 06/27/17 16:16 Room Air 06/24/17 16:09 95.0 I&O Intake and Output 06/28/17 07:00 Intake Total 740 ml Balance 740 ml Intake Oral 740 ml Current Medications: Meds: Current Medications Acetaminophen (Tylenol) 650 mg PRN Q6HRS PRN PO PAIN / TEMP Last administered on 06/06/17at 06:16; Start 05/28/17 at 23:00 Multi-Ingredient Ointment (Analgesic [place]) 1 faraz PRN QID PRN TP MUSCLE PAIN; Start 05/28/17 at 23:00 Al Hydroxide/Mg Hydroxide (Mylanta Plus Xs) 15 ml PRN AFTMEALHC PRN PO DYSPEPSIA; Start 05/28/17 at 23:00 Magnesium Hydroxide (Milk Of Magnesia) 2,400 mg PRN QHS PRN PO CONSTIPATION Last administered on 06/21/17at 16:59; Start 05/28/17 at 23:00 Alprazolam (Xanax) 0.5 mg PRN TID PRN PO ANXIETY / AGITATION Last administered on 06/27/17 02:32; Start 05/29/17 at 00:15 Aripiprazole (Abilify) 5 mg DAILY PO Last administered on 05/30/17 08:34; Start 05/29/17 at 09:00; Stop 05/30/17 at 17:17; Status DC Haloperidol (Haldol) 1 mg PRN BID PRN PO DELIRIUM Last administered on 23:21; Start 05/29/17 at 00:15; Stop 06/24/17 at 18:20; Status DC Trazodone HCl (Desyrel) 50 mg QHS PO Last administered on 06/12/17 19:54; Start 05/29/17 at 21:00; Stop 06/13/17 at 18:13; Status DC Citalopram Hydrobromide (CeleXA) 20 mg DAILY PO Last administered on 06/09/17 07:49; Start 05/29/17 at 09:00; Stop 06/09/17 at 18:00; Status DC Influenza Virus Vaccine Quadrival (Fluarix Quad [id number] Syringe) 0.5 ml ONCE ONCE VAX IM Last administered on 05/29/17 09:47; Start 05/29/17 at 09:00; Stop 05/29/17 at 09:01; Status DC Pneumococcal Polyvalent Vaccine (Pneumovax 23) 0.5 ml ONCE ONCE VAX IM Last administered on 05/29/17 09:45; Start 05/29/17 at 09:00; Stop 05/31/17 at 14 :59; Status DC Info (FLU VACCINE per PROTOCOL) 1 ea PRN 1X PRN MC PER PROTOCOL; Start at 02:15; Status Cancel Pneumococcal Polyvalent Vaccine (Do NOT chart on this entry -- for MONITORING) 1 each PRN 1X PRN MC SEE COMMENTS; Start 05/29/17 at 02:15; Status Cancel Acetaminophen (Tylenol) 650 mg PRN Q6HRS PRN PO PAIN / TEMP; Start 05/29/17 at 05:45; Stop 05/29/17 at 12:08; Status DC Acetaminophen (Tylenol) 650 mg QID PO Last administered on 06/27/17 19:28; Start 05/29/17 at 09:00 Enoxaparin Sodium (Lovenox) 40 mg DAILY SQ Last administered on 05/29/17 09: 41; Start 05/29/17 at 09:00; Stop 05/29/17 at 12:08; Status DC Lamotrigine (LaMICtal) 25 mg DAILY PO Last administered on 06/04/17 08:43; Start 05/29/17 at 09:00; Stop 06/04/17 at 12:17; Status DC Meloxicam (Mobic) 7.5 mg DAILY PO Last administered on 06/27/17 07:49; Start 05/29/17 at 09:00 Atorvastatin Calcium (Lipitor) 40 mg QHS PO Last administered on 06/27/17 19: 28; Start 05/29/17 at 21:00 Lactobacillus Rhamnosus (Culturelle) 1 cap DAILY PO Last administered on 07:50; Start 05/29/17 at 09:00 Magnesium Hydroxide (Milk Of Magnesia) 2,400 mg PRN Q12HR PRN PO CONSTIPATION; Start 05/29/17 at 05:45; Stop 05/29/17 at 12:08; Status DC Potassium Chloride (Klor-Con) 40 meq 1X ONCE PO Last administered on 13:40; Start 05/29/17 at 12:00; Stop 05/29/17 at 12:11; Status DC Quetiapine Fumarate (SEROquel) 12.5 mg BID@0900,1300 PO Last administered on 07:50; Start 05/31/17 at 09:00; Stop 06/01/17 at 11:11; Status DC Cyanocobalamin (Vitamin B-12) 250 mcg DAILYBFRSUP PO Last administered on 18:16; Start 05/31/17 at 17:00 Vitamin D (Vitamin D3) 50,000 unit WEEKLY PO Last administered on 06/21/17 08: 36; Start 05/31/17 at 11:45 Quetiapine Fumarate (SEROquel) 12.5 mg TID@0900,1400,1700 PO Last administered on 06/11/17 17:02; Start 06/01/17 at 14:00; Stop 06/11/17 at 17:36; Status DC Trazodone HCl (Desyrel) 50 mg PRN QHS PRN PO INSOMNIA Last administered on at 22:18; Start 06/02/17 at 19:00; Stop 06/13/17 at 18:13; Status DC Divalproex Sodium (Depakote Sprinkles) 125 mg BID@0900,1400 PO Last administered on 06/09/17at 13:31; Start 06/05/17 at 09:00; Stop 06/09/17 at 18:00; Status DC Divalproex Sodium (Depakote Sprinkles) 125 mg TID PO Last administered on at 08:38; Start 06/09/17 at 21:00; Stop 06/26/17 at 10:37; Status DC Sertraline HCl (Zoloft) 50 mg DAILY PO Last administered on 06/27/17at 07:49; Start 06/10/17 at 09:00 Mirtazapine (Remeron) 7.5 mg QHS PO Last administered on 06/12/17at 19:54; Start 06/09/17 at 21:00; Stop 06/13/17 at 18:13; Status DC Dextromethorphan/ Quinidine (Nuedexta 20-10 Mg Capsule) 1 cap DAILY PO Last administered on 06/17/17at 08:55; Start 06/11/17 at 09:00; Stop 06/17/17 at 14:00 ; Status DC Quetiapine Fumarate (SEROquel) 12.5 mg BID@0900,1700 PO Last administered on at 08:35; Start 06/12/17 at 09:00; Stop 06/19/17 at 15:07; Status DC Quetiapine Fumarate (SEROquel) 25 mg DAILY@1400 PO Last administered on at 13:02; Start 06/12/17 at 14:00; Stop 06/19/17 at 15:07; Status DC Mirtazapine (Remeron) 15 mg QHS PO Last administered on 06/27/17at 19:28; Start 06/13/17 at 21:00 Trazodone HCl (Desyrel) 100 mg QHS PO Last administered on 06/27/17 19:29; Start 06/13/17 at 21:00 Trazodone HCl (Desyrel) 100 mg PRN QHS PRN PO INSOMNIA Last administered on at 20:58; Start 06/13/17 at 18:15 Dextromethorphan/ Quinidine (Nuedexta 20-10 Mg Capsule) 1 cap BID PO Last administered on 06/27/17 19:28; Start 06/18/17 at 09:00 Quetiapine Fumarate (SEROquel) 12.5 mg DAILY@1700 PO Last administered on 16:48; Start 06/19/17 at 17:00; Stop 06/26/17 at 10:37; Status DC Quetiapine Fumarate (SEROquel) 25 mg BID92 PO Last administered on 06/26/17 08 :39; Start 06/20/17 at 09:00; Stop 06/26/17 at 10:37; Status DC Nitrofurantoin Macrocrystals (Macrobid) 100 mg BID PO Last administered on 06/27at 19:28; Start 06/21/17 at 19:00 Olanzapine (ZyPREXA ZYDIS) 2.5 mg PRN Q2HR PRN PO PSYCHOSIS; Start 06/24/17 at 18:30 Divalproex Sodium (Depakote Sprinkles) 125 mg DAILY@1400 PO Last administered on 06/27/17at 13:31; Start 06/26/17 at 14:00 Quetiapine Fumarate (SEROquel) 25 mg TID@0900,1400,1700 PO Last administered on 06/27/17at 18:16; Start 06/26/17 at 14:00 Divalproex Sodium (Depakote Sprinkles) 250 mg BID PO Last administered on 19:29; Start 06/26/17 at 21:00 Active Scripts Active Reported Trazodone Hcl 50 Mg Tablet 50 Mg PO QHS Meloxicam 7.5 Mg Tablet 7.5 Mg PO DAILY Milk Of Magnesia (Magnesium Hydroxide) 2,400 Mg/10 Ml Oral.susp 2,400 Mg PO PRN Q12HR PRN Lamotrigine 25 Mg Tablet 25 Mg PO DAILY Culturelle Capsule (L. Rhamnosus GG/Inulin) 1 Each Cap.sprink 1 Each PO DAILY Haloperidol 2 Mg Tablet 1 Mg PO PRN BID PRN Escitalopram Oxalate 10 Mg Tablet 10 Mg PO DAILY Lovenox (Enoxaparin Sodium) 40 Mg/0.4 Ml Disp.syrin 40 Mg SQ DAILY Atorvastatin Calcium 40 Mg Tablet 40 Mg PO QHS Abilify (Aripiprazole) 5 Mg Tablet 5 Mg PO DAILY Maalox Advanced Suspension (Mag Hydrox/Aluminum Hyd/Simeth) 355 Ml Oral.susp 30 Ml PO PRN Q3HRS PRN Alprazolam 0.5 Mg Tablet 0.5 Mg PO PRN TID PRN Tylenol (Acetaminophen) 325 Mg Tablet 650 Mg PO PRN Q6HRS PRN Tylenol (Acetaminophen) 325 Mg Tablet 650 Mg PO QID I have reviewed the current psychotropics carefully including drug interactions. Risk benefit ratio favors no change other than as noted in my dictated progress note. Diagnosis: Problems: (1) Anxiety disorder (2) Impulse control disorder (3) Dementia, vascular, with depression (4) Dementia, vascular, with delusions (5) Bipolar 1 disorder, mixed, moderate (6) Dementia in Alzheimer's disease with depression (7) Dementia in Alzheimer's disease with delusions CHARLEY MCCLURE MD Jun 28, 2017 06:49
[2017-06-28 07:59] LABS: BASO # 0.1 x10^3/uL (0.0-0.2); BASO % 1 % (0-3); EOS # 0.3 x10^3/uL (0.0-0.7); EOS % 4 % (0-3); HEMATOCRIT 37.6 % (36.0-47.0); HEMOGLOBIN 12.7 g/dL (12.0-15.5); LYMPH # 1.3 x10^3/uL (1.0-4.8); LYMPH % 15 % (24-48); MEAN CORPUSCULAR HEMOGLOBIN 32 pg (25-35); MEAN CORPUSCULAR HGB CONC 34 g/dL (31-37); MEAN CORPUSCULAR VOLUME 94 fL (79-100); MONO # 0.7 x10^3/uL (0.0-1.1); MONO % 8 % (0-9); NEUT # 6.4 x10^3uL (1.8-7.7); NEUT % 72 % (31-73); PLATELET COUNT 230 x10^3/uL (140-400); RED BLOOD COUNT 3.98 x10^6/uL (3.50-5.40); RED CELL DISTRIBUTION WIDTH 13.9 % (11.5-14.5); WHITE BLOOD COUNT 8.8 x10^3/uL (4.0-11.0)
[2017-06-28] MEDS: NITROFURANTOIN MONOHYD/M-CRYST 100 MG CAPSULE. PO SCH ×2 (08:01→20:34)
[2017-06-28] MEDS: DIVALPROEX 125 MG CAP.SPRINK PO SCH ×5 (08:01→20:33)
[2017-06-28] MEDS: LACTOBACILLUS RHAMNOSUS GG 1 CAPSULE. PO SCH (08:01)
[2017-06-28] MEDS: QUEtiapine 25 MG TABLET. PO SCH ×5 (08:01→18:07)
[2017-06-28] MEDS: SERTRALINE 50 MG TABLET. PO SCH ×2 (08:01→08:46)
[2017-06-28] MEDS: MELOXICAM 7.5 MG TABLET PO SCH ×2 (08:01→08:46)
[2017-06-28] MEDS: ACETAMINOPHEN 325 MG TABLET PO SCH ×6 (08:02→20:34)
[2017-06-28] MEDS: DEXTROMETHORPHAN/QUINIDINE 20/10MG CAPSULE. PO SCH ×4 (08:07→20:34)
[2017-06-28] MEDS: CHOLECALCIFEROL (VITAMIN D3) 50,000 UNIT CAPSULE PO SCH (08:08)
[2017-06-28 08:16] LABS: ALBUMIN 3.5 g/dL (3.4-5.0); CALCIUM 9.1 mg/dL (8.5-10.1); CREATININE 0.6 mg/dL (0.6-1.0); GFR 97.5; TOTAL BILIRUBIN 0.4 mg/dL (0.2-1.0); TOTAL PROTEIN 6.9 g/dL (6.4-8.2)
--- NOTE | 2017-06-28 08:24 | PN ---
DATE: 06/25/2017 This is a late entry for 06/25/2017 and covers the elements not covered in my initial note of 06/25/2017. SUBJECTIVE: I met with the patient in the evening of 06/25/2017. The patient slept about 5 hours previous evening, did well during the day, confused, but towards the evening she gets quite anxious, tearful off and on, labile in her mood, yelling, calling names. REVIEW OF SYSTEMS: Ambulation impaired, in wheelchair. No CV, , pulmonary, eye, ENT system symptoms on review. Reliability poor. MENTAL STATUS EXAM: Oriented to herself. Insight, judgment, recent and remote memory, attention, concentration, fund of knowledge poor, consistent with her diagnosis mentioned in my initial note. IMPRESSION: Major neurocognitive disorder, Alzheimer, vascular with depression, delusion, behavioral disturbance. Rest unchanged. PLAN: Continue current psychotropics, may need to adjust Seroquel further to help with the evening mood lability, which is significant. MAN Sean MCCLURE MD DR: IRENE/bora JOB#: [id number] / [id number]
--- NOTE | 2017-06-28 11:20 | PN ---
DATE: 06/25/2017 This is a late entry for 06/26/2017 and covers the elements not covered in my initial note. SUBJECTIVE: The patient was staffed at a treatment team meeting with the entire team morning of 06/26/2017, seen individually evening of 06/26/2017. Appetite 80%, sleeping about 5 hours, valproic acid level 33 on 24. Previous evening, she was cursing, crying, but during the day she is better. REVIEW OF SYSTEMS: Ambulation impaired, in wheelchair. No CV, , pulmonary, eye, ENT system symptoms on review. Reliability poor. MENTAL STATUS EXAM: Oriented to herself. Insight, judgment, recent and remote memory, attention, concentration, fund of knowledge poor, consistent with her diagnosis mentioned in my initial note. IMPRESSION: Major neurocognitive disorder, Alzheimer, vascular with depression, delusion, behavioral disturbance. PLAN: Increase the 1700 Seroquel from 12.5 to 25 mg to help with the mood lability mostly in the evening around 5:00 p.m., increase Depakote Sprinkles from 125 t.i.d. to 250 in the morning and evening, 125 in the afternoon since the valproic acid level is subtherapeutic at 33. Check CBC, CMP, valproic acid level in 3 days. MAN Sean MCCLURE MD DR: IRENE/bora JOB#: [id number] / [id number]
[2017-06-28] MEDS: CYANOCOBALAMIN (VITAMIN B-12) 250 MCG TABLET PO SCH (14:30)
[2017-06-28 16:08] VITALS: BP 102/69
[2017-06-28] MEDS: ATORVASTATIN CALCIUM 20 MG TABLET PO SCH (20:33)
[2017-06-28] MEDS: traZODone 100 MG TABLET. PO SCH (20:34)
[2017-06-28] MEDS: MIRTAZAPINE 15 MG TABLET PO SCH (20:34)
[2017-06-28] MEDS: traZODone 100 MG TABLET. PO PRN (21:31)
[2017-06-28] MEDS: ALPRAZolam 0.5 MG TABLET PO PRN (21:31)
--- NOTE | 2017-06-28 22:13 | PDOC ---
Exam Note: Martin Note: Please also refer to the separate dictated note~for this date of service dictated separately.~Patient seen individually. Discussed the patient with Nursing staff reviewed the chart.~Reviewed interim history and current functioning. Reviewed vital signs,~Labs/ Radiology~and current medications noted below. Continue current treatment with the changes noted in the dictated addendum note Assessment: Vital Signs: Vital Signs Date Time Temp Pulse Resp B/P (MAP) Pulse Ox O2 Delivery O2 Flow Rate FiO2 06/28/17 16:08 99.1 78 20 102/69 (80) 95 06/27/17 16:16 Room Air 06/24/17 16:09 95.0 I&O Intake and Output 06/28/17 07:00 Intake Total 740 ml Balance 740 ml Intake Oral 740 ml Labs: Laboratory Tests Test 06/28/17 07:43 White Blood Count 8.8 x10^3/uL (4.0-11.0) Red Blood Count 3.98 x10^6/uL (3.50-5.40) Hemoglobin 12.7 g/dL (12.0-15.5) Hematocrit 37.6 % (36.0-47.0) Mean Corpuscular Volume 94 fL (79-100) Mean Corpuscular Hemoglobin 32 pg (25-35) Mean Corpuscular Hemoglobin Concent 34 g/dL (31-37) Red Cell Distribution Width 13.9 % (11.5-14.5) Platelet Count 230 x10^3/uL (140-400) Neutrophils (%) (Auto) 72 % (31-73) Lymphocytes (%) (Auto) 15 % (24-48) L Monocytes (%) (Auto) 8 % (0-9) Eosinophils (%) (Auto) 4 % (0-3) H Basophils (%) (Auto) 1 % (0-3) Neutrophils # (Auto) 6.4 x10^3uL (1.8-7.7) Lymphocytes # (Auto) 1.3 x10^3/uL (1.0-4.8) Monocytes # (Auto) 0.7 x10^3/uL (0.0-1.1) Eosinophils # (Auto) 0.3 x10^3/uL (0.0-0.7) Basophils # (Auto) 0.1 x10^3/uL (0.0-0.2) Sodium Level 144 mmol/L (136-145) Potassium Level 4.0 mmol/L (3.5-5.1) Chloride Level 106 mmol/L (98-107) Carbon Dioxide Level 30 mmol/L (21-32) Anion Gap 8 (6-14) Blood Urea Nitrogen 18 mg/dL (7-20) Creatinine 0.6 mg/dL (0.6-1.0) Estimated GFR (Cockcroft-Gault) 97.5 BUN/Creatinine Ratio 30 (6-20) H Glucose Level 88 mg/dL (70-99) Calcium Level 9.1 mg/dL (8.5-10.1) Total Bilirubin 0.4 mg/dL (0.2-1.0) Aspartate Amino Transferase (AST) 18 U/L (15-37) Alanine Aminotransferase (ALT) 28 U/L (14-59) Alkaline Phosphatase 148 U/L (46-116) H Total Protein 6.9 g/dL (6.4-8.2) Albumin 3.5 g/dL (3.4-5.0) Albumin/Globulin Ratio 1.0 (1.0-1.7) Current Medications: Meds: Current Medications Acetaminophen (Tylenol) 650 mg PRN Q6HRS PRN PO PAIN / TEMP Last administered on 06/06/17 06:16; Start 05/28/17 at 23:00 Multi-Ingredient Ointment (Analgesic [place]) 1 faraz PRN QID PRN TP MUSCLE PAIN; Start 05/28/17 at 23:00 Al Hydroxide/Mg Hydroxide (Mylanta Plus Xs) 15 ml PRN AFTMEALHC PRN PO DYSPEPSIA; Start 05/28/17 at 23:00 Magnesium Hydroxide (Milk Of Magnesia) 2,400 mg PRN QHS PRN PO CONSTIPATION Last administered on 06/21/17 16:59; Start 05/28/17 at 23:00 Alprazolam (Xanax) 0.5 mg PRN TID PRN PO ANXIETY / AGITATION Last administered on 06/28/17 21:31; Start 05/29/17 at 00:15 Aripiprazole (Abilify) 5 mg DAILY PO Last administered on 05/30/17t 08:34; Start 05/29/17 at 09:00; Stop 05/30/17 at 17:17; Status DC Haloperidol (Haldol) 1 mg PRN BID PRN PO DELIRIUM Last administered on at 23:21; Start 05/29/17 at 00:15; Stop 06/24/17 at 18:20; Status DC Trazodone HCl (Desyrel) 50 mg QHS PO Last administered on 06/12/17at 19:54; Start 05/29/17 at 21:00; Stop 06/13/17 at 18:13; Status DC Citalopram Hydrobromide (CeleXA) 20 mg DAILY PO Last administered on 06/09/17at 07:49; Start 05/29/17 at 09:00; Stop 06/09/17 at 18:00; Status DC Influenza Virus Vaccine Quadrival (Fluarix Quad [id number] Syringe) 0.5 ml ONCE ONCE VAX IM Last administered on 05/29/17t 09:47; Start 05/29/17 at 09:00; Stop 05/29/17 at 09:01; Status DC Pneumococcal Polyvalent Vaccine (Pneumovax 23) 0.5 ml ONCE ONCE VAX IM Last administered on 05/29/17t 09:45; Start 05/29/17 at 09:00; Stop 05/31/17 at 14 :59; Status DC Info (FLU VACCINE per PROTOCOL) 1 ea PRN 1X PRN MC PER PROTOCOL; Start at 02:15; Status Cancel Pneumococcal Polyvalent Vaccine (Do NOT chart on this entry -- for MONITORING) 1 each PRN 1X PRN MC SEE COMMENTS; Start 05/29/17 at 02:15; Status Cancel Acetaminophen (Tylenol) 650 mg PRN Q6HRS PRN PO PAIN / TEMP; Start 05/29/17 at 05:45; Stop 05/29/17 at 12:08; Status DC Acetaminophen (Tylenol) 650 mg QID PO Last administered on 06/28/17at 20:34; Start 05/29/17 at 09:00 Enoxaparin Sodium (Lovenox) 40 mg DAILY SQ Last administered on 05/29/17t 09: 41; Start 05/29/17 at 09:00; Stop 05/29/17 at 12:08; Status DC Lamotrigine (LaMICtal) 25 mg DAILY PO Last administered on 06/04/17 08:43; Start 05/29/17 at 09:00; Stop 06/04/17 at 12:17; Status DC Meloxicam (Mobic) 7.5 mg DAILY PO Last administered on 06/27/17 07:49; Start 05/29/17 at 09:00 Atorvastatin Calcium (Lipitor) 40 mg QHS PO Last administered on 06/28/17 20: 33; Start 05/29/17 at 21:00 Lactobacillus Rhamnosus (Culturelle) 1 cap DAILY PO Last administered on 08:01; Start 05/29/17 at 09:00 Magnesium Hydroxide (Milk Of Magnesia) 2,400 mg PRN Q12HR PRN PO CONSTIPATION; Start 05/29/17 at 05:45; Stop 05/29/17 at 12:08; Status DC Potassium Chloride (Klor-Con) 40 meq 1X ONCE PO Last administered on 13:40; Start 05/29/17 at 12:00; Stop 05/29/17 at 12:11; Status DC Quetiapine Fumarate (SEROquel) 12.5 mg BID@0900,1300 PO Last administered on 07:50; Start 05/31/17 at 09:00; Stop 06/01/17 at 11:11; Status DC Cyanocobalamin (Vitamin B-12) 250 mcg DAILYBFRSUP PO Last administered on 14:30; Start 05/31/17 at 17:00 Vitamin D (Vitamin D3) 50,000 unit WEEKLY PO Last administered on 06/28/17 08: 08; Start 05/31/17 at 11:45 Quetiapine Fumarate (SEROquel) 12.5 mg TID@0900,1400,1700 PO Last administered on 06/11/17 17:02; Start 06/01/17 at 14:00; Stop 06/11/17 at 17:36; Status DC Trazodone HCl (Desyrel) 50 mg PRN QHS PRN PO INSOMNIA Last administered on 22:18; Start 06/02/17 at 19:00; Stop 06/13/17 at 18:13; Status DC Divalproex Sodium (Depakote Sprinkles) 125 mg BID@0900,1400 PO Last administered on 06/09/17at 13:31; Start 06/05/17 at 09:00; Stop 06/09/17 at 18:00; Status DC Divalproex Sodium (Depakote Sprinkles) 125 mg TID PO Last administered on at 08:38; Start 06/09/17 at 21:00; Stop 06/26/17 at 10:37; Status DC Sertraline HCl (Zoloft) 50 mg DAILY PO Last administered on 06/27/17at 07:49; Start 06/10/17 at 09:00 Mirtazapine (Remeron) 7.5 mg QHS PO Last administered on 06/12/17at 19:54; Start 06/09/17 at 21:00; Stop 06/13/17 at 18:13; Status DC Dextromethorphan/ Quinidine (Nuedexta 20-10 Mg Capsule) 1 cap DAILY PO Last administered on 06/17/17at 08:55; Start 06/11/17 at 09:00; Stop 06/17/17 at 14:00 ; Status DC Quetiapine Fumarate (SEROquel) 12.5 mg BID@0900,1700 PO Last administered on at 08:35; Start 06/12/17 at 09:00; Stop 06/19/17 at 15:07; Status DC Quetiapine Fumarate (SEROquel) 25 mg DAILY@1400 PO Last administered on at 13:02; Start 06/12/17 at 14:00; Stop 06/19/17 at 15:07; Status DC Mirtazapine (Remeron) 15 mg QHS PO Last administered on 06/28/17at 20:34; Start 06/13/17 at 21:00 Trazodone HCl (Desyrel) 100 mg QHS PO Last administered on 06/28/17at 20:34; Start 06/13/17 at 21:00 Trazodone HCl (Desyrel) 100 mg PRN QHS PRN PO INSOMNIA Last administered on at 21:31; Start 06/13/17 at 18:15 Dextromethorphan/ Quinidine (Nuedexta 20-10 Mg Capsule) 1 cap BID PO Last administered on 06/28/17at 20:34; Start 06/18/17 at 09:00 Quetiapine Fumarate (SEROquel) 12.5 mg DAILY@1700 PO Last administered on at 16:48; Start 06/19/17 at 17:00; Stop 06/26/17 at 10:37; Status DC Quetiapine Fumarate (SEROquel) 25 mg BID92 PO Last administered on 06/26/17at 08 :39; Start 06/20/17 at 09:00; Stop 06/26/17 at 10:37; Status DC Nitrofurantoin Macrocrystals (Macrobid) 100 mg BID PO Last administered on 06/28at 20:34; Start 06/21/17 at 19:00 Olanzapine (ZyPREXA ZYDIS) 2.5 mg PRN Q2HR PRN PO PSYCHOSIS; Start 06/24/17 at 18:30 Divalproex Sodium (Depakote Sprinkles) 125 mg DAILY@1400 PO Last administered on 06/28/17at 14:29; Start 06/26/17 at 14:00 Quetiapine Fumarate (SEROquel) 25 mg TID@0900,1400,1700 PO Last administered on 06/28/17at 18:07; Start 06/26/17 at 14:00; Stop 06/28/17 at 19:28; Status DC Divalproex Sodium (Depakote Sprinkles) 250 mg BID PO Last administered on at 20:33; Start 06/26/17 at 21:00 Quetiapine Fumarate (SEROquel) 37.5 mg TID@0900,1400,1700 PO ; Start 06/29/17 at 09:00 Active Scripts Active Reported Trazodone Hcl 50 Mg Tablet 50 Mg PO QHS Meloxicam 7.5 Mg Tablet 7.5 Mg PO DAILY Milk Of Magnesia (Magnesium Hydroxide) 2,400 Mg/10 Ml Oral.susp 2,400 Mg PO PRN Q12HR PRN Lamotrigine 25 Mg Tablet 25 Mg PO DAILY Culturelle Capsule (L. Rhamnosus GG/Inulin) 1 Each Cap.sprink 1 Each PO DAILY Haloperidol 2 Mg Tablet 1 Mg PO PRN BID PRN Escitalopram Oxalate 10 Mg Tablet 10 Mg PO DAILY Lovenox (Enoxaparin Sodium) 40 Mg/0.4 Ml Disp.syrin 40 Mg SQ DAILY Atorvastatin Calcium 40 Mg Tablet 40 Mg PO QHS Abilify (Aripiprazole) 5 Mg Tablet 5 Mg PO DAILY Maalox Advanced Suspension (Mag Hydrox/Aluminum Hyd/Simeth) 355 Ml Oral.susp 30 Ml PO PRN Q3HRS PRN Alprazolam 0.5 Mg Tablet 0.5 Mg PO PRN TID PRN Tylenol (Acetaminophen) 325 Mg Tablet 650 Mg PO PRN Q6HRS PRN Tylenol (Acetaminophen) 325 Mg Tablet 650 Mg PO QID I have reviewed the current psychotropics carefully including drug interactions. Risk benefit ratio favors no change other than as noted in my dictated progress note. Diagnosis: Problems: (1) Anxiety disorder (2) Impulse control disorder (3) Dementia, vascular, with depression (4) Dementia, vascular, with delusions (5) Bipolar 1 disorder, mixed, moderate (6) Dementia in Alzheimer's disease with depression (7) Dementia in Alzheimer's disease with delusions CHARLEY MCCLURE MD Jun 28, 2017 22:13
[2017-06-29 06:07] VITALS: BP 155/83
[2017-06-29] MEDS: NITROFURANTOIN MONOHYD/M-CRYST 100 MG CAPSULE. PO SCH ×2 (07:33→19:27)
[2017-06-29] MEDS: DEXTROMETHORPHAN/QUINIDINE 20/10MG CAPSULE. PO SCH ×2 (07:33→19:28)
[2017-06-29] MEDS: DIVALPROEX 125 MG CAP.SPRINK PO SCH ×3 (07:34→19:27)
[2017-06-29] MEDS: LACTOBACILLUS RHAMNOSUS GG 1 CAPSULE. PO SCH (07:34)
[2017-06-29] MEDS: ACETAMINOPHEN 325 MG TABLET PO SCH ×4 (07:34→19:27)
[2017-06-29] MEDS: SERTRALINE 50 MG TABLET. PO SCH (07:34)
[2017-06-29] MEDS: MELOXICAM 7.5 MG TABLET PO SCH (07:34)
[2017-06-29] MEDS: QUEtiapine 25 MG TABLET. PO SCH ×3 (07:36→16:47)
[2017-06-29 09:54] LABS: BASO # 0.1 x10^3/uL (0.0-0.2); BASO % 1 % (0-3); EOS # 0.3 x10^3/uL (0.0-0.7); EOS % 3 % (0-3); HEMATOCRIT 36.6 % (36.0-47.0); HEMOGLOBIN 12.4 g/dL (12.0-15.5); LYMPH # 1.1 x10^3/uL (1.0-4.8); LYMPH % 13 % (24-48); MEAN CORPUSCULAR HEMOGLOBIN 32 pg (25-35); MEAN CORPUSCULAR HGB CONC 34 g/dL (31-37); MEAN CORPUSCULAR VOLUME 95 fL (79-100); MONO # 0.5 x10^3/uL (0.0-1.1); MONO % 6 % (0-9); NEUT # 6.4 x10^3uL (1.8-7.7); NEUT % 77 % (31-73); PLATELET COUNT 202 x10^3/uL (140-400); RED BLOOD COUNT 3.85 x10^6/uL (3.50-5.40); RED CELL DISTRIBUTION WIDTH 14.3 % (11.5-14.5); WHITE BLOOD COUNT 8.3 x10^3/uL (4.0-11.0)
[2017-06-29 10:11] LABS: ALBUMIN 3.3 g/dL (3.4-5.0); CALCIUM 9.1 mg/dL (8.5-10.1); CREATININE 0.7 mg/dL (0.6-1.0); GFR 81.6; POTASSIUM 3.9 mmol/L (3.5-5.1); TOTAL BILIRUBIN 0.3 mg/dL (0.2-1.0); TOTAL PROTEIN 6.6 g/dL (6.4-8.2)
[2017-06-29 10:44] LABS: VAL ACID 43 mcg/mL (50-100)
[2017-06-29 16:11] VITALS: BP 93/57
[2017-06-29] MEDS: CYANOCOBALAMIN (VITAMIN B-12) 250 MCG TABLET PO SCH (16:47)
[2017-06-29] MEDS: ATORVASTATIN CALCIUM 20 MG TABLET PO SCH (19:26)
[2017-06-29] MEDS: traZODone 100 MG TABLET. PO SCH (19:27)
[2017-06-29] MEDS: MIRTAZAPINE 15 MG TABLET PO SCH (19:27)
--- NOTE | 2017-06-29 20:01 | PDOC ---
Exam Note: Martin Note: Please also refer to the separate dictated note~for this date of service dictated separately.~Patient seen individually. Discussed the patient with Nursing staff reviewed the chart.~Reviewed interim history and current functioning. Reviewed vital signs,~Labs/ Radiology~and current medications noted below. Continue current treatment with the changes noted in the dictated addendum note Assessment: Vital Signs: Vital Signs Date Time Temp Pulse Resp B/P (MAP) Pulse Ox O2 Delivery O2 Flow Rate FiO2 06/29/17 16:11 98.3 61 18 93/57 (69) 98 Room Air 06/24/17 16:09 95.0 I&O Intake and Output 06/29/17 07:00 Intake Total 780 ml Balance 780 ml Intake Oral 780 ml # Bowel Movements 1 Labs: Laboratory Tests Test 06/29/17 09:34 White Blood Count 8.3 x10^3/uL (4.0-11.0) Red Blood Count 3.85 x10^6/uL (3.50-5.40) Hemoglobin 12.4 g/dL (12.0-15.5) Hematocrit 36.6 % (36.0-47.0) Mean Corpuscular Volume 95 fL (79-100) Mean Corpuscular Hemoglobin 32 pg (25-35) Mean Corpuscular Hemoglobin Concent 34 g/dL (31-37) Red Cell Distribution Width 14.3 % (11.5-14.5) Platelet Count 202 x10^3/uL (140-400) Neutrophils (%) (Auto) 77 % (31-73) H Lymphocytes (%) (Auto) 13 % (24-48) L Monocytes (%) (Auto) 6 % (0-9) Eosinophils (%) (Auto) 3 % (0-3) Basophils (%) (Auto) 1 % (0-3) Neutrophils # (Auto) 6.4 x10^3uL (1.8-7.7) Lymphocytes # (Auto) 1.1 x10^3/uL (1.0-4.8) Monocytes # (Auto) 0.5 x10^3/uL (0.0-1.1) Eosinophils # (Auto) 0.3 x10^3/uL (0.0-0.7) Basophils # (Auto) 0.1 x10^3/uL (0.0-0.2) Sodium Level 144 mmol/L (136-145) Potassium Level 3.9 mmol/L (3.5-5.1) Chloride Level 107 mmol/L (98-107) Carbon Dioxide Level 30 mmol/L (21-32) Anion Gap 7 (6-14) Blood Urea Nitrogen 23 mg/dL (7-20) H Creatinine 0.7 mg/dL (0.6-1.0) Estimated GFR (Cockcroft-Gault) 81.6 BUN/Creatinine Ratio 33 (6-20) H Glucose Level 127 mg/dL (70-99) H Calcium Level 9.1 mg/dL (8.5-10.1) Total Bilirubin 0.3 mg/dL (0.2-1.0) Aspartate Amino Transferase (AST) 16 U/L (15-37) Alanine Aminotransferase (ALT) 25 U/L (14-59) Alkaline Phosphatase 135 U/L (46-116) H Total Protein 6.6 g/dL (6.4-8.2) Albumin 3.3 g/dL (3.4-5.0) L Albumin/Globulin Ratio 1.0 (1.0-1.7) Valproic Acid Level 43 mcg/mL (50-100) L Valproic Acid Last Dose Date 06/28/17 Valproic Acid Last Dose Time 2100 Current Medications: Meds: Current Medications Acetaminophen (Tylenol) 650 mg PRN Q6HRS PRN PO PAIN / TEMP Last administered on 06/06/17at 06:16; Start 05/28/17 at 23:00 Multi-Ingredient Ointment (Analgesic [place]) 1 faraz PRN QID PRN TP MUSCLE PAIN; Start 05/28/17 at 23:00 Al Hydroxide/Mg Hydroxide (Mylanta Plus Xs) 15 ml PRN AFTMEALHC PRN PO DYSPEPSIA; Start 05/28/17 at 23:00 Magnesium Hydroxide (Milk Of Magnesia) 2,400 mg PRN QHS PRN PO CONSTIPATION Last administered on 06/21/17at 16:59; Start 05/28/17 at 23:00 Alprazolam (Xanax) 0.5 mg PRN TID PRN PO ANXIETY / AGITATION Last administered on 06/28/17at 21:31; Start 05/29/17 at 00:15 Aripiprazole (Abilify) 5 mg DAILY PO Last administered on 05/30/17 08:34; Start 05/29/17 at 09:00; Stop 05/30/17 at 17:17; Status DC Haloperidol (Haldol) 1 mg PRN BID PRN PO DELIRIUM Last administered on 23:21; Start 05/29/17 at 00:15; Stop 06/24/17 at 18:20; Status DC Trazodone HCl (Desyrel) 50 mg QHS PO Last administered on 06/12/17at 19:54; Start 05/29/17 at 21:00; Stop 06/13/17 at 18:13; Status DC Citalopram Hydrobromide (CeleXA) 20 mg DAILY PO Last administered on 06/09/17 07:49; Start 05/29/17 at 09:00; Stop 06/09/17 at 18:00; Status DC Influenza Virus Vaccine Quadrival (Fluarix Quad [id number] Syringe) 0.5 ml ONCE ONCE VAX IM Last administered on 05/29/17 09:47; Start 05/29/17 at 09:00; Stop 05/29/17 at 09:01; Status DC Pneumococcal Polyvalent Vaccine (Pneumovax 23) 0.5 ml ONCE ONCE VAX IM Last administered on 05/29/17 09:45; Start 05/29/17 at 09:00; Stop 05/31/17 at 14 :59; Status DC Info (FLU VACCINE per PROTOCOL) 1 ea PRN 1X PRN MC PER PROTOCOL; Start at 02:15; Status Cancel Pneumococcal Polyvalent Vaccine (Do NOT chart on this entry -- for MONITORING) 1 each PRN 1X PRN MC SEE COMMENTS; Start 05/29/17 at 02:15; Status Cancel Acetaminophen (Tylenol) 650 mg PRN Q6HRS PRN PO PAIN / TEMP; Start 05/29/17 at 05:45; Stop 05/29/17 at 12:08; Status DC Acetaminophen (Tylenol) 650 mg QID PO Last administered on 06/29/17 19:27; Start 05/29/17 at 09:00 Enoxaparin Sodium (Lovenox) 40 mg DAILY SQ Last administered on 05/29/17 09: 41; Start 05/29/17 at 09:00; Stop 05/29/17 at 12:08; Status DC Lamotrigine (LaMICtal) 25 mg DAILY PO Last administered on 06/04/17 08:43; Start 05/29/17 at 09:00; Stop 06/04/17 at 12:17; Status DC Meloxicam (Mobic) 7.5 mg DAILY PO Last administered on 06/29/17 07:34; Start 05/29/17 at 09:00 Atorvastatin Calcium (Lipitor) 40 mg QHS PO Last administered on 06/29/17 19: 26; Start 05/29/17 at 21:00 Lactobacillus Rhamnosus (Culturelle) 1 cap DAILY PO Last administered on 07:34; Start 05/29/17 at 09:00 Magnesium Hydroxide (Milk Of Magnesia) 2,400 mg PRN Q12HR PRN PO CONSTIPATION; Start 05/29/17 at 05:45; Stop 05/29/17 at 12:08; Status DC Potassium Chloride (Klor-Con) 40 meq 1X ONCE PO Last administered on 13:40; Start 05/29/17 at 12:00; Stop 05/29/17 at 12:11; Status DC Quetiapine Fumarate (SEROquel) 12.5 mg BID@0900,1300 PO Last administered on 07:50; Start 05/31/17 at 09:00; Stop 06/01/17 at 11:11; Status DC Cyanocobalamin (Vitamin B-12) 250 mcg DAILYBFRSUP PO Last administered on 16:47; Start 05/31/17 at 17:00 Vitamin D (Vitamin D3) 50,000 unit WEEKLY PO Last administered on 06/28/17 08: 08; Start 05/31/17 at 11:45 Quetiapine Fumarate (SEROquel) 12.5 mg TID@0900,1400,1700 PO Last administered on 06/11/17 17:02; Start 06/01/17 at 14:00; Stop 06/11/17 at 17:36; Status DC Trazodone HCl (Desyrel) 50 mg PRN QHS PRN PO INSOMNIA Last administered on 1/7/ 18at 22:18; Start 06/02/17 at 19:00; Stop 06/13/17 at 18:13; Status DC Divalproex Sodium (Depakote Sprinkles) 125 mg BID@0900,1400 PO Last administered on 06/09/17at 13:31; Start 06/05/17 at 09:00; Stop 06/09/17 at 18:00; Status DC Divalproex Sodium (Depakote Sprinkles) 125 mg TID PO Last administered on at 08:38; Start 06/09/17 at 21:00; Stop 06/26/17 at 10:37; Status DC Sertraline HCl (Zoloft) 50 mg DAILY PO Last administered on 06/29/17at 07:34; Start 06/10/17 at 09:00 Mirtazapine (Remeron) 7.5 mg QHS PO Last administered on 06/12/17at 19:54; Start 06/09/17 at 21:00; Stop 06/13/17 at 18:13; Status DC Dextromethorphan/ Quinidine (Nuedexta 20-10 Mg Capsule) 1 cap DAILY PO Last administered on 06/17/17at 08:55; Start 06/11/17 at 09:00; Stop 06/17/17 at 14:00 ; Status DC Quetiapine Fumarate (SEROquel) 12.5 mg BID@0900,1700 PO Last administered on at 08:35; Start 06/12/17 at 09:00; Stop 06/19/17 at 15:07; Status DC Quetiapine Fumarate (SEROquel) 25 mg DAILY@1400 PO Last administered on at 13:02; Start 06/12/17 at 14:00; Stop 06/19/17 at 15:07; Status DC Mirtazapine (Remeron) 15 mg QHS PO Last administered on 06/29/17at 19:27; Start 06/13/17 at 21:00 Trazodone HCl (Desyrel) 100 mg QHS PO Last administered on 06/29/17at 19:27; Start 06/13/17 at 21:00 Trazodone HCl (Desyrel) 100 mg PRN QHS PRN PO INSOMNIA Last administered on at 21:31; Start 06/13/17 at 18:15 Dextromethorphan/ Quinidine (Nuedexta 20-10 Mg Capsule) 1 cap BID PO Last administered on 06/29/17at 19:28; Start 06/18/17 at 09:00 Quetiapine Fumarate (SEROquel) 12.5 mg DAILY@1700 PO Last administered on at 16:48; Start 06/19/17 at 17:00; Stop 06/26/17 at 10:37; Status DC Quetiapine Fumarate (SEROquel) 25 mg BID92 PO Last administered on 06/26/17at 08 :39; Start 06/20/17 at 09:00; Stop 06/26/17 at 10:37; Status DC Nitrofurantoin Macrocrystals (Macrobid) 100 mg BID PO Last administered on 06/29at 19:27; Start 06/21/17 at 19:00 Olanzapine (ZyPREXA ZYDIS) 2.5 mg PRN Q2HR PRN PO PSYCHOSIS; Start 06/24/17 at 18:30 Divalproex Sodium (Depakote Sprinkles) 125 mg DAILY@1400 PO Last administered on 06/29/17at 14:30; Start 06/26/17 at 14:00 Quetiapine Fumarate (SEROquel) 25 mg TID@0900,1400,1700 PO Last administered on 06/28/17at 18:07; Start 06/26/17 at 14:00; Stop 06/28/17 at 19:28; Status DC Divalproex Sodium (Depakote Sprinkles) 250 mg BID PO Last administered on at 19:27; Start 06/26/17 at 21:00 Quetiapine Fumarate (SEROquel) 37.5 mg TID@0900,1400,1700 PO Last administered on 06/29/17at 16:47; Start 06/29/17 at 09:00 Active Scripts Active Reported Trazodone Hcl 50 Mg Tablet 50 Mg PO QHS Meloxicam 7.5 Mg Tablet 7.5 Mg PO DAILY Milk Of Magnesia (Magnesium Hydroxide) 2,400 Mg/10 Ml Oral.susp 2,400 Mg PO PRN Q12HR PRN Lamotrigine 25 Mg Tablet 25 Mg PO DAILY Culturelle Capsule (L. Rhamnosus GG/Inulin) 1 Each Cap.sprink 1 Each PO DAILY Haloperidol 2 Mg Tablet 1 Mg PO PRN BID PRN Escitalopram Oxalate 10 Mg Tablet 10 Mg PO DAILY Lovenox (Enoxaparin Sodium) 40 Mg/0.4 Ml Disp.syrin 40 Mg SQ DAILY Atorvastatin Calcium 40 Mg Tablet 40 Mg PO QHS Abilify (Aripiprazole) 5 Mg Tablet 5 Mg PO DAILY Maalox Advanced Suspension (Mag Hydrox/Aluminum Hyd/Simeth) 355 Ml Oral.susp 30 Ml PO PRN Q3HRS PRN Alprazolam 0.5 Mg Tablet 0.5 Mg PO PRN TID PRN Tylenol (Acetaminophen) 325 Mg Tablet 650 Mg PO PRN Q6HRS PRN Tylenol (Acetaminophen) 325 Mg Tablet 650 Mg PO QID I have reviewed the current psychotropics carefully including drug interactions. Risk benefit ratio favors no change other than as noted in my dictated progress note. Diagnosis: Problems: (1) Anxiety disorder (2) Impulse control disorder (3) Dementia, vascular, with depression (4) Dementia, vascular, with delusions (5) Bipolar 1 disorder, mixed, moderate (6) Dementia in Alzheimer's disease with depression (7) Dementia in Alzheimer's disease with delusions CHARLEY MCCLURE MD Jun 29, 2017 20:01
--- NOTE | 2017-06-29 21:14 | PN ---
DATE: 06/28/2017 This note covers elements not covered in my initial note 06/28/2017. I met with the patient evening of 06/28/2017. The patient had a very difficult day, has been mean, hateful all day per nursing report, hitting at nursing staff, agitated, aggressive, disruptive, labile in her mood. REVIEW OF SYSTEMS: Ambulation impaired, in wheelchair. No CV, , pulmonary, eye, ENT system symptoms on review. Reliability poor. MENTAL STATUS EXAM: Oriented to herself. Insight, judgment, recent and remote memory, attention, concentration, fund of knowledge poor, consistent with her diagnosis mentioned in my initial note. PLAN: Continue current psychotropics, increase Seroquel from 25 mg 3 times a day to 37.5 mg 3 times a day. Continue rest unchanged. MAN Sean MCCLURE MD DR: IRENE/bora JOB#: [id number] / [id number]
[2017-06-29] MEDS: ALPRAZolam 0.5 MG TABLET PO PRN (23:03)
[2017-06-29] MEDS: traZODone 100 MG TABLET. PO PRN (23:03)
[2017-06-30 05:59] VITALS: BP 125/69
[2017-06-30] MEDS: NITROFURANTOIN MONOHYD/M-CRYST 100 MG CAPSULE. PO SCH ×2 (08:54→19:25)
[2017-06-30] MEDS: DIVALPROEX 125 MG CAP.SPRINK PO SCH ×3 (08:54→19:25)
[2017-06-30] MEDS: LACTOBACILLUS RHAMNOSUS GG 1 CAPSULE. PO SCH (08:55)
[2017-06-30] MEDS: QUEtiapine 25 MG TABLET. PO SCH ×3 (08:55→16:27)
[2017-06-30] MEDS: ACETAMINOPHEN 325 MG TABLET PO SCH ×4 (08:55→19:25)
[2017-06-30] MEDS: MELOXICAM 7.5 MG TABLET PO SCH (08:55)
[2017-06-30] MEDS: DEXTROMETHORPHAN/QUINIDINE 20/10MG CAPSULE. PO SCH ×2 (08:57→19:26)
[2017-06-30] MEDS: SERTRALINE 50 MG TABLET. PO SCH (08:57)
--- NOTE | 2017-06-30 12:06 | PN ---
DATE: 06/27/2017 This is a late entry 06/27/2017 covers elements not covered in my initial note 06/27/2017. I met with the patient evening of 06/27/2017. The patient slept 3 hours previous evening, somewhat tired during the day because she had slept well the previous evening, tearful at times, anxious, received Xanax in the morning twice. REVIEW OF SYSTEMS: Ambulation impaired, in wheelchair. No CV, , pulmonary, eye, ENT system symptoms on review. Reliability poor. MENTAL STATUS EXAM: Oriented to herself. Insight, judgment, recent and remote memory, attention, concentration, fund of knowledge poor, consistent with her diagnosis mentioned in my initial note. IMPRESSION: Major neurocognitive disorder, Alzheimer, vascular with delusion, depression, behavioral disturbance. PLAN: Change Remeron to Elavil 25 mg p.o. at bedtime, but after further review it has a drug interaction with Nuedexta and we will continue the Remeron unchanged together with the rest of psychotropics including Depakote, we will adjust further as clinically indicated. CHARLEY MCCLURE MD DR: IRENE/bora JOB#: [id number] / [id number]
[2017-06-30 15:57] VITALS: BP 119/60
[2017-06-30] MEDS: CYANOCOBALAMIN (VITAMIN B-12) 250 MCG TABLET PO SCH (16:27)
[2017-06-30] MEDS: MIRTAZAPINE 15 MG TABLET PO SCH (19:25)
[2017-06-30] MEDS: ATORVASTATIN CALCIUM 20 MG TABLET PO SCH (19:25)
[2017-06-30] MEDS: traZODone 100 MG TABLET. PO SCH (19:26)
--- NOTE | 2017-06-30 19:58 | PDOC ---
Exam Note: Martin Note: Please also refer to the separate dictated note~for this date of service dictated separately.~Patient seen individually. Discussed the patient with Nursing staff reviewed the chart.~Reviewed interim history and current functioning. Reviewed vital signs,~Labs/ Radiology~and current medications noted below. Continue current treatment with the changes noted in the dictated addendum note Assessment: Vital Signs: Vital Signs Date Time Temp Pulse Resp B/P (MAP) Pulse Ox O2 Delivery O2 Flow Rate FiO2 06/30/17 15:57 97.6 63 16 119/60 (79) 95 06/29/17 16:11 Room Air 06/24/17 16:09 95.0 I&O Intake and Output 06/30/17 07:00 Intake Total 800 ml Balance 800 ml Intake Oral 800 ml # Voids 1 Current Medications: Meds: Current Medications Acetaminophen (Tylenol) 650 mg PRN Q6HRS PRN PO PAIN / TEMP Last administered on 06/06/17 06:16; Start 05/28/17 at 23:00 Multi-Ingredient Ointment (Analgesic Jefferson) 1 faraz PRN QID PRN TP MUSCLE PAIN; Start 05/28/17 at 23:00 Al Hydroxide/Mg Hydroxide (Mylanta Plus Xs) 15 ml PRN AFTMEALHC PRN PO DYSPEPSIA; Start 05/28/17 at 23:00 Magnesium Hydroxide (Milk Of Magnesia) 2,400 mg PRN QHS PRN PO CONSTIPATION Last administered on 06/21/17at 16:59; Start 05/28/17 at 23:00 Alprazolam (Xanax) 0.5 mg PRN TID PRN PO ANXIETY / AGITATION Last administered on 06/29/17 23:03; Start 05/29/17 at 00:15 Aripiprazole (Abilify) 5 mg DAILY PO Last administered on 05/30/17t 08:34; Start 05/29/17 at 09:00; Stop 05/30/17 at 17:17; Status DC Haloperidol (Haldol) 1 mg PRN BID PRN PO DELIRIUM Last administered on 23:21; Start 05/29/17 at 00:15; Stop 06/24/17 at 18:20; Status DC Trazodone HCl (Desyrel) 50 mg QHS PO Last administered on 06/12/17 19:54; Start 05/29/17 at 21:00; Stop 06/13/17 at 18:13; Status DC Citalopram Hydrobromide (CeleXA) 20 mg DAILY PO Last administered on 06/09/17 07:49; Start 05/29/17 at 09:00; Stop 06/09/17 at 18:00; Status DC Influenza Virus Vaccine Quadrival (Fluarix Quad [id number] Syringe) 0.5 ml ONCE ONCE VAX IM Last administered on 05/29/17 09:47; Start 05/29/17 at 09:00; Stop 05/29/17 at 09:01; Status DC Pneumococcal Polyvalent Vaccine (Pneumovax 23) 0.5 ml ONCE ONCE VAX IM Last administered on 05/29/17 09:45; Start 05/29/17 at 09:00; Stop 05/31/17 at 14 :59; Status DC Info (FLU VACCINE per PROTOCOL) 1 ea PRN 1X PRN MC PER PROTOCOL; Start at 02:15; Status Cancel Pneumococcal Polyvalent Vaccine (Do NOT chart on this entry -- for MONITORING) 1 each PRN 1X PRN MC SEE COMMENTS; Start 05/29/17 at 02:15; Status Cancel Acetaminophen (Tylenol) 650 mg PRN Q6HRS PRN PO PAIN / TEMP; Start 05/29/17 at 05:45; Stop 05/29/17 at 12:08; Status DC Acetaminophen (Tylenol) 650 mg QID PO Last administered on 06/30/17 19:25; Start 05/29/17 at 09:00 Enoxaparin Sodium (Lovenox) 40 mg DAILY SQ Last administered on 05/29/17 09: 41; Start 05/29/17 at 09:00; Stop 05/29/17 at 12:08; Status DC Lamotrigine (LaMICtal) 25 mg DAILY PO Last administered on 06/04/17 08:43; Start 05/29/17 at 09:00; Stop 06/04/17 at 12:17; Status DC Meloxicam (Mobic) 7.5 mg DAILY PO Last administered on 06/30/17 08:55; Start 05/29/17 at 09:00 Atorvastatin Calcium (Lipitor) 40 mg QHS PO Last administered on 06/30/17 19: 25; Start 05/29/17 at 21:00 Lactobacillus Rhamnosus (Culturelle) 1 cap DAILY PO Last administered on 08:55; Start 05/29/17 at 09:00 Magnesium Hydroxide (Milk Of Magnesia) 2,400 mg PRN Q12HR PRN PO CONSTIPATION; Start 05/29/17 at 05:45; Stop 05/29/17 at 12:08; Status DC Potassium Chloride (Klor-Con) 40 meq 1X ONCE PO Last administered on 13:40; Start 05/29/17 at 12:00; Stop 05/29/17 at 12:11; Status DC Quetiapine Fumarate (SEROquel) 12.5 mg BID@0900,1300 PO Last administered on 07:50; Start 05/31/17 at 09:00; Stop 06/01/17 at 11:11; Status DC Cyanocobalamin (Vitamin B-12) 250 mcg DAILYBFRSUP PO Last administered on 16:27; Start 05/31/17 at 17:00 Vitamin D (Vitamin D3) 50,000 unit WEEKLY PO Last administered on 06/28/17 08: 08; Start 05/31/17 at 11:45 Quetiapine Fumarate (SEROquel) 12.5 mg TID@0900,1400,1700 PO Last administered on 06/11/17 17:02; Start 06/01/17 at 14:00; Stop 06/11/17 at 17:36; Status DC Trazodone HCl (Desyrel) 50 mg PRN QHS PRN PO INSOMNIA Last administered on 22:18; Start 06/02/17 at 19:00; Stop 06/13/17 at 18:13; Status DC Divalproex Sodium (Depakote Sprinkles) 125 mg BID@0900,1400 PO Last administered on 06/09/17 13:31; Start 06/05/17 at 09:00; Stop 06/09/17 at 18:00; Status DC Divalproex Sodium (Depakote Sprinkles) 125 mg TID PO Last administered on 1/25/ 18at 08:38; Start 06/09/17 at 21:00; Stop 06/26/17 at 10:37; Status DC Sertraline HCl (Zoloft) 50 mg DAILY PO Last administered on 06/30/17at 08:57; Start 06/10/17 at 09:00 Mirtazapine (Remeron) 7.5 mg QHS PO Last administered on 06/12/17at 19:54; Start 06/09/17 at 21:00; Stop 06/13/17 at 18:13; Status DC Dextromethorphan/ Quinidine (Nuedexta 20-10 Mg Capsule) 1 cap DAILY PO Last administered on 06/17/17at 08:55; Start 06/11/17 at 09:00; Stop 06/17/17 at 14:00 ; Status DC Quetiapine Fumarate (SEROquel) 12.5 mg BID@0900,1700 PO Last administered on at 08:35; Start 06/12/17 at 09:00; Stop 06/19/17 at 15:07; Status DC Quetiapine Fumarate (SEROquel) 25 mg DAILY@1400 PO Last administered on at 13:02; Start 06/12/17 at 14:00; Stop 06/19/17 at 15:07; Status DC Mirtazapine (Remeron) 15 mg QHS PO Last administered on 06/30/17at 19:25; Start 06/13/17 at 21:00 Trazodone HCl (Desyrel) 100 mg QHS PO Last administered on 06/30/17at 19:26; Start 06/13/17 at 21:00 Trazodone HCl (Desyrel) 100 mg PRN QHS PRN PO INSOMNIA Last administered on at 23:03; Start 06/13/17 at 18:15 Dextromethorphan/ Quinidine (Nuedexta 20-10 Mg Capsule) 1 cap BID PO Last administered on 06/30/17at 19:26; Start 06/18/17 at 09:00 Quetiapine Fumarate (SEROquel) 12.5 mg DAILY@1700 PO Last administered on at 16:48; Start 06/19/17 at 17:00; Stop 06/26/17 at 10:37; Status DC Quetiapine Fumarate (SEROquel) 25 mg BID92 PO Last administered on 06/26/17at 08 :39; Start 06/20/17 at 09:00; Stop 06/26/17 at 10:37; Status DC Nitrofurantoin Macrocrystals (Macrobid) 100 mg BID PO Last administered on 06/30at 19:25; Start 06/21/17 at 19:00 Olanzapine (ZyPREXA ZYDIS) 2.5 mg PRN Q2HR PRN PO PSYCHOSIS Last administered on 06/30/17at 17:30; Start 06/24/17 at 18:30 Divalproex Sodium (Depakote Sprinkles) 125 mg DAILY@1400 PO Last administered on 06/30/17at 13:06; Start 06/26/17 at 14:00 Quetiapine Fumarate (SEROquel) 25 mg TID@0900,1400,1700 PO Last administered on 06/28/17at 18:07; Start 06/26/17 at 14:00; Stop 06/28/17 at 19:28; Status DC Divalproex Sodium (Depakote Sprinkles) 250 mg BID PO Last administered on at 19:25; Start 06/26/17 at 21:00 Quetiapine Fumarate (SEROquel) 37.5 mg TID@0900,1400,1700 PO Last administered on 06/30/17at 16:27; Start 06/29/17 at 09:00 Active Scripts Active Reported Trazodone Hcl 50 Mg Tablet 50 Mg PO QHS Meloxicam 7.5 Mg Tablet 7.5 Mg PO DAILY Milk Of Magnesia (Magnesium Hydroxide) 2,400 Mg/10 Ml Oral.susp 2,400 Mg PO PRN Q12HR PRN Lamotrigine 25 Mg Tablet 25 Mg PO DAILY Culturelle Capsule (L. Rhamnosus GG/Inulin) 1 Each Cap.sprink 1 Each PO DAILY Haloperidol 2 Mg Tablet 1 Mg PO PRN BID PRN Escitalopram Oxalate 10 Mg Tablet 10 Mg PO DAILY Lovenox (Enoxaparin Sodium) 40 Mg/0.4 Ml Disp.syrin 40 Mg SQ DAILY Atorvastatin Calcium 40 Mg Tablet 40 Mg PO QHS Abilify (Aripiprazole) 5 Mg Tablet 5 Mg PO DAILY Maalox Advanced Suspension (Mag Hydrox/Aluminum Hyd/Simeth) 355 Ml Oral.susp 30 Ml PO PRN Q3HRS PRN Alprazolam 0.5 Mg Tablet 0.5 Mg PO PRN TID PRN Tylenol (Acetaminophen) 325 Mg Tablet 650 Mg PO PRN Q6HRS PRN Tylenol (Acetaminophen) 325 Mg Tablet 650 Mg PO QID I have reviewed the current psychotropics carefully including drug interactions. Risk benefit ratio favors no change other than as noted in my dictated progress note. Diagnosis: Problems: (1) Anxiety disorder (2) Impulse control disorder (3) Dementia, vascular, with depression (4) Dementia, vascular, with delusions (5) Bipolar 1 disorder, mixed, moderate (6) Dementia in Alzheimer's disease with depression (7) Dementia in Alzheimer's disease with delusions CHARLEY MCCLURE MD Jun 30, 2017 19:58
[2017-07-01] MEDS: ACETAMINOPHEN 325 MG TABLET PO SCH ×4 (08:37→19:35)
[2017-07-01] MEDS: MELOXICAM 7.5 MG TABLET PO SCH (08:38)
[2017-07-01] MEDS: DIVALPROEX 125 MG CAP.SPRINK PO SCH ×3 (08:38→19:36)
[2017-07-01] MEDS: QUEtiapine 25 MG TABLET. PO SCH ×3 (08:38→16:52)
[2017-07-01] MEDS: LACTOBACILLUS RHAMNOSUS GG 1 CAPSULE. PO SCH (08:38)
[2017-07-01] MEDS: SERTRALINE 50 MG TABLET. PO SCH (08:38)
[2017-07-01] MEDS: NITROFURANTOIN MONOHYD/M-CRYST 100 MG CAPSULE. PO SCH (08:38)
[2017-07-01] MEDS: DEXTROMETHORPHAN/QUINIDINE 20/10MG CAPSULE. PO SCH ×2 (08:39→19:40)
--- NOTE | 2017-07-01 13:10 | PN ---
DATE: 06/30/2017 SUBJECTIVE: The patient was seen today, met with the staff, chart reviewed. Staff reports, the patient is exhibiting increased agitation, demanding behaviors. Later ,she received p.r.n. Zyprexa this morning because of the agitation. The staff also reports the patient is confused most of the time, verbally abusive, mood swings, delusional thinking and also emotionally labile. OBSERVATION: VITAL SIGNS: Temperature 97.6, blood pressure 125/69, pulse 73, respiration 18, O2 sat 100%. The patient slept about 5 hours last night. Appetite fair. The patient is not exhibiting any side effects to the medications. The patient is not presenting with any major medical problems. MEDICATIONS: The patient's current medications include Seroquel 37.5 mg t.i.d., Depakote 250 mg b.i.d. and 125 mg in the morning, olanzapine 2.5 mg q.2 hours p.r.n., trazodone 100 mg at night, mirtazapine 15 mg at night, trazodone 100 mg at night p.r.n. for sleep, Zoloft 50 mg daily. The patient's lab reviewed, which were all within normal range except for elevated alkaline phosphatase 139 and the last one was 135. The patient's valproic acid level was 43. ASSESSMENT: Major neurocognitive disorder, Alzheimer's, vascular with delusions, depression, and behavioral disturbances. PLAN: To continue with the medications. NIR GRIGGS MD DR: ROSMERY/bora JOB#: [id number] / [id number]
[2017-07-01] MEDS: ALPRAZolam 0.5 MG TABLET PO PRN (15:34)
[2017-07-01 15:53] VITALS: BP 98/60
[2017-07-01] MEDS: CYANOCOBALAMIN (VITAMIN B-12) 250 MCG TABLET PO SCH (16:52)
[2017-07-01] MEDS: MIRTAZAPINE 15 MG TABLET PO SCH (19:35)
[2017-07-01] MEDS: ATORVASTATIN CALCIUM 20 MG TABLET PO SCH (19:36)
[2017-07-01] MEDS: traZODone 100 MG TABLET. PO SCH (19:36)
--- NOTE | 2017-07-02 00:27 | PN ---
DATE: 06/29/2017 PSYCHIATRIC PROGRESS NOTE This is a late entry for date of service 06/29/2017. The patient was seen individually evening of 06/29/2017. This note covers elements not covered in my initial note of 06/29/2017. The patient has been somewhat delusional, labile, tearful at times, confused per nursing report, crying and cursing at times, more so in the evening, at times in the morning. REVIEW OF SYSTEMS: Ambulation impaired, in wheelchair. No CV, , pulmonary, eye, ENT system symptoms on review. Reliability poor. MENTAL STATUS EXAM: Oriented to herself. Insight, judgment, recent and remote memory, attention, concentration, fund of knowledge poor, consistent with her diagnosis mentioned in my initial note. IMPRESSION: Unchanged from initial note. PLAN: Continue current psychotropics, may need to increase Seroquel in due course. Continue Depakote despite slightly subtherapeutic level, it is adequate for now. CHARLEY MCCLURE MD DR: IRENE/bora JOB#: [id number] / [id number]
[2017-07-02 05:57] VITALS: BP 148/73
[2017-07-02] MEDS: DIVALPROEX 125 MG CAP.SPRINK PO SCH ×3 (08:30→20:07)
[2017-07-02] MEDS: QUEtiapine 25 MG TABLET. PO SCH ×3 (08:30→17:00)
[2017-07-02] MEDS: LACTOBACILLUS RHAMNOSUS GG 1 CAPSULE. PO SCH (08:31)
[2017-07-02] MEDS: SERTRALINE 50 MG TABLET. PO SCH (08:31)
[2017-07-02] MEDS: ACETAMINOPHEN 325 MG TABLET PO SCH ×4 (08:31→20:06)
[2017-07-02] MEDS: MELOXICAM 7.5 MG TABLET PO SCH (08:31)
[2017-07-02] MEDS: DEXTROMETHORPHAN/QUINIDINE 20/10MG CAPSULE. PO SCH ×2 (08:32→20:08)
[2017-07-02 15:52] VITALS: BP 96/61
[2017-07-02] MEDS: ALPRAZolam 0.5 MG TABLET PO PRN (16:40)
[2017-07-02] MEDS: CYANOCOBALAMIN (VITAMIN B-12) 250 MCG TABLET PO SCH (17:00)
--- NOTE | 2017-07-02 18:08 | PN ---
DATE: 07/01/2017 SUBJECTIVE: The patient was seen today, met with the staff, chart reviewed. The patient continues to have behavior problems, verbally aggressive, labile, name calling, apparently responded well to Xanax as a p.r.n., but not to ascites, Zyprexa. OBSERVATION: VITAL SIGNS: The patient refused vital signs. The patient slept only about 3 hours last night. The patient's appetite is fair. The patient is not presenting with any physical problems. No major side effects. MEDICATIONS: The patient's current medications include Seroquel 37.5 mg t.i.d., Depakote 250 mg b.i.d. and 125 mg in the morning, olanzapine 2.5 mg q. 2 hours p.r.n., trazodone 100 mg at night, mirtazapine 15 mg at night, trazodone 100 mg at night p.r.n. for sleep, Zoloft 50 mg daily, and Xanax as a p.r.n. The patient is not having any other physical complaints. LABORATORY DATA: Reviewed. IMPRESSION: Major neurocognitive disorder, Alzheimer's, vascular with delusions, depression and behavioral disturbances. PLAN: To continue with the treatment. NIR GRIGGS MD DR: ROSMERY/bora JOB#: [id number] / [id number]
[2017-07-02] MEDS: traZODone 100 MG TABLET. PO SCH (20:07)
[2017-07-02] MEDS: ATORVASTATIN CALCIUM 20 MG TABLET PO SCH (20:07)
[2017-07-02] MEDS: MIRTAZAPINE 15 MG TABLET PO SCH (20:07)
[2017-07-03 06:01] VITALS: BP 110/66
--- NOTE | 2017-07-03 06:53 | PN ---
DATE: 07/02/2017 SUBJECTIVE: The patient was seen today, met with the staff, chart reviewed. The patient continues to exhibit some mood swings, emotional lability, and apparently she is sleeping most of the day today and the patient has been getting Zyprexa Zydis and Xanax as p.r.n. for agitation. OBSERVATION: Vital signs stable. The patient did not present with any major physical problems. The patient is attending few groups. Staff reports no major problems today except that she has been sleepy most of the day. MEDICATIONS: The patient's current medications include Seroquel 37.u5 mg t.i.d., Depakote 250 mg b.i.d. and 125 mg in the morning, olanzapine 2.5 mg q.2 hours p.r.n., trazodone 100 mg at night, mirtazapine 15 mg at night, Zoloft 50 mg daily, and trazodone 100 mg at night. LABORATORY DATA: The patient's labs Reviewed. ASSESSMENT: Major neurocognitive disorder, Alzheimer's, vascular with delusions, depression, and behavioral disturbances. PLAN: To continue with the treatment. NIR GRIGGS MD DR: Chata JOB#: [id number] / [id number]
[2017-07-03] MEDS: LACTOBACILLUS RHAMNOSUS GG 1 CAPSULE. PO SCH (08:47)
[2017-07-03] MEDS: MELOXICAM 7.5 MG TABLET PO SCH (08:47)
[2017-07-03] MEDS: DIVALPROEX 125 MG CAP.SPRINK PO SCH ×3 (08:47→19:23)
[2017-07-03] MEDS: SERTRALINE 50 MG TABLET. PO SCH (08:47)
[2017-07-03] MEDS: DEXTROMETHORPHAN/QUINIDINE 20/10MG CAPSULE. PO SCH ×2 (08:47→19:25)
[2017-07-03] MEDS: ACETAMINOPHEN 325 MG TABLET PO SCH ×4 (08:48→19:25)
[2017-07-03] MEDS: QUEtiapine 25 MG TABLET. PO SCH ×3 (08:49→17:30)
[2017-07-03] MEDS: ALPRAZolam 0.5 MG TABLET PO PRN (12:22)
[2017-07-03 15:58] VITALS: BP 91/59
[2017-07-03] MEDS: CYANOCOBALAMIN (VITAMIN B-12) 250 MCG TABLET PO SCH (17:30)
[2017-07-03] MEDS: traZODone 100 MG TABLET. PO SCH (19:23)
[2017-07-03] MEDS: ATORVASTATIN CALCIUM 20 MG TABLET PO SCH (19:23)
[2017-07-03] MEDS: MIRTAZAPINE 15 MG TABLET PO SCH (19:23)
[2017-07-04] MEDS: traZODone 100 MG TABLET. PO PRN ×2 (02:18→22:39)
--- NOTE | 2017-07-04 03:28 | PN ---
DATE: 07/03/2017 SUBJECTIVE: The patient was seen today, met with the staff, chart reviewed. Also discussed with the staffing today with regard to the patient's progress. The patient continues to have problems, verbally aggressive, difficult to redirect, and emotional lability, continues to receive p.r.n. medications. OBSERVATION: VITAL SIGNS: Temperature 97.7, blood pressure 110/66, pulse 61, respirations 16, O2 sat 98%. The patient slept about 5-1/2 hours last night. The patient did not have any falls. MEDICATIONS: Reviewed. Currently on Seroquel 37.5 mg t.i.d., Depakote 250 mg b.i.d. and 125 mg in the morning. She is also on trazodone 100 mg at night, mirtazapine 15 mg at night, Zoloft 50 mg daily, and olanzapine 2.5 mg q.2 hours p.r.n. LABORATORY DATA: The patient's lab reviewed. ASSESSMENT: Major neurocognitive disorder, Alzheimer's, vascular with delusions, depression and behavioral disturbances. PLAN: To continue with the treatment and consider discharge in 3-5 days. NIR GRIGGS MD DR: ROSMERY/bora JOB#: [id number] / [id number]
[2017-07-04 06:06] VITALS: BP 106/66
[2017-07-04] MEDS: ACETAMINOPHEN 325 MG TABLET PO SCH ×4 (07:34→19:49)
[2017-07-04] MEDS: DIVALPROEX 125 MG CAP.SPRINK PO SCH ×3 (07:35→19:49)
[2017-07-04] MEDS: MELOXICAM 7.5 MG TABLET PO SCH (07:35)
[2017-07-04] MEDS: DEXTROMETHORPHAN/QUINIDINE 20/10MG CAPSULE. PO SCH ×2 (07:35→19:49)
[2017-07-04] MEDS: SERTRALINE 50 MG TABLET. PO SCH (07:35)
[2017-07-04] MEDS: QUEtiapine 25 MG TABLET. PO SCH ×3 (07:35→16:43)
[2017-07-04] MEDS: LACTOBACILLUS RHAMNOSUS GG 1 CAPSULE. PO SCH (07:35)
[2017-07-04 15:23] VITALS: BP 128/64
[2017-07-04] MEDS: CYANOCOBALAMIN (VITAMIN B-12) 250 MCG TABLET PO SCH (16:43)
[2017-07-04] MEDS: MIRTAZAPINE 15 MG TABLET PO SCH (19:49)
[2017-07-04] MEDS: traZODone 100 MG TABLET. PO SCH (19:49)
[2017-07-04] MEDS: ATORVASTATIN CALCIUM 20 MG TABLET PO SCH (19:49)
[2017-07-04] MEDS: ALPRAZolam 0.5 MG TABLET PO PRN (19:53)
[2017-07-05 06:08] VITALS: BP 164/57
[2017-07-05] MEDS: ACETAMINOPHEN 325 MG TABLET PO SCH ×4 (07:49→20:20)
[2017-07-05] MEDS: QUEtiapine 25 MG TABLET. PO SCH ×3 (07:49→18:24)
[2017-07-05] MEDS: SERTRALINE 50 MG TABLET. PO SCH (07:49)
[2017-07-05] MEDS: MELOXICAM 7.5 MG TABLET PO SCH (07:49)
[2017-07-05] MEDS: LACTOBACILLUS RHAMNOSUS GG 1 CAPSULE. PO SCH (07:50)
[2017-07-05] MEDS: DEXTROMETHORPHAN/QUINIDINE 20/10MG CAPSULE. PO SCH ×2 (07:50→20:20)
[2017-07-05] MEDS: DIVALPROEX 125 MG CAP.SPRINK PO SCH ×3 (07:50→20:20)
[2017-07-05] MEDS: CHOLECALCIFEROL (VITAMIN D3) 50,000 UNIT CAPSULE PO SCH (07:51)
--- NOTE | 2017-07-05 13:05 | PN ---
DATE: 07/04/2017 SUBJECTIVE: The patient was seen today, met with the staff, chart reviewed. The patient continues to show some emotional lability, has not had any falls, has been complaining of feeling tired and weak. The patient has tendency to become verbally aggressive at times, difficult to redirect. OBSERVATION: VITAL SIGNS: Temperature 97.9, blood pressure 106/60, pulse 54, respirations 14, O2 sat 97%. Slept about 1 hour last night, but the patient sleeps during the daytime. The patient's lab reviewed. CURRENT MEDICATIONS: Include Seroquel 37.5 mg t.i.d., Depakote 250 mg b.i.d. and 125 mg in the morning, trazodone 100 mg at night, mirtazapine 15 mg at night, Zoloft 50 mg daily. She is also on olanzapine 2.5 mg q.2 hours p.r.n. ASSESSMENT: Major neurocognitive disorder, Alzheimer's, vascular with delusions, depression and behavioral disturbances. PLAN: To continue with the treatment. NIR GRIGGS MD DR: ROSMERY/bora JOB#: [id number] / [id number]
[2017-07-05 16:00] VITALS: BP 100/62
[2017-07-05] MEDS: CYANOCOBALAMIN (VITAMIN B-12) 250 MCG TABLET PO SCH (18:24)
[2017-07-05] MEDS: traZODone 100 MG TABLET. PO SCH (20:20)
[2017-07-05] MEDS: ATORVASTATIN CALCIUM 20 MG TABLET PO SCH (20:20)
[2017-07-05] MEDS: MIRTAZAPINE 15 MG TABLET PO SCH (20:20)
[2017-07-05] MEDS: ALPRAZolam 0.5 MG TABLET PO PRN (20:21)
[2017-07-06 06:18] VITALS: BP 117/70
[2017-07-06] MEDS: MELOXICAM 7.5 MG TABLET PO SCH (08:00)
[2017-07-06] MEDS: ACETAMINOPHEN 325 MG TABLET PO SCH ×4 (08:00→19:25)
[2017-07-06] MEDS: LACTOBACILLUS RHAMNOSUS GG 1 CAPSULE. PO SCH (08:00)
[2017-07-06] MEDS: QUEtiapine 25 MG TABLET. PO SCH ×3 (08:00→18:29)
[2017-07-06] MEDS: SERTRALINE 50 MG TABLET. PO SCH (08:01)
[2017-07-06] MEDS: DIVALPROEX 125 MG CAP.SPRINK PO SCH ×3 (08:01→19:26)
[2017-07-06] MEDS: DEXTROMETHORPHAN/QUINIDINE 20/10MG CAPSULE. PO SCH ×2 (08:01→19:23)
[2017-07-06 09:07] LABS: BACTERIA,URINE 0 /HPF (0-FEW); BILIRUBIN,URINE NEG (NEG); CLARITY,URINE CLEAR; COLOR,URINE YELLOW; GLUCOSE,URINE NEG (NEG); NITRITE,URINE NEG (NEG); SQUAMOUS EPITHELIAL CELL,UR OCC /LPF; UROBILINOGEN,URINE 0.2 mg/dL (0.2 mg/dL)
[2017-07-06 09:44] LABS: BASO % 1 % (0-3); EOS # 0.3 x10^3/uL (0.0-0.7); EOS % 4 % (0-3); HEMATOCRIT 37.8 % (36.0-47.0); HEMOGLOBIN 12.8 g/dL (12.0-15.5); LYMPH # 1.1 x10^3/uL (1.0-4.8); LYMPH % 17 % (24-48); MEAN CORPUSCULAR HEMOGLOBIN 32 pg (25-35); MEAN CORPUSCULAR HGB CONC 34 g/dL (31-37); MEAN CORPUSCULAR VOLUME 94 fL (79-100); MONO # 0.5 x10^3/uL (0.0-1.1); MONO % 8 % (0-9); NEUT # 4.4 x10^3uL (1.8-7.7); NEUT % 70 % (31-73); PLATELET COUNT 203 x10^3/uL (140-400); RED BLOOD COUNT 4.03 x10^6/uL (3.50-5.40); RED CELL DISTRIBUTION WIDTH 14.1 % (11.5-14.5); WHITE BLOOD COUNT 6.3 x10^3/uL (4.0-11.0)
[2017-07-06 09:55] LABS: ALBUMIN 3.5 g/dL (3.4-5.0); ALBUMIN/GLOBULIN RATIO 1.1 (1.0-1.7); ALK PHOS 130 U/L (46-116); ALT (SGPT) 21 U/L (14-59); ANION GAP 6 (6-14); AST (SGOT) 13 U/L (15-37); BLOOD UREA NITROGEN 16 mg/dL (7-20); BUN/CREATININE RATIO 32 (6-20); CALCIUM 8.9 mg/dL (8.5-10.1); CARBON DIOXIDE 32 mmol/L (21-32); CHLORIDE 107 mmol/L (98-107); CREATININE 0.5 mg/dL (0.6-1.0); GFR 120.3; GLUCOSE 99 mg/dL (70-99); POTASSIUM 3.7 mmol/L (3.5-5.1); SODIUM 145 mmol/L (136-145); TOTAL BILIRUBIN 0.4 mg/dL (0.2-1.0); TOTAL PROTEIN 6.8 g/dL (6.4-8.2)
[2017-07-06 09:56] LABS: VAL ACID 47 mcg/mL (50-100)
[2017-07-06] MEDS: ALPRAZolam 0.5 MG TABLET PO PRN (10:12)
[2017-07-06] MEDS ORDERED: IOHEXOL 240 MG/ML 50ML VIAL. PO ONE (11:45)
[2017-07-06 16:26] VITALS: BP 116/66
[2017-07-06] MEDS: CYANOCOBALAMIN (VITAMIN B-12) 250 MCG TABLET PO SCH (18:29)
[2017-07-06] MEDS: traZODone 100 MG TABLET. PO SCH (19:25)
[2017-07-06] MEDS: MIRTAZAPINE 15 MG TABLET PO SCH (19:26)
[2017-07-06] MEDS: ATORVASTATIN CALCIUM 20 MG TABLET PO SCH (19:28)
--- NOTE | 2017-07-06 20:13 | PDOC ---
Exam Note: Martin Note: Please also refer to the separate dictated note~for this date of service dictated separately.~Patient seen individually. Discussed the patient with Nursing staff reviewed the chart.~Reviewed interim history and current functioning. Reviewed vital signs,~Labs/ Radiology~and current medications noted below. Continue current treatment with the changes noted in the dictated addendum note Assessment: Vital Signs: Vital Signs Date Time Temp Pulse Resp B/P (MAP) Pulse Ox O2 Delivery O2 Flow Rate FiO2 07/06/17 16:26 98.4 95 18 116/66 (83) 96 07/06/17 06:18 Room Air I&O Intake and Output 07/06/17 07:00 Intake Total 420 ml Balance 420 ml Intake Oral 420 ml # Bowel Movements 1 Labs: Laboratory Tests Test 07/06/17 07:45 07/06/17 09:08 Urine Collection Type Unknown Urine Color Yellow Urine Clarity Clear Urine pH 7.0 Urine Specific [place] 1.015 Urine Protein Neg (NEG-TRACE) Urine Glucose (UA) Neg mg/dL (NEG) Urine Ketones (Stick) Neg mg/dL (NEG) Urine Blood Trace (NEG) Urine Nitrite Neg (NEG) Urine Bilirubin Neg (NEG) Urine Urobilinogen Dipstick 0.2 mg/dL (0.2 mg/dL) Urine Leukocyte Esterase Trace (NEG) Urine RBC 3-5 /HPF (0-2) Urine WBC 5-10 /HPF (0-4) Urine Squamous Epithelial Cells Occ /LPF Urine Bacteria 0 /HPF (0-FEW) White Blood Count 6.3 x10^3/uL (4.0-11.0) Red Blood Count 4.03 x10^6/uL (3.50-5.40) Hemoglobin 12.8 g/dL (12.0-15.5) Hematocrit 37.8 % (36.0-47.0) Mean Corpuscular Volume 94 fL (79-100) Mean Corpuscular Hemoglobin 32 pg (25-35) Mean Corpuscular Hemoglobin Concent 34 g/dL (31-37) Red Cell Distribution Width 14.1 % (11.5-14.5) Platelet Count 203 x10^3/uL (140-400) Neutrophils (%) (Auto) 70 % (31-73) Lymphocytes (%) (Auto) 17 % (24-48) L Monocytes (%) (Auto) 8 % (0-9) Eosinophils (%) (Auto) 4 % (0-3) H Basophils (%) (Auto) 1 % (0-3) Neutrophils # (Auto) 4.4 x10^3uL (1.8-7.7) Lymphocytes # (Auto) 1.1 x10^3/uL (1.0-4.8) Monocytes # (Auto) 0.5 x10^3/uL (0.0-1.1) Eosinophils # (Auto) 0.3 x10^3/uL (0.0-0.7) Basophils # (Auto) 0.0 x10^3/uL (0.0-0.2) Sodium Level 145 mmol/L (136-145) Potassium Level 3.7 mmol/L (3.5-5.1) Chloride Level 107 mmol/L (98-107) Carbon Dioxide Level 32 mmol/L (21-32) Anion Gap 6 (6-14) Blood Urea Nitrogen 16 mg/dL (7-20) Creatinine 0.5 mg/dL (0.6-1.0) L Estimated GFR (Cockcroft-Gault) 120.3 BUN/Creatinine Ratio 32 (6-20) H Glucose Level 99 mg/dL (70-99) Calcium Level 8.9 mg/dL (8.5-10.1) Total Bilirubin 0.4 mg/dL (0.2-1.0) Aspartate Amino Transferase (AST) 13 U/L (15-37) L Alanine Aminotransferase (ALT) 21 U/L (14-59) Alkaline Phosphatase 130 U/L (46-116) H Total Protein 6.8 g/dL (6.4-8.2) Albumin 3.5 g/dL (3.4-5.0) Albumin/Globulin Ratio 1.1 (1.0-1.7) Valproic Acid Level 47 mcg/mL (50-100) L Valproic Acid Last Dose Date 07/05/17 Valproic Acid Last Dose Time 2100 Current Medications: Meds: Current Medications Acetaminophen (Tylenol) 650 mg PRN Q6HRS PRN PO PAIN / TEMP Last administered on 06/06/17at 06:16; Start 05/28/17 at 23:00 Multi-Ingredient Ointment (Analgesic [place]) 1 faraz PRN QID PRN TP MUSCLE PAIN; Start 05/28/17 at 23:00 Al Hydroxide/Mg Hydroxide (Mylanta Plus Xs) 15 ml PRN AFTMEALHC PRN PO DYSPEPSIA; Start 05/28/17 at 23:00 Magnesium Hydroxide (Milk Of Magnesia) 2,400 mg PRN QHS PRN PO CONSTIPATION Last administered on 06/21/17 16:59; Start 05/28/17 at 23:00 Alprazolam (Xanax) 0.5 mg PRN TID PRN PO ANXIETY / AGITATION Last administered on 07/06/17 10:12; Start 05/29/17 at 00:15 Aripiprazole (Abilify) 5 mg DAILY PO Last administered on 05/30/17 08:34; Start 05/29/17 at 09:00; Stop 05/30/17 at 17:17; Status DC Haloperidol (Haldol) 1 mg PRN BID PRN PO DELIRIUM Last administered on 23:21; Start 05/29/17 at 00:15; Stop 06/24/17 at 18:20; Status DC Trazodone HCl (Desyrel) 50 mg QHS PO Last administered on 06/12/17 19:54; Start 05/29/17 at 21:00; Stop 06/13/17 at 18:13; Status DC Citalopram Hydrobromide (CeleXA) 20 mg DAILY PO Last administered on 06/09/17 07:49; Start 05/29/17 at 09:00; Stop 06/09/17 at 18:00; Status DC Influenza Virus Vaccine Quadrival (Fluarix Quad [id number] Syringe) 0.5 ml ONCE ONCE VAX IM Last administered on 05/29/17 09:47; Start 05/29/17 at 09:00; Stop 05/29/17 at 09:01; Status DC Pneumococcal Polyvalent Vaccine (Pneumovax 23) 0.5 ml ONCE ONCE VAX IM Last administered on 05/29/17 09:45; Start 05/29/17 at 09:00; Stop 05/31/17 at 14 :59; Status DC Info (FLU VACCINE per PROTOCOL) 1 ea PRN 1X PRN MC PER PROTOCOL; Start at 02:15; Status Cancel Pneumococcal Polyvalent Vaccine (Do NOT chart on this entry -- for MONITORING) 1 each PRN 1X PRN MC SEE COMMENTS; Start 05/29/17 at 02:15; Status Cancel Acetaminophen (Tylenol) 650 mg PRN Q6HRS PRN PO PAIN / TEMP; Start 05/29/17 at 05:45; Stop 05/29/17 at 12:08; Status DC Acetaminophen (Tylenol) 650 mg QID PO Last administered on 07/06/17 19:25; Start 05/29/17 at 09:00 Enoxaparin Sodium (Lovenox) 40 mg DAILY SQ Last administered on 05/29/17 09: 41; Start 05/29/17 at 09:00; Stop 05/29/17 at 12:08; Status DC Lamotrigine (LaMICtal) 25 mg DAILY PO Last administered on 06/04/17 08:43; Start 05/29/17 at 09:00; Stop 06/04/17 at 12:17; Status DC Meloxicam (Mobic) 7.5 mg DAILY PO Last administered on 07/06/17 08:00; Start 05/29/17 at 09:00 Atorvastatin Calcium (Lipitor) 40 mg QHS PO Last administered on 07/06/17 19:28 ; Start 05/29/17 at 21:00 Lactobacillus Rhamnosus (Culturelle) 1 cap DAILY PO Last administered on 08:00; Start 05/29/17 at 09:00 Magnesium Hydroxide (Milk Of Magnesia) 2,400 mg PRN Q12HR PRN PO CONSTIPATION; Start 05/29/17 at 05:45; Stop 05/29/17 at 12:08; Status DC Potassium Chloride (Klor-Con) 40 meq 1X ONCE PO Last administered on 13:40; Start 05/29/17 at 12:00; Stop 05/29/17 at 12:11; Status DC Quetiapine Fumarate (SEROquel) 12.5 mg BID@0900,1300 PO Last administered on 07:50; Start 05/31/17 at 09:00; Stop 06/01/17 at 11:11; Status DC Cyanocobalamin (Vitamin B-12) 250 mcg DAILYBFRSUP PO Last administered on at 18:29; Start 05/31/17 at 17:00 Vitamin D (Vitamin D3) 50,000 unit WEEKLY PO Last administered on 07/05/17at 07: 51; Start 05/31/17 at 11:45 Quetiapine Fumarate (SEROquel) 12.5 mg TID@0900,1400,1700 PO Last administered on 06/11/17at 17:02; Start 06/01/17 at 14:00; Stop 06/11/17 at 17:36; Status DC Trazodone HCl (Desyrel) 50 mg PRN QHS PRN PO INSOMNIA Last administered on at 22:18; Start 06/02/17 at 19:00; Stop 06/13/17 at 18:13; Status DC Divalproex Sodium (Depakote Sprinkles) 125 mg BID@0900,1400 PO Last administered on 06/09/17at 13:31; Start 06/05/17 at 09:00; Stop 06/09/17 at 18:00; Status DC Divalproex Sodium (Depakote Sprinkles) 125 mg TID PO Last administered on at 08:38; Start 06/09/17 at 21:00; Stop 06/26/17 at 10:37; Status DC Sertraline HCl (Zoloft) 50 mg DAILY PO Last administered on 07/06/17at 08:01; Start 06/10/17 at 09:00 Mirtazapine (Remeron) 7.5 mg QHS PO Last administered on 06/12/17at 19:54; Start 06/09/17 at 21:00; Stop 06/13/17 at 18:13; Status DC Dextromethorphan/ Quinidine (Nuedexta 20-10 Mg Capsule) 1 cap DAILY PO Last administered on 06/17/17at 08:55; Start 06/11/17 at 09:00; Stop 06/17/17 at 14:00 ; Status DC Quetiapine Fumarate (SEROquel) 12.5 mg BID@0900,1700 PO Last administered on at 08:35; Start 06/12/17 at 09:00; Stop 06/19/17 at 15:07; Status DC Quetiapine Fumarate (SEROquel) 25 mg DAILY@1400 PO Last administered on 13:02; Start 06/12/17 at 14:00; Stop 06/19/17 at 15:07; Status DC Mirtazapine (Remeron) 15 mg QHS PO Last administered on 07/06/17 19:26; Start 06/13/17 at 21:00 Trazodone HCl (Desyrel) 100 mg QHS PO Last administered on 07/06/17 19:25; Start 06/13/17 at 21:00 Trazodone HCl (Desyrel) 100 mg PRN QHS PRN PO INSOMNIA Last administered on 07/04 22:39; Start 06/13/17 at 18:15 Dextromethorphan/ Quinidine (Nuedexta 20-10 Mg Capsule) 1 cap BID PO Last administered on 07/06/17 19:23; Start 06/18/17 at 09:00 Quetiapine Fumarate (SEROquel) 12.5 mg DAILY@1700 PO Last administered on 16:48; Start 06/19/17 at 17:00; Stop 06/26/17 at 10:37; Status DC Quetiapine Fumarate (SEROquel) 25 mg BID92 PO Last administered on 06/26/17 08 :39; Start 06/20/17 at 09:00; Stop 06/26/17 at 10:37; Status DC Nitrofurantoin Macrocrystals (Macrobid) 100 mg BID PO Last administered on 07/01 08:38; Start 06/21/17 at 19:00; Stop 07/01/17 at 18:17; Status DC Olanzapine (ZyPREXA ZYDIS) 2.5 mg PRN Q2HR PRN PO PSYCHOSIS Last administered on 07/06/17 13:53; Start 06/24/17 at 18:30 Divalproex Sodium (Depakote Sprinkles) 125 mg DAILY@1400 PO Last administered on 07/06/17 13:53; Start 06/26/17 at 14:00 Quetiapine Fumarate (SEROquel) 25 mg TID@0900,1400,1700 PO Last administered on 1/27/18at 18:07; Start 06/26/17 at 14:00; Stop 06/28/17 at 19:28; Status DC Divalproex Sodium (Depakote Sprinkles) 250 mg BID PO Last administered on at 19:26; Start 06/26/17 at 21:00 Quetiapine Fumarate (SEROquel) 37.5 mg TID@0900,1400,1700 PO Last administered on 07/06/17at 18:29; Start 06/29/17 at 09:00 Iohexol (Omnipaque 240 Mg/ml) 30 ml 1X ONCE PO ; Start 07/06/17 at 11:45; Stop 07/06/17 at 11:46; Status DC Active Scripts Active Reported Trazodone Hcl 50 Mg Tablet 50 Mg PO QHS Meloxicam 7.5 Mg Tablet 7.5 Mg PO DAILY Milk Of Magnesia (Magnesium Hydroxide) 2,400 Mg/10 Ml Oral.susp 2,400 Mg PO PRN Q12HR PRN Lamotrigine 25 Mg Tablet 25 Mg PO DAILY Culturelle Capsule (L. Rhamnosus GG/Inulin) 1 Each Cap.sprink 1 Each PO DAILY Haloperidol 2 Mg Tablet 1 Mg PO PRN BID PRN Escitalopram Oxalate 10 Mg Tablet 10 Mg PO DAILY Lovenox (Enoxaparin Sodium) 40 Mg/0.4 Ml Disp.syrin 40 Mg SQ DAILY Atorvastatin Calcium 40 Mg Tablet 40 Mg PO QHS Abilify (Aripiprazole) 5 Mg Tablet 5 Mg PO DAILY Maalox Advanced Suspension (Mag Hydrox/Aluminum Hyd/Simeth) 355 Ml Oral.susp 30 Ml PO PRN Q3HRS PRN Alprazolam 0.5 Mg Tablet 0.5 Mg PO PRN TID PRN Tylenol (Acetaminophen) 325 Mg Tablet 650 Mg PO PRN Q6HRS PRN Tylenol (Acetaminophen) 325 Mg Tablet 650 Mg PO QID I have reviewed the current psychotropics carefully including drug interactions. Risk benefit ratio favors no change other than as noted in my dictated progress note. Diagnosis: Problems: (1) Anxiety disorder (2) Impulse control disorder (3) Dementia, vascular, with depression (4) Dementia, vascular, with delusions (5) Bipolar 1 disorder, mixed, moderate (6) Dementia in Alzheimer's disease with depression (7) Dementia in Alzheimer's disease with delusions CHARLEY MCCLURE MD Jul 06, 2017 20:12
--- NOTE | 2017-07-06 22:34 | PN ---
DATE: 07/05/[address] Mosqueda. SUBJECTIVE: The patient denies any new complaints; however, she has been labile. She finished medicine for urinary tract infection. She has been agitated today, but no report of any falls. The patient has been restless at night. She was given Xanax and extra dose of trazodone at 11:00 p.m. last night to sleep. On occasions, she became very agitated with variable aggressive behavior. OBJECTIVE: GENERAL: Well-developed, well-nourished female, not in acute distress. VITAL SIGNS: Blood pressure ____, respiratory rate 18, pulse 65, temperature is 97.6, oxygen saturation 97% on room air. HEENT: Normocephalic, atraumatic, otherwise unremarkable. NECK: Supple, negative for carotid bruit, lymphadenopathy, or thyromegaly. LUNGS: Clear to A and P. CARDIOVASCULAR: Regular rhythm, normal S1, S2. ABDOMEN: Soft. Bowel sounds positive. EXTREMITIES: Negative for cyanosis, clubbing, or pitting edema. NEUROLOGIC: She is in a wheelchair and had dementia. It was reported her valproic acid was low at 43. IMPRESSION: 1. Dementia, probably of Alzheimer type, depressions, bipolar disorders, anxiety and delusion with intermittent behavior disturbance. 2. Anemia. RECOMMENDATIONS: Continue with current management. M Marcelina DENNIS MD DR: TONY/bora JOB#: [id number] / [id number]
[2017-07-07 06:13] VITALS: BP 158/74
[2017-07-07] MEDS: LACTOBACILLUS RHAMNOSUS GG 1 CAPSULE. PO SCH (09:14)
[2017-07-07] MEDS: SERTRALINE 50 MG TABLET. PO SCH (09:14)
[2017-07-07] MEDS: ACETAMINOPHEN 325 MG TABLET PO SCH ×4 (09:14→19:57)
[2017-07-07] MEDS: DEXTROMETHORPHAN/QUINIDINE 20/10MG CAPSULE. PO SCH ×2 (09:14→19:58)
[2017-07-07] MEDS: DIVALPROEX 125 MG CAP.SPRINK PO SCH ×3 (09:14→19:56)
[2017-07-07] MEDS: MELOXICAM 7.5 MG TABLET PO SCH (09:17)
[2017-07-07] MEDS: QUEtiapine 25 MG TABLET. PO SCH ×3 (09:17→16:41)
[2017-07-07] MEDS: ALPRAZolam 0.5 MG TABLET PO PRN (15:38)
[2017-07-07 16:31] VITALS: BP 114/80
[2017-07-07] MEDS: CYANOCOBALAMIN (VITAMIN B-12) 250 MCG TABLET PO SCH (16:40)
[2017-07-07] MEDS: traZODone 100 MG TABLET. PO SCH (19:56)
[2017-07-07] MEDS: MIRTAZAPINE 15 MG TABLET PO SCH (19:57)
[2017-07-07] MEDS: ATORVASTATIN CALCIUM 20 MG TABLET PO SCH (19:57)
--- NOTE | 2017-07-07 21:23 | PDOC ---
Exam Note: Martin Note: Please also refer to the separate dictated note~for this date of service dictated separately.~Patient seen individually. Discussed the patient with Nursing staff reviewed the chart.~Reviewed interim history and current functioning. Reviewed vital signs,~Labs/ Radiology~and current medications noted below. Continue current treatment with the changes noted in the dictated addendum note Assessment: Vital Signs: Vital Signs Date Time Temp Pulse Resp B/P (MAP) Pulse Ox O2 Delivery O2 Flow Rate FiO2 07/07/17 16:31 97.7 68 20 114/80 (91) 99 07/06/17 06:18 Room Air I&O Intake and Output 07/07/17 07:00 Intake Total 700 ml Balance 700 ml Intake Oral 700 ml # Voids 1 Current Medications: Meds: Current Medications Acetaminophen (Tylenol) 650 mg PRN Q6HRS PRN PO PAIN / TEMP Last administered on 06/06/17 06:16; Start 05/28/17 at 23:00 Multi-Ingredient Ointment (Analgesic [place]) 1 faraz PRN QID PRN TP MUSCLE PAIN; Start 05/28/17 at 23:00 Al Hydroxide/Mg Hydroxide (Mylanta Plus Xs) 15 ml PRN AFTMEALHC PRN PO DYSPEPSIA; Start 05/28/17 at 23:00 Magnesium Hydroxide (Milk Of Magnesia) 2,400 mg PRN QHS PRN PO CONSTIPATION Last administered on 06/21/17 16:59; Start 05/28/17 at 23:00 Alprazolam (Xanax) 0.5 mg PRN TID PRN PO ANXIETY / AGITATION Last administered on 07/07/17 15:38; Start 05/29/17 at 00:15 Aripiprazole (Abilify) 5 mg DAILY PO Last administered on 05/30/17t 08:34; Start 05/29/17 at 09:00; Stop 05/30/17 at 17:17; Status DC Haloperidol (Haldol) 1 mg PRN BID PRN PO DELIRIUM Last administered on 23:21; Start 05/29/17 at 00:15; Stop 06/24/17 at 18:20; Status DC Trazodone HCl (Desyrel) 50 mg QHS PO Last administered on 06/12/17 19:54; Start 05/29/17 at 21:00; Stop 06/13/17 at 18:13; Status DC Citalopram Hydrobromide (CeleXA) 20 mg DAILY PO Last administered on 06/09/17 07:49; Start 05/29/17 at 09:00; Stop 06/09/17 at 18:00; Status DC Influenza Virus Vaccine Quadrival (Fluarix Quad [id number] Syringe) 0.5 ml ONCE ONCE VAX IM Last administered on 05/29/17 09:47; Start 05/29/17 at 09:00; Stop 05/29/17 at 09:01; Status DC Pneumococcal Polyvalent Vaccine (Pneumovax 23) 0.5 ml ONCE ONCE VAX IM Last administered on 05/29/17 09:45; Start 05/29/17 at 09:00; Stop 05/31/17 at 14 :59; Status DC Info (FLU VACCINE per PROTOCOL) 1 ea PRN 1X PRN MC PER PROTOCOL; Start at 02:15; Status Cancel Pneumococcal Polyvalent Vaccine (Do NOT chart on this entry -- for MONITORING) 1 each PRN 1X PRN MC SEE COMMENTS; Start 05/29/17 at 02:15; Status Cancel Acetaminophen (Tylenol) 650 mg PRN Q6HRS PRN PO PAIN / TEMP; Start 05/29/17 at 05:45; Stop 05/29/17 at 12:08; Status DC Acetaminophen (Tylenol) 650 mg QID PO Last administered on 07/07/17 19:57; Start 05/29/17 at 09:00 Enoxaparin Sodium (Lovenox) 40 mg DAILY SQ Last administered on 05/29/17 09: 41; Start 05/29/17 at 09:00; Stop 05/29/17 at 12:08; Status DC Lamotrigine (LaMICtal) 25 mg DAILY PO Last administered on 06/04/17 08:43; Start 05/29/17 at 09:00; Stop 06/04/17 at 12:17; Status DC Meloxicam (Mobic) 7.5 mg DAILY PO Last administered on 07/07/17 09:17; Start 05/29/17 at 09:00 Atorvastatin Calcium (Lipitor) 40 mg QHS PO Last administered on 07/07/17 19:57 ; Start 05/29/17 at 21:00 Lactobacillus Rhamnosus (Culturelle) 1 cap DAILY PO Last administered on 09:14; Start 05/29/17 at 09:00 Magnesium Hydroxide (Milk Of Magnesia) 2,400 mg PRN Q12HR PRN PO CONSTIPATION; Start 05/29/17 at 05:45; Stop 05/29/17 at 12:08; Status DC Potassium Chloride (Klor-Con) 40 meq 1X ONCE PO Last administered on 13:40; Start 05/29/17 at 12:00; Stop 05/29/17 at 12:11; Status DC Quetiapine Fumarate (SEROquel) 12.5 mg BID@0900,1300 PO Last administered on 07:50; Start 05/31/17 at 09:00; Stop 06/01/17 at 11:11; Status DC Cyanocobalamin (Vitamin B-12) 250 mcg DAILYBFRSUP PO Last administered on 16:40; Start 05/31/17 at 17:00 Vitamin D (Vitamin D3) 50,000 unit WEEKLY PO Last administered on 07/05/17 07: 51; Start 05/31/17 at 11:45 Quetiapine Fumarate (SEROquel) 12.5 mg TID@0900,1400,1700 PO Last administered on 06/11/17 17:02; Start 06/01/17 at 14:00; Stop 06/11/17 at 17:36; Status DC Trazodone HCl (Desyrel) 50 mg PRN QHS PRN PO INSOMNIA Last administered on 22:18; Start 06/02/17 at 19:00; Stop 06/13/17 at 18:13; Status DC Divalproex Sodium (Depakote Sprinkles) 125 mg BID@0900,1400 PO Last administered on 06/09/17 13:31; Start 06/05/17 at 09:00; Stop 06/09/17 at 18:00; Status DC Divalproex Sodium (Depakote Sprinkles) 125 mg TID PO Last administered on 08:38; Start 06/09/17 at 21:00; Stop 06/26/17 at 10:37; Status DC Sertraline HCl (Zoloft) 50 mg DAILY PO Last administered on 07/07/17at 09:14; Start 06/10/17 at 09:00 Mirtazapine (Remeron) 7.5 mg QHS PO Last administered on 06/12/17at 19:54; Start 06/09/17 at 21:00; Stop 06/13/17 at 18:13; Status DC Dextromethorphan/ Quinidine (Nuedexta 20-10 Mg Capsule) 1 cap DAILY PO Last administered on 06/17/17at 08:55; Start 06/11/17 at 09:00; Stop 06/17/17 at 14:00 ; Status DC Quetiapine Fumarate (SEROquel) 12.5 mg BID@0900,1700 PO Last administered on at 08:35; Start 06/12/17 at 09:00; Stop 06/19/17 at 15:07; Status DC Quetiapine Fumarate (SEROquel) 25 mg DAILY@1400 PO Last administered on at 13:02; Start 06/12/17 at 14:00; Stop 06/19/17 at 15:07; Status DC Mirtazapine (Remeron) 15 mg QHS PO Last administered on 07/07/17 19:57; Start 06/13/17 at 21:00 Trazodone HCl (Desyrel) 100 mg QHS PO Last administered on 07/07/17 19:56; Start 06/13/17 at 21:00 Trazodone HCl (Desyrel) 100 mg PRN QHS PRN PO INSOMNIA Last administered on 07/04at 22:39; Start 06/13/17 at 18:15 Dextromethorphan/ Quinidine (Nuedexta 20-10 Mg Capsule) 1 cap BID PO Last administered on 07/07/17 19:58; Start 06/18/17 at 09:00 Quetiapine Fumarate (SEROquel) 12.5 mg DAILY@1700 PO Last administered on at 16:48; Start 06/19/17 at 17:00; Stop 06/26/17 at 10:37; Status DC Quetiapine Fumarate (SEROquel) 25 mg BID92 PO Last administered on 06/26/17at 08 :39; Start 06/20/17 at 09:00; Stop 06/26/17 at 10:37; Status DC Nitrofurantoin Macrocrystals (Macrobid) 100 mg BID PO Last administered on 07/01at 08:38; Start 06/21/17 at 19:00; Stop 07/01/17 at 18:17; Status DC Olanzapine (ZyPREXA ZYDIS) 2.5 mg PRN Q2HR PRN PO PSYCHOSIS Last administered on 07/07/17at 11:16; Start 06/24/17 at 18:30 Divalproex Sodium (Depakote Sprinkles) 125 mg DAILY@1400 PO Last administered on 07/07/17at 13:07; Start 06/26/17 at 14:00 Quetiapine Fumarate (SEROquel) 25 mg TID@0900,1400,1700 PO Last administered on 06/28/17at 18:07; Start 06/26/17 at 14:00; Stop 06/28/17 at 19:28; Status DC Divalproex Sodium (Depakote Sprinkles) 250 mg BID PO Last administered on at 19:56; Start 06/26/17 at 21:00 Quetiapine Fumarate (SEROquel) 37.5 mg TID@0900,1400,1700 PO Last administered on 07/07/17at 16:41; Start 06/29/17 at 09:00; Stop 07/07/17 at 18:51; Status DC Iohexol (Omnipaque 240 Mg/ml) 30 ml 1X ONCE PO ; Start 07/06/17 at 11:45; Stop 07/06/17 at 11:46; Status DC Quetiapine Fumarate (SEROquel) 50 mg BID@0900,1700 PO ; Start 07/08/17 at 09:00 Quetiapine Fumarate (SEROquel) 37.5 mg DAILY@1400 PO ; Start 07/08/17 at 14:00 Active Scripts Active Reported Trazodone Hcl 50 Mg Tablet 50 Mg PO QHS Meloxicam 7.5 Mg Tablet 7.5 Mg PO DAILY Milk Of Magnesia (Magnesium Hydroxide) 2,400 Mg/10 Ml Oral.susp 2,400 Mg PO PRN Q12HR PRN Lamotrigine 25 Mg Tablet 25 Mg PO DAILY Culturelle Capsule (L. Rhamnosus GG/Inulin) 1 Each Cap.sprink 1 Each PO DAILY Haloperidol 2 Mg Tablet 1 Mg PO PRN BID PRN Escitalopram Oxalate 10 Mg Tablet 10 Mg PO DAILY Lovenox (Enoxaparin Sodium) 40 Mg/0.4 Ml Disp.syrin 40 Mg SQ DAILY Atorvastatin Calcium 40 Mg Tablet 40 Mg PO QHS Abilify (Aripiprazole) 5 Mg Tablet 5 Mg PO DAILY Maalox Advanced Suspension (Mag Hydrox/Aluminum Hyd/Simeth) 355 Ml Oral.susp 30 Ml PO PRN Q3HRS PRN Alprazolam 0.5 Mg Tablet 0.5 Mg PO PRN TID PRN Tylenol (Acetaminophen) 325 Mg Tablet 650 Mg PO PRN Q6HRS PRN Tylenol (Acetaminophen) 325 Mg Tablet 650 Mg PO QID I have reviewed the current psychotropics carefully including drug interactions. Risk benefit ratio favors no change other than as noted in my dictated progress note. Diagnosis: Problems: (1) Anxiety disorder (2) Impulse control disorder (3) Dementia, vascular, with depression (4) Dementia, vascular, with delusions (5) Bipolar 1 disorder, mixed, moderate (6) Dementia in Alzheimer's disease with depression (7) Dementia in Alzheimer's disease with delusions CHARLEY MCCLURE MD Jul 07, 2017 21:23
[2017-07-08 05:56] VITALS: BP 134/78
--- NOTE | 2017-07-08 06:04 | PN ---
DATE: 07/06/2017 This is a late entry for 07/06/2017 and covers the elements not covered in my initial note of 07/06/2017. SUBJECTIVE: I met with the patient evening of 07/06/2017. Reviewed information from Dr. Hayes who covered for me for the past several days. The patient is still somewhat labile, med compliant, received p.r.n.'s x 2, lability increases in the evening, valproic acid level on 07/06/2017 is 47. REVIEW OF SYSTEMS: Ambulation impaired, in wheelchair. No CV, , pulmonary, eye, ENT system symptoms on review. Reliability poor. MENTAL STATUS EXAM: Oriented to herself. Insight, judgment, recent and remote memory, attention, concentration, fund of knowledge poor, consistent with her diagnosis mentioned in my initial note. IMPRESSION: Major neurocognitive disorder, Alzheimer, vascular with depression, delusion, behavioral disturbance. PLAN: Increase Seroquel from 37.5 mg 3 times a day to 50 mg 3 times a day. Continue rest unchanged. MAN Sean MCCLURE MD DR: IRENE/bora JOB#: [id number] / [id number]
[2017-07-08] MEDS: SERTRALINE 50 MG TABLET. PO SCH (08:36)
[2017-07-08] MEDS: ACETAMINOPHEN 325 MG TABLET PO SCH ×4 (08:36→19:45)
[2017-07-08] MEDS: MELOXICAM 7.5 MG TABLET PO SCH ×3 (08:36→08:55)
[2017-07-08] MEDS: LACTOBACILLUS RHAMNOSUS GG 1 CAPSULE. PO SCH (08:36)
[2017-07-08] MEDS: DIVALPROEX 125 MG CAP.SPRINK PO SCH ×3 (08:36→19:45)
[2017-07-08] MEDS: DEXTROMETHORPHAN/QUINIDINE 20/10MG CAPSULE. PO SCH ×2 (08:39→19:45)
[2017-07-08] MEDS: QUEtiapine 50 MG TABLET. PO SCH ×2 (08:39→17:14)
[2017-07-08] MEDS ORDERED: QUEtiapine 25 MG TABLET. PO SCH (14:00)
[2017-07-08 15:54] VITALS: BP 113/66
[2017-07-08] MEDS: CYANOCOBALAMIN (VITAMIN B-12) 250 MCG TABLET PO SCH (17:14)
[2017-07-08] MEDS: traZODone 100 MG TABLET. PO SCH (19:45)
[2017-07-08] MEDS: MIRTAZAPINE 15 MG TABLET PO SCH (19:45)
[2017-07-08] MEDS: ATORVASTATIN CALCIUM 20 MG TABLET PO SCH (19:45)
--- NOTE | 2017-07-08 20:19 | PDOC ---
Exam Note: Martin Note: Please also refer to the separate dictated note~for this date of service dictated separately.~Patient seen individually. Discussed the patient with Nursing staff reviewed the chart.~Reviewed interim history and current functioning. Reviewed vital signs,~Labs/ Radiology~and current medications noted below. Continue current treatment with the changes noted in the dictated addendum note Assessment: Vital Signs: Vital Signs Date Time Temp Pulse Resp B/P (MAP) Pulse Ox O2 Delivery O2 Flow Rate FiO2 07/08/17 15:54 98.9 64 18 113/66 (82) 100 07/06/17 06:18 Room Air I&O Intake and Output 07/08/17 07:00 Intake Total 1440 ml Balance 1440 ml Intake Oral 1440 ml # Bowel Movements 1 Current Medications: Meds: Current Medications Acetaminophen (Tylenol) 650 mg PRN Q6HRS PRN PO PAIN / TEMP Last administered on 06/06/17 06:16; Start 05/28/17 at 23:00 Multi-Ingredient Ointment (Analgesic [place]) 1 faraz PRN QID PRN TP MUSCLE PAIN; Start 05/28/17 at 23:00 Al Hydroxide/Mg Hydroxide (Mylanta Plus Xs) 15 ml PRN AFTMEALHC PRN PO DYSPEPSIA; Start 05/28/17 at 23:00 Magnesium Hydroxide (Milk Of Magnesia) 2,400 mg PRN QHS PRN PO CONSTIPATION Last administered on 06/21/17 16:59; Start 05/28/17 at 23:00 Alprazolam (Xanax) 0.5 mg PRN TID PRN PO ANXIETY / AGITATION Last administered on 07/07/17 15:38; Start 05/29/17 at 00:15 Aripiprazole (Abilify) 5 mg DAILY PO Last administered on 05/30/17t 08:34; Start 05/29/17 at 09:00; Stop 05/30/17 at 17:17; Status DC Haloperidol (Haldol) 1 mg PRN BID PRN PO DELIRIUM Last administered on 23:21; Start 05/29/17 at 00:15; Stop 06/24/17 at 18:20; Status DC Trazodone HCl (Desyrel) 50 mg QHS PO Last administered on 1/11/18at 19:54; Start 05/29/17 at 21:00; Stop 06/13/17 at 18:13; Status DC Citalopram Hydrobromide (CeleXA) 20 mg DAILY PO Last administered on 06/09/17 07:49; Start 05/29/17 at 09:00; Stop 06/09/17 at 18:00; Status DC Influenza Virus Vaccine Quadrival (Fluarix Quad [id number] Syringe) 0.5 ml ONCE ONCE VAX IM Last administered on 05/29/17 09:47; Start 05/29/17 at 09:00; Stop 05/29/17 at 09:01; Status DC Pneumococcal Polyvalent Vaccine (Pneumovax 23) 0.5 ml ONCE ONCE VAX IM Last administered on 05/29/17 09:45; Start 05/29/17 at 09:00; Stop 05/31/17 at 14 :59; Status DC Info (FLU VACCINE per PROTOCOL) 1 ea PRN 1X PRN MC PER PROTOCOL; Start at 02:15; Status Cancel Pneumococcal Polyvalent Vaccine (Do NOT chart on this entry -- for MONITORING) 1 each PRN 1X PRN MC SEE COMMENTS; Start 05/29/17 at 02:15; Status Cancel Acetaminophen (Tylenol) 650 mg PRN Q6HRS PRN PO PAIN / TEMP; Start 05/29/17 at 05:45; Stop 05/29/17 at 12:08; Status DC Acetaminophen (Tylenol) 650 mg QID PO Last administered on 07/08/17 19:45; Start 05/29/17 at 09:00 Enoxaparin Sodium (Lovenox) 40 mg DAILY SQ Last administered on 05/29/17 09: 41; Start 05/29/17 at 09:00; Stop 05/29/17 at 12:08; Status DC Lamotrigine (LaMICtal) 25 mg DAILY PO Last administered on 06/04/17 08:43; Start 05/29/17 at 09:00; Stop 06/04/17 at 12:17; Status DC Meloxicam (Mobic) 7.5 mg DAILY PO Last administered on 07/07/17 09:17; Start 05/29/17 at 09:00 Atorvastatin Calcium (Lipitor) 40 mg QHS PO Last administered on 07/08/17 19:45 ; Start 05/29/17 at 21:00 Lactobacillus Rhamnosus (Culturelle) 1 cap DAILY PO Last administered on 08:36; Start 05/29/17 at 09:00 Magnesium Hydroxide (Milk Of Magnesia) 2,400 mg PRN Q12HR PRN PO CONSTIPATION; Start 05/29/17 at 05:45; Stop 05/29/17 at 12:08; Status DC Potassium Chloride (Klor-Con) 40 meq 1X ONCE PO Last administered on 13:40; Start 05/29/17 at 12:00; Stop 05/29/17 at 12:11; Status DC Quetiapine Fumarate (SEROquel) 12.5 mg BID@0900,1300 PO Last administered on 07:50; Start 05/31/17 at 09:00; Stop 06/01/17 at 11:11; Status DC Cyanocobalamin (Vitamin B-12) 250 mcg DAILYBFRSUP PO Last administered on 17:14; Start 05/31/17 at 17:00 Vitamin D (Vitamin D3) 50,000 unit WEEKLY PO Last administered on 07/05/17 07: 51; Start 05/31/17 at 11:45 Quetiapine Fumarate (SEROquel) 12.5 mg TID@0900,1400,1700 PO Last administered on 06/11/17 17:02; Start 06/01/17 at 14:00; Stop 06/11/17 at 17:36; Status DC Trazodone HCl (Desyrel) 50 mg PRN QHS PRN PO INSOMNIA Last administered on 22:18; Start 06/02/17 at 19:00; Stop 06/13/17 at 18:13; Status DC Divalproex Sodium (Depakote Sprinkles) 125 mg BID@0900,1400 PO Last administered on 06/09/17 13:31; Start 06/05/17 at 09:00; Stop 06/09/17 at 18:00; Status DC Divalproex Sodium (Depakote Sprinkles) 125 mg TID PO Last administered on 08:38; Start 06/09/17 at 21:00; Stop 06/26/17 at 10:37; Status DC Sertraline HCl (Zoloft) 50 mg DAILY PO Last administered on 07/08/17at 08:36; Start 06/10/17 at 09:00 Mirtazapine (Remeron) 7.5 mg QHS PO Last administered on 06/12/17at 19:54; Start 06/09/17 at 21:00; Stop 06/13/17 at 18:13; Status DC Dextromethorphan/ Quinidine (Nuedexta 20-10 Mg Capsule) 1 cap DAILY PO Last administered on 06/17/17at 08:55; Start 06/11/17 at 09:00; Stop 06/17/17 at 14:00 ; Status DC Quetiapine Fumarate (SEROquel) 12.5 mg BID@0900,1700 PO Last administered on at 08:35; Start 06/12/17 at 09:00; Stop 06/19/17 at 15:07; Status DC Quetiapine Fumarate (SEROquel) 25 mg DAILY@1400 PO Last administered on at 13:02; Start 06/12/17 at 14:00; Stop 06/19/17 at 15:07; Status DC Mirtazapine (Remeron) 15 mg QHS PO Last administered on 07/08/17at 19:45; Start 06/13/17 at 21:00 Trazodone HCl (Desyrel) 100 mg QHS PO Last administered on 07/08/17 19:45; Start 06/13/17 at 21:00 Trazodone HCl (Desyrel) 100 mg PRN QHS PRN PO INSOMNIA Last administered on 07/04at 22:39; Start 06/13/17 at 18:15 Dextromethorphan/ Quinidine (Nuedexta 20-10 Mg Capsule) 1 cap BID PO Last administered on 07/08/17at 19:45; Start 06/18/17 at 09:00 Quetiapine Fumarate (SEROquel) 12.5 mg DAILY@1700 PO Last administered on at 16:48; Start 06/19/17 at 17:00; Stop 06/26/17 at 10:37; Status DC Quetiapine Fumarate (SEROquel) 25 mg BID92 PO Last administered on 06/26/17at 08 :39; Start 06/20/17 at 09:00; Stop 06/26/17 at 10:37; Status DC Nitrofurantoin Macrocrystals (Macrobid) 100 mg BID PO Last administered on 07/01at 08:38; Start 06/21/17 at 19:00; Stop 07/01/17 at 18:17; Status DC Olanzapine (ZyPREXA ZYDIS) 2.5 mg PRN Q2HR PRN PO PSYCHOSIS Last administered on 07/08/17at 11:03; Start 06/24/17 at 18:30 Divalproex Sodium (Depakote Sprinkles) 125 mg DAILY@1400 PO Last administered on 07/08/17at 14:00; Start 06/26/17 at 14:00 Quetiapine Fumarate (SEROquel) 25 mg TID@0900,1400,1700 PO Last administered on 06/28/17at 18:07; Start 06/26/17 at 14:00; Stop 06/28/17 at 19:28; Status DC Divalproex Sodium (Depakote Sprinkles) 250 mg BID PO Last administered on at 19:45; Start 06/26/17 at 21:00 Quetiapine Fumarate (SEROquel) 37.5 mg TID@0900,1400,1700 PO Last administered on 07/07/17at 16:41; Start 06/29/17 at 09:00; Stop 07/07/17 at 18:51; Status DC Iohexol (Omnipaque 240 Mg/ml) 30 ml 1X ONCE PO ; Start 07/06/17 at 11:45; Stop 07/06/17 at 11:46; Status DC Quetiapine Fumarate (SEROquel) 50 mg BID@0900,1700 PO Last administered on at 17:14; Start 07/08/17 at 09:00 Quetiapine Fumarate (SEROquel) 37.5 mg DAILY@1400 PO Last administered on at 13:59; Start 07/08/17 at 14:00 Active Scripts Active Reported Trazodone Hcl 50 Mg Tablet 50 Mg PO QHS Meloxicam 7.5 Mg Tablet 7.5 Mg PO DAILY Milk Of Magnesia (Magnesium Hydroxide) 2,400 Mg/10 Ml Oral.susp 2,400 Mg PO PRN Q12HR PRN Lamotrigine 25 Mg Tablet 25 Mg PO DAILY Culturelle Capsule (L. Rhamnosus GG/Inulin) 1 Each Cap.sprink 1 Each PO DAILY Haloperidol 2 Mg Tablet 1 Mg PO PRN BID PRN Escitalopram Oxalate 10 Mg Tablet 10 Mg PO DAILY Lovenox (Enoxaparin Sodium) 40 Mg/0.4 Ml Disp.syrin 40 Mg SQ DAILY Atorvastatin Calcium 40 Mg Tablet 40 Mg PO QHS Abilify (Aripiprazole) 5 Mg Tablet 5 Mg PO DAILY Maalox Advanced Suspension (Mag Hydrox/Aluminum Hyd/Simeth) 355 Ml Oral.susp 30 Ml PO PRN Q3HRS PRN Alprazolam 0.5 Mg Tablet 0.5 Mg PO PRN TID PRN Tylenol (Acetaminophen) 325 Mg Tablet 650 Mg PO PRN Q6HRS PRN Tylenol (Acetaminophen) 325 Mg Tablet 650 Mg PO QID I have reviewed the current psychotropics carefully including drug interactions. Risk benefit ratio favors no change other than as noted in my dictated progress note. Diagnosis: Problems: (1) Anxiety disorder (2) Impulse control disorder (3) Dementia, vascular, with depression (4) Dementia, vascular, with delusions (5) Bipolar 1 disorder, mixed, moderate (6) Dementia in Alzheimer's disease with depression (7) Dementia in Alzheimer's disease with delusions CHARLEY MCCLURE MD Jul 08, 2017 20:19
[2017-07-08] MEDS: traZODone 100 MG TABLET. PO PRN (22:45)
[2017-07-08] MEDS: ALPRAZolam 0.5 MG TABLET PO PRN (22:46)
--- NOTE | 2017-07-09 00:08 | PN ---
DATE: 07/07/2017 This is a late entry for 07/07/2017 and covers the elements not covered in my initial note of 07/07/2017. SUBJECTIVE: I met with the patient in the evening of 07/07/2017. The patient slept 7-3/4 hours previous evening, compliant with medications, anxious with crying spells all day, received Zyprexa at 11:15 a.m., seemed to help. REVIEW OF SYSTEMS: Ambulation impaired, in wheelchair. No CV, , pulmonary, eye, ENT system symptoms on review. Reliability poor. MENTAL STATUS EXAM: Oriented to herself. Insight, judgment, recent and remote memory, attention, concentration, fund of knowledge poor, consistent with her diagnosis mentioned in my initial note. IMPRESSION: Major neurocognitive disorder, Alzheimer, vascular with depression, delusion, behavioral disturbance. Rest unchanged. PLAN: Increase the 9:00 a.m. and 1700 dosage Seroquel from 37.5 mg to 50 mg. Continue Rest unchanged. Hopefully, the increased Seroquel will help with the mood lability and we will reconsider increasing the Depakote since the level is slightly low at 47. MAN Sean MCCLURE MD DR: IRENE/bora JOB#: [id number] / [id number]
[2017-07-09] MEDS ORDERED: CHOL500021 PO (01:16)
[2017-07-09] MEDS ORDERED: CYAN250T PO (01:17)
[2017-07-09] MEDS ORDERED: DEXT1CAP PO (01:19)
[2017-07-09] MEDS ORDERED: DIVA125C PO ×2 (01:20)
[2017-07-09] MEDS ORDERED: METH29OI TP (01:21)
[2017-07-09] MEDS ORDERED: MIRT15TA3 PO (01:22)
[2017-07-09] MEDS ORDERED: OLAN5TAB5 PO (01:23)
[2017-07-09] MEDS ORDERED: QUET50TA5 PO (01:24)
[2017-07-09] MEDS ORDERED: SERT50TA PO (01:25)
[2017-07-09] MEDS ORDERED: QUET25TA5 PO (01:25)
[2017-07-09] MEDS ORDERED: TRAZ-90 PO ×2 (01:25→01:26)
[2017-07-09 06:20] VITALS: BP 108/60
[2017-07-09] MEDS: LACTOBACILLUS RHAMNOSUS GG 1 CAPSULE. PO SCH (08:35)
[2017-07-09] MEDS: QUEtiapine 50 MG TABLET. PO SCH (08:35)
[2017-07-09] MEDS: DEXTROMETHORPHAN/QUINIDINE 20/10MG CAPSULE. PO SCH (08:35)
[2017-07-09] MEDS: ACETAMINOPHEN 325 MG TABLET PO SCH (08:36)
[2017-07-09] MEDS: MELOXICAM 7.5 MG TABLET PO SCH (08:36)
[2017-07-09] MEDS: SERTRALINE 50 MG TABLET. PO SCH (08:36)
[2017-07-09] MEDS: DIVALPROEX 125 MG CAP.SPRINK PO SCH (08:36)
[2017-07-09] MEDS: ALPRAZolam 0.5 MG TABLET PO PRN (08:37)
--- NOTE | 2017-07-09 19:08 | PDOC ---
Exam Note: Martin Note: Please also refer to the separate dictated note~for this date of service dictated separately.~Patient seen individually. Discussed the patient with Nursing staff reviewed the chart.~Reviewed interim history and current functioning. Reviewed vital signs,~Labs/ Radiology~and current medications noted below. Continue current treatment with the changes noted in the dictated addendum note Assessment: Vital Signs: Vital Signs Date Time Temp Pulse Resp B/P (MAP) Pulse Ox O2 Delivery O2 Flow Rate FiO2 07/09/17 06:20 97.9 69 16 108/60 (76) 99 07/06/17 06:18 Room Air I&O Intake and Output 07/09/17 07:00 Intake Total 960 ml Balance 960 ml Intake Oral 960 ml Current Medications: Meds: Current Medications Acetaminophen (Tylenol) 650 mg PRN Q6HRS PRN PO PAIN / TEMP Last administered on 06/06/17at 06:16; Start 05/28/17 at 23:00; Stop 07/09/17 at 11:38; Status DC Multi-Ingredient Ointment (Analgesic [place]) 1 nael PRN QID PRN TP MUSCLE PAIN; Start 05/28/17 at 23:00; Stop 07/09/17 at 11:38; Status DC Al Hydroxide/Mg Hydroxide (Mylanta Plus Xs) 15 ml PRN AFTMEALHC PRN PO DYSPEPSIA; Start 05/28/17 at 23:00; Stop 07/09/17 at 11:38; Status DC Magnesium Hydroxide (Milk Of Magnesia) 2,400 mg PRN QHS PRN PO CONSTIPATION Last administered on 06/21/17at 16:59; Start 05/28/17 at 23:00; Stop 07/09/17 at 11:38; Status DC Alprazolam (Xanax) 0.5 mg PRN TID PRN PO ANXIETY / AGITATION Last administered on 07/09/17at 08:37; Start 05/29/17 at 00:15; Stop 07/09/17 at 11:38; Status DC Aripiprazole (Abilify) 5 mg DAILY PO Last administered on 05/30/17t 08:34; Start 05/29/17 at 09:00; Stop 05/30/17 at 17:17; Status DC Haloperidol (Haldol) 1 mg PRN BID PRN PO DELIRIUM Last administered on 23:21; Start 05/29/17 at 00:15; Stop 06/24/17 at 18:20; Status DC Trazodone HCl (Desyrel) 50 mg QHS PO Last administered on 06/12/17at 19:54; Start 05/29/17 at 21:00; Stop 06/13/17 at 18:13; Status DC Citalopram Hydrobromide (CeleXA) 20 mg DAILY PO Last administered on 06/09/17 07:49; Start 05/29/17 at 09:00; Stop 06/09/17 at 18:00; Status DC Influenza Virus Vaccine Quadrival (Fluarix Quad [id number] Syringe) 0.5 ml ONCE ONCE VAX IM Last administered on 05/29/17 09:47; Start 05/29/17 at 09:00; Stop 05/29/17 at 09:01; Status DC Pneumococcal Polyvalent Vaccine (Pneumovax 23) 0.5 ml ONCE ONCE VAX IM Last administered on 05/29/17 09:45; Start 05/29/17 at 09:00; Stop 05/31/17 at 14 :59; Status DC Info (FLU VACCINE per PROTOCOL) 1 ea PRN 1X PRN MC PER PROTOCOL; Start at 02:15; Status Cancel Pneumococcal Polyvalent Vaccine (Do NOT chart on this entry -- for MONITORING) 1 each PRN 1X PRN MC SEE COMMENTS; Start 05/29/17 at 02:15; Status Cancel Acetaminophen (Tylenol) 650 mg PRN Q6HRS PRN PO PAIN / TEMP; Start 05/29/17 at 05:45; Stop 05/29/17 at 12:08; Status DC Acetaminophen (Tylenol) 650 mg QID PO Last administered on 07/09/17 08:36; Start 05/29/17 at 09:00; Stop 07/09/17 at 11:38; Status DC Enoxaparin Sodium (Lovenox) 40 mg DAILY SQ Last administered on 05/29/17 09: 41; Start 05/29/17 at 09:00; Stop 05/29/17 at 12:08; Status DC Lamotrigine (LaMICtal) 25 mg DAILY PO Last administered on 06/04/17 08:43; Start 05/29/17 at 09:00; Stop 06/04/17 at 12:17; Status DC Meloxicam (Mobic) 7.5 mg DAILY PO Last administered on 07/09/17 08:36; Start 05/29/17 at 09:00; Stop 07/09/17 at 11:38; Status DC Atorvastatin Calcium (Lipitor) 40 mg QHS PO Last administered on 07/08/17 19:45 ; Start 05/29/17 at 21:00; Stop 07/09/17 at 11:38; Status DC Lactobacillus Rhamnosus (Culturelle) 1 cap DAILY PO Last administered on 08:35; Start 05/29/17 at 09:00; Stop 07/09/17 at 11:38; Status DC Magnesium Hydroxide (Milk Of Magnesia) 2,400 mg PRN Q12HR PRN PO CONSTIPATION; Start 05/29/17 at 05:45; Stop 05/29/17 at 12:08; Status DC Potassium Chloride (Klor-Con) 40 meq 1X ONCE PO Last administered on t 13:40; Start 05/29/17 at 12:00; Stop 05/29/17 at 12:11; Status DC Quetiapine Fumarate (SEROquel) 12.5 mg BID@0900,1300 PO Last administered on 07:50; Start 05/31/17 at 09:00; Stop 06/01/17 at 11:11; Status DC Cyanocobalamin (Vitamin B-12) 250 mcg DAILYBFRSUP PO Last administered on 17:14; Start 05/31/17 at 17:00; Stop 07/09/17 at 11:38; Status DC Vitamin D (Vitamin D3) 50,000 unit WEEKLY PO Last administered on 07/05/17 07: 51; Start 05/31/17 at 11:45; Stop 07/09/17 at 11:38; Status DC Quetiapine Fumarate (SEROquel) 12.5 mg TID@0900,1400,1700 PO Last administered on 06/11/17 17:02; Start 06/01/17 at 14:00; Stop 06/11/17 at 17:36; Status DC Trazodone HCl (Desyrel) 50 mg PRN QHS PRN PO INSOMNIA Last administered on at 22:18; Start 06/02/17 at 19:00; Stop 06/13/17 at 18:13; Status DC Divalproex Sodium (Depakote Sprinkles) 125 mg BID@0900,1400 PO Last administered on 06/09/17at 13:31; Start 06/05/17 at 09:00; Stop 06/09/17 at 18:00; Status DC Divalproex Sodium (Depakote Sprinkles) 125 mg TID PO Last administered on at 08:38; Start 06/09/17 at 21:00; Stop 06/26/17 at 10:37; Status DC Sertraline HCl (Zoloft) 50 mg DAILY PO Last administered on 07/09/17at 08:36; Start 06/10/17 at 09:00; Stop 07/09/17 at 11:38; Status DC Mirtazapine (Remeron) 7.5 mg QHS PO Last administered on 06/12/17at 19:54; Start 06/09/17 at 21:00; Stop 06/13/17 at 18:13; Status DC Dextromethorphan/ Quinidine (Nuedexta 20-10 Mg Capsule) 1 cap DAILY PO Last administered on 06/17/17at 08:55; Start 06/11/17 at 09:00; Stop 06/17/17 at 14:00 ; Status DC Quetiapine Fumarate (SEROquel) 12.5 mg BID@0900,1700 PO Last administered on at 08:35; Start 06/12/17 at 09:00; Stop 06/19/17 at 15:07; Status DC Quetiapine Fumarate (SEROquel) 25 mg DAILY@1400 PO Last administered on at 13:02; Start 06/12/17 at 14:00; Stop 06/19/17 at 15:07; Status DC Mirtazapine (Remeron) 15 mg QHS PO Last administered on 07/08/17at 19:45; Start 06/13/17 at 21:00; Stop 07/09/17 at 11:38; Status DC Trazodone HCl (Desyrel) 100 mg QHS PO Last administered on 07/08/17at 19:45; Start 06/13/17 at 21:00; Stop 07/09/17 at 11:38; Status DC Trazodone HCl (Desyrel) 100 mg PRN QHS PRN PO INSOMNIA Last administered on 07/08 22:45; Start 06/13/17 at 18:15; Stop 07/09/17 at 11:38; Status DC Dextromethorphan/ Quinidine (Nuedexta 20-10 Mg Capsule) 1 cap BID PO Last administered on 07/09/17at 08:35; Start 06/18/17 at 09:00; Stop 07/09/17 at 11:38; Status DC Quetiapine Fumarate (SEROquel) 12.5 mg DAILY@1700 PO Last administered on at 16:48; Start 06/19/17 at 17:00; Stop 06/26/17 at 10:37; Status DC Quetiapine Fumarate (SEROquel) 25 mg BID92 PO Last administered on 06/26/17at 08 :39; Start 06/20/17 at 09:00; Stop 06/26/17 at 10:37; Status DC Nitrofurantoin Macrocrystals (Macrobid) 100 mg BID PO Last administered on 07/01at 08:38; Start 06/21/17 at 19:00; Stop 07/01/17 at 18:17; Status DC Olanzapine (ZyPREXA ZYDIS) 2.5 mg PRN Q2HR PRN PO PSYCHOSIS Last administered on 07/08/17 11:03; Start 06/24/17 at 18:30; Stop 07/09/17 at 11:38; Status DC Divalproex Sodium (Depakote Sprinkles) 125 mg DAILY@1400 PO Last administered on 07/08/17at 14:00; Start 06/26/17 at 14:00; Stop 07/09/17 at 11:38; Status DC Quetiapine Fumarate (SEROquel) 25 mg TID@0900,1400,1700 PO Last administered on 06/28/17at 18:07; Start 06/26/17 at 14:00; Stop 06/28/17 at 19:28; Status DC Divalproex Sodium (Depakote Sprinkles) 250 mg BID PO Last administered on at 08:36; Start 06/26/17 at 21:00; Stop 07/09/17 at 11:38; Status DC Quetiapine Fumarate (SEROquel) 37.5 mg TID@0900,1400,1700 PO Last administered on 07/07/17at 16:41; Start 06/29/17 at 09:00; Stop 07/07/17 at 18:51; Status DC Iohexol (Omnipaque 240 Mg/ml) 30 ml 1X ONCE PO ; Start 07/06/17 at 11:45; Stop 07/06/17 at 11:46; Status DC Quetiapine Fumarate (SEROquel) 50 mg BID@0900,1700 PO Last administered on at 08:35; Start 07/08/17 at 09:00; Stop 07/09/17 at 11:38; Status DC Quetiapine Fumarate (SEROquel) 37.5 mg DAILY@1400 PO Last administered on at 13:59; Start 07/08/17 at 14:00; Stop 07/09/17 at 11:38; Status DC Active Scripts Active Reported Trazodone Hcl 100 Mg Tablet 100 Mg PO PRN QHS PRN Trazodone Hcl 100 Mg Tablet 100 Mg PO QHS Zoloft (Sertraline Hcl) 50 Mg Tablet 50 Mg PO DAILY Seroquel (Quetiapine Fumarate) 25 Mg Tablet 37.5 Mg PO DAILY@1400 Seroquel (Quetiapine Fumarate) 50 Mg Tablet 50 Mg PO BID@0900,1700 Zyprexa Zydis (Olanzapine) 5 Mg Tab.rapdis 2.5 Mg PO PRN Q2HR PRN Mirtazapine 15 Mg Tablet 15 Mg PO QHS Analgesic [place] (Methyl Salicylate/Menthol) 28 Gm Oint...g. 1 Nael TP PRN QID PRN Depakote Sprinkle (Divalproex Sodium) 125 Mg Cap.sprink 250 Mg PO BID Depakote Sprinkle (Divalproex Sodium) 125 Mg Cap.sprink 125 Mg PO DAILY@1400 Nuedexta 20-10 Mg Capsule (Dextromethorphan Hbr/Quinidine) 1 Each Capsule 1 Cap PO BID Vitamin B-12 (Cyanocobalamin (Vitamin B-12)) 250 Mcg Tablet 250 Mcg PO DAILYBFRSUP D3-50 (Cholecalciferol (Vitamin D3)) 50,000 Unit Capsule 50,000 Unit PO WEEKLY Meloxicam 7.5 Mg Tablet 7.5 Mg PO DAILY Milk Of Magnesia (Magnesium Hydroxide) 2,400 Mg/10 Ml Oral.susp 2,400 Mg PO PRN Q12HR PRN Culturelle Capsule (L. Rhamnosus GG/Inulin) 1 Each Cap.sprink 1 Each PO DAILY Atorvastatin Calcium 40 Mg Tablet 40 Mg PO QHS Maalox Advanced Suspension (Mag Hydrox/Aluminum Hyd/Simeth) 355 Ml Oral.susp 15 Ml PO PRN AFTMEALHC PRN Alprazolam 0.5 Mg Tablet 0.5 Mg PO PRN TID PRN Tylenol (Acetaminophen) 325 Mg Tablet 650 Mg PO PRN Q6HRS PRN Tylenol (Acetaminophen) 325 Mg Tablet 650 Mg PO QID I have reviewed the current psychotropics carefully including drug interactions. Risk benefit ratio favors no change other than as noted in my dictated progress note. Diagnosis: Problems: (1) Anxiety disorder (2) Impulse control disorder (3) Dementia, vascular, with depression (4) Dementia, vascular, with delusions (5) Bipolar 1 disorder, mixed, moderate (6) Dementia in Alzheimer's disease with depression (7) Dementia in Alzheimer's disease with delusions CHARLEY MCCLURE MD Jul 09, 2017 19:08
--- NOTE | 2017-07-09 23:25 | PN ---
DATE: 07/08/2017 This is a late entry for 07/08/2017 and covers elements not covered in my initial note of 07/08/2017. I met with the patient the evening of 07/08/2017. The patient remains confused, extremely labile at times, crying, cursing at staff, received Zyprexa at 11:00 a.m., seemed to help. We made multiple changes in her psychotropics so far with limited results. REVIEW OF SYSTEMS: Ambulation impaired, in wheelchair. No CV, , pulmonary, eye, ENT system symptoms on review. MENTAL STATUS EXAM: Oriented to herself. Insight, judgment, recent and remote memory, attention, concentration, fund of knowledge poor, consistent with her diagnosis as mentioned in my initial note. IMPRESSION: Major neurocognitive disorder, Alzheimer, vascular with depression, delusion, behavioral disturbance. Rest unchanged. PLAN: Continue current psychotropics. Adjust further as clinically indicated. CHARLEY MCCLURE MD DR: IRENE/bora JOB#: [id number] / [id number]
--- NOTE | 2017-07-11 20:14 | DS ---
DATE OF DISCHARGE: 07/09/2017 This is a late entry for 07/09/2017, covers elements not covered in my initial note of 07/09/2017. REASON FOR ADMISSION: Please refer to the admission history for details. Briefly, the patient is a 76-year-old female, referred to us from [facility] on account of worsening confusion, agitation, aggressive behavior, decrease in daily function, increased confusion, yelling, verbally abusive, with labile moods. She was delusional, screaming to call the police, believing somebody had abducted her, crying uncontrollably. She has failed outpatient psychiatric interventions. SIGNIFICANT FINDINGS AND CLINICAL COURSE: Following admission, the patient was seen daily individually by myself, followed medically per Dr. Marie/Dr. Styles. She was quite labile in her mood, seemed to have symptoms suggestive of pseudobulbar affect in addition to depression. Adjustments were made in her psychotropics, and despite ongoing mood lability and crying spells, she did better on a combination of Xanax 0.5 mg t.i.d. p.r.n.; Zoloft 50 mg a day; Depakote Sprinkles 250 mg b.i.d., 125 mg at 1400 hours; trazodone 100 mg at bedtime, may repeat x 1; Seroquel 50 mg b.i.d., 37.5 mg at 1400 hours; Remeron 15 mg at bedtime; Nuedexta 20/10 mg b.i.d.; Zyprexa p.r.n. REVIEW OF SYSTEMS: Prior to discharge, on 07/09/2017, ambulation impaired, in wheelchair. No CV, , pulmonary, eye, ENT system symptoms on review. Reliability poor. MENTAL STATUS EXAMINATION: Oriented to herself. Insight, judgment, recent and remote memory, attention, concentration, fund of knowledge poor, consistent with her diagnosis mentioned in my initial note. IMPRESSION: Major neurocognitive disorder; Alzheimer vascular with depression, delusion, behavioral disturbance; anxiety disorder, unspecified; impulse control disorder, unspecified. Rest unchanged from admission. DISCHARGE MEDICATIONS: Please refer to the MRAD. DISCHARGE INSTRUCTIONS: Outpatient psychiatric and medical followup at the shelter. MAN Sean MCCLURE MD DR: IRENE/bora JOB#: [id number] / [id number]
== END 2017-07-09 11:15 | disposition home or self-care (01) | DRG 884 ==
LOC: GEROPSY 22:28
PROVIDERS: ADMIT Psychiatry & Neurology Psychiatry; ATTEND Psychiatry & Neurology Psychiatry
DX: F01.51 Vascular dementia, unspecified severity, with behavioral disturbance (principal); G30.9 Alzheimer's disease, unspecified; D64.9 Anemia, unspecified; F02.81 Dementia in other diseases classified elsewhere, unspecified severity, with behavioral disturbance; F31.62 Bipolar disorder, current episode mixed, moderate; N39.0 Urinary tract infection, site not specified; E87.6 Hypokalemia; G47.00 Insomnia, unspecified; F22 Delusional disorders; F41.9 Anxiety disorder, unspecified; F63.9 Impulse disorder, unspecified; Z79.899 Other long term (current) drug therapy; Z87.891 Personal history of nicotine dependence; Z91.14 Patient's other noncompliance with medication regimen; Z91.81 History of falling; Z87.440 Personal history of urinary (tract) infections; Z88.0 Allergy status to penicillin
CPT/HCPCS: 36415; 80053; 80061; 80164; 81001; 82306; 82607; 83036; 83540; 83550; 83735; 84436; 84443; 84480; 85025; 86593; 87086; 87186; 90686; 90732; 93005; J1650; 97110; 97116; 97530